=== PATIENT | female | born 1970 | race Caucasian/White ===

== ENCOUNTER 2017-02-28 14:22 | Inpatient (IN) | payer BC, OTHER ==
[2017-02-28] MEDS ORDERED: HEPARIN SODIUM,PORCINE 5,000 UNIT/ML 1 ML VIAL IV PRN (22:05)
[2017-02-28] MEDS ORDERED: HEPARIN SODIUM,PORCINE/D5W PMX 25,000 UNIT in DEXTROSE/WATER 1 500ML.BAG IV SCH (22:15)
[2017-02-28 22:26] VITALS: BMI 43.8
[2017-02-28 23:12] LABS: Basophils % (A) 1 %; CH 34.7; CHCM 33.5; Eosinophils # (A) 0.2 k/uL (0-0.7); Eosinophils % (A) 3 %; HCT 38.4 % (34.0-46.0); HDW 2.21; HGB 12.5 gm/dL (11.4-16.0); Luc # (Auto) 0.08; Luc % (Auto) 2; Lymphocytes % (A) 18 %; MCH 33.9 pg (25.0-35.0); MCHC 32.5 g/dL (31.0-37.0); MCV 104.3 fL (80.0-100.0); Macrocytosis Slight; Mean Platelet Volume 7.3; Monocytes # (A) 0.3 k/uL (0-1.0); Monocytes % (A) 6 %; Neutrophils # (A) 4.1 k/uL (1.3-7.7); Neutrophils % (A) 71 %; RBC 3.68 m/uL (3.80-5.40); RDW 14.3 % (11.5-15.5); WBC 5.8 k/uL (3.8-10.6); WBC (Perox) 6.03
[2017-02-28 23:25] LABS: Partial Thromboplastin Time 23.8 sec (22.0-30.0); Prothrombin Time 10.6 sec (9.0-12.0)
[2017-03-01] MEDS: SODIUM CHLORIDE 0.9% 1,000 ML IV SCH (05:45)
[2017-03-01] MEDS: ATORVASTATIN 40 MG TAB PO SCH (06:38)
[2017-03-01] MEDS: METOPROLOL TARTRATE 25 MG TAB PO SCH ×2 (06:38→20:21)
[2017-03-01] MEDS ORDERED: ASPIRIN 81 MG PO SCH (09:00)
[2017-03-01] MEDS ORDERED: NITROGLYCERIN SL TABS 0.4 MG TAB SUBLINGUAL PRN (10:18)
[2017-03-01] MEDS ORDERED: ALPRAZolam 0.25 MG TAB PO PRN (10:18)
[2017-03-01] MEDS ORDERED: SODIUM CHLORIDE 0.9% 1,000 ML in EMPTY BAG 1 BAG IV ONE (10:18)
[2017-03-01] MEDS ORDERED: ALPRAZolam 0.5 MG TAB PO PRN (10:18)
[2017-03-01] MEDS ORDERED: ASPIRIN 325 MG TAB PO STA (10:23)
[2017-03-01] MEDS ORDERED: ATORVASTATIN 40 MG TAB PO STA (10:23)
--- NOTE | 2017-03-01 10:53 | P.PN ---
Progress Note - Text Please refer to history and physical that was dictated by Dr. Ayala at [facility] (Scanned into [employer]). Patient seen and examined this morning on rounds with Dr. Ayala. Cardiology is consulted. Patient states she is not having chest pain at this time. Denies difficulty breathing. She remains NPO for cardiac catherization. She remains on a heparin drip. IV fluids are infusing at 50cc/hr. Her blood pressure this morning was 103/64. She was hypotensive at 0400 with a BP of 82/58. She is on room air with oxygen saturations of 100%. She is SB to SR on study specialist. Further recommendations to follow.
[2017-03-01] MEDS ORDERED: MIDAZOLAM 2 MG/2 ML VIAL ONE (11:25)
[2017-03-01] MEDS ORDERED: fentaNYL (PF) 50 MCG/ML 2 ML AMP ONE (11:26)
[2017-03-01] MEDS ORDERED: LIDOCAINE 2% INJ 20 MG/ML (20 ML MDV) ONE (11:26)
[2017-03-01] MEDS ORDERED: MIDAZOLAM 2 MG/2 ML VIAL IV ONE (11:37)
[2017-03-01] MEDS ORDERED: fentaNYL (PF) 50 MCG/ML 2 ML AMP IV ONE (11:37)
[2017-03-01] MEDS ORDERED: LIDOCAINE 2% INJ 20 MG/ML SQ ONE (11:40)
[2017-03-01] MEDS ORDERED: SODIUM CHLORIDE 0.9% 1,000 ML IV ONE (11:43)
[2017-03-01] MEDS ORDERED: IODIXANOL 320 MG/ML 100 ML INTRAARTER ONE (12:01)
[2017-03-01] MEDS ORDERED: RX INFO: IV CONTRAST WAS GIVEN 1 EACH MISC MISCELLANE PRN (12:12)
[2017-03-01] MEDS: ASPIRIN 81 MG PO SCH (12:49)
[2017-03-01] MEDS: CLOPIDOGREL 75 MG TAB PO SCH (12:49)
--- NOTE | 2017-03-01 13:14 | CC ---
CARDIAC CATHETERIZATION REPORT Ms. Shultz is a 46-year-old female, who initially presented to [facility] with symptoms of chest pain and nausea and diaphoresis. Patient's initial troponin was normal. Subsequent troponin went up to 4.79 and the third troponin was 4.0. Patient did not have any more chest pain. The CT scan of the chest done at [facility] did not show any evidence of pulmonary embolism. The patient was transferred here for cardiac catheterization. The patient's echocardiogram was normal and EKG did not show any edema changes. The second EKG showed mild T-wave inversions in the inferior leads. PROCEDURE: The right groin was prepped and draped in the usual manner and the skin was infiltrated with 2% Xylocaine. The right femoral artery was entered using Seldinger technique. A #6-Taiwanese sheath was placed in. Selective coronary angiography was then performed in multiple projections and the left ventriculography was performed in 30 degree OSHEA projection. Patient tolerated the procedure well. HEMODYNAMICS: Left ventricular end-diastolic pressure is 12 to 16 mmHg prior to angiography. No gradient is noted across the aortic valve. SELECTIVE CORONARY ANGIOGRAPHY: Left main coronary artery is normally and patent. LAD is a good caliber blood vessel and uses a good size diagonal branch. LAD and its branches are normal. Left circumflex coronary artery is normal. Right coronary artery small nondominant. Left ventriculography reveals normal left ventricular systolic function. FINAL IMPRESSION: 1. This study reveals normal coronary arteries. 2. Left ventriculography reveals normal left ventricular systolic function. Exact etiology of this patient's elevated troponin is unclear. There is no evidence of any pulmonary embolism. It is impossible whether patient had any coronary vasospasm or plaque rupture. We will treat the patient with aspirin, Plavix, Lipitor and Cardizem. If possible we will try to get an MRI as an outpatient. MMODL / IJN: [id number] /
[2017-03-02] MEDS: SODIUM CHLORIDE 0.9% 1,000 ML IV SCH (00:53)
[2017-03-02 06:13] LABS: Basophils % (A) 0 %; CH 33.5; CHCM 31.9; Eosinophils # (A) 0.2 k/uL (0-0.7); Eosinophils % (A) 4 %; HDW 2.22; HGB 12.2 gm/dL (11.4-16.0); Luc # (Auto) 0.05; Luc % (Auto) 1; Lymphocytes # (A) 0.9 k/uL (1.0-4.8); Lymphocytes % (A) 19 %; MCHC 31.3 g/dL (31.0-37.0); MCV 105.5 fL (80.0-100.0); Macrocytosis Moderate; Mean Platelet Volume 6.8; Monocytes # (A) 0.3 k/uL (0-1.0); Monocytes % (A) 6 %; Neutrophils # (A) 3.2 k/uL (1.3-7.7); Neutrophils % (A) 69 %; RDW 13.4 % (11.5-15.5); WBC 4.6 k/uL (3.8-10.6); WBC (Perox) 4.59
[2017-03-02] MEDS: ATORVASTATIN 40 MG TAB PO SCH (09:16)
[2017-03-02] MEDS: CLOPIDOGREL 75 MG TAB PO SCH (09:16)
[2017-03-02] MEDS: ASPIRIN 81 MG PO SCH (09:17)
[2017-03-02] MEDS: METOPROLOL TARTRATE 25 MG TAB PO SCH (09:17)
[2017-03-02 12:33] VITALS: RESP 18
[2017-03-02] MEDS ORDERED: DILTIAZEM CD 180 MG CAP.ER.24H PO STA (12:34)
[2017-03-02 12:38] VITALS: BP 97/71; PULSE 50; TEMP 96.7
--- NOTE | 2017-03-02 13:21 | PN ---
PROGRESS NOTE This patient was admitted with a history suggestive of non-Q-wave myocardial infarction with a maximum troponin of 4.75 was noted. The patient is feeling well. Denies any chest pain. Patient's cardiac catheterization revealed normal coronary arteries. Exact etiology of the patient's elevated troponin, unclear, that could be either secondary to his vasospasm versus plaque rupture. We will continue to treat the patient with aspirin and Plavix, Lipitor and Cardizem. Patient will be followed up with Dr. Luna as an outpatient. A cardiac MRI may be considered as an outpatient. MMODL / IJN: [id number] /
--- NOTE | 2017-03-02 13:37 | P.DS ---
Providers Date of admission: 02/28/17 20:20 Expected date of discharge: 03/02/17 Attending physician: Kg Ayala Consults: 02/28/17 22:01 Consult Physician Routine Consulting Provider: Den Luna Consult Reason/Comments: NSTEMI Do you want consulting provider notified?: Already Contacted Primary care physician: Stated None Hospital Course: 46 year old patient who originally presented to [facility] on with a chief complaint of chest pain. She was transferred to [facility] on 03/01/2017 for further evaluation. Her only history is cervical cancer which she states she was treated with chemo and radiation. No surgical intervention was necessary. The patient does admit to smoking 7-10 cigarettes a day. Patient also smokes marijuana per documented history and physical. Her first troponin was negative, second was 4.79, and third was 4.0. Her echo was normal. Initial EKG did not show any evidence of ischemia. Repeat EKG did show mild t wave inversion in the inferior leads. She underwent a cardiac catherization by Dr. Wyman yesterday, which did not reveal any blockages in her coronary arteries. Per cardiology reports, patient may have had a vasospasm or plaque rupture. Cardiology also recommends possible MRI outpatient. She is stable for discharge home today per Dr. Ayala. Patient is to be discharged home on aspirin, plavix, lipitor, and cardizem. Patient is to follow up with Dr. Ayala and Dr. Wyman. DISCHARGE DIAGNOSIS: -Chest pain, present on admission, resolved -s/p cardiac catherization, showing normal coronary arteries, possible vasospasm or ruptured plaque -Nicotine dependence, patient smokes 7-10 cigarettes daily -History of cervical cancer s/p chemo and radiation -Morbid obesity: BMI 43.6 The above impression and plan of care have been discussed and directed by signing physician. Deedee Huerta, nurse practitioner, acting as scribe for signing physician. Patient Condition at Discharge: Stable Plan - Discharge Summary New Discharge Prescriptions: New Aspirin 81 mg PO DAILY #30 chew Atorvastatin [Lipitor] 40 mg PO DAILY #30 tab Clopidogrel [Plavix] 75 mg PO DAILY #30 tab Nitroglycerin Sl Tabs [Nitrostat] 0.4 mg SUBLINGUAL Q5M PRN #30 tab PRN Reason: Chest Pain Diltiazem Cd [Cardizem CD] 180 mg PO DAILY #90 cap.er.24h Discharge Medication List Aspirin 81 mg PO DAILY #30 chew 03/02/17 [Rx] Atorvastatin [Lipitor] 40 mg PO DAILY #30 tab 03/02/17 [Rx] Clopidogrel [Plavix] 75 mg PO DAILY #30 tab 03/02/17 [Rx] Diltiazem Cd [Cardizem CD] 180 mg PO DAILY #90 cap.er.24h 03/02/17 [Rx] Nitroglycerin Sl Tabs [Nitrostat] 0.4 mg SUBLINGUAL Q5M PRN #30 tab 03/02/17 [Rx ] Follow up Appointment(s)/Referral(s): Den Luna MD [STAFF PHYSICIAN] - 1 Week Kg Ayala DO [Doctor of Osteopathic Medicine] - 1 Week Activity/Diet/Wound Care/Special Instructions: Heart healthy diet Smoking cessation Discharge Disposition: HOME SELF-CARE
[2017-03-03] MEDS ORDERED: DILTIAZEM CD 180 MG CAP.ER.24H PO SCH (09:00)
== END 2017-03-02 14:43 | disposition home or self-care (01) | DRG 287 ==
LOC: 6SEL 20:20
PROVIDERS: ADMIT Family Medicine; ATTEND Family Medicine
PROC: B2111ZZ Fluoroscopy of Multiple Coronary Arteries using Low Osmolar Contrast (ICD-10-PCS; 2017-03-01)
PROC: B2151ZZ Fluoroscopy of Left Heart using Low Osmolar Contrast (ICD-10-PCS; 2017-03-01)
PROC: 4A023N7 Measurement of Cardiac Sampling and Pressure, Left Heart, Percutaneous Approach (ICD-10-PCS; principal; 2017-03-01 11:10)
DX: R07.89 Other chest pain (principal); I95.9 Hypotension, unspecified; Z68.41 Body mass index [BMI] 40.0-44.9, adult; F12.90 Cannabis use, unspecified, uncomplicated; E66.01 Morbid (severe) obesity due to excess calories; F17.210 Nicotine dependence, cigarettes, uncomplicated; Z85.41 Personal history of malignant neoplasm of cervix uteri; Z92.3 Personal history of irradiation; Z92.21 Personal history of antineoplastic chemotherapy; Z71.6 Tobacco abuse counseling
CPT/HCPCS: 84484; 85025; 85610; 85652; 85730; 86140; 93458

== ENCOUNTER 2020-04-12 21:28 | Observation (INO) | payer BC, OTHER ==
[2020-04-12 21:36] LABS: Glucose,Whole Blood 114 mg/dL (75-99)
[2020-04-12] MEDS ORDERED: SODIUM CHLORIDE 0.9% 1,000 ML IV STA (22:35)
--- NOTE | 2020-04-12 22:36 | ED ---
General Adult HPI - General Chief complaint: Weakness Stated complaint: Weakness Time Seen by Provider: 04/12/20 21:30 Source: patient Mode of arrival: ambulatory Limitations: no limitations - History of Present Illness Initial comments: Patient is a 49-year-old female with past medical history of cervical cancer in remission who presents emergency department reporting that she feels weak and "not right. Patient states that she's felt shaky and weak in all 4 extremities all day long. Denies any lateralizing symptoms. No headaches or visual change s. No fevers or chills. Admits chest pain. No shortness of breath. No nausea or vomiting. She has had a poor appetite with poor oral intake and is concerned for dehydration. Patient denies history of diabetes, she denies strokes or cardiac disease. Denies any abdominal pain. No changes in her bowel or bladder habits. No concern for as she is homosexual. No other alleviating, precipitating or modifying factors - Related Data Previous Rx's Medication Instructions Recorded Levothyroxine Sodium [Synthroid] 100 mcg PO DAILY@0630 #30 tab 04/14/20 LORazepam [Ativan] 0.5 mg PO BID 3 Days #6 tab 04/16/20 Allergies Allergy/AdvReac Type Severity Reaction Status Date / Time No Known Allergies Allergy Verified 04/16/20 19:25 Review of Systems ROS Statement: Those systems with pertinent positive or pertinent negative responses have been documented in the HPI. ROS Other: All systems not noted in ROS Statement are negative. Past Medical History Additional Past Medical History / Comment(s): cervical cancer 1.5 years ago with chemo and radiation History of Any Multi-Drug Resistant Organisms: None Reported Past Surgical History: No Surgical Hx Reported Past Anesthesia/Blood Transfusion Reactions: No Reported Reaction Past Psychological History: Anxiety Smoking Status: Current some day smoker Past Alcohol Use History: None Reported Past Drug Use History: Marijuana - Past Family History Mother Family Medical History: Unable to Obtain Father Family Medical History: Unable to Obtain General Exam Limitations: no limitations General appearance: alert, in no apparent distress, anxious Head exam: Present: atraumatic, normocephalic, normal inspection Eye exam: Present: normal appearance, PERRL, EOMI. Absent: scleral icterus, conjunctival injection, periorbital swelling ENT exam: Present: normal exam, mucous membranes moist Neck exam: Present: normal inspection. Absent: tenderness, meningismus, lymphadenopathy Respiratory exam: Present: normal lung sounds bilaterally. Absent: respiratory distress, wheezes, rales, rhonchi, stridor Cardiovascular Exam: Present: regular rate, normal rhythm, normal heart sounds. Absent: systolic murmur, diastolic murmur, rubs, gallop, clicks GI/Abdominal exam: Present: soft, normal bowel sounds. Absent: distended, tenderness, guarding, rebound, rigid Extremities exam: Present: normal inspection, full ROM, normal capillary refill. Absent: tenderness, pedal edema, joint swelling, calf tenderness Back exam: Present: normal inspection Neurological exam: Present: alert, oriented X3, CN II-XII intact Psychiatric exam: Present: normal affect, normal mood Skin exam: Present: warm, dry, intact, normal color. Absent: rash Course Vital Signs 04/12/20 04/12/20 04/12/20 21:31 22:33 22:36 Temperature 97.7 F 98.4 F Pulse Rate 94 84 Pulse Rate [ 84 Sitting] Pulse Rate [ 84 Standing] Pulse Rate [ 79 Supine] Respiratory 18 16 Rate Blood Pressure 141/83 129/86 Blood Pressure 130/94 [Sitting] Blood Pressure 133/93 [Standing] Blood Pressure 115/89 [Supine] O2 Sat by Pulse 99 98 Oximetry 04/12/20 04/13/20 04/13/20 23:00 00:40 04:30 Temperature 97.9 F 98.6 F 98.0 F Pulse Rate 80 88 82 Pulse Rate [ Sitting] Pulse Rate [ Standing] Pulse Rate [ Supine] Respiratory 16 16 16 Rate Blood Pressure 130/78 133/86 105/62 Blood Pressure [Sitting] Blood Pressure [Standing] Blood Pressure [Supine] O2 Sat by Pulse 96 97 96 Oximetry 04/13/20 04/13/20 06:30 09:00 Temperature 97.9 F 96.3 F L Pulse Rate 84 Pulse Rate [ 60 Sitting] Pulse Rate [ Standing] Pulse Rate [ Supine] Respiratory 16 16 Rate Blood Pressure 102/61 Blood Pressure 117/71 [Sitting] Blood Pressure [Standing] Blood Pressure [Supine] O2 Sat by Pulse 95 98 Oximetry EKG Findings - EKG Comments: EKG Findings:: EKG demonstrates normal sinus rhythm with a ventricular rate of 82. VT interval 178. QRS 88. QTC of 429. No acute ST segment elevations or depressions concerning for ischemic changes. There is low voltage. Medical Decision Making - Medical Decision Making Upon arrival patient was placed into room 21. A thorough history and physical exam was performed. Laboratory studies were conducted. Patient went for chest x-ray. Laboratory studies are reviewed and demonstrate an elevated creatinine of 1.2. TSH is greater than 100. Free T4 0.09. These results are discussed the patient. She does disclose to me that she is supposed been thyroid medication however has not taken it in 10 years. She does not remember her previous dose. Chest x-ray demonstrates nodular densities left lower lobe. 12- lead EKG was performed which demonstrates low voltage. Patient was given IV replacement and Synthroid and started on oral Synthroid. I recommended hospital admission in order to trend her troponins and obtain an echo to rule out effusion. Patient agreed to this. She remained in stable condition awaiting a bed - Lab Data Result diagrams: 04/14/20 08:54 04/14/20 08:54 Lab Results 04/12/20 04/12/20 04/12/20 Range/Units 21:35 22:47 22:47 WBC 6.2 (3.8-10.6) k/uL RBC 3.63 L (3.80-5.40) m/uL Hgb 12.5 (11.4-16.0) gm/dL Hct 37.6 (34.0-46.0) % MCV 103.5 H (80.0-100.0) fL MCH 34.4 (25.0-35.0) pg MCHC 33.2 (31.0-37.0) g/dL RDW 12.9 (11.5-15.5) % Plt Count 170 (150-450) k/uL MPV 7.5 Neutrophils % 62 % Lymphocytes % 28 % Monocytes % 4 % Eosinophils % 3 % Basophils % 2 % Neutrophils # 3.8 (1.3-7.7) k/uL Lymphocytes # 1.7 (1.0-4.8) k/uL Monocytes # 0.2 (0-1.0) k/uL Eosinophils # 0.2 (0-0.7) k/uL Basophils # 0.1 (0-0.2) k/uL Macrocytosis Slight PT (9.0-12.0) sec INR (<1.2) APTT (22.0-30.0) sec Sodium (137-145) mmol/L Potassium (3.5-5.1) mmol/L Chloride (98-107) mmol/L Carbon Dioxide (22-30) mmol/L Anion Gap mmol/L BUN (7-17) mg/dL Creatinine (0.52-1.04) mg/dL Est GFR (CKD-EPI)AfAm (>60 ml/min/1.73 sqM) Est GFR (CKD-EPI)NonAf (>60 ml/min/1.73 sqM) Glucose (74-99) mg/dL POC Glucose (mg/dL) 114 H (75-99) mg/dL POC Glu [employer] ID [address] Glu mg/dL Hemoglobin A1c (4.0-6.0) % Plasma Lactic Acid Sky (0.7-2.0) mmol/L Calcium (8.4-10.2) mg/dL Magnesium (1.6-2.3) mg/dL Total Bilirubin (0.2-1.3) mg/dL AST (14-36) U/L ALT (4-34) U/L Alkaline Phosphatase (38-126) U/L Creatine Kinase (30-135) U/L Troponin I (0.000-0.034) ng/mL Total Protein (6.3-8.2) g/dL Albumin (3.5-5.0) g/dL TSH (0.465-4.680) mIU/L Free T4 (0.78-2.19) ng/dL Urine Color Light Yellow Urine Appearance Clear (Clear) Urine pH 6.5 (5.0-8.0) Ur Specific [place] 1.009 (1.001-1.035) Urine Protein Negative (Negative) Urine Glucose (UA) Negative (Negative) Urine Ketones Negative (Negative) Urine Blood Trace H (Negative) Urine Nitrite Negative (Negative) Urine Bilirubin Negative (Negative) Urine Urobilinogen <2.0 (<2.0) mg/dL Ur Leukocyte Esterase Moderate H (Negative) Urine RBC 1 (0-5) /hpf Urine WBC 3 (0-5) /hpf Ur Squamous Epith Cells 1 (0-4) /hpf 04/12/20 04/12/20 04/12/20 Range/Units 22:47 22:47 22:47 WBC (3.8-10.6) k/uL RBC (3.80-5.40) m/uL Hgb (11.4-16.0) gm/dL Hct (34.0-46.0) % MCV (80.0-100.0) fL MCH (25.0-35.0) pg MCHC (31.0-37.0) g/dL RDW (11.5-15.5) % Plt Count (150-450) k/uL MPV Neutrophils % % Lymphocytes % % Monocytes % % Eosinophils % % Basophils % % Neutrophils # (1.3-7.7) k/uL Lymphocytes # (1.0-4.8) k/uL Monocytes # (0-1.0) k/uL Eosinophils # (0-0.7) k/uL Basophils # (0-0.2) k/uL Macrocytosis PT (9.0-12.0) sec INR (<1.2) APTT (22.0-30.0) sec Sodium 134 L (137-145) mmol/L Potassium 4.7 (3.5-5.1) mmol/L Chloride 100 (98-107) mmol/L Carbon Dioxide 27 (22-30) mmol/L Anion Gap 7 mmol/L BUN 17 (7-17) mg/dL Creatinine 1.22 H (0.52-1.04) mg/dL Est GFR (CKD-EPI)AfAm 61 (>60 ml/min/1.73 sqM) Est GFR (CKD-EPI)NonAf 53 (>60 ml/min/1.73 sqM) Glucose 131 H (74-99) mg/dL POC Glucose (mg/dL) (75-99) mg/dL POC Glu Evp Operations ID Estimated Ave Glu mg/dL Hemoglobin A1c (4.0-6.0) % Plasma Lactic Acid Sky 1.3 (0.7-2.0) mmol/L Calcium 9.5 (8.4-10.2) mg/dL Magnesium 2.0 (1.6-2.3) mg/dL Total Bilirubin 0.8 (0.2-1.3) mg/dL AST 36 (14-36) U/L ALT 20 (4-34) U/L Alkaline Phosphatase 71 (38-126) U/L Creatine Kinase 429 H (30-135) U/L Troponin I <0.012 (0.000-0.034) ng/mL Total Protein 8.2 (6.3-8.2) g/dL Albumin 4.7 (3.5-5.0) g/dL TSH >100.000 H (0.465-4.680) mIU/L Free T4 (0.78-2.19) ng/dL Urine Color Urine Appearance (Clear) Urine pH (5.0-8.0) Ur Specific [place] (1.001-1.035) Urine Protein (Negative) Urine Glucose (UA) (Negative) Urine Ketones (Negative) Urine Blood (Negative) Urine Nitrite (Negative) Urine Bilirubin (Negative) Urine Urobilinogen (<2.0) mg/dL Ur Leukocyte Esterase (Negative) Urine RBC (0-5) /hpf Urine WBC (0-5) /hpf Ur Squamous Epith Cells (0-4) /hpf 04/12/20 04/12/20 04/13/20 Range/Units 22:47 22:47 00:20 WBC (3.8-10.6) k/uL RBC (3.80-5.40) m/uL Hgb (11.4-16.0) gm/dL Hct (34.0-46.0) % MCV (80.0-100.0) fL MCH (25.0-35.0) pg MCHC (31.0-37.0) g/dL RDW (11.5-15.5) % Plt Count (150-450) k/uL MPV Neutrophils % % Lymphocytes % % Monocytes % % Eosinophils % % Basophils % % Neutrophils # (1.3-7.7) k/uL Lymphocytes # (1.0-4.8) k/uL Monocytes # (0-1.0) k/uL Eosinophils # (0-0.7) k/uL Basophils # (0-0.2) k/uL Macrocytosis PT 10.6 (9.0-12.0) sec INR 1.0 (<1.2) APTT 22.7 (22.0-30.0) sec Sodium (137-145) mmol/L Potassium (3.5-5.1) mmol/L Chloride (98-107) mmol/L Carbon Dioxide (22-30) mmol/L Anion Gap mmol/L BUN (7-17) mg/dL Creatinine (0.52-1.04) mg/dL Est GFR (CKD-EPI)AfAm (>60 ml/min/1.73 sqM) Est GFR (CKD-EPI)NonAf (>60 ml/min/1.73 sqM) Glucose (74-99) mg/dL POC Glucose (mg/dL) (75-99) mg/dL POC Glu Evp [employer] ID Estimated Ave Glu mg/dL 120 Hemoglobin A1c 5.8 (4.0-6.0) % Plasma Lactic Acid Sky (0.7-2.0) mmol/L Calcium (8.4-10.2) mg/dL Magnesium (1.6-2.3) mg/dL Total Bilirubin (0.2-1.3) mg/dL AST (14-36) U/L ALT (4-34) U/L Alkaline Phosphatase (38-126) U/L Creatine Kinase (30-135) U/L Troponin I (0.000-0.034) ng/mL Total Protein (6.3-8.2) g/dL Albumin (3.5-5.0) g/dL TSH (0.465-4.680) mIU/L Free T4 0.09 L (0.78-2.19) ng/dL Urine Color Urine Appearance (Clear) Urine pH (5.0-8.0) Ur Specific [place] (1.001-1.035) Urine Protein (Negative) Urine Glucose (UA) (Negative) Urine Ketones (Negative) Urine Blood (Negative) Urine Nitrite (Negative) Urine Bilirubin (Negative) Urine Urobilinogen (<2.0) mg/dL Ur Leukocyte Esterase (Negative) Urine RBC (0-5) /hpf Urine WBC (0-5) /hpf Ur Squamous Epith Cells (0-4) /hpf Disposition Clinical Impression: Chest pain, Hypothyroid Disposition: ADMITTED IP TO THIS HOSP Condition: Stable Is patient prescribed a controlled substance at d/c from ED?: No Decision to Admit Reason: Admit from EC Decision Date: 04/13/20 Decision Time: 00:51
[2020-04-12 23:00] LABS: Basophils # (A) 0.1 k/uL (0-0.2); Basophils % (A) 2 %; Eosinophils # (A) 0.2 k/uL (0-0.7); Eosinophils % (A) 3 %; HCT 37.6 % (34.0-46.0); HGB 12.5 gm/dL (11.4-16.0); Lymphocytes # (A) 1.7 k/uL (1.0-4.8); Lymphocytes % (A) 28 %; MCH 34.4 pg (25.0-35.0); MCHC 33.2 g/dL (31.0-37.0); MCV 103.5 fL (80.0-100.0); Macrocytosis Slight; Mean Platelet Volume 7.5; Monocytes # (A) 0.2 k/uL (0-1.0); Monocytes % (A) 4 %; Neutrophils # (A) 3.8 k/uL (1.3-7.7); Neutrophils % (A) 62 %; Platelet Count 170 k/uL (150-450); RBC 3.63 m/uL (3.80-5.40); RDW 12.9 % (11.5-15.5); WBC 6.2 k/uL (3.8-10.6)
--- NOTE | 2020-04-12 23:03 | XR ---
EXAMINATION TYPE: XR chest 2V DATE OF EXAM: 04/12/2020 COMPARISON: NONE HISTORY: Weakness TECHNIQUE: 2 views FINDINGS: Heart and mediastinum are normal. There are no hilar masses. There is no heart failure. The re is 1 cm nodular density and 13 mm nodule in the left lower lung field. There is no pleural effusio n. There is mild subsegmental atelectasis left lung base. IMPRESSION: Nodular densities left lower lobe. Mild subsegmental atelectasis left lung base. Normal h eart.
[2020-04-12 23:10] LABS: ALT 20 U/L (4-34); AST 36 U/L (14-36); African American GFR (CKD) 61 (>60 ml/min/1.73 sqM); Albumin 4.7 g/dL (3.5-5.0); Alkaline Phosphatase 71 U/L (38-126); Anion Gap 7 mmol/L; Blood Urea Nitrogen 17 mg/dL (7-17); Calcium 9.5 mg/dL (8.4-10.2); Carbon Dioxide 27 mmol/L (22-30); Chloride 100 mmol/L (98-107); Creatine Kinase 429 U/L (30-135); Glucose 131 mg/dL (74-99); Non-African American GFR(CKD) 53 (>60 ml/min/1.73 sqM); Potassium 4.7 mmol/L (3.5-5.1); Sodium 134 mmol/L (137-145); Total Bilirubin 0.8 mg/dL (0.2-1.3); Total Protein 8.2 g/dL (6.3-8.2)
[2020-04-12 23:23] LABS: Appearance,Urine Clear (Clear); Bilirubin,Urine Negative (Negative); Blood,Urine Trace (Negative); Color,Urine Light Yellow; Glucose,Urine (UA) Negative (Negative); Ketones,Urine Negative (Negative); Leukocyte Esterase,Urine Moderate (Negative); Nitrite,Urine Negative (Negative); PH, Urine 6.5 (5.0-8.0); Protein,Urine Negative (Negative); RBC,Urine 1 /hpf (0-5); Specific Gravity,Urine 1.009 (1.001-1.035); Squamous Epithelial Cell,Urine 1 /hpf (0-4); Urobilinogen,Urine <2.0 mg/dL (<2.0); WBC,Urine 3 /hpf (0-5)
[2020-04-13] MEDS ORDERED: NALOXONE 0.4 MG/ML 1 ML VIAL IV PRN (00:51)
[2020-04-13 00:59] LABS: Partial Thromboplastin Time 22.7 sec (22.0-30.0); Prothrombin Time 10.6 sec (9.0-12.0)
[2020-04-13] MEDS ORDERED: LEVOTHYROXINE IVP 100 MCG/5 ML VIAL IV STA (01:29)
[2020-04-13] MEDS ORDERED: HYDROcodone/APAP 5-325MG 1 EACH TAB PO STA (02:00)
[2020-04-13] MEDS: SODIUM CHLORIDE 0.9% 1,000 ML IV SCH ×2 (06:18→14:50)
[2020-04-13] MEDS ORDERED: PANTOPRAZOLE 40 MG/10 ML VIAL IVP SCH (09:30)
--- NOTE | 2020-04-13 10:16 | CONS ---
CONSULTATION Mrs. Wilson is a 49-year-old female who presented to the emergency room with symptoms of progressive weakness, lack of energy, going on for a few days. She has been feeling at times some peripheral edema. She has not been eating well. No dyspnea. She has sharp chest discomfort, very localized on and off, but not activity related. She had no palpitation. Some dizziness. No syncope. No PND. No orthopnea. She is reasonably active physically and denies any associated symptoms with her activity. In 2017, she was admitted with elevated troponin. Subsequently underwent cardiac catheterization that showed no evidence of obstructive disease and her left ventricular systolic function was normal. Her coronary risk factors are positive for smoking. No documented hypertension, diabetes. Her lipid profile is not available. She has a history of hypothyroidism, but has not been treated. She was not taking medication at home. REVIEW OF SYSTEMS: RESPIRATORY SYSTEM: No documented history of asthma, emphysema or bronchitis. GI SYSTEM: She has a prior history of bleeding but not recently. No recent nausea, vomiting. SYSTEM: No dysuria or hematuria. NERVOUS SYSTEM: No stroke or seizure. PHYSICAL EXAMINATION: A 49-year-old female, alert, oriented, in no apparent distress. Blood pressure 102/60 with a heart rate in the 80s. HEAD: Normocephalic. EYES: Sclerae nonicteric. NECK: Good upstroke, no bruit, no jugular venous distention. LUNGS: Clear to auscultation. HEART: Regular rate and rhythm, S1, S2. No S3. No S4. No murmur or rub. ABDOMEN: Soft, nontender, positive bowel sounds, no organomegaly. EXTREMITIES: No edema. LAB DATA: Revealed TSH over 100. Troponin less than 0.012. CK of 429, free T4 of 0.09. BUN and creatinine 17 and 1.22. Hemoglobin of 12.5. EKG revealed a sinus mechanism, rate of [address]-segment changes, chest x-ray showed nodular density in the left lower lobe. IMPRESSION: 1. Chest discomfort, atypical for ischemic heart disease. 2. Severe hypothyroidism. 3. Prior history of troponin elevation with normal coronary angiography, normal LV gram. 4. History of smoking. RECOMMENDATION: From the cardiac standpoint, the chest discomfort does not appear to be cardiac in etiology. Patient has been treated for her severe hypothyroidism. An echocardiogram with Doppler will be obtained. At this time, I see no evidence of acute coronary artery syndrome and no indication for further cardiac workup. Thank you for this consult. Will follow with you. MATL / IJN: [id number] /
--- NOTE | 2020-04-13 10:38 | ECHOF ---
Referral Reason:cp, low voltage, acute hypothyroid, r/o effusion MEASUREMENTS -------- HEIGHT: 147.3 cm WEIGHT: 90.7 kg BP: 105/62 RVIDd: 3.0 cm (< 3.3) IVSd: 1.2 cm (0.6 - 1.1) LVIDd: 4.2 cm (3.9 - 5.3) LVPWd: 1.0 cm (0.6 - 1.1) IVSs: 1.6 cm LVIDs: 3.2 cm LVPWs: 1.4 cm LA Diam: 3.6 cm (2.7 - 3.8) LAESV Index (A-L): 24.08 ml/m Ao Diam: 3.0 cm (2.0 - 3.7) AV Cusp: 2.0 cm (1.5 - 2.6) MV EXCURSION: 15.293 mm (> 18.000) MV EF SLOPE: 87 mm/s (70 - 150) EPSS: 0.4 cm RAP: 5.00 mmHg RVSP: 18.74 mmHg FINDINGS -------- Sinus rhythm. This was a technically adequate study. The left ventricular size is normal. There is borderline concentric left ventricular hypertrophy. Overall left ventricular systolic function is low-normal with, an EF between 50 - 55 %. The right ventricle is normal in size. Normal LA size by volume 22+/-6 ml/m2. The right atrial size is normal. Interatrial and interventricular septum intact. The aortic valve is trileaflet, and appears structurally normal. No aortic stenosis or regurgitation. The mitral valve is normal. Mild mitral regurgitation is present. The tricuspid valve appears structurally normal. Mild tricuspid regurgitation present. Right vent ricular systolic pressure is normal at < 35 mmHg. Trace/mild (physiologic) pulmonic regurgitation. The aortic root size is normal. Normal inferior vena cava with normal inspiratory collapse consistent with estimated right atrial pre ssure of 5 mmHg. There is no pericardial effusion. CONCLUSIONS -------- 1. There is borderline concentric left ventricular hypertrophy. 2. Overall left ventricular systolic function is low-normal with, an EF between 50 - 55 %. 3. Normal LA size by volume 22+/-6 ml/m2. 4. The aortic valve is trileaflet, and appears structurally normal. No aortic stenosis or regurgitati on. 5. Mild mitral regurgitation is present. 6. Mild tricuspid regurgitation present. 7. Trace/mild (physiologic) pulmonic regurgitation. 8. There is no pericardial effusion. [employer] REPAIRER: Sofia Hurd RDCS
--- NOTE | 2020-04-13 11:56 | P.HPIM ---
History of Present Illness H&P Date: 04/13/20 Chief Complaint: Chest pain This is a 49-year-old female with past medical history of cervical cancer status post chemo and radiation-patient reports it's in remission, anxiety, ongoing nicotine dependence, marijuana use, prior elevated troponins with cardiac catheterization in 2017 reporting normal/patent coronary arteries with normal LV function and other medical issues presented to the ER with complaints of increasing weakness, shakiness of all 4 extremities accompanied by sharp midsternal, nonradiating, fluctuating chest pain lasting for only a few minutes at a time X few days. Denies shortness of breath. Denies lightheadedness, dizziness or focal deficits. Denies syncope. Patient reports years ago she was diagnosed with hypothyroidism, but has not been taking her levothyroxine for many years. Reports she has been taking Pedialyte, forgets to eat, denies na usea or vomiting, diarrhea, constipation and feels as if she is dehydrated. Denies abdominal pain. Vague historian. EKG reported normal sinus rhythm, troponins negative 3. Echo pending. Afebrile, normal WBC. Hematology unremarkable with the exception of RBCs of 3.63, MCV 103.5, sodium 134, potassium 4.7 BUN 17, creatinine 1.22( baseline 0.87), glucose 131, elevated creatinine kinase of 429, TSH significantly elevated, greater than 100, free T4 0.09. UA reporting moderate leukocytes and WBCs 3, nitrates negative, trace blood. Chest x-ray reported nodular left lower lobe density, with mild subsegmental atelectasis. He receives IV fluid hydration, IV Synthroid with oral Synthroid initiated. Review of Systems ROS Statement: Those systems with pertinent positive or pertinent negative responses have been documented in the HPI. ROS Other: All systems not noted in ROS Statement are negative. Past Medical History Additional Past Medical History / Comment(s): cervical cancer 1.5 years ago with chemo and radiation History of Any Multi-Drug Resistant Organisms: None Reported Past Surgical History: No Surgical Hx Reported Past Anesthesia/Blood Transfusion Reactions: No Reported Reaction Past Psychological History: Anxiety Smoking Status: Current some day smoker Past Alcohol Use History: None Reported Past Drug Use History: Marijuana - Past Family History Mother Family Medical History: Unable to Obtain Father Family Medical History: Unable to Obtain Medications and Allergies Home Medications Medication Instructions Recorded Confirmed Type No Known Home Medications 04/12/20 04/12/20 History Allergies Allergy/AdvReac Type Severity Reaction Status Date / Time No Known Allergies Allergy Verified 04/12/20 23:28 Physical Exam Vitals: Vital Signs Temp Pulse Pulse Pulse Pulse Resp BP 04/13/20 06:30 97.9 F 84 16 102/61 04/13/20 04:30 98.0 F 82 16 105/62 04/13/20 00:40 98.6 F 88 16 133/86 04/12/20 23:00 97.9 F 80 16 130/78 04/12/20 22:36 98.4 F 84 16 129/86 04/12/20 22:33 84 84 79 04/12/20 21:31 97.7 F 94 18 141/83 BP BP BP Pulse Ox 04/13/20 06:30 95 04/13/20 04:30 96 04/13/20 00:40 97 04/12/20 23:00 96 04/12/20 22:36 98 04/12/20 22:33 130/94 133/93 115/89 04/12/20 21:31 99 Intake and Output 04/12/20 04/13/20 04/13/20 22:59 06:59 14:59 Other: Weight 90.718 kg PHYSICAL EXAM: VITAL SIGNS: As above GENERAL: Sitting up on stretcher, no acute distress HEENT: Conjunctivae normal. eyes normal. NECK: No JVD. No thyroid enlargement. No LNs CARDIOVASCULAR: S1, S2 regular.. No murmur RESPIRATION: Breath sounds diminished in the bases. No rhonchi or crackles. No bronchial breathing. ABDOMEN: Soft, nondistended, nontender . No guarding. no masses palpable. No ascites, No hepatosplenomegaly.Bowel sounds heard. LEGS: No edema. no swelling PSYCHIATRY: Alert and oriented X3, mood and affect normal. NERVOUS SYSTEM: Cranial N 2-12 grossly normal. Moves all 4 limbs. No focal deficits. Strength and sensation grossly intact. Skin: Warm and dry, no rash Lymphatic system. No LN neck axilla. Results CBC & Chem 7: 04/12/20 22:47 04/12/20 22:47 Labs: Abnormal Lab Results - Last 24 Hours (Table) 04/12/20 04/12/20 04/12/20 Range/Units 21:35 22:47 22:47 RBC 3.63 L (3.80-5.40) m/uL MCV 103.5 H (80.0-100.0) fL Sodium (137-145) mmol/L Creatinine (0.52-1.04) mg/dL Glucose (74-99) mg/dL POC Glucose (mg/dL) 114 H (75-99) mg/dL Creatine Kinase (30-135) U/L TSH (0.465-4.680) mIU/L Free T4 (0.78-2.19) ng/dL Urine Blood Trace H (Negative) Ur Leukocyte Esterase Moderate H (Negative) 04/12/20 04/12/20 Range/Units 22:47 22:47 RBC (3.80-5.40) m/uL MCV (80.0-100.0) fL Sodium 134 L (137-145) mmol/L Creatinine 1.22 H (0.52-1.04) mg/dL Glucose 131 H (74-99) mg/dL POC Glucose (mg/dL) (75-99) mg/dL Creatine Kinase 429 H (30-135) U/L TSH >100.000 H (0.465-4.680) mIU/L Free T4 0.09 L (0.78-2.19) ng/dL Urine Blood (Negative) Ur Leukocyte Esterase (Negative) Assessment and Plan Assessment: Severe Hypothyroidism, previously diagnosed, noncompliant with medical regimen Acute Chest pain in a patient with prior elevated troponins in 2017 with cardiac cath reporting normal coronary arteries, normal LV function. Acute renal failure Elevated CK Left lower lobe nodular density, further follow-up outpatient. History of cervical cancer status post chemo and radiation Ongoing nicotine dependence Marijuana use Anxiety Plan: Continue on current medication regime ,monitoring and symptomatic treatment. Maintain IV fluid hydration, oral levothyroxine. Cardiology consult in place, recommendations pending. Close monitoring of renal function with repeat labs ordered for a.m. Discharge planning in progress for tomorrow. The impression and plan of care has been dictated as directed. : I performed a history and examination of this patient, discussed the same with the dictator. I agree with the dictator's note ,documented as a scribe. Any additional findings or plans will be noted.
[2020-04-13 20:11] VITALS: RESP 18
[2020-04-13 20:43] LABS: Hemoglobin A1C 5.8 % (4.0-6.0)
[2020-04-14] MEDS: SODIUM CHLORIDE 0.9% 1,000 ML IV SCH (05:52)
[2020-04-14] MEDS ORDERED: LEVOTHYROXINE 100 MCG TAB PO SCH (06:30)
[2020-04-14] MEDS ORDERED: PANTOPRAZOLE 40 MG TABLET PO SCH (07:30)
[2020-04-14 08:08] VITALS: BP 105/68; PULSE 77; TEMP 98.1
[2020-04-14 09:23] LABS: Basophils % (A) 2 %; Eosinophils % (A) 3 %; HCT 36.3 % (34.0-46.0); HGB 11.8 gm/dL (11.4-16.0); Lymphocytes % (A) 12 %; MCH 34.3 pg (25.0-35.0); MCHC 32.6 g/dL (31.0-37.0); MCV 105.1 fL (80.0-100.0); Macrocytosis Slight; Mean Platelet Volume 6.6; Monocytes % (A) 6 %; Neutrophils % (A) 77 %; Platelet Count 230 k/uL (150-450); RBC 3.45 m/uL (3.80-5.40); RDW 12.9 % (11.5-15.5); WBC 4.8 k/uL (3.8-10.6)
[2020-04-14 09:24] LABS: Basophils # (A) 0.1 k/uL (0-0.2); Eosinophils # (A) 0.2 k/uL (0-0.7); Lymphocytes # (A) 0.6 k/uL (1.0-4.8); Monocytes # (A) 0.3 k/uL (0-1.0); Neutrophils # (A) 3.7 k/uL (1.3-7.7)
[2020-04-14 09:33] LABS: Calcium 8.9 mg/dL (8.4-10.2); Potassium 4.2 mmol/L (3.5-5.1)
--- NOTE | 2020-04-14 09:42 | P.PN ---
Subjective Progress Note Date: 04/14/20 HISTORY OF PRESENT ILLNESS: Patient examined this morning at the bedside. She denies chest pain or pressure. She denies shortness of breath. Vital signs are stable. Echocardiogram revealed EF 50-55%, mild mitral regurgitation and mild tricuspid regurgitation. PHYSICAL EXAM: VITAL SIGNS: Reviewed. GENERAL: Well-developed in no acute distress. NECK: Supple. No JVD or thyromegaly LUNGS: Respirations even and unlabored. Lungs essentially clear to auscultation bilaterally. HEART: Regular rate and rhythm. S1 and S2 heard. EXTREMITIES: Normal range of motion. No clubbing or cyanosis. Peripheral pulses intact. No lower extremity edema ASSESSMENT: Atypical chest pain Severe hypothyroidism Prior history of troponin elevation with normal coronary angiography Nicotine dependence PLAN: Patient is stable for discharge from a cardiac perspective. She is to follow up outpatient with Dr. Terrell in 2 weeks. Nurse practitioner note has been reviewed by physician. Signing provider agrees with the documented findings, assessment, and plan of care. Objective - Vital Signs Vital signs: Vital Signs Temp 98.1 F 04/14/20 08:05 Pulse 77 04/14/20 08:05 Resp 18 04/14/20 08:05 BP 105/68 04/14/20 08:05 Pulse Ox 98 04/14/20 08:05 Intake & Output 04/13/20 04/14/20 04/14/20 18:59 06:59 18:59 Intake Total 100 Balance 100 Weight 90.718 kg Intake: Oral 100 Other: Voiding Method Toilet # Voids 2 # Bowel Movements 0 - Labs CBC & Chem 7: 04/14/20 08:54 04/14/20 08:54 Labs: Abnormal Lab Results - Last 24 Hours (Table) 04/14/20 04/14/20 Range/Units 08:54 08:54 RBC 3.45 L (3.80-5.40) m/uL MCV 105.1 H (80.0-100.0) fL Lymphocytes # 0.6 L (1.0-4.8) k/uL Creatinine 1.22 H (0.52-1.04) mg/dL
--- NOTE | 2020-04-14 11:02 | P.DS ---
Providers Date of admission: 04/13/20 00:51 Expected date of discharge: 04/14/20 Attending physician: Kg Ayala Consults: 04/13/20 00:52 Consult Physician Urgent Consulting Provider: [facility] Consult Reason/Comments: acute chest pain Do you want consulting provider notified?: Yes Primary care physician: Kg Ayala [place] Hospital Course: Final diagnoses Severe Hypothyroidism, previously diagnosed, noncompliant with medical regimen Acute Chest pain in a patient with prior elevated troponins in 2017 with cardiac cath reporting normal coronary arteries, normal LV function. Atypical ,No acute coronary syndrome as per cardiology. Acute renal failure, further follow-up outpatient Elevated CK Left lower lobe nodular density, further follow-up outpatient. History of cervical cancer status post chemo and radiation Ongoing nicotine dependence Marijuana use Anxiety Hospital course:This is a 49-year-old female with past medical history of cervical cancer status post chemo and radiation-patient reports it's in remission, anxiety, ongoing nicotine dependence, marijuana use, prior elevated troponins with cardiac catheterization in 2017 reporting normal/patent coronary arteries with normal LV function and other medical issues presented to the ER with complaints of increasing weakness, shakiness of all 4 extremities accompanied by sharp midsternal, nonradiating, fluctuating chest pain lasting for only a few minutes at a time X few days. Denies shortness of breath. Denies lightheadedness, dizziness or focal deficits. Denies syncope. Patient reports years ago she was diagnosed with hypothyroidism, but has not been taking her levothyroxine for many years. Reports she has been taking Pedialyte, forgets to eat, denies nausea or vomiting, diarrhea, constipation and feels as if she is dehydrated. Denies abdominal pain. Vague historian. EKG reported normal sinus rhythm, troponins negative 3. Echo pending. Afebrile, normal WBC. Hematology unremarkable with the exception of RBCs of 3.63, MCV 103.5, sodium 134, potassium 4.7 BUN 17, creatinine 1.22( baseline 0.87), glucose 131, elevated creatinine kinase of 429, TSH significantly elevated, greater than 100, free T4 0.09. UA reporting moderate leukocytes and WBCs 3, nitrates negative, trace blood. Chest x-ray reported nodular left lower lobe density, with mild subsegmental atelectasis. He rece deborah IV fluid hydration, IV Synthroid with oral Synthroid initiated. Received IV fluid hydration with significant clinical improvement. Creatinine remains at 1.22. Patient will be discharged home in a stable condition with guarded prognosis. Patient has been advised that she will need further follow- up outpatient regarding elevated creatinine, lung nodule. Smoking cessation reinforced. A1c 5.8. The impression and plan of care has been dictated as directed. : I performed a history and examination of this patient, discussed the same with the dictator. I agree with the dictator's note ,documented as a scribe. Any additional findings or plans will be noted. Patient Condition at Discharge: Stable Plan - Discharge Summary Discharge Rx Participant: Yes New Discharge Prescriptions: New Levothyroxine Sodium [Synthroid] 100 mcg PO DAILY@0630 #30 tab Discharge Medication List Levothyroxine Sodium [Synthroid] 100 mcg PO DAILY@0630 #30 tab 04/14/20 [Rx] Follow up Appointment(s)/Referral(s): Shelly Terrell MD [STAFF PHYSICIAN] - 04/23/20 9:45 am Kg Ayala DO [Primary Care Provider] - 04/21/20 10:50 am Dany Lim MD [STAFF PHYSICIAN] - 2 Weeks (re lung nodule, pt to call and schedule office didnt answer ) Ambulatory/Diagnostic Orders: Basic Metabolic Panel [LAB.AMB] Time Frame: 3 Days, Location: None Selected Patient Instructions/Handouts: Chest Pain (DC), Hypothyroidism (DC) Activity/Diet/Wound Care/Special Instructions: No NSAIDs Outpatient follow-up regarding lung nodule Repeat thyroid panel in 6 weeks
== END 2020-04-14 10:57 ==
LOC: EC 21:28 → 1SOBS 04-13 00:51
PROVIDERS: ADMIT Family Medicine; ATTEND Family Medicine
DX: R07.89 Other chest pain (principal); E03.9 Hypothyroidism, unspecified; R63.0 Anorexia; F41.9 Anxiety disorder, unspecified; R79.89 Other specified abnormal findings of blood chemistry; T38.1X6A Underdosing of thyroid hormones and substitutes, initial encounter; Z91.128 Patient's intentional underdosing of medication regimen for other reason; R60.0 Localized edema; N17.9 Acute kidney failure, unspecified; R74.8 Abnormal levels of other serum enzymes; F12.90 Cannabis use, unspecified, uncomplicated; R91.1 Solitary pulmonary nodule; J98.11 Atelectasis; F17.200 Nicotine dependence, unspecified, uncomplicated; Z85.41 Personal history of malignant neoplasm of cervix uteri; Z79.890 Hormone replacement therapy; Z79.899 Other long term (current) drug therapy; Z92.3 Personal history of irradiation; Z92.21 Personal history of antineoplastic chemotherapy
CPT/HCPCS: 96361 ×3; 96374; 96375; 99285; 36415 ×2; 93005; 93306; 84439; 80053; 80048; 82550; 83605; 83735; 84443; 84484 ×2; 85025 ×2; 85610; 85730; 81001; 83036; 71046; G0378 ×2; C9113

== ENCOUNTER 2020-04-16 18:43 | Emergency (ER) | payer BC ==
[2020-04-16 18:57] VITALS: RESP 18
[2020-04-16] MEDS ORDERED: ASPIRIN 81 MG PO STA (19:16)
[2020-04-16] MEDS ORDERED: SODIUM CHLORIDE 0.9% 1,000 ML IV STA ×2 (19:16)
[2020-04-16] MEDS ORDERED: LORazepam 2 MG/ML INJ IV STA (19:17)
--- NOTE | 2020-04-16 19:21 | ED ---
Chest Pain HPI - General Source: patient, RN notes reviewed, old records reviewed Mode of arrival: wheelchair Limitations: no limitations <Darlene Carbajal - Last Filed: 04/17/20 03:06> <Korin Morales - Last Filed: 04/17/20 22:16> - General Chief Complaint: Chest Pain Stated Complaint: Revist chest pain Time Seen by Provider: 04/16/20 19:02 - History of Present Illness Initial Comments: 72 is a 49-year-old female presents emergency room today with complaints of thirst heart racing chest discomfort today. She was recently admitted for episodes of chest discomfort was found to have significant hypothyroidism. She was recently started on Synthroid on patient's discharge. Patient states she took the medication today and yesterday. She reports that she wonders if some component of her symptoms are related to anxiety. Patient reports that she had a cardiac evaluation while she was noted to the hospital and had an echocardiogram but does not know the results. (Darlene Carbajal) - Related Data Previous Rx's Medication Instructions Recorded Levothyroxine Sodium [Synthroid] 100 mcg PO DAILY@0630 #30 tab 04/14/20 LORazepam [Ativan] 0.5 mg PO BID 3 Days #6 tab 04/16/20 Allergies Allergy/AdvReac Type Severity Reaction Status Date / Time No Known Allergies Allergy Verified 04/16/20 19:25 Review of Systems ROS Other: All systems not noted in ROS Statement are negative. <Darlene Carbajal - Last Filed: 04/17/20 03:06> ROS Other: All systems not noted in ROS Statement are negative. <Korin Morales - Last Filed: 04/17/20 22:16> ROS Statement: Those systems with pertinent positive or pertinent negative responses have been documented in the HPI. EKG Findings - EKG Comments: EKG Findings:: EKG shows normal sinus rhythm with sinus arrhythmia. Low-voltage QRS. T wave abnormality. Abnormal EKG. Ventricular rate of 71 bpm. Verbal 174 ms. QRS duration is 94 ms. QT QTc is 46/441 ms. <Darlene Carbajal - Last Filed: 04/17/20 03:06> Past Medical History Past Medical History: No Reported History Additional Past Medical History / Comment(s): cervical cancer 1.5 years ago with chemo and radiation History of Any Multi-Drug Resistant Organisms: None Reported Past Surgical History: No Surgical Hx Reported Past Anesthesia/Blood Transfusion Reactions: No Reported Reaction Past Psychological History: Anxiety Smoking Status: Current some day smoker Past Alcohol Use History: None Reported Past Drug Use History: Marijuana - Past Family History Mother Family Medical History: Unable to Obtain Father Family Medical History: Unable to Obtain <Darlene Carbajal - Last Filed: 04/17/20 03:06> General Exam Limitations: no limitations General appearance: alert, in no apparent distress Head exam: Present: atraumatic, normocephalic, normal inspection Eye exam: Present: normal appearance, PERRL, EOMI. Absent: scleral icterus, conjunctival injection, periorbital swelling ENT exam: Present: normal exam Neck exam: Present: normal inspection. Absent: tenderness, meningismus, lymphadenopathy Respiratory exam: Present: normal lung sounds bilaterally. Absent: respiratory distress, wheezes, rales, rhonchi, stridor Cardiovascular Exam: Present: regular rate, normal rhythm, normal heart sounds. Absent: systolic murmur, diastolic murmur, rubs, gallop, clicks GI/Abdominal exam: Present: soft, normal bowel sounds. Absent: distended, tenderness, guarding, rebound, rigid Extremities exam: Present: normal inspection, full ROM, normal capillary refill. Absent: tenderness, pedal edema, joint swelling, calf tenderness Back exam: Present: normal inspection Neurological exam: Present: alert, oriented X3, CN II-XII intact Psychiatric exam: Present: normal affect, normal mood Skin exam: Present: warm, dry, intact, normal color. Absent: rash <Darlene Carbajal - Last Filed: 04/17/20 03:06> - General Exam Comments Initial Comments: 49-year-old female. Anxious. (Darlene Carbajal) Course Vital Signs 04/16/20 04/16/20 04/16/20 18:54 20:25 20:44 Temperature 98.5 F Pulse Rate 75 78 Pulse Rate [ 78 Eligibility And Occupancy Interviewer ] Respiratory 18 18 Rate Blood Pressure 126/82 106/54 O2 Sat by Pulse 100 98 Oximetry 04/16/20 22:04 Temperature 98.0 F Pulse Rate 67 Pulse Rate [ Eligibility And Occupancy Interviewer ] Respiratory 18 Rate Blood Pressure 100/70 O2 Sat by Pulse 99 Oximetry Chest Pain MDM <Darlene Carbajal - Last Filed: 04/17/20 03:06> <Korin Morales - Last Filed: 04/17/20 22:16> - [facility] 49-year-old female presents with complaints of anxiety and chest discomfort. Complains of fatigue and thirst. She was recently seen in the hospital admitted for hypothyroidism. She started on Synthroid. She presents of her symptoms are related to starting a new Synthroid medication. While Patient was spinning hospital she did have cardiac evaluation has a clinic appointment in 2 weeks. The same EKG was reviewed and normal. Patient's chest x-ray was reviewed. Multiple bilateral pulmonary nodules are unchanged. Normal heart. Troponin labs are otherwise unremarkable. Patient was reevaluated after seeming Ativan and improved with her symptoms of anxiety. I did discuss that Patient can be discharged home with follow-up with her PCP she didn't have cardiac evaluation this week. (Darlene Carbajal) I was available for consultation in the emergency department. The history and physical exam were done by the midlevel provider. I was consulted for this patients care. I reviewed the case with the midlevel provider and based on their presentation of the patient, I agree with the assessment, medical decision making and plan of care as documented. Chart was dictated using [employer] dictation software. Attempts were made to correct any dictation errors however some typographical errors may persist. Patient seen during the Covid-19 pandemic. (Korin Morales) Disposition Is patient prescribed a controlled substance at d/c from ED?: No Time of Disposition: 21:56 <Darlene Carbajal - Last Filed: 04/17/20 03:06> <Korin Morales - Last Filed: 04/17/20 22:16> Clinical Impression: Atypical chest pain, Anxiety Disposition: HOME SELF-CARE Condition: Good Instructions (If sedation given, give patient instructions): Chest Pain (ED) Additional Instructions: Pt advised to to follow-up with Dr. Ayala out patiently this week and follow-up with cardiology as scheduled. Continue to take the thyroid medicine as prescribed. Please follow up with family doctor if symptoms have not improved over the next two days. Please return to the emergency room if your symptoms increase or worsen or for any other concerns. Prescriptions: LORazepam [Ativan] 0.5 mg PO BID 3 Days #6 tab Referrals: Kg Ayala DO [Primary Care Provider] - 1-2 days
[2020-04-16 20:09] LABS: Basophils % (A) 1 %; Eosinophils # (A) 0.1 k/uL (0-0.7); Eosinophils % (A) 3 %; HCT 36.8 % (34.0-46.0); HGB 12.1 gm/dL (11.4-16.0); Lymphocytes # (A) 0.7 k/uL (1.0-4.8); Lymphocytes % (A) 15 %; MCH 34.1 pg (25.0-35.0); MCV 103.5 fL (80.0-100.0); Macrocytosis Slight; Mean Platelet Volume 6.8; Monocytes # (A) 0.3 k/uL (0-1.0); Monocytes % (A) 5 %; Neutrophils # (A) 3.5 k/uL (1.3-7.7); Neutrophils % (A) 75 %; Platelet Count 227 k/uL (150-450); RBC 3.56 m/uL (3.80-5.40); RDW 13.6 % (11.5-15.5); WBC 4.6 k/uL (3.8-10.6)
[2020-04-16 20:11] LABS: ALT 16 U/L (4-34); AST 34 U/L (14-36); African American GFR (CKD) 70 (>60 ml/min/1.73 sqM); Albumin 4.1 g/dL (3.5-5.0); Alkaline Phosphatase 75 U/L (38-126); Anion Gap 7 mmol/L; Blood Urea Nitrogen 15 mg/dL (7-17); Calcium 9.2 mg/dL (8.4-10.2); Carbon Dioxide 23 mmol/L (22-30); Chloride 106 mmol/L (98-107); Glucose 101 mg/dL (74-99); Lipase 197 U/L (23-300); Magnesium 1.9 mg/dL (1.6-2.3); Non-African American GFR(CKD) 61 (>60 ml/min/1.73 sqM); Potassium 3.8 mmol/L (3.5-5.1); Sodium 136 mmol/L (137-145); Total Bilirubin 0.6 mg/dL (0.2-1.3)
[2020-04-16 20:25] LABS: Partial Thromboplastin Time 25.1 sec (22.0-30.0); Prothrombin Time 10.3 sec (9.0-12.0)
--- NOTE | 2020-04-16 20:44 | XR ---
EXAMINATION TYPE: XR chest 2V DATE OF EXAM: 04/16/2020 COMPARISON: 04/12/2020 HISTORY: Chest pain TECHNIQUE: FINDINGS: Heart and mediastinum are normal. There are small nodular densities in both lungs. These me asure up to 1 cm. There are no hilar masses. There are chest leads. Bony thorax is intact. IMPRESSION: Multiple bilateral pulmonary nodules unchanged. Normal heart.
[2020-04-16 21:14] LABS: T4, Free (Free Thyroxine) 0.57 ng/dL (0.78-2.19)
[2020-04-16 22:13] VITALS: BP 100/70; PULSE 67; TEMP 98
== END 2020-04-16 22:04 | disposition home or self-care (01) ==
LOC: EC 18:43
DX: F41.9 Anxiety disorder, unspecified (principal); R07.89 Other chest pain; E03.9 Hypothyroidism, unspecified; R91.8 Other nonspecific abnormal finding of lung field; F17.200 Nicotine dependence, unspecified, uncomplicated; Z85.41 Personal history of malignant neoplasm of cervix uteri; Z92.21 Personal history of antineoplastic chemotherapy; Z92.3 Personal history of irradiation
CPT/HCPCS: 36415; 93005; 84439; 83880; 80053; 84443; 83690; 83735; 84484; 85025; 85610; 85730; 71046; 99285; 96374; 96361; J2060

== ENCOUNTER 2020-04-25 19:22 | Emergency (ER) | payer BC ==
[2020-04-25 19:39] VITALS: RESP 16
[2020-04-25] MEDS ORDERED: LORazepam 2 MG/ML INJ IV STA (19:44)
--- NOTE | 2020-04-25 19:57 | ED ---
General Adult HPI - General Chief complaint: Chest Pain Stated complaint: +COVID,weakness Time Seen by Provider: 04/25/20 19:32 Source: patient, EMS Mode of arrival: EMS Limitations: no limitations - History of Present Illness Initial comments: 49 yo female presenting for racing heart, chest discomfort since 2PM after coffee, recently diagnosed with covid 19. Patient states that since diagnosis of covid and thyroid disease she has had some intermittent chest pressure/palpitations and at time dyspnea. Patient states at times his pressure feels like she can't expand her lungs. Today patient has had increasing pressure after drinking an 8oz cup of caffinated coffee around 2 PM. Denies changes in pain wtih ambulation. Denies dyspnea. she states she became anxious, heart racing and was clenching her jaw. She also states she has felt more anxious with the levothyroxine dose she is on and was states she is supposed to take PRN for this side effect. Patient states she is scared to start the Ativan because she does not want become addicted. Patient denies any dyspnea, fevers. Denies arm pain, nausea, confusion. Denies diarrhea, rashes, leg swelling or hemoptysis. patient denies additional complaints appears nontoxic on arrival. Patient states she feels silly for being here because the more she thinks about it she has not drank coffee is months and this was the first time and believes it is a reaction. - Related Data Previous Rx's Medication Instructions Recorded Levothyroxine Sodium [Synthroid] 100 mcg PO DAILY@0630 #30 tab 04/14/20 LORazepam [Ativan] 0.5 mg PO BID 3 Days #6 tab 04/16/20 Azithromycin [Zithromax Z-pack (6 0 mg PO DIRECTED 5 Days #6 tab 04/25/20 tabs)] Allergies Allergy/AdvReac Type Severity Reaction Status Date / Time No Known Allergies Allergy Verified 04/25/20 20:19 Review of Systems ROS Statement: Those systems with pertinent positive or pertinent negative responses have been documented in the HPI. ROS Other: All systems not noted in ROS Statement are negative. Past Medical History Past Medical History: No Reported History Additional Past Medical History / Comment(s): cervical cancer 1.5 years ago with chemo and radiation History of Any Multi-Drug Resistant Organisms: None Reported Past Surgical History: No Surgical Hx Reported Past Anesthesia/Blood Transfusion Reactions: No Reported Reaction Past Psychological History: Anxiety Smoking Status: Current some day smoker Past Alcohol Use History: None Reported Past Drug Use History: Marijuana - Past Family History Mother Family Medical History: Unable to Obtain Father Family Medical History: Unable to Obtain General Exam - General Exam Comments Initial Comments: General: The patient is awake and alert, in no distress Eye: Pupils are equal, round and reactive to light, extra-ocular movements are intact. No nystagmus. There is normal conjunctiva bilaterally. No signs of icterus. Ears, nose, mouth and throat: There are moist mucous membranes and no oral lesions. Neck: The neck is supple, there is no tenderness or JVD. Cardiovascular: There is a regular rate and rhythm. No murmur, rub or gallop is appreciated. Respiratory: Lungs are clear to auscultation, respirations are non-labored, breath sounds are equal. No wheezes, stridor, rales, or rhonchi. Gastrointestinal: Soft, non-distended, non-tender abdomen without masses or organomegaly noted. There is no rebound or guarding present. - Musculoskeletal: Normal ROM, no tenderness. Strength 5/5. Sensation intact. Radial pulses equal bilaterally 2+. Neurological: A&O x 3. CN II-XII intact grossly, There are no obvious motor or sensory deficits. Coordination appears grossly intact. Speech is normal. Skin: Skin is warm and dry and no rashes or lesions are noted. No LE edema. Psychiatric: Cooperative, appropriate mood & affect, normal judgment. Limitations: no limitations Course Vital Signs 04/25/20 04/25/20 04/25/20 19:35 20:00 21:00 Temperature 98.7 F Pulse Rate 72 62 58 L Respiratory 16 16 16 Rate Blood Pressure 119/84 102/77 96/67 O2 Sat by Pulse 99 96 96 Oximetry 04/25/20 04/25/20 22:00 23:30 Temperature 98.0 F Pulse Rate 57 L 67 Respiratory 16 16 Rate Blood Pressure 102/75 107/79 O2 Sat by Pulse 98 97 Oximetry Medical Decision Making - Medical Decision Making Labs stable. TSH elevated however T4 within acceptable limits. pt states she believes she has anxiety and thinks its was worsened from the coffee. patient CXR some developing infiltrates. patient other villegas is not hypoxic nor tachycardic. pt 2 troponins (-). No concerning EKG changes. discussed case with Dr. Costello in detail who is agreeable to discharge at this time with PCP f/u and return for worsening symptoms. pt agreeable to this care plan. pt is to f/u with cardiology as scheduled. - Lab Data Result diagrams: 04/25/20 20:00 04/25/20 20:00 Lab Results 04/25/20 04/25/20 04/25/20 Range/Units 20:00 20:00 20:00 WBC 5.1 (3.8-10.6) k/uL RBC 3.53 L (3.80-5.40) m/uL Hgb 11.7 (11.4-16.0) gm/dL Hct 36.3 (34.0-46.0) % MCV 102.7 H (80.0-100.0) fL MCH 33.2 (25.0-35.0) pg MCHC 32.3 (31.0-37.0) g/dL RDW 13.8 (11.5-15.5) % Plt Count 243 (150-450) k/uL MPV 6.9 Neutrophils % 74 % Lymphocytes % 18 % Monocytes % 5 % Eosinophils % 2 % Basophils % 1 % Neutrophils # 3.7 (1.3-7.7) k/uL Lymphocytes # 0.9 L (1.0-4.8) k/uL Monocytes # 0.3 (0-1.0) k/uL Eosinophils # 0.1 (0-0.7) k/uL Basophils # 0.0 (0-0.2) k/uL Macrocytosis Slight PT 10.5 (9.0-12.0) sec INR 1.0 (<1.2) APTT 23.3 (22.0-30.0) sec Sodium 140 (137-145) mmol/L Potassium 3.7 (3.5-5.1) mmol/L Chloride 108 H (98-107) mmol/L Carbon Dioxide 26 (22-30) mmol/L Anion Gap 6 mmol/L BUN 15 (7-17) mg/dL Creatinine 0.84 (0.52-1.04) mg/dL Est GFR (CKD-EPI)AfAm >90 (>60 ml/min/1.73 sqM) Est GFR (CKD-EPI)NonAf 83 (>60 ml/min/1.73 sqM) Glucose 97 (74-99) mg/dL Calcium 9.2 (8.4-10.2) mg/dL Magnesium 1.8 (1.6-2.3) mg/dL Total Bilirubin 0.5 (0.2-1.3) mg/dL AST 24 (14-36) U/L ALT 11 (4-34) U/L Alkaline Phosphatase 70 (38-126) U/L Troponin I (0.000-0.034) ng/mL Total Protein 6.6 (6.3-8.2) g/dL Albumin 3.9 (3.5-5.0) g/dL TSH 67.200 H (0.465-4.680) mIU/L Free T4 1.29 (0.78-2.19) ng/dL 04/25/20 04/25/20 Range/Units 20:00 22:20 WBC (3.8-10.6) k/uL RBC (3.80-5.40) m/uL Hgb (11.4-16.0) gm/dL Hct (34.0-46.0) % MCV (80.0-100.0) fL MCH (25.0-35.0) pg MCHC (31.0-37.0) g/dL RDW (11.5-15.5) % Plt Count (150-450) k/uL MPV Neutrophils % % Lymphocytes % % Monocytes % % Eosinophils % % Basophils % % Neutrophils # (1.3-7.7) k/uL Lymphocytes # (1.0-4.8) k/uL Monocytes # (0-1.0) k/uL Eosinophils # (0-0.7) k/uL Basophils # (0-0.2) k/uL Macrocytosis PT (9.0-12.0) sec INR (<1.2) APTT (22.0-30.0) sec Sodium (137-145) mmol/L Potassium (3.5-5.1) mmol/L Chloride (98-107) mmol/L Carbon Dioxide (22-30) mmol/L Anion Gap mmol/L BUN (7-17) mg/dL Creatinine (0.52-1.04) mg/dL Est GFR (CKD-EPI)AfAm (>60 ml/min/1.73 sqM) Est GFR (CKD-EPI)NonAf (>60 ml/min/1.73 sqM) Glucose (74-99) mg/dL Calcium (8.4-10.2) mg/dL Magnesium (1.6-2.3) mg/dL Total Bilirubin (0.2-1.3) mg/dL AST (14-36) U/L ALT (4-34) U/L Alkaline Phosphatase (38-126) U/L Troponin I <0.012 <0.012 (0.000-0.034) ng/mL Total Protein (6.3-8.2) g/dL Albumin (3.5-5.0) g/dL TSH (0.465-4.680) mIU/L Free T4 (0.78-2.19) ng/dL Disposition Clinical Impression: Anxiety, Palpitations, Chest discomfort Disposition: HOME SELF-CARE Condition: Good Instructions (If sedation given, give patient instructions): Chest Pain (ED) Additional Instructions: Please use medication as discussed. Please follow-up with family doctor in the next 2 days. Please return to emergency room if the symptoms increase or worsen or for any other concerns. Prescriptions: Azithromycin [Zithromax Z-pack (6 tabs)] 0 mg PO DIRECTED 5 Days #6 tab Is patient prescribed a controlled substance at d/c from ED?: No Referrals: Kg Ayala DO [Primary Care Provider] - 1-2 days Time of Disposition: 23:06
[2020-04-25 20:14] LABS: Basophils % (A) 1 %; Eosinophils # (A) 0.1 k/uL (0-0.7); Eosinophils % (A) 2 %; HCT 36.3 % (34.0-46.0); HGB 11.7 gm/dL (11.4-16.0); Lymphocytes # (A) 0.9 k/uL (1.0-4.8); Lymphocytes % (A) 18 %; MCH 33.2 pg (25.0-35.0); MCHC 32.3 g/dL (31.0-37.0); MCV 102.7 fL (80.0-100.0); Macrocytosis Slight; Mean Platelet Volume 6.9; Monocytes # (A) 0.3 k/uL (0-1.0); Monocytes % (A) 5 %; Neutrophils # (A) 3.7 k/uL (1.3-7.7); Neutrophils % (A) 74 %; Platelet Count 243 k/uL (150-450); RBC 3.53 m/uL (3.80-5.40); RDW 13.8 % (11.5-15.5); WBC 5.1 k/uL (3.8-10.6)
[2020-04-25 20:19] LABS: Partial Thromboplastin Time 23.3 sec (22.0-30.0); Prothrombin Time 10.5 sec (9.0-12.0)
[2020-04-25 20:33] LABS: ALT 11 U/L (4-34); AST 24 U/L (14-36); African American GFR (CKD) >90 (>60 ml/min/1.73 sqM); Albumin 3.9 g/dL (3.5-5.0); Alkaline Phosphatase 70 U/L (38-126); Anion Gap 6 mmol/L; Blood Urea Nitrogen 15 mg/dL (7-17); Calcium 9.2 mg/dL (8.4-10.2); Carbon Dioxide 26 mmol/L (22-30); Chloride 108 mmol/L (98-107); Glucose 97 mg/dL (74-99); Magnesium 1.8 mg/dL (1.6-2.3); Non-African American GFR(CKD) 83 (>60 ml/min/1.73 sqM); Potassium 3.7 mmol/L (3.5-5.1); Sodium 140 mmol/L (137-145); Total Bilirubin 0.5 mg/dL (0.2-1.3); Total Protein 6.6 g/dL (6.3-8.2)
--- NOTE | 2020-04-25 20:48 | XR ---
EXAMINATION TYPE: XR chest 2V DATE OF EXAM: 04/25/2020 COMPARISON: 04/16/2020. HISTORY: Chest pain. TECHNIQUE: Frontal and lateral views of the chest are obtained. FINDINGS: There is subtle bilateral mild nodular opacity. No pleural effusion, or pneumothorax seen. The cardiac silhouette size is within normal limits. The osseous structures are intact. IMPRESSION: Subtle mild opacity, concerning for infiltrates.
[2020-04-25 21:31] LABS: T4, Free (Free Thyroxine) 1.29 ng/dL (0.78-2.19)
[2020-04-26 00:04] VITALS: BP 107/79; PULSE 67; TEMP 98
== END 2020-04-26 00:03 | disposition home or self-care (01) ==
LOC: EC 19:22
DX: R00.2 Palpitations (principal); R07.89 Other chest pain; F41.9 Anxiety disorder, unspecified; F17.200 Nicotine dependence, unspecified, uncomplicated; Z85.41 Personal history of malignant neoplasm of cervix uteri; Z92.21 Personal history of antineoplastic chemotherapy; Z92.3 Personal history of irradiation
CPT/HCPCS: 36415; 93005; 84439; 80053; 84443; 83735; 84484; 85025; 85610; 85730; 71046; 99285; 96374; J2060

== ENCOUNTER 2020-06-20 14:32 | Inpatient (IN) | payer BC ==
[2020-06-20] MEDS ORDERED: SODIUM CHLORIDE 0.9% 1,000 ML IV STA (15:02)
--- NOTE | 2020-06-20 15:07 | ED ---
Abdominal Pain HPI - General Chief Complaint: Abdominal Pain Stated Complaint: Chest/Abd Pain Time Seen by Provider: 06/20/20 14:43 Source: patient Mode of arrival: ambulatory Limitations: no limitations - History of Present Illness Initial Comments: 49-year-old female with history of cervical cancer presenting to the emergency department with multiple chief complaints. Patient states she had developed some abdominal discomfort about 2 weeks ago and was diagnosed with a urinary tract infection by the primary care physician and started on Bactrim. Patient reports she finished a course of Bactrim and her symptoms disappeared, however now they have returned. She does report increased urgency but denies any dysuria or increased frequency. Patient reports diffuse abdominal discomfort that starts near the pelvic region and goes to the upper epigastric region. Patient reports upper epigastric pressure but denies any associated shortness of breath. States he has felt constipated and having very small bowel movements over the last 2-3 weeks. She reports taking Colace with no significant improvement in symptoms. Reports 2 days ago she has noticed some bright red blood when wiping which she believes it might be vaginal bleeding. Patient states she is not sexually active and has a lot of vaginal scarring secondary to chemo and radiation for cervical cancer. She states that she needs to be "knocked out" to have the pelvic exam. Last menstrual period 4 years ago after she underwent chemo and radiation.she denies any diaphoretic episodes, lightheadedness, dizziness.she denies nausea vomiting diarrhea - Related Data Home Medications Medication Instructions Recorded Confirmed Levothyroxine Sodium [Synthroid] 75 mcg PO DAILY 06/20/20 06/20/20 Allergies Allergy/AdvReac Type Severity Reaction Status Date / Time No Known Allergies Allergy Verified 06/20/20 17:11 Review of Systems ROS Statement: Those systems with pertinent positive or pertinent negative responses have been documented in the HPI. ROS Other: All systems not noted in ROS Statement are negative. Past Medical History Past Medical History: No Reported History Additional Past Medical History / Comment(s): cervical cancer 1.5 years ago with chemo and radiation History of Any Multi-Drug Resistant Organisms: None Reported Past Surgical History: No Surgical Hx Reported Past Anesthesia/Blood Transfusion Reactions: No Reported Reaction Past Psychological History: Anxiety Smoking Status: Current some day smoker Past Alcohol Use History: None Reported Past Drug Use History: Marijuana - Past Family History Mother Family Medical History: Unable to Obtain Father Family Medical History: Unable to Obtain General Exam Limitations: no limitations General appearance: alert, in no apparent distress, obese Head exam: Present: atraumatic, normocephalic, normal inspection Eye exam: Present: normal appearance, PERRL, EOMI Pupils: Present: normal accommodation ENT exam: Present: normal exam, normal oropharynx, mucous membranes moist Neck exam: Present: normal inspection, full ROM. Absent: tenderness Respiratory exam: Present: normal lung sounds bilaterally. Absent: respiratory distress Cardiovascular Exam: Present: regular rate, normal rhythm, normal heart sounds GI/Abdominal exam: Present: soft, tenderness (mild, diffuse abdominal tenderness), normal bowel sounds. Absent: distended, guarding, rebound, rigid Extremities exam: Present: normal inspection, full ROM, normal capillary refill, other (palpable DP and PT bilaterally.). Absent: tenderness, pedal edema, joint swelling, calf tenderness Back exam: Present: normal inspection, full ROM. Absent: tenderness, CVA tenderness (R), CVA tenderness (L) Neurological exam: Present: alert, oriented X3, normal gait Psychiatric exam: Present: normal affect, normal mood Skin exam: Present: warm, dry, intact, normal color Course Vital Signs 06/20/20 06/20/20 06/20/20 14:34 15:44 16:41 Temperature 98 F Pulse Rate 72 74 88 Respiratory 18 18 16 Rate Blood Pressure 125/85 119/87 117/85 O2 Sat by Pulse 98 100 96 Oximetry Medical Decision Making - Medical Decision Making 49-year-old female with history of cervical cancer presents to the emergency department with multiple chief complaints. On physical examination, she has dif fuse, mild abdominal tenderness. CT of the pelvis revealsand irregular mass in the lower pole of the left kidney suspicious for tumor. There are additional hypodense foci in bilateral kidneys. There is a large right adrenal mass consistent with a tumor. Multiple hypodense foci in the liver consistent with metastatic disease. There are multiple nodules in the lung bases which are suggestive of metastatic disease. There is also small subcutaneous nodule seen the lumbar spine and anterior right abdomen of uncertain significance. Patient was given Tylenol for symptomatically relief per her request. CBC CMP was unremarkable.patient will be admitted for further medical management. Case d iscussed with Dr. Walker Admitting physician is Dr. Cueva Oncology consulted Urology consulted - Lab Data Result diagrams: 06/20/20 15:54 06/20/20 15:54 Lab Results 06/20/20 06/20/20 06/20/20 Range/Units 15:54 15:54 15:54 WBC 5.7 (3.8-10.6) k/uL RBC 3.56 L (3.80-5.40) m/uL Hgb 11.7 (11.4-16.0) gm/dL Hct 35.2 (34.0-46.0) % MCV 98.8 (80.0-100.0) fL MCH 32.7 (25.0-35.0) pg MCHC 33.1 (31.0-37.0) g/dL RDW 13.2 (11.5-15.5) % Plt Count 237 (150-450) k/uL MPV 7.0 Neutrophils % 76 % Lymphocytes % 14 % Monocytes % 6 % Eosinophils % 3 % Basophils % 1 % Neutrophils # 4.3 (1.3-7.7) k/uL Lymphocytes # 0.8 L (1.0-4.8) k/uL Monocytes # 0.3 (0-1.0) k/uL Eosinophils # 0.2 (0-0.7) k/uL Basophils # 0.0 (0-0.2) k/uL Sodium 137 (137-145) mmol/L Potassium 3.8 (3.5-5.1) mmol/L Chloride 106 (98-107) mmol/L Carbon Dioxide 24 (22-30) mmol/L Anion Gap 7 mmol/L BUN 12 (7-17) mg/dL Creatinine 0.75 (0.52-1.04) mg/dL Est GFR (CKD-EPI)AfAm >90 (>60 ml/min/1.73 sqM) Est GFR (CKD-EPI)NonAf >90 (>60 ml/min/1.73 sqM) Glucose 105 H (74-99) mg/dL Calcium 9.2 (8.4-10.2) mg/dL Total Bilirubin 0.3 (0.2-1.3) mg/dL AST 35 (14-36) U/L ALT 14 (4-34) U/L Alkaline Phosphatase 87 (38-126) U/L Troponin I (0.000-0.034) ng/mL Total Protein 6.4 (6.3-8.2) g/dL Albumin 3.8 (3.5-5.0) g/dL Lipase 136 (23-300) U/L Urine Color Yellow Urine Appearance Clear (Clear) Urine pH 6.0 (5.0-8.0) Ur Specific [place] 1.016 (1.001-1.035) Urine Protein Negative (Negative) Urine Glucose (UA) Negative (Negative) Urine Ketones Negative (Negative) Urine Blood Negative (Negative) Urine Nitrite Negative (Negative) Urine Bilirubin Negative (Negative) Urine Urobilinogen <2.0 (<2.0) mg/dL Ur Leukocyte Esterase Trace H (Negative) Urine RBC 2 (0-5) /hpf Urine WBC 4 (0-5) /hpf Urine Mucus Rare H (None) /hpf 06/20/20 Range/Units 15:54 WBC (3.8-10.6) k/uL RBC (3.80-5.40) m/uL Hgb (11.4-16.0) gm/dL Hct (34.0-46.0) % MCV (80.0-100.0) fL MCH (25.0-35.0) pg MCHC (31.0-37.0) g/dL RDW (11.5-15.5) % Plt Count (150-450) k/uL MPV Neutrophils % % Lymphocytes % % Monocytes % % Eosinophils % % Basophils % % Neutrophils # (1.3-7.7) k/uL Lymphocytes # (1.0-4.8) k/uL Monocytes # (0-1.0) k/uL Eosinophils # (0-0.7) k/uL Basophils # (0-0.2) k/uL Sodium (137-145) mmol/L Potassium (3.5-5.1) mmol/L Chloride (98-107) mmol/L Carbon Dioxide (22-30) mmol/L Anion Gap mmol/L BUN (7-17) mg/dL Creatinine (0.52-1.04) mg/dL Est GFR (CKD-EPI)AfAm (>60 ml/min/1.73 sqM) Est GFR (CKD-EPI)NonAf (>60 ml/min/1.73 sqM) Glucose (74-99) mg/dL Calcium (8.4-10.2) mg/dL Total Bilirubin (0.2-1.3) mg/dL AST (14-36) U/L ALT (4-34) U/L Alkaline Phosphatase (38-126) U/L Troponin I <0.012 (0.000-0.034) ng/mL Total Protein (6.3-8.2) g/dL Albumin (3.5-5.0) g/dL Lipase (23-300) U/L Urine Color Urine Appearance (Clear) Urine pH (5.0-8.0) Ur Specific [place] (1.001-1.035) Urine Protein (Negative) Urine Glucose (UA) (Negative) Urine Ketones (Negative) Urine Blood (Negative) Urine Nitrite (Negative) Urine Bilirubin (Negative) Urine Urobilinogen (<2.0) mg/dL Ur Leukocyte Esterase (Negative) Urine RBC (0-5) /hpf Urine WBC (0-5) /hpf Urine Mucus (None) /hpf - EKG Data EKG Comments: sinus rhythm with sinus arrhythmia Ventricular rate 69, MI 172, QRS 80, QTC 417 Disposition Clinical Impression: Abdominal pain, Lesion of liver, Kidney lesion, Lesion of adrenal gland, Lung nodules Disposition: ADMITTED IP TO THIS [facility] Condition: Stable Instructions (If sedation given, give patient instructions): Abdominal Pain (ED) Is patient prescribed a controlled substance at d/c from ED?: No Referrals: Kg Ayala DO [Primary Care Provider] - 1-2 days Time of Disposition: 17:17
[2020-06-20 15:59] LABS: Basophils % (A) 1 %; Eosinophils # (A) 0.2 k/uL (0-0.7); Eosinophils % (A) 3 %; HCT 35.2 % (34.0-46.0); HGB 11.7 gm/dL (11.4-16.0); Lymphocytes # (A) 0.8 k/uL (1.0-4.8); Lymphocytes % (A) 14 %; MCH 32.7 pg (25.0-35.0); MCHC 33.1 g/dL (31.0-37.0); MCV 98.8 fL (80.0-100.0); Monocytes # (A) 0.3 k/uL (0-1.0); Monocytes % (A) 6 %; Neutrophils # (A) 4.3 k/uL (1.3-7.7); Neutrophils % (A) 76 %; Platelet Count 237 k/uL (150-450); RBC 3.56 m/uL (3.80-5.40); RDW 13.2 % (11.5-15.5); WBC 5.7 k/uL (3.8-10.6)
[2020-06-20 16:00] LABS: Appearance,Urine Clear (Clear); Bilirubin,Urine Negative (Negative); Blood,Urine Negative (Negative); Color,Urine Yellow; Glucose,Urine (UA) Negative (Negative); Ketones,Urine Negative (Negative); Leukocyte Esterase,Urine Trace (Negative); Mucus,Urine Rare /hpf; Nitrite,Urine Negative (Negative); Protein,Urine Negative (Negative); RBC,Urine 2 /hpf (0-5); Specific Gravity,Urine 1.016 (1.001-1.035); Urobilinogen,Urine <2.0 mg/dL (<2.0); WBC,Urine 4 /hpf (0-5)
[2020-06-20 16:08] LABS: ALT 14 U/L (4-34); AST 35 U/L (14-36); African American GFR (CKD) >90 (>60 ml/min/1.73 sqM); Albumin 3.8 g/dL (3.5-5.0); Alkaline Phosphatase 87 U/L (38-126); Anion Gap 7 mmol/L; Blood Urea Nitrogen 12 mg/dL (7-17); Calcium 9.2 mg/dL (8.4-10.2); Carbon Dioxide 24 mmol/L (22-30); Chloride 106 mmol/L (98-107); Glucose 105 mg/dL (74-99); Lipase 136 U/L (23-300); Non-African American GFR(CKD) >90 (>60 ml/min/1.73 sqM); Sodium 137 mmol/L (137-145); Total Bilirubin 0.3 mg/dL (0.2-1.3); Total Protein 6.4 g/dL (6.3-8.2)
[2020-06-20 16:16] LABS: Potassium 3.8 mmol/L (3.5-5.1)
--- NOTE | 2020-06-20 16:22 | CT ---
EXAMINATION TYPE: CT abdomen pelvis w con DATE OF EXAM: 06/20/2020 COMPARISON: None HISTORY: Epigastric pain and back pain. CT DLP: 1569.4 mGycm Automated exposure control for dose reduction was used. CONTRAST: Performed with IV Contrast, patient injected with 100 mL of Isovue 300. The lung bases show multiple noncalcified nodules. There is no pleural effusion. Largest nodule measu res 1.7 cm. There is mild subsegmental atelectasis at the lung bases. There are multiple hypodense foci in the liver. These are variable size and measure up to 3 cm. There is no adrenal mass. Spleen is intact. There is no pancreatic mass. There is a large mass involving the right adrenal gland with mixed density. Mass measures maximum 7.3 cm in diameter. There is some nodular densities involving left adrenal gland. These measure up to 1 cm.. There is 3.3 cm mass involving anterior lower pole left kidney. This has mixed density. There ar e smaller hypodense nonenhancing areas in the left kidney that measure up to 1.5 cm. There are small multiple hypodensities in the lower pole of the right kidney that measure up to 1 cm. There is no hydronephrosis. Ureters are not dilated. Delayed images show normal renal excretion. Ther e is no retroperitoneal adenopathy. There are a few sigmoid diverticula. There is no evidence of dive rticulitis. There is no free fluid in the pelvis. Uterus is anteverted. Lumbar vertebra have normal alignment. Posterior elements are intact. Bony pelvis is intact. The hip joints appear normal. There is no lumbar compression fracture. There is no mesenteric edema. There is no ascites or free air. There is no bowel obstruction. There a re multiple rounded densities in the subcutaneous fat around the abdomen that measure up to 1 cm. IMPRESSION: There is a irregular mass lower pole left kidney suspicious for tumor. Multiple hypodense foci are sm aller in both kidneys and are nonspecific and could be additional sites of tumor. Large right adrenal mass consistent with tumor. Nodularity in the left adrenal gland also could relat e to tumor. Multiple hypodense foci in the liver consistent with metastatic disease. Numerous nodules visualized at the lung bases are noncalcified and suggestive of metastatic disease. Small subcutaneous nodules seen over the lumbar spine and right anterior abdomen of uncertain signifi cance.
[2020-06-20] MEDS ORDERED: LORazepam 2 MG/ML INJ IV PRN (17:08)
[2020-06-20] MEDS ORDERED: NALOXONE 0.4 MG/ML 1 ML VIAL IV PRN (17:08)
[2020-06-20] MEDS ORDERED: MORPHINE SULFATE 4 MG/ML SYRINGE IV PRN (17:08)
[2020-06-20] MEDS ORDERED: ACETAMINOPHEN TAB 325 MG TAB PO STA (17:18)
[2020-06-20] MEDS: HYDROcodone/APAP 5-325MG 1 EACH TAB PO PRN (18:25)
[2020-06-20] MEDS: SODIUM CHLORIDE 0.9% 1,000 ML IV SCH (18:42)
[2020-06-20] MEDS ORDERED: TEMAZEPAM 15 MG CAP PO PRN (19:22)
[2020-06-20] MEDS: HYDROmorphone 0.5 MG/0.5 ML SYRINGE IVP PRN (21:19)
--- NOTE | 2020-06-20 22:05 | HP ---
HISTORY AND PHYSICAL I am covering for Dr. Ayala. DATE OF SERVICE: 06/20/2020. CHIEF COMPLAINTS: Abdominal pain and back pain. HISTORY OF PRESENT ILLNESS: 49-year-old woman with past medical history of cervical cancer 1-1/2 years of chemoradiation, anxiety being followed by Dr. Ayala in the outpatient setting is complaining of diffuse abdominal pain. The patient initially had episodes of UTI and was on antibiotic, but subsequently abdominal pain from below the breast and both sides of the abdomen now radiating to the back and also the renal angle. Because of increasing difficulty, the patient came to [facility] and admitted to the hospital for further evaluation and treatment. Patient also had some constipation, some bleeding per vagina also noted. In the ER, Covid 19 was negative. Otherwise, patient had extensive evaluation including abdominal and pelvis CAT scan which showed extensive findings including irregular mass in the lower pole of the left kidney suspicious for tumor and multiple hypodense process small in both kidneys and nonspecific. The large right adrenal mass was also noted and there were multiple hypodense foci in the liver also noted. Numerous nodules of the lungs also small subcutaneous nodes noted in the lumbar spine and right anterior abdominal wall of uncertain significance are noted. There is no history of fever, rigors. No history of headache, loss of consciousness, seizures. PAST MEDICAL HISTORY: History of cervical cancer, history of anxiety, history of nicotine dependence, history of THC. MEDICATIONS: Home medications are: Synthroid 75 mcg p.o. daily. ALLERGIES: None. FAMILY HISTORY: Unable to obtain. SOCIAL HISTORY: History of smoking. History of THC. One third per day. REVIEW OF SYSTEMS: ENT: No diminished vision. No diminished hearing. CARDIOVASCULAR: No angina. RESPIRATION: No cough. No hemoptysis. GI: As mentioned earlier. : As mentioned earlier. NERVOUS SYSTEM: No numbness, weakness. ALLERGY/IMMUNOLOGY: No asthma or hayfever. MUSCULOSKELETAL as mentioned earlier. HEMATOLOGY/ONCOLOGY: As mentioned earlier. ENDOCRINE: No history of diabetes. Hypothyroidism present. CONSTITUTIONAL: As mentioned earlier. DERMATOLOGY: Negative. RHEUMATOLOGY negative. PSYCHIATRY as mentioned earlier. PHYSICAL EXAMINATION: Alert and oriented x3. Pulse 88. Blood pressure 115/70, respiration 20, temperature 98 degrees, pulse ox 99% on room air. HEENT is conjunctivae normal. Oral mucosa moist. NECK is no jugular venous distention. No carotid bruit. No lymph node enlargement. CARDIOVASCULAR system: S1, S2. No S3, no S4. RESPIRATION: Breath sounds diminished in the bases. No rhonchi. No crackles. ABDOMEN: Soft, obese. Mild diffuse discomfort present otherwise. No guarding, no rigidity. No mass palpable. No ascites. Bowel sounds present. LEGS: No edema. No swelling. NERVOUS SYSTEM: Higher functions as mentioned earlier. Moves all 4 limbs. No focal motor or sensory deficits. LYMPHATICS: No lymph nodes palpable in the neck, axillae or groin. SKIN: No ulcer, no rash. JOINTS: No active deforming arthropathy. LABS: WBC 5.7, hemoglobin 11.7. Other labs are noted. CT scan reviewed personally. ASSESSMENT: 1. Abdominal pain with abnormal CT scan with multiple findings including irregular mass in the lower pole of the left kidney and a large right adrenal mass and multiple hypodense lesions in the liver and lung nodules and possible subcutaneous nodules. Rule out malignancy. 2. History of cervical cancer. 3. Severe pain. 4. Mild lymphopenia. 5. History of anxiety. 6. History of nicotine dependence. 7. History of THC. 8. Obesity with body mass of 39.7. RECOMMENDATIONS AND DISCUSSION: This 49-year-old woman who presented with multiple complex medical issues, I would recommend continue the current medications, management and symptomatic treatment. We will get evaluation with Hematology/Oncology and Urology for further evaluation and possible biopsies. Otherwise, I would also recommend a CT scan of the chest also in the morning and continue to monitor. Overall prognosis guarded because of multiple complex medical issues. Discussed with the patient who understands and agrees. A copy of dictation being forwarded to Dr. Ayala who is the primary physician. Dr. Ayala will follow tomorrow morning. MMODL / IJN: [id number] / MTDD
[2020-06-21] MEDS: HYDROmorphone 0.5 MG/0.5 ML SYRINGE IVP PRN ×5 (00:25→19:22)
[2020-06-21] MEDS: HYDROcodone/APAP 5-325MG 1 EACH TAB PO PRN (01:53)
[2020-06-21] MEDS: LEVOTHYROXINE 75 MCG TAB PO SCH (05:33)
[2020-06-21] MEDS: SODIUM CHLORIDE 0.9% 1,000 ML IV SCH ×2 (06:15→19:22)
[2020-06-21] MEDS: PANTOPRAZOLE 40 MG TABLET PO SCH (08:02)
[2020-06-21 09:02] LABS: Basophils # (A) 0.02 X 10*3/uL (0.00-0.10); Basophils % (A) 0.4 %; Eosinophils # (A) 0.14 X 10*3/uL (0.04-0.35); Eosinophils % (A) 2.7 %; HCT 32.2 % (37.2-46.3); HGB 10.1 g/dL (12.0-15.0); Lymphocytes # (A) 0.84 X 10*3/uL (0.90-5.00); MCH 32.1 pg (27.0-32.0); MCHC 31.4 g/dL (32.0-37.0); MCV 102.2 fL (80.0-97.0); Monocytes # (A) 0.51 X 10*3/uL (0.20-1.00); Monocytes % (A) 9.7 %; Neutrophils # (A) 3.74 X 10*3/uL (1.80-7.70); Platelet Count 241 X 10*3/uL (140-440); RBC 3.15 X 10*6/uL (4.10-5.20); WBC 5.26 X 10*3/uL (4.50-10.00)
[2020-06-21 09:14] LABS: African American GFR (CKD) 101.8 (60.0-200.0); Calcium 8.2 mg/dL (8.7-10.3); Non-African American GFR(CKD) 87.8 (60.0-200.0); Potassium 3.9 mmol/L (3.5-5.5)
[2020-06-21] MEDS: ONDANSETRON 4 MG/2 ML VIAL IVP PRN ×3 (10:05→21:19)
[2020-06-21 12:44] LABS: Prothrombin Time 10.5 sec (9.0-12.0)
--- NOTE | 2020-06-21 15:09 | US ---
EXAMINATION TYPE: US biopsy soft tissue/muscle DATE OF EXAM: 06/21/2020 HISTORY: Cervical cancer, left inguinal adenopathy FINDINGS: Maximal barrier technique was utilized. Hand hygiene achieved with soap and water and alco hol-based hand rub. The skin overlying a suitable path to the patient's left groin adenopathy was loc alized with ultrasound and the overlying skin prepped and draped. Ultrasound was utilized with steri le technique. Lidocaine was used for local anesthesia. A skin nisha was made with a scalpel. An 18- gauge needle was advanced under direct ultrasound guidance and core specimen obtained of the mass. 2 passes were made. Specimen submitted in formalin to Pathology. Following the procedure, hemostasis achieved and the patient is discharged in stable condition without complication. IMPRESSION:STATUS POST ULTRASOUND GUIDED CORE BIOPSY OF left groin adenopathy, PATHOLOGY IS PENDING. THIS PROCEDURE IS PERFORMED BY THE UNDERSIGNED.
--- NOTE | 2020-06-21 15:59 | P.CONS ---
History of Present Illness - Reason for Consult Consult date: 06/21/20 Hx urerine cancer, mult lesions on imaging Requesting physician: Maximiliano Fisher - Chief Complaint back pain - History of Present Illness Ms. Wilson is a very pleasant female we have been asked to see because of Hx of cervical cancer and now lesions noted in lung, liver, pelvis, LN and SQ tissue. Pt stated she was diagnosed about 4 years ago, had chemo and radiation, no surgery, no other f/u, including scans. She had trouble thinking of her Doctor's names. She is positive for wt. loss, small amt of blood vaginally, no sweats, SOB, cough, palpitations, abd pain or bloating, dysuria, changes in bowel habits, swelling in legs, rashes, the pain she has is in the low back and bilateral inguinal area, persistent over the last few week, nothing helping, no numbness or tingling in the legs, weakness pain in extremities. Review of Systems 14 point ROS is negative except as stated in HPI Past Medical History Past Medical History: No Reported History, Cancer, Thyroid Disorder Additional Past Medical History / Comment(s): cervical cancer 1.5 years ago with chemo and radiation History of Any Multi-Drug Resistant Organisms: None Reported Past Surgical History: No Surgical Hx Reported Past Anesthesia/Blood Transfusion Reactions: No Reported Reaction Past Psychological History: Anxiety Smoking Status: Current some day smoker Past Alcohol Use History: None Reported Past Drug Use History: Marijuana - Past Family History Mother Family Medical History: Unable to Obtain Father History Unknown: Yes Family Medical History: Unable to Obtain (adopted) Medications and Allergies Home Medications Medication Instructions Recorded Confirmed Type Levothyroxine Sodium [Synthroid] 75 mcg PO DAILY 06/20/20 06/20/20 History Allergies Allergy/AdvReac Type Severity Reaction Status Date / Time No Known Allergies Allergy Verified 06/20/20 17:11 Physical Exam Vitals: Vital Signs Temp Pulse Pulse Resp BP BP Pulse Ox 06/21/20 08:02 59 L 16 117/76 96 06/21/20 02:00 98.0 F 69 16 114/74 96 06/20/20 19:20 98.2 F 67 16 125/84 97 06/20/20 18:59 98 F 88 20 115/76 99 06/20/20 18:00 88 20 115/76 99 06/20/20 16:41 88 16 117/85 96 06/20/20 15:44 74 18 119/87 100 06/20/20 14:34 98 F 72 18 125/85 98 Intake and Output 06/20/20 06/21/20 06/21/20 22:59 06:59 14:59 Other: # Voids 2 # Bowel Movements 0 Weight 86.183 kg - Constitutional General appearance: cooperative, no acute distress, obese - EENT Eyes: anicteric sclerae, EOMI ENT: hearing grossly normal, normal oropharynx - Neck Neck: no lymphadenopathy - Respiratory Respiratory: right: CTA - Cardiovascular Rhythm: regular Heart sounds: normal: S1, S2 Abnormal Heart Sounds: no systolic murmur, no diastolic murmur, no rub, no S3 Gallop, no S4 Gallop, no click, no other leg Peripheral Edema: bilateral: Trace - Gastrointestinal General gastrointestinal: no absent bowel sounds, no decreased bowel sounds, no distended, no hepatomegaly, no hyperactive bowel sounds, normal bowel sounds, no organomegaly, no rigid, no scaphoid, soft, no splenomegaly, no tenderness, no umbilical hernia, no ventral hernia - Genitourinary Inguinal adenopathy/swelling in the left thigh - Integumentary SQ nodules - Neurologic Neurologic: CNII-XII intact - Musculoskeletal Musculoskeletal: strength equal bilaterally - Psychiatric Psychiatric: A&O x's 3, appropriate affect, intact judgment & insight Results CBC & Chem 7: 06/21/20 03:34 06/21/20 03:34 Labs: Abnormal Lab Results - Last 24 Hours (Table) 06/20/20 06/20/20 06/20/20 Range/Units 15:54 15:54 15:54 RBC 3.56 L (3.80-5.40) m/uL Hgb (12.0-15.0) g/dL Hct (37.2-46.3) % MCV (80.0-97.0) fL MCH (27.0-32.0) pg MCHC (32.0-37.0) g/dL Lymphocytes # 0.8 L (1.0-4.8) k/uL Glucose 105 H (74-99) mg/dL Calcium (8.7-10.3) mg/dL TSH (0.350-5.500) uIU/mL Ur Leukocyte Esterase Trace H (Negative) Urine Mucus Rare H (None) /hpf 06/21/20 06/21/20 Range/Units 03:34 03:34 RBC 3.15 L (3.80-5.40) m/uL Hgb 10.1 L (12.0-15.0) g/dL Hct 32.2 L (37.2-46.3) % MCV 102.2 H (80.0-97.0) fL MCH 32.1 H (27.0-32.0) pg MCHC 31.4 L (32.0-37.0) g/dL Lymphocytes # 0.84 L (1.0-4.8) k/uL Glucose (74-99) mg/dL Calcium 8.2 L (8.7-10.3) mg/dL TSH 105.590 H (0.350-5.500) uIU/mL Ur Leukocyte Esterase (Negative) Urine Mucus (None) /hpf CT scan - abdomen: report reviewed CT scan - pelvis: report reviewed Assessment and Plan (1) Abdominal pain Narrative/Plan: Likely r/t masses on imaging in the pelvis. Will make adjustments to pt pain mgmt regimen based on her dose after 24 hours Stool softeners daily, laxatives PRN for prevention/treatment of narcotic induced constipation Current Visit: Yes Status: Acute Priority: High Code(s): R10.9 - UNSPECIFIED ABDOMINAL PAIN SNOMED Code(s): 06342048 (2) Lesion of adrenal gland Current Visit: Yes Status: Acute Priority: High Code(s): E27.9 - DISORDER OF ADRENAL GLAND, UNSPECIFIED SNOMED Code(s): 17657618 (3) Lesion of liver Current Visit: Yes Status: Acute Priority: High Code(s): K76.9 - LIVER DISEASE, UNSPECIFIED SNOMED Code(s): 286595340 (4) Lung nodules Current Visit: Yes Status: Acute Priority: High Code(s): R91.8 - OTHER NONSPECIFIC ABNORMAL FINDING OF LUNG FIELD SNOMED Code(s): 688280750 Plan: Order placed for biopsy with IR. Case discussed briefly with IR RN. After review of images inguinal LN felt to be best target for core biopsies. Requesting core so enough specimen for molecular testing. Have request out to get pt Oncology records. Dr. Laboy did discuss concerning findings on the scans with pt. With her history of cervical cancer and no f/u it i very concerning that what is seen is metastatic disease, stage IV which would be cancer that is treatable but not curable. Pt was certainly distressed by this news. She wanted to know how long she had to live. It was explained that it is best to have the discussion about prognosis once there is pathology. Also, we would like to have family either present or on the phone for that conversation. Pt verbalized understanding. We will follow up. Attests: I have seen pt, performed H&P, developed impression and plan of care. Discussed with dictator. Agree with dicatation, documented as a scribe
--- NOTE | 2020-06-21 16:23 | P.PN ---
Objective - Vital Signs Vital signs: Vital Signs Temp 98.0 F 06/21/20 02:00 Pulse 59 L 06/21/20 08:02 Resp 16 06/21/20 08:02 BP 117/76 06/21/20 08:02 Pulse Ox 96 06/21/20 08:02 Intake & Output 06/20/20 06/21/20 06/21/20 18:59 06:59 18:59 Weight 86.183 kg 86.183 kg Other: # Voids 2 # Bowel Movements 0 - Exam PHYSICAL EXAM: VITAL SIGNS: As above GENERAL: Sitting up on bed, no acute distress HEENT: Conjunctivae normal. eyes normal. NECK: No JVD. No thyroid enlargement. CARDIOVASCULAR: S1, S2 regular.. No murmur RESPIRATION: Breath sounds diminished in the bases. No rhonchi or crackles. No bronchial breathing. ABDOMEN: Soft, nondistended, nontender . No guarding. no masses palpable. No ascites, No hepatosplenomegaly.Bowel sounds heard. LEGS: Left thigh swelling, PSYCHIATRY: Alert and oriented X3, mood and affect normal. NERVOUS SYSTEM: Cranial N 2-12 grossly normal. Moves all 4 limbs. No focal deficits. Strength and sensation grossly intact. Skin: Warm and dry, no rash, - Labs CBC & Chem 7: 06/21/20 03:34 06/21/20 03:34 Labs: Abnormal Lab Results - Last 24 Hours (Table) 06/20/20 06/20/20 06/20/20 Range/Units 15:54 15:54 15:54 RBC 3.56 L (3.80-5.40) m/uL Hgb (12.0-15.0) g/dL Hct (37.2-46.3) % MCV (80.0-97.0) fL MCH (27.0-32.0) pg MCHC (32.0-37.0) g/dL Lymphocytes # 0.8 L (1.0-4.8) k/uL Glucose 105 H (74-99) mg/dL Calcium (8.7-10.3) mg/dL Ur Leukocyte Esterase Trace H (Negative) Urine Mucus Rare H (None) /hpf 06/21/20 06/21/20 Range/Units 03:34 03:34 RBC 3.15 L (3.80-5.40) m/uL Hgb 10.1 L (12.0-15.0) g/dL Hct 32.2 L (37.2-46.3) % MCV 102.2 H (80.0-97.0) fL MCH 32.1 H (27.0-32.0) pg MCHC 31.4 L (32.0-37.0) g/dL Lymphocytes # 0.84 L (1.0-4.8) k/uL Glucose (74-99) mg/dL Calcium 8.2 L (8.7-10.3) mg/dL Ur Leukocyte Esterase (Negative) Urine Mucus (None) /hpf Assessment and Plan Assessment: -Abdominal pain with abnormal CT reporting irregular mass in the lower pole of the left kidney, multiple hypodense foci bilateral kidneys, large right adrenal mass,multiple hypodense lesions in the liver, lung nodules, possible subc utaneous nodules over the lumbar spine and right anterior abdomen, rule out malignancy -History of recent Chest pain in a patient with prior elevated troponins in 2017 with cardiac cath reporting normal coronary arteries, normal LV function. -History of cervical cancer, status post chemo and radiation, with no further follow-up. -History of Left lower lobe nodular density, with outpatient follow-up recommended -Lymphopenia -History of recent Severe Hypothyroidism, previously diagnosed, noncompliant with medical regimen -Anxiety -Nicotine dependence -THC use -obesity, BMI 39.7 Plan: Continue on current medication regime ,monitoring and symptomatic treatment. Urology evaluation in progress regarding atypical left kidney mass, potential needle biopsy pending oncology workup. Inguinal LN biopsies with IR ordered as per Oncology. Prognosis guarded given multiple complex medical issues. The impression and plan of care has been dictated as directed. : I performed a history and examination of this patient, discussed the same with the dictator. I agree with the dictator's note ,documented as a scribe. Any additional findings or plans will be noted.
--- NOTE | 2020-06-21 18:48 | P.GSCN ---
History of Present Illness Consult date: 06/21/20 Reason for Consult: Left renal mass Requesting physician: Kg Ayala History of present illness: Ms. Wilson is a 49-year-old female with a history of cervical cancer, treated several years ago with chemotherapy and radiation therapy. She presented to the emergency room with bilateral abdominal and lower back pain and was subsequently admitted. Imaging studies have shown multiple pulmonary lesions, a large right adrenal mass, and a large mass within the left medial thigh. The computed tomography scan also shows a 3 cm left renal hilar mass. The patient denies gross hematuria, but has noted blood when she wipes on several occasions. Review of Systems - Constitutional Reports weight loss - Respiratory Denies dyspnea - Gastrointestinal Reports abdominal pain Past Medical History Past Medical History: No Reported History, Cancer, Thyroid Disorder Additional Past Medical History / Comment(s): cervical cancer 1.5 years ago with chemo and radiation History of Any Multi-Drug Resistant Organisms: None Reported Past Surgical History: No Surgical Hx Reported Past Anesthesia/Blood Transfusion Reactions: No Reported Reaction Past Psychological History: Anxiety Smoking Status: Current some day smoker Past Alcohol Use History: None Reported Past Drug Use History: Marijuana - Past Family History Mother Family Medical History: Unable to Obtain Father History Unknown: Yes Family Medical History: Unable to Obtain (adopted) Medications and Allergies Home Medications Medication Instructions Recorded Confirmed Type Levothyroxine Sodium [Synthroid] 75 mcg PO DAILY 06/20/20 06/20/20 History Allergies Allergy/AdvReac Type Severity Reaction Status Date / Time No Known Allergies Allergy Verified 06/20/20 17:11 Surgical - Exam Vital Signs Temp Pulse Resp BP Pulse Ox 98 F 72 18 125/85 98 06/20/20 14:34 06/20/20 14:34 06/20/20 14:34 06/20/20 14:34 06/20/20 14:34 - General well developed, well nourished, no distress - Respiratory normal respiratory effort - Abdomen Abdomen: soft, non tender, no guarding, no rigid, no rebound - Psychiatric oriented to time, oriented to person, oriented to place, speech is normal, memory intact Results - Labs 06/21/20 03:34 06/21/20 03:34 Abnormal Lab Results - Last 24 Hours (Table) 06/20/20 06/21/20 06/21/20 Range/Units 15:54 03:34 03:34 RBC 3.15 L (4.10-5.20) X 10*6/uL Hgb 10.1 L (12.0-15.0) g/dL Hct 32.2 L (37.2-46.3) % MCV 102.2 H (80.0-97.0) fL MCH 32.1 H (27.0-32.0) pg MCHC 31.4 L (32.0-37.0) g/dL Lymphocytes # 0.84 L (0.90-5.00) X 10*3/uL Calcium 8.2 L (8.7-10.3) mg/dL TSH 105.590 H (0.350-5.500) uIU/mL Free T3 pg/mL 2.0 L (2.8-5.3) pg/ml Diabetes panel 06/21/20 Range/Units 03:34 Sodium 141 (135-145) mmol/L Potassium 3.9 (3.5-5.5) mmol/L Chloride 109 (96-109) mmol/L Carbon Dioxide 23.0 (21.6-31.8) mmol/L BUN 12.0 (9.0-27.0) mg/dL Creatinine 0.8 (0.6-1.5) mg/dL Glucose 88 (70-110) mg/dL Calcium 8.2 L (8.7-10.3) mg/dL Thyroid panel 06/21/20 Range/Units 03:34 TSH 105.590 H (0.350-5.500) uIU/mL Calcium panel 06/21/20 Range/Units 03:34 Calcium 8.2 L (8.7-10.3) mg/dL Pituitary panel 06/21/20 Range/Units 03:34 Sodium 141 (135-145) mmol/L Potassium 3.9 (3.5-5.5) mmol/L Chloride 109 (96-109) mmol/L Carbon Dioxide 23.0 (21.6-31.8) mmol/L BUN 12.0 (9.0-27.0) mg/dL Creatinine 0.8 (0.6-1.5) mg/dL Glucose 88 (70-110) mg/dL Calcium 8.2 L (8.7-10.3) mg/dL TSH 105.590 H (0.350-5.500) uIU/mL Adrenal panel 06/21/20 Range/Units 03:34 Sodium 141 (135-145) mmol/L Potassium 3.9 (3.5-5.5) mmol/L Chloride 109 (96-109) mmol/L Carbon Dioxide 23.0 (21.6-31.8) mmol/L BUN 12.0 (9.0-27.0) mg/dL Creatinine 0.8 (0.6-1.5) mg/dL Glucose 88 (70-110) mg/dL Calcium 8.2 L (8.7-10.3) mg/dL - Imaging CT scan - abdomen: report reviewed, image reviewed Assessment and Plan (1) Neoplasm of unspecified behavior of left kidney Current Visit: Yes Status: Acute Code(s): D49.512 - NEOPLASM OF UNSPECIFIED BEHAVIOR OF LEFT KIDNEY SNOMED Code(s): 00821075483654272 Plan: The presence of multiple lesions is unfortunately consistent with metastatic disease. The patient's left hilar renal mass does not have the typical appearance of renal cell carcinoma and could very well be a metastatic site. It is not in an ideal location for needle biopsy, so it makes sense to proceed with an inguinal node biopsy as planned. I will continue to follow with you.
[2020-06-21] MEDS: ACETAMINOPHEN TAB 325 MG TAB PO PRN (19:22)
--- NOTE | 2020-06-21 20:05 | PN ---
PROGRESS NOTE DATE OF SERVICE: 06/21/2020 This 49-year-old woman who was admitted with abdominal pain and a mass in the kidney, is being evaluated for malignancy. Interventional Radiology is following the patient closely. No chest pain. No palpitations. No fever. Past medical history reviewed. REVIEW OF SYSTEMS: CARDIOVASCULAR SYSTEM: No angina, palpitations. RESPIRATORY SYSTEM: As mentioned earlier. GI: As mentioned earlier. : No dysuria or retention. NERVOUS SYSTEM: No numbness, weakness. MEDICATIONS: Reviewed. They include Tylenol, [place], Synthroid, Ativan, morphine, Narcan. Doses are reviewed. PHYSICAL EXAMINATION: Patient is alert and oriented x3. Pulse is 66, blood pressure 134/83, respiration 16, temperature 97.2, pulse ox 94% on room air. HEENT: Conjunctivae normal. NECK: No jugular venous distention. CARDIOVASCULAR SYSTEM: S1, S2 muffled. RESPIRATORY SYSTEM: Breath sounds diminished at the bases. A few scattered rhonchi and crackles. ABDOMEN: Soft, non-tender. LEGS: No edema. No swelling. NERVOUS SYSTEM: No focal deficit. LABS: Hemoglobin 10.1. Other labs are noted. ASSESSMENT: 1. Abdominal pain and a possible mass in the left kidney with a right adrenal mass as well as hepatic. 2. History of cervical cancer. 3. Severe pain. 4. Mild lymphopenia. 5. Anxiety. 6. History of nicotine dependence. 7. History of tetrahydrocannabinol. 8. Obesity with body mass index of 39.7. RECOMMENDATIONS AND DISCUSSION: I recommend to continue current medications, continue with the monitoring, symptomatic treatment. Interventional Radiology and possible biopsies. Repeat labs. Symptomatic treatment. Closely follow with Hematology/Oncology. Guarded prognosis because of multiple complex medical issues. Further recommendations to follow. MMODL / IJN: [id number] / MTDD
[2020-06-21] MEDS: traMADol 50 MG TAB PO PRN (21:20)
[2020-06-22] MEDS: ONDANSETRON 4 MG/2 ML VIAL IVP PRN (03:31)
[2020-06-22] MEDS: HYDROmorphone 0.5 MG/0.5 ML SYRINGE IVP PRN ×2 (03:31→08:28)
[2020-06-22] MEDS: traMADol 50 MG TAB PO PRN ×3 (05:30→19:16)
[2020-06-22] MEDS: LEVOTHYROXINE 75 MCG TAB PO SCH (05:30)
[2020-06-22] MEDS: PANTOPRAZOLE 40 MG TABLET PO SCH (08:28)
[2020-06-22 09:44] LABS: African American GFR (CKD) 88.2 (60.0-200.0); BUN/Creat Ratio 8.89 Ratio (12.00-20.00); Calcium 8.6 mg/dL (8.7-10.3); Non-African American GFR(CKD) 76.1 (60.0-200.0); Potassium 3.9 mmol/L (3.5-5.5)
[2020-06-22 09:49] LABS: Basophils # (A) 0.03 X 10*3/uL (0.00-0.10); Basophils % (A) 0.6 %; Eosinophils # (A) 0.12 X 10*3/uL (0.04-0.35); Eosinophils % (A) 2.3 %; HCT 32.6 % (37.2-46.3); HGB 10.3 g/dL (12.0-15.0); MCH 32.1 pg (27.0-32.0); MCHC 31.6 g/dL (32.0-37.0); MCV 101.6 fL (80.0-97.0); Mean Platelet Volume 10.3 fL (9.5-12.2); Monocytes % (A) 9.4 %; Neutrophils # (A) 3.86 X 10*3/uL (1.80-7.70); Neutrophils % (A) 72.5 %; Platelet Count 251 X 10*3/uL (140-440); RBC 3.21 X 10*6/uL (4.10-5.20); RDW 12.9 % (11.5-14.5); WBC 5.32 X 10*3/uL (4.50-10.00)
--- NOTE | 2020-06-22 10:27 | P.PN ---
Subjective Progress Note Date: 06/22/20 This is a 49-year-old female admitted with abdominal pain accompanied with weight loss, bilateral inguinal pain radiating to lower back. Denies incontinence of urine or bowel . Ambulating, up to the shower, denies weakness or numbness in the legs .Abnormal CT reporting multiple masses involving lower pole left kidney, bilateral kidneys, right and left adrenals, lung bases, lumbar spine, right anterior abdomen, left medial thigh. Complains of abdominal pain accompanied with nausea and vomiting. Denies chest pain, palpitations or shortness of breath. Urology, oncology consult in place, recommendations pending. 06/21/2020 completed inguinal biopsy with IR, tolerated procedure well. Pathology pending. Patient appears to be doing better this morning, less tearful, reporting her mom is coming for a visit this afternoon. Afebrile, maintaining O2 sats in the high 90s on room air, VSS. TSH 105.590, free T4 1 0.1, free T3 2. In April 2020, patient presented with TSH greater than 100, noncompliant with medication regimen. Denies cough, congestion or shortness of breath. Reports diffuse abdominal pain. Objective - Vital Signs Vital signs: Vital Signs Temp 98.8 F 06/22/20 05:00 Pulse 70 06/22/20 05:00 Resp 16 06/22/20 05:00 BP 117/79 06/22/20 05:00 Pulse Ox 94 L 06/22/20 05:00 Intake & Output 06/21/20 06/22/20 06/22/20 18:59 06:59 18:59 Intake Total 900 1220 Output Total 200 Balance 900 1020 Intake: Intake, IV Titration 900 900 Amount Sodium Chloride 0.9% 1, 900 900 000 ml @ 75 mls/hr IV . [id number] LEON Rx#:[id number] Oral 320 Output: Emesis 200 Other: # Voids 2 - Exam PHYSICAL EXAM: VITAL SIGNS: As above GENERAL: Sitting up on bed, no acute distress HEENT: Conjunctivae normal. eyes normal. NECK: No JVD. No thyroid enlargement. CARDIOVASCULAR: S1, S2 regular.No murmur RESPIRATION: Breath sounds diminished in the bases. No rhonchi or crackles. ABDOMEN: Soft, nondistended, nontender . No guarding. no masses palpable. No ascites, No hepatosplenomegaly.Bowel sounds heard. LEGS: Left thigh swelling, no calf tenderness, positive DP pulses PSYCHIATRY: Alert and oriented X3, mood and affect normal. NERVOUS SYSTEM: Cranial N 2-12 grossly normal. Moves all 4 limbs. No focal deficits. Strength and sensation grossly intact. Skin: Warm and dry, no rash, - Labs CBC & Chem 7: 06/22/20 04:51 06/22/20 04:51 Labs: Abnormal Lab Results - Last 24 Hours (Table) 06/20/20 06/22/20 06/22/20 Range/Units 15:54 04:51 04:51 RBC 3.21 L (4.10-5.20) X 10*6/uL Hgb 10.3 L (12.0-15.0) g/dL Hct 32.6 L (37.2-46.3) % MCV 101.6 H (80.0-97.0) fL MCH 32.1 H (27.0-32.0) pg MCHC 31.6 L (32.0-37.0) g/dL Lymphocytes # 0.80 L (0.90-5.00) X 10*3/uL BUN 8.0 L (9.0-27.0) mg/dL BUN/Creatinine Ratio 8.89 L (12.00-20.00) Ratio Calcium 8.6 L (8.7-10.3) mg/dL Free T3 pg/mL 2.0 L (2.8-5.3) pg/ml Assessment and Plan Assessment: -Abdominal pain with abnormal CT reporting irregular mass in the lower pole of the left kidney, multiple hypodense foci bilateral kidneys, large right adrenal mass,multiple hypodense lesions in the liver, lung nodules, possible subcutaneous nodules over the lumbar spine and right anterior abdomen, rule out malignancy. Status post biopsy left inguinal LN with IR, path pending. -Severe hypothyroidism in a patient with recent Severe Hypothyroidism April 2020, previously diagnosed, noncompliant with medical regimen -History of recent Chest pain in a patient with prior elevated troponins in 2017 with cardiac cath reporting normal coronary arteries, normal LV function. -History of cervical cancer, status post chemo and radiation, with no further follow-up. -History of Left lower lobe nodular density, with outpatient follow-up recommended -Lymphopenia -Anxiety -Nicotine dependence -THC use -obesity, BMI 39.7 Plan: Continue on current medication regime ,monitoring and symptomatic treatment. Inguinal LN biopsy with IR completed, pathology pending. Follow closely with oncology/urology. Prognosis guarded given multiple complex medical issues. The impression and plan of care has been dictated as directed. : I performed a history and examination of this patient, discussed the same with the dictator. I agree with the dictator's note ,documented as a scribe. Any additional findings or plans will be noted.
[2020-06-22] MEDS ORDERED: LEVOTHYROXINE 75 MCG TAB PO ONE (11:00)
[2020-06-22] MEDS: SENNOSIDES-DOCUSATE SODIUM 1 EACH TAB PO SCH ×2 (12:41→20:02)
--- NOTE | 2020-06-22 13:01 | US ---
EXAMINATION TYPE: US thyroid st tissue head/neck DATE OF EXAM: 06/22/2020 COMPARISON: NONE CLINICAL HISTORY: SeverHypothyroidism, history of cancer/ metastases. GLAND SIZE: Right Lobe: 3.1 x 1.2 x 1.3 cm Overall Parenchyma: grossly heterogeneous Left Lobe: 3.3 x 1.0 x 1.2 cm Overall Parenchyma: grossly heterogeneous Isthmus Thickness: 0.2 cm NODULES RIGHT: # of nodules measured on right: 0 LEFT: # of nodules measured on left: 0 ISTHMUS: # of nodules measured in the isthmus: 0 Bilateral neck scanned, no evidence of lymphadenopathy. Small size heterogeneous thyroid without discrete nodule. IMPRESSION: As above. Findings consistent with reported hypothyroidism.
[2020-06-22] MEDS ORDERED: MAGNESIUM HYDROXIDE 2,400 MG/10 ML CUP PO PRN (13:33)
[2020-06-22] MEDS: ACETAMINOPHEN TAB 325 MG TAB PO PRN (13:55)
--- NOTE | 2020-06-22 14:02 | P.PN ---
Subjective Progress Note Date: 06/22/20 Principal diagnosis: Intractable pain. Mult lesions suspicious for recurrent cancer In follow-up today patient states fairly decent pain control tramadol, she is needing something occasionally in between doses, she finds that the morphine and the [place] upset her stomach, the Dilaudid works really well but only very short term. She is still tolerating oral intake, she has no new symptoms to report. She tolerated biopsy yesterday pretty well. Objective - Vital Signs Vital signs: Vital Signs Temp 98 F 06/22/20 13:00 Pulse 66 06/22/20 13:00 Resp 16 06/22/20 13:00 BP 128/87 06/22/20 13:00 Pulse Ox 98 06/22/20 13:00 Intake & Output 06/21/20 06/22/20 06/22/20 18:59 06:59 18:59 Intake Total 900 1220 Output Total 200 Balance 900 1020 Intake: Intake, IV Titration 900 900 Amount Sodium Chloride 0.9% 1, 900 900 000 ml @ 75 mls/hr IV . [id number] LEON Rx#:[id number] Oral 320 Output: Emesis 200 Other: # Voids 2 - Constitutional General appearance: Present: average body habitus, cooperative, no acute distress - EENT Eyes: Present: anicteric sclerae, EOMI ENT: Present: hearing grossly normal - Respiratory Details: respirations even and unlabored - Cardiovascular Details: radial pulse regular, 2+, skin warm and dry, mild extremity swelling - Neurologic Neurologic: Present: CNII-XII intact - Musculoskeletal Musculoskeletal: Present: strength equal bilaterally - Psychiatric Psychiatric: Present: A&O x's 3, appropriate affect, intact judgment & insight - Labs CBC & Chem 7: 06/22/20 04:51 06/22/20 04:51 Labs: Abnormal Lab Results - Last 24 Hours (Table) 06/22/20 06/22/20 Range/Units 04:51 04:51 RBC 3.21 L (4.10-5.20) X 10*6/uL Hgb 10.3 L (12.0-15.0) g/dL Hct 32.6 L (37.2-46.3) % MCV 101.6 H (80.0-97.0) fL MCH 32.1 H (27.0-32.0) pg MCHC 31.6 L (32.0-37.0) g/dL Lymphocytes # 0.80 L (0.90-5.00) X 10*3/uL BUN 8.0 L (9.0-27.0) mg/dL BUN/Creatinine Ratio 8.89 L (12.00-20.00) Ratio Calcium 8.6 L (8.7-10.3) mg/dL - Imaging and Cardiology ultrasound of the thyroid report reviewed Assessment and Plan (1) Abdominal pain Narrative/Plan: Likely r/t masses on imaging in the pelvis. Discontinued all medications except for the tramadol which patient is getting mostly adequate relief. Encouraged Tylenol in between when necessary. Reviewed with Nursing. Discussed with patient. Patient is agreeable with this plan for now. Stool softeners daily, laxatives PRN for prevention/treatment of narcotic induced constipation Current Visit: Yes Status: Acute Priority: High Code(s): R10.9 - UNSPECIFIED ABDOMINAL PAIN SNOMED Code(s): 98381168 (2) Lesion of adrenal gland Current Visit: Yes Status: Acute Priority: High Code(s): E27.9 - DISORDER OF ADRENAL GLAND, UNSPECIFIED SNOMED Code(s): 35617920 (3) Lesion of liver Current Visit: Yes Status: Acute Priority: High Code(s): K76.9 - LIVER DISEASE, UNSPECIFIED SNOMED Code(s): 711003476 (4) Lung nodules Current Visit: Yes Status: Acute Priority: High Code(s): R91.8 - OTHER NONSPECIFIC ABNORMAL FINDING OF LUNG FIELD SNOMED Code(s): 853366269 Plan: Biopsy of inguinal lymph node completed yesterday by IR. Patient tolerated procedure well. No complaints of the biopsy site today. Pending pathology results. Summary of patient history. Summary of the records received from [facility]. Initially seen in May 2015 when she presented with pain, persistent for about 6 weeks duration, suprapubic, pelvic area and the buttocks, qualitatively described as pressure and achy, better when laying on her back, worse with passing urine and sitting. She was treated for UTI without any relief. Urology ordered CT AP for the abd pain on 06/07/15 which showed a 3.5 x 5.1 cm cervical mass noted, associated parapelvic lymphadenopathy nodes measuring up to 1.1 cm, couple of small lesions noted in the liver felt more likely to be cystic, MRI 06/09/15 confirmed no hepatic metastases. 06/08/15 cervical biopsy revealed severe squamous dysplasia/carcinoma in situ with an area suspicious for invasive squam ous cell. She was started on radiation therapy mid Jun 2015 with weekly chemo. Admitted to [place] [facility] 06/30/15 through 07/03/15 with c/o worsening back pain. She was seen by Urology that day and was found to have stone obstructing lt distal ureter and directed to hospital for stent placement, lt stent placed 07/01/15. There is a CT chest done on 07/30/15 as a F/U study for "mets", there was a paraspinal LN seen, bx attempted but, procedure aborted as too small and location was risky. There is a op report 08/13/15, pt had Aris sleeve placement with Dr. Miguel Bowling. Pending notes from Control Room Operator Onc Dr. Hendrix. Dr. Meza is Rad Onc, Dr. Atkinson is Urologist Reviewed with patient that she was admitted for intractable pain. Once we get her pain controlled she can be discharged and we can follow-up in the outpatient setting for pathology results and plan of care. Pt verbalized understanding and is in agreement. Pain med adjusted. Time with Patient: Greater than 30
[2020-06-22] MEDS: SODIUM CHLORIDE 0.9% 1,000 ML IV SCH ×2 (15:40→20:10)
[2020-06-22] MEDS: MORPHINE SULFATE 4 MG/ML SYRINGE IVP PRN ×2 (16:28→22:15)
[2020-06-23] MEDS: traMADol 50 MG TAB PO PRN ×3 (01:09→19:12)
[2020-06-23] MEDS: MORPHINE SULFATE 4 MG/ML SYRINGE IVP PRN ×3 (02:25→12:17)
[2020-06-23] MEDS: ONDANSETRON 4 MG/2 ML VIAL IVP PRN (05:28)
[2020-06-23] MEDS ORDERED: LEVOTHYROXINE 100 MCG TAB PO SCH (06:30)
[2020-06-23] MEDS: PANTOPRAZOLE 40 MG TABLET PO SCH (08:08)
[2020-06-23] MEDS: SENNOSIDES-DOCUSATE SODIUM 1 EACH TAB PO SCH ×2 (08:08→20:59)
[2020-06-23] MEDS: LEVOTHYROXINE 75 MCG TAB PO SCH (08:31)
[2020-06-23] MEDS ORDERED: RX INFO: IV CONTRAST WAS GIVEN 1 EACH MISC MISCELLANE PRN (10:19)
--- NOTE | 2020-06-23 12:00 | CT ---
EXAMINATION TYPE: CT chest w con DATE OF EXAM: 06/23/2020 COMPARISON: CT abdomen pelvis 06/20/2020 HISTORY: Cervical CA, new lesions, staging CT DLP: 442.1 mGycm Automated exposure control for dose reduction was used. TECHNIQUE: CT scan of the chest is performed with IV Contrast, patient injected with 100 mL of Isovue 300. MIP Images are created on CT scanner and reviewed. 3D reconstructed images are created on an independent workstation and reviewed. FINDINGS: LUNGS: There are numerous bilateral pulmonary nodules and masses with at least 30 lesions identified the largest seen in the right upper lobe measuring 2.9 cm in greatest axis. Findings are compatible w ith metastases. No pneumothorax or pleural effusion. No focal pneumonia. There is a small right pleur al effusion. MEDIASTINUM: There are no greater than 1 cm hilar or mediastinal lymph nodes. No pericardial effusi on is seen. OTHER: There is a large right adrenal mass measuring 6.6 cm. Suspected mass along the anterior media l margin of the left kidney measuring 2.7 cm. Multiple hypodensities as previously reported within th e liver also compatible with widespread metastases. Hypertrophic and degenerative changes of the spin e. IMPRESSION: 1. There are numerous bilateral pulmonary nodules compatible with widespread metastases the largest m easuring 2.9 cm in the right upper lobe. 2. Large right adrenal mass compatible with metastases. 3. There is a suspicious appearing left renal mass may represent a primary renal cell carcinoma. 4. Intrahepatic metastases similar to the recent exam.
[2020-06-23] MEDS: SODIUM CHLORIDE 0.9% 1,000 ML IV SCH (12:24)
[2020-06-23] MEDS ORDERED: Potassium Replacement Protocol 1 EACH MISC MISCELLANE PRN (15:08)
--- NOTE | 2020-06-23 15:20 | P.PN ---
Subjective Progress Note Date: 06/23/20 This is a 49-year-old female admitted with abdominal pain accompanied with weight loss, bilateral inguinal pain radiating to lower back. Denies incontinence of urine or bowel . Ambulating, up to the shower, denies weakness or numbness in the legs .Abnormal CT reporting multiple masses involving lower pole left kidney, bilateral kidneys, right and left adrenals, lung bases, lumbar spine, right anterior abdomen, left medial thigh. Complains of abdominal pain accompanied with nausea and vomiting. Denies chest pain, palpitations or shortness of breath. Urology, oncology consult in place, recommendations pending. 06/22/2020 completed inguinal biopsy with IR, tolerated procedure well. Pathology pending. Patient appears to be doing better this morning, less tearful, reporting her mom is coming for a visit this afternoon. Afebrile, maintaining O2 sats in the high 90s on room air, VSS. TSH 105.590, free T4 1 0.1, free T3 2. In April 2020, patient presented with TSH greater than 100, noncompliant with medication regimen. Denies cough, congestion or shortness of breath. Reports diffuse abdominal pain. 06/23/2019 pathology pending .requiring pain medication routinely for some diffuse abdominal pain, more lower back pain. Head/neck ultrasound reported no evidence of lymphadenopathy, no nodules on the right, left or the isthmus ; consistent with reported hypothyroidism .Chest CT reporting numerous bilateral pulmonary nodules compatible with widespread metastasis is the largest measuring 2.9 cm in the right upper lobe, large right adrenal mass compatible with metastasis, suspicious appearing left renal mass possible primary renal cell carcinoma, intrahepatic metastasis similar to recent exam. Scheduled for whole body bone scan tomorrow for staging. Denies chest pain, palpitations or shortness of breath. Objective - Vital Signs Vital signs: Vital Signs Temp 97.8 F 06/23/20 13:00 Pulse 75 06/23/20 13:00 Resp 17 06/23/20 13:00 BP 122/79 06/23/20 13:00 Pulse Ox 97 06/23/20 13:00 Intake & Output 06/22/20 06/23/20 06/23/20 18:59 06:59 18:59 Intake Total 900 1400 Balance 900 1400 Intake: Intake, IV Titration 900 900 Amount Sodium Chloride 0.9% 1, 900 900 000 ml @ 75 mls/hr IV . [id number] LEON Rx#:[id number] Oral 500 Other: Voiding Method Toilet Toilet # Voids 3 - Exam PHYSICAL EXAM: VITAL SIGNS: As above GENERAL: Sitting up on bed, no acute distress HEENT: Conjunctivae normal. eyes normal. Oral mucosa moist. NECK: Supple, No JVD. CARDIOVASCULAR: S1, S2 regular.No murmur RESPIRATION: Breath sounds diminished in the bases. No rhonchi, crackles, no wheezing. ABDOMEN: Soft, nondistended, nontender . No guarding. no masses palpable. Positive bowel sounds. LEGS: Left thigh swelling, no calf tenderness, positive DP pulses PSYCHIATRY: Alert and oriented X3, mood and affect normal. NERVOUS SYSTEM: Cranial N 2-12 grossly normal. Moves all 4 limbs. No focal deficits. Strength and sensation grossly intact. Skin: Warm and dry, no rash, - Labs CBC & Chem 7: 06/22/20 04:51 06/22/20 04:51 Assessment and Plan Assessment: -Abdominal pain with abnormal CT reporting irregular mass in the lower pole of the left kidney, multiple hypodense foci bilateral kidneys, large right adrenal mass,multiple hypodense lesions in the liver, lung nodules, possible subcutaneous nodules over the lumbar spine and right anterior abdomen, rule out malignancy. Status post biopsy left inguinal LN with IR, path pending. -Severe hypothyroidism in a patient with recent Severe Hypothyroidism April 2020, previously diagnosed, noncompliant with medical regimen -History of recent Chest pain in a patient with prior elevated troponins in 2017 with cardiac cath reporting normal coronary arteries, normal LV function. -History of cervical cancer, status post chemo and radiation, with no further follow-up. -History of Left lower lobe nodular density, with outpatient follow-up recommended -Lymphopenia -Anxiety -Nicotine dependence -THC use -obesity, BMI 39.7 Plan: Continue on current medication regime ,monitoring and symptomatic treatment. Inguinal LN pathology pending. Persistent intractable pain, body scan scheduled for tomorrow. Prognosis guarded given multiple complex medical i ssues. The impression and plan of care has been dictated as directed. : I performed a history and examination of this patient, discussed the same with the dictator. I agree with the dictator's note ,documented as a scribe. Any additional findings or plans will be noted.
[2020-06-23] MEDS: NAPROXEN 250 MG TAB PO SCH ×2 (15:24→20:59)
[2020-06-23 15:25] LABS: Basophils # (A) 0.02 X 10*3/uL (0.00-0.10); Basophils % (A) 0.3 %; Eosinophils # (A) 0.08 X 10*3/uL (0.04-0.35); Eosinophils % (A) 1.3 %; HCT 32.6 % (37.2-46.3); Lymphocytes # (A) 0.67 X 10*3/uL (0.90-5.00); Lymphocytes % (A) 10.8 %; MCH 31.3 pg (27.0-32.0); MCHC 30.7 g/dL (32.0-37.0); MCV 101.9 fL (80.0-97.0); Mean Platelet Volume 10.4 fL (9.5-12.2); Monocytes # (A) 0.61 X 10*3/uL (0.20-1.00); Monocytes % (A) 9.8 %; Neutrophils % (A) 77.5 %; Platelet Count 225 X 10*3/uL (140-440); RDW 12.8 % (11.5-14.5)
[2020-06-23 15:33] LABS: African American GFR (CKD) 101.8 (60.0-200.0); BUN/Creat Ratio 8.75 Ratio (12.00-20.00); Calcium 8.1 mg/dL (8.7-10.3); Non-African American GFR(CKD) 87.8 (60.0-200.0); Potassium 3.7 mmol/L (3.5-5.5)
--- NOTE | 2020-06-23 16:22 | P.PN ---
Subjective Progress Note Date: 06/23/20 Principal diagnosis: Intractable pain. Mult lesions suspicious for recurrent cancer In follow-up today patient is c/o pain in the back. She is using oral tramadol and morphine IV. She does state relief when takeing either med but it is of short duration. She is c/o increased pain post CT scan. No new c/o Objective - Vital Signs Vital signs: Vital Signs Temp 97.8 F 06/23/20 13:00 Pulse 75 06/23/20 13:00 Resp 17 06/23/20 13:00 BP 122/79 06/23/20 13:00 Pulse Ox 97 06/23/20 13:00 Intake & Output 06/22/20 06/23/20 06/23/20 18:59 06:59 18:59 Intake Total 900 1400 Balance 900 1400 Intake: Intake, IV Titration 900 900 Amount Sodium Chloride 0.9% 1, 900 900 000 ml @ 75 mls/hr IV . [id number] LEON Rx#:[id number] Oral 500 Other: Voiding Method Toilet Toilet # Voids 3 - Constitutional General appearance: Present: cooperative, no acute distress, obese - EENT Eyes: Present: anicteric sclerae, EOMI ENT: Present: hearing grossly normal - Respiratory Respiratory: bilateral: CTA, diminished - Cardiovascular Rhythm: regular Heart sounds: normal: S1, S2 Abnormal Heart Sounds: Absent: systolic murmur, diastolic murmur, rub, S3 Gallop, S4 Gallop, click, other - Gastrointestinal General gastrointestinal: Present: decreased bowel sounds, soft - Integumentary Integumentary: Present: normal turgor, pale - Neurologic Neurologic: Present: CNII-XII intact - Musculoskeletal Musculoskeletal: Present: strength equal bilaterally - Psychiatric Psychiatric: Present: A&O x's 3, appropriate affect, intact judgment & insight - Labs CBC & Chem 7: 06/23/20 08:01 06/23/20 08:01 Labs: Abnormal Lab Results - Last 24 Hours (Table) 06/23/20 06/23/20 Range/Units 08:01 08:01 RBC 3.20 L (4.10-5.20) X 10*6/uL Hgb 10.0 L (12.0-15.0) g/dL Hct 32.6 L (37.2-46.3) % MCV 101.9 H (80.0-97.0) fL MCHC 30.7 L (32.0-37.0) g/dL Lymphocytes # 0.67 L (0.90-5.00) X 10*3/uL BUN 7.0 L (9.0-27.0) mg/dL BUN/Creatinine Ratio 8.75 L (12.00-20.00) Ratio Calcium 8.1 L (8.7-10.3) mg/dL Assessment and Plan (1) Abdominal pain Current Visit: Yes Status: Acute Priority: High Code(s): R10.9 - UNSPECIFIED ABDOMINAL PAIN SNOMED Code(s): 32858441 (2) Lesion of adrenal gland Current Visit: Yes Status: Acute Priority: High Code(s): E27.9 - DISORDER OF ADRENAL GLAND, UNSPECIFIED SNOMED Code(s): 57091698 (3) Lesion of liver Current Visit: Yes Status: Acute Priority: High Code(s): K76.9 - LIVER DISEASE, UNSPECIFIED SNOMED Code(s): 847565134 (4) Lung nodules Current Visit: Yes Status: Acute Priority: High Code(s): R91.8 - OTHER NONSPECIFIC ABNORMAL FINDING OF LUNG FIELD SNOMED Code(s): 973153428 Plan: Biopsy of inguinal lymph node completed Tue by IR, resulted later in day after pt seen. Unfortunately positive for metastatic cervical p16 positive disease. Will speak with pt and mother tomorrow. CT chest and NM bone scan to complete staging ordered Working on pain mgmt. Adding MS contin BID tonight. Will keep IV morphine for breakthrough pain for now, want to try and use tramadol though. Internal Medicine added naproxen too. Outside PMH summarized, nothing new since 08/20/20 Summary of the records received from [facility]. Initially seen in May 2015 when she presented with pain, persistent for about 6 weeks duration, suprapubic, pelvic area and the buttocks, qualitatively described as pressure and achy, better when laying on her back, worse with passing urine and sitting. She was treated for UTI without any relief. Urology ordered CT AP for the abd pain on 06/07/15 which showed a 3.5 x 5.1 cm cervical mass noted, associated parapelvic lymphadenopathy nodes measuring up to 1.1 cm, couple of small lesions noted in the liver felt more likely to be cystic, MRI 06/09/15 confirmed no hepatic metastases. 06/08/15 cervical biopsy revealed severe squamous dysplasia/carcinoma in situ with an area suspicious for invasive squamous cell. She was started on radiation therapy mid Jun 2015 with weekly chemo. Admitted to [place] 06/30/15 through 07/03/15 with c/o worsening back pain. She was seen by Urology that day and was found to have stone obstructing lt distal ureter and directed to hospital for stent placement, lt stent placed 07/01/15. There is a CT chest done on 07/30/15 as a F/U study for "mets", there was a paraspinal LN seen, bx attempted but, procedure aborted as too small and location was risky. There is a op report 08/13/15, pt had Aris sleeve placement with Dr. Miguel Bowling. Still ending notes from Services Delivery Driver Onc Dr. Hendrix. Dr. Meza is Rad Onc, Dr. Atkinson is Urologist
[2020-06-23] MEDS: MORPHINE SULFATE ER 15 MG TABLET PO SCH (21:08)
[2020-06-24] MEDS: SODIUM CHLORIDE 0.9% 1,000 ML IV SCH ×2 (01:08→14:10)
[2020-06-24 02:02] LABS: Ferritin 101.5 ng/mL (10.0-291.0)
[2020-06-24 02:46] LABS: % Iron Saturation 5.86 (12.00-45.00)
[2020-06-24] MEDS: traMADol 50 MG TAB PO PRN ×2 (03:15→12:53)
[2020-06-24] MEDS: LEVOTHYROXINE 75 MCG TAB PO SCH (05:38)
[2020-06-24] MEDS: PANTOPRAZOLE 40 MG TABLET PO SCH (07:31)
[2020-06-24] MEDS: SENNOSIDES-DOCUSATE SODIUM 1 EACH TAB PO SCH ×2 (07:31→20:57)
[2020-06-24] MEDS: MORPHINE SULFATE ER 15 MG TABLET PO SCH ×2 (07:31→20:59)
[2020-06-24] MEDS: NAPROXEN 250 MG TAB PO SCH ×2 (07:32→20:57)
--- NOTE | 2020-06-24 09:46 | P.DS ---
Providers Date of admission: 06/22/20 08:45 Expected date of discharge: 06/24/20 Attending physician: Kg Ayala Consults: 06/20/20 17:08 Consult Physician Stat Consulting Provider: Rian Laboy Consult Reason/Comments: metastatic lesions of the kidney, adrenal gland, liver Do you want consulting provider notified?: Yes Consult Physician Stat Consulting Provider: Omero Medina Consult Reason/Comments: metastatic lesions of the kidney, adrenal gland Do you want consulting provider notified?: Yes Primary care physician: Kg Ayala [facility] Course: Final Diagnoses: -Abdominal pain with abnormal CT reporting irregular mass in the lower pole of the left kidney, multiple hypodense foci bilateral kidneys, large right adrenal mass,multiple hypodense lesions in the liver, lung nodules, possible subcutaneous nodules over the lumbar spine and right anterior abdomen, suspect malignancy. Status post biopsy left inguinal LN with IR, path reporting metastatic poorly differentiated squamous cell CA consistent with cervical primary.CT chest completed,reporting numerous bilateral pulmonary nodules compatible with widespread metastasis is the largest measuring 2.9 cm in the rig ht upper lobe, large right adrenal mass compatible with metastasis, suspicious appearing left renal mass possible primary renal cell carcinoma, intrahepatic metastasis similar to recent exam. NM bone scan pending. -Severe hypothyroidism in a patient with recent Severe Hypothyroidism April 2020, previously diagnosed, noncompliant with medical regimen -History of recent Chest pain in a patient with prior elevated troponins in 2017 with cardiac cath reporting normal coronary arteries, normal LV function. -History of cervical cancer, status post chemo and radiation, with no further follow-up. -History of Left lower lobe nodular density, with outpatient follow-up recommended -Lymphopenia -Anxiety -Nicotine dependence -THC use -obesity, BMI 39.7 Hospital course:This is a 49-year-old female admitted with abdominal pain accompanied with weight loss, bilateral inguinal pain radiating to lower back. Denies incontinence of urine or bowel . Ambulating, up to the shower, denies weakness or numbness in the legs .Abnormal CT reporting multiple masses involving lower pole left kidney, bilateral kidneys, right and left adrenals, lung bases, lumbar spine, right anterior abdomen, left medial thigh. Complains of abdominal pain accompanied with nausea and vomiting. Denies chest pain, palpitations or shortness of breath. Urology, oncology consult in place, recommendations pending. 06/22/2020 completed inguinal biopsy with IR, tolerated procedure well. Pathology pending. Patient appears to be doing better this morning, less tearful, reporting her mom is coming for a visit this afternoon. Afebrile, maintaining O2 sats in the high 90s on room air, VSS. TSH 105.590, free T4 1 0.1, free T3 2. In April 2020, patient presented with TSH greater than 100, noncompliant with medication regimen. Denies cough, congestion or shortness of breath. Reports diffuse abdominal pain. 06/23/2019 pathology pending .requiring pain medication routinely for some diffuse abdominal pain, more lower back pain. Head/neck ultrasound reported no evidence of lymphadenopathy, no nodules on the right, left or the isthmus ; consistent with reported hypothyroidism .Chest CT reporting numerous bilateral pulmonary nodules compatible with widespread metastasis is the largest measuring 2.9 cm in the right upper lobe, large right adrenal mass compatible with metastasis, suspicious appearing left renal mass possible primary renal cell carcinoma, intrahepatic metastasis similar to recent exam. Scheduled for whole body bone scan tomorrow for staging. Denies chest pain, palpitations or sh ortness of breath. Pain controlled this morning, patient asking to go home after scan .Patient will be discharged home today in a stable condition with guarded prognosis, after NM bone scan completed, pending final DC recommendations including further pain management, and clearance from oncology. PHYSICAL EXAM: VITAL SIGNS: Reviewed. GENERAL: Alert and oriented 3, Sitting up on bed, no acute distress HEENT: Conjunctivae normal. eyes normal. Oral mucosa moist. NECK: Supple, No JVD. CARDIOVASCULAR: S1, S2 regular.No murmur RESPIRATION: Breath sounds CTA, diminished in the bases. ABDOMEN: Soft, nondistended, nontender. No guarding. no masses palpable. Positive bowel sounds. NERVOUS SYSTEM: Cranial N 2-12 grossly normal. Moves all 4 limbs. No focal deficits. Strength and sensation grossly intact. Skin: Warm and dry, no rash. The impression and plan of care has been dictated as directed. : I performed a history and examination of this patient, discussed the same with the dictator. I agree with the dictator's note ,documented as a scribe. Any additional findings or plans will be noted. Patient Condition at Discharge: Stable Plan - Discharge Summary Discharge Rx Participant: No New Discharge Prescriptions: New Sennosides-Docusate Sodium [Senokot-S] 2 each PO BID tab Levothyroxine Sodium [Synthroid] 150 mcg PO DAILY@0630 #60 tab Naproxen [Naprosyn] 500 mg PO BID #20 tab Pantoprazole [Protonix] 40 mg PO AC-BRKFST #30 tablet. traMADol HCl [Ultram] 50 mg PO Q6H PRN #12 tab PRN Reason: Moderate Pain Discontinued Levothyroxine Sodium [Synthroid] 75 mcg PO DAILY Discharge Medication List Levothyroxine Sodium [Synthroid] 150 mcg PO DAILY@0630 #60 tab 06/22/20 [Rx] Sennosides-Docusate Sodium [Senokot-S] 2 each PO BID tab 06/22/20 [Rx] Naproxen [Naprosyn] 500 mg PO BID #20 tab 06/24/20 [Rx] Pantoprazole [Protonix] 40 mg PO AC-BRKFST #30 tablet. 06/24/20 [Rx] traMADol HCl [Ultram] 50 mg PO Q6H PRN #12 tab 06/24/20 [Rx] Follow up Appointment(s)/Referral(s): Rian Laboy MD [STAFF PHYSICIAN] - 1 Week Kg Ayala DO [Primary Care Provider] - 2 Weeks Patient Instructions/Handouts: Abdominal Pain (ED) Activity/Diet/Wound Care/Special Instructions: Confirm urology follow-up appointment prior to discharge.
[2020-06-24] MEDS ORDERED: ALPRAZolam 0.5 MG TAB PO STA (11:58)
--- NOTE | 2020-06-24 13:56 | NM ---
EXAMINATION TYPE: NM bone scan whole body DATE OF EXAM: 06/24/2020 COMPARISON: NONE HISTORY: History of cervical cancer, new lesions Delayed whole-body scanning was performed following the injection of 25.4 mCi Tc 99m MDP. Images acq uired 5 hours post injection. FINDINGS: There is mild degenerative uptake about the shoulders, sternoclavicular joints and ankles. There is n o intense uptake to suggest metastatic disease at this time or fracture. IMPRESSION: Mild degenerative uptake noted.
--- NOTE | 2020-06-24 15:22 | P.PN ---
Subjective Progress Note Date: 06/24/20 Principal diagnosis: Intractable pain. Mult lesions suspicious for recurrent cancer In follow-up today patient states good control of pain. She is tolerating some oral intake today. No new physical c/o Objective - Vital Signs Vital signs: Vital Signs Temp 98.3 F 06/24/20 05:40 Pulse 64 06/24/20 05:40 Resp 16 06/24/20 05:40 BP 112/71 06/24/20 05:40 Pulse Ox 96 06/24/20 05:40 Intake & Output 06/23/20 06/24/20 06/24/20 18:59 06:59 18:59 Intake Total 1500 240 Balance 1500 240 Intake: Intake, IV Titration 900 Amount Sodium Chloride 0.9% 1, 900 000 ml @ 75 mls/hr IV . [id number] [facility] Rx#:[id number] Oral 600 240 Other: Voiding Method Toilet Toilet # Voids 9 3 - Constitutional General appearance: Present: cooperative, no acute distress, obese - EENT Eyes: Present: anicteric sclerae, EOMI ENT: Present: hearing grossly normal - Respiratory Respiratory: bilateral: CTA - Cardiovascular Rhythm: regular Heart sounds: normal: S1, S2 Abnormal Heart Sounds: Absent: systolic murmur, diastolic murmur, rub, S3 Gallop, S4 Gallop, click, other - Peripheral edema leg Peripheral Edema: bilateral: None - Gastrointestinal General gastrointestinal: Present: normal bowel sounds, soft - Integumentary Integumentary: Present: normal - Neurologic Neurologic: Present: CNII-XII intact - Musculoskeletal Musculoskeletal: Present: strength equal bilaterally - Psychiatric Psychiatric: Present: A&O x's 3, appropriate affect, intact judgment & insight - Labs CBC & Chem 7: 06/23/20 08:01 06/23/20 08:01 Labs: Abnormal Lab Results - Last 24 Hours (Table) 06/23/20 06/23/20 06/23/20 Range/Units 08:01 08:01 15:34 RBC 3.20 L (4.10-5.20) X 10*6/uL Hgb 10.0 L (12.0-15.0) g/dL Hct 32.6 L (37.2-46.3) % MCV 101.9 H (80.0-97.0) fL MCHC 30.7 L (32.0-37.0) g/dL Lymphocytes # 0.67 L (0.90-5.00) X 10*3/uL BUN 7.0 L (9.0-27.0) mg/dL BUN/Creatinine Ratio 8.75 L (12.00-20.00) Ratio Calcium 8.1 L (8.7-10.3) mg/dL Iron 15 L (50-170) ug/dL % Saturation 5.86 L (12.00-45.00) - Imaging and Cardiology CT scan - chest: report reviewed Assessment and Plan (1) Abdominal pain Narrative/Plan: Likely r/t masses on imaging in the pelvis. Mult combinations tried, best pain control MS contin, breakthrough tramadol Q 6 hours PRN and naproxen BID. Stool softeners daily, laxatives PRN for prevention/treatment of narcotic induced constipation Current Visit: Yes Status: Acute Priority: High Code(s): R10.9 - UNSPECIFIED ABDOMINAL PAIN SNOMED Code(s): 87474403 (2) Lesion of adrenal gland Current Visit: Yes Status: Acute Priority: High Code(s): E27.9 - DISORDER OF ADRENAL GLAND, UNSPECIFIED SNOMED Code(s): 36625585 (3) Lesion of liver Current Visit: Yes Status: Acute Priority: High Code(s): K76.9 - LIVER DISEASE, UNSPECIFIED SNOMED Code(s): 647271874 (4) Lung nodules Current Visit: Yes Status: Acute Priority: High Code(s): R91.8 - OTHER NONSPECIFIC ABNORMAL FINDING OF LUNG FIELD SNOMED Code(s): 358659751 Plan: Reviewed with pt biopsy positive for metastatic cervical carcinoma p16 positive disease. CT chest confirmed mets present (seen on CT AP). NM bone scan to be complete staging planned for today. Diagnosis of stage IV disease, unable to cure but, can treat. Prognosis is 10- 14 months with successful response and tolerance to available treatments. Biopsy specimen has been requested to be sent for NGS and PD-L1 testing. If there is a mutation treatments will be adjusted as appropriate. All pt questions answered to her satisfaction. She is requesting a meeting with her mother to discuss diagnosis. This is planned for tomorrow AM. Pt ok from Hem/Onc to be discharged after AM meeting Pain meds and Rx sent to [facility] per pt request Attests: I have performed H&P and developed impression and plan of care of patient, discussed with dictator. I agree with dictated note, documented as a scribe. Time with Patient: Greater than 30
[2020-06-24] MEDS: ALPRAZolam 0.5 MG TAB PO SCH ×2 (18:21→21:00)
[2020-06-24 20:15] VITALS: RESP 18
[2020-06-25] MEDS: traMADol 50 MG TAB PO PRN ×2 (00:49→06:41)
[2020-06-25] MEDS: SODIUM CHLORIDE 0.9% 1,000 ML IV SCH (00:58)
[2020-06-25 05:12] VITALS: BP 99/67; PULSE 63; TEMP 97.6
[2020-06-25] MEDS: LEVOTHYROXINE 75 MCG TAB PO SCH (05:43)
[2020-06-25] MEDS: ALPRAZolam 0.5 MG TAB PO SCH (07:46)
[2020-06-25] MEDS: SENNOSIDES-DOCUSATE SODIUM 1 EACH TAB PO SCH (07:46)
[2020-06-25] MEDS: NAPROXEN 250 MG TAB PO SCH (07:46)
[2020-06-25] MEDS: PANTOPRAZOLE 40 MG TABLET PO SCH (07:47)
[2020-06-25] MEDS: MORPHINE SULFATE ER 15 MG TABLET PO SCH (07:47)
[2020-06-25 07:56] LABS: Methylmalonic Acid 0.64 umol/L (<0.40)
--- NOTE | 2020-06-25 10:58 | P.PN ---
Subjective Progress Note Date: 06/25/20 Principal diagnosis: Intractable pain. Mult lesions suspicious for recurrent cancer In follow-up today patient cont to have good pain control, no new c/o. Mother is at bedside for meeting. Objective - Vital Signs Vital signs: Vital Signs Temp 97.6 F 06/25/20 05:00 Pulse 63 06/25/20 05:00 Resp 18 06/25/20 05:00 BP 99/67 06/25/20 05:00 Pulse Ox 96 06/25/20 05:00 Intake & Output 06/24/20 06/25/20 06/25/20 18:59 06:59 18:59 Intake Total 240 1200 240 Balance 240 1200 240 Intake: Intake, IV Titration 600 Amount Sodium Chloride 0.9% 1, 600 000 ml @ 75 mls/hr IV . [id number] [facility] Rx#:[id number] Oral 240 600 240 Other: Voiding Method Toilet # Voids 1 3 - Exam WDWN, NAD, A&Ox4, resp even unlabored, no swelling - Labs CBC & Chem 7: 06/23/20 08:01 06/23/20 08:01 Labs: Abnormal Lab Results - Last 24 Hours (Table) 06/23/20 Range/Units 15:50 Methylmalonic Acid 0.64 H (<0.40) umol/L RBC Folate 827 H (280 - 791) ng/mL Assessment and Plan (1) Abdominal pain Narrative/Plan: Likely r/t masses on imaging in the pelvis. Pain control currently with MS contin, breakthrough tramadol Q 6 hours PRN and naproxen BID. Stool softeners daily, laxatives PRN for prevention/treatment of narcotic induced constipation Current Visit: Yes Status: Acute Priority: High Code(s): R10.9 - UNSPECIFIED ABDOMINAL PAIN SNOMED Code(s): 37460985 (2) Lesion of adrenal gland Current Visit: Yes Status: Acute Priority: High Code(s): E27.9 - DISORDER OF ADRENAL GLAND, UNSPECIFIED SNOMED Code(s): 53660928 (3) Lesion of liver Current Visit: Yes Status: Acute Priority: High Code(s): K76.9 - LIVER DISEASE, UNSPECIFIED SNOMED Code(s): 212898865 (4) Lung nodules Current Visit: Yes Status: Acute Priority: High Code(s): R91.8 - OTHER NONSPECIFIC ABNORMAL FINDING OF LUNG FIELD SNOMED Code(s): 414953730 Plan: Reviewed with pt and mother hospital course, biopsy positive for metastatic cervical carcinoma p16 positive disease. CT chest confirmed mets present (seen on CT AP). NM bone scan no evidence of mets. Pt has stage IV disease, unable to cure but, can treat. Prognosis is 10-14 months with successful response and tolerance to available treatments. Biopsy specimen being sent for NGS and PD-L1 testing. If there is a mutation treatments will be adjusted as appropriate. Recommendation is to begin chemo. All pt and her mothers questions answered to their satisfaction. Pt ok from Hem/Onc to be discharged Pain meds and Rx sent to [facility] per pt request Time with Patient: Greater than 30 (counseling and coordinating care)
== END 2020-06-25 11:25 | disposition home or self-care (01) | DRG 629 ==
LOC: EC 14:32 → 5NMEDONC 17:26 → OBSVTOIN 06-22 08:45 → 5NMEDONC 06-23 04:45
PROVIDERS: ADMIT Family Medicine; ATTEND Family Medicine
PROC: 07BJ3ZX Excision of Left Inguinal Lymphatic, Percutaneous Approach, Diagnostic (ICD-10-PCS; principal; 2020-06-21)
DX: C79.71 Secondary malignant neoplasm of right adrenal gland (principal); C79.02 Secondary malignant neoplasm of left kidney and renal pelvis; C78.02 Secondary malignant neoplasm of left lung; C78.01 Secondary malignant neoplasm of right lung; C78.7 Secondary malignant neoplasm of liver and intrahepatic bile duct; Z20.822 Contact with and (suspected) exposure to COVID-19; E03.9 Hypothyroidism, unspecified; F41.9 Anxiety disorder, unspecified; E66.9 Obesity, unspecified; F17.200 Nicotine dependence, unspecified, uncomplicated; D72.810 Lymphocytopenia; G89.3 Neoplasm related pain (acute) (chronic); Z68.39 Body mass index [BMI] 39.0-39.9, adult; Z79.890 Hormone replacement therapy; Z92.3 Personal history of irradiation; Z85.41 Personal history of malignant neoplasm of cervix uteri; Z91.14 Patient's other noncompliance with medication regimen; Z87.440 Personal history of urinary (tract) infections; Z92.21 Personal history of antineoplastic chemotherapy
CPT/HCPCS: 20206; 36415; 71260; 74177; 76536; 76942; 78306; 80048; 80053; 81001; 82607; 82728; 82747; 83540; 83550; 83690; 83921; 84439; 84443; 84481; 84484; 85025; 85610; 87635; 88305; 88341; 88342; 93005; 96360; 99285

== ENCOUNTER → 2020-06-28 | Outpatient (CLI) | payer BC ==
--- NOTE | 2020-06-28 17:49 | US ---
EXAMINATION TYPE: US venous doppler duplex LE RT DATE OF EXAM: 06/28/2020 5:18 PM COMPARISON: NONE CLINICAL HISTORY: R22.41 SWELLING RT LOWER LEG. Swelling right leg x 1 day. No hx of DVT. Patient stanley s not take blood thinners. Patient has cervical cancer and will be starting chemo soon. SIDE PERFORMED: Right TECHNIQUE: The lower extremity deep venous system is examined utilizing real time linear array sonog magdalena with graded compression, doppler sonography and color-flow sonography. VESSELS IMAGED: Common Femoral Vein Deep Femoral Vein Greater Saphenous Vein * Femoral Vein Popliteal Vein Small Saphenous Vein * Proximal Calf Veins (* superficial vessels) . Right Leg: No evidence of DVT in veins imaged at this time from prox calf veins to CFV/GSV. Incident al finding: Hypoechoic/complex, heterogeneous area with vascularity seen within the left groin measur ing 2.1 x 2.1 x 1.7 cm. IMPRESSION: No evidence of deep vein thrombosis. There is rounded mass in the left groin. This could be an enlarged lymph node. Pseudoaneurysm not excluded.
== END | disposition home or self-care (01) ==
LOC: RADUSWWP 16:53
PROVIDERS: ATTEND Internal Medicine Hematology & Oncology
DX: R22.41 Localized swelling, mass and lump, right lower limb (principal)

== ENCOUNTER 2020-07-09 17:26 | Inpatient (IN) | payer BC, OTHER ==
[2020-07-09] MEDS ORDERED: HYDROmorphone 1 MG/ML 1 ML SYRINGE IVP STA (18:17)
[2020-07-09] MEDS ORDERED: SODIUM CHLORIDE 0.9% 1,000 ML IV STA (18:17)
[2020-07-09] MEDS ORDERED: ONDANSETRON 4 MG/2 ML VIAL IVP STA ×2 (18:17→20:34)
--- NOTE | 2020-07-09 18:21 | ED ---
General Adult HPI - General Chief complaint: Weakness Stated complaint: Weakness, nausea Time Seen by Provider: 07/09/20 18:08 Source: patient, RN notes reviewed Mode of arrival: ambulatory Limitations: no limitations - History of Present Illness Initial comments: Patient is a 49-year-old female presents to emergency department with nausea vomiting abdominal pain constipation and just generally not feeling well. She noted that she does do chemo for cervical cancer. Her last chemo was last week. She stated that she has been taking all her medications but was feeling worse than usual so decided come and evaluated. She noted that her pain was about a 7-8 out of 10 this been unrelieved with her at home pain medication. She also states that she had not taken her nausea medication this morning. She appeared to be in mild distress and discomfort while laying in bed. She denied any chest pain shortness of breath headache. Chills lightheadedness dizziness. - Related Data Home Medications Medication Instructions Recorded Confirmed Levothyroxine Sodium [Synthroid] 150 mcg PO DAILY 07/09/20 07/09/20 Naproxen [Naprosyn] 250 - 500 mg PO BID PRN 07/09/20 07/09/20 Prochlorperazine [Compazine] 10 mg PO Q6H PRN 07/09/20 07/09/20 Previous Rx's Medication Instructions Recorded ALPRAZolam [Xanax] 0.5 mg PO TID #9 tablet 06/24/20 Morphine Sulfate ER [Ms Contin] 15 mg PO Q12HR 3 Days #6 tab 06/24/20 traMADol HCl [Ultram] 50 mg PO Q6H PRN #12 tab 06/24/20 Allergies Allergy/AdvReac Type Severity Reaction Status Date / Time No Known Allergies Allergy Verified 07/09/20 21:11 Review of Systems ROS Statement: Those systems with pertinent positive or pertinent negative responses have been documented in the HPI. ROS Other: All systems not noted in ROS Statement are negative. Past Medical History Past Medical History: No Reported History, Cancer, Thyroid Disorder Additional Past Medical History / Comment(s): cervical cancer 5 YEARS ago with chemo and radiation. MALIGNANT CERVICAL CANCER. History of Any Multi-Drug Resistant Organisms: None Reported Past Surgical History: No Surgical Hx Reported Additional Past Surgical History / Comment(s): RADIATION TO UTERUS. Past Anesthesia/Blood Transfusion Reactions: No Reported Reaction Past Psychological History: Anxiety Smoking Status: Former smoker Past Alcohol Use History: None Reported Past Drug Use History: None Reported - Past Family History Mother Family Medical History: Unable to Obtain Father History Unknown: Yes Family Medical History: Unable to Obtain General Exam Limitations: no limitations General appearance: alert, in no apparent distress Head exam: Present: atraumatic, normocephalic, normal inspection Eye exam: Present: normal appearance, PERRL, EOMI. Absent: scleral icterus, conjunctival injection, periorbital swelling ENT exam: Present: normal exam, mucous membranes moist Neck exam: Present: normal inspection. Absent: tenderness, meningismus, lymphadenopathy Respiratory exam: Present: normal lung sounds bilaterally. Absent: respiratory distress, wheezes, rales, rhonchi, stridor Cardiovascular Exam: Present: regular rate, normal rhythm, normal heart sounds. Absent: systolic murmur, diastolic murmur, rubs, gallop, clicks GI/Abdominal exam: Present: soft, normal bowel sounds. Absent: distended, tenderness, guarding, rebound, rigid Extremities exam: Present: normal inspection, full ROM, normal capillary refill. Absent: tenderness, pedal edema, joint swelling, calf tenderness Neurological exam: Present: alert, oriented X3, CN II-XII intact Psychiatric exam: Present: normal affect, normal mood Skin exam: Present: warm, dry, intact, normal color. Absent: rash Course Vital Signs 07/09/20 07/09/20 17:36 20:42 Temperature 98.6 F Pulse Rate 81 82 Respiratory 22 18 Rate Blood Pressure 156/112 141/93 O2 Sat by Pulse 98 98 Oximetry EKG Findings - EKG Comments: EKG Findings:: Ventricular rate 1 bpm, DC interval 150 60 seconds, QRS duration 82 ms, QT/QTc 400/434 ms, PareT axes 49/13/32. Normal sinus rhythm, normal E CG. Medical Decision Making - Medical Decision Making 49-year-old female complaining of nausea, abdominal pain, constipation, not feeling well overall. Labs, EKG, 1 L normal saline, 4 mg Zofran, 1 mg of Dilaudid ordered. CT of abdomen and pelvis ordered. 4 mg Zofran given, Case discussed with Dr. Ferro, was decided the patient could be admitted inpatient. - Lab Data Result diagrams: 07/09/20 18:24 07/09/20 18:24 Lab Results 07/09/20 07/09/20 07/09/20 Range/Units 18:24 18:24 18:24 WBC 4.9 (3.8-10.6) k/uL RBC 3.44 L (3.80-5.40) m/uL Hgb 10.5 L (11.4-16.0) gm/dL Hct 32.7 L (34.0-46.0) % MCV 95.1 (80.0-100.0) fL MCH 30.4 (25.0-35.0) pg MCHC 32.0 (31.0-37.0) g/dL RDW 13.9 (11.5-15.5) % Plt Count 259 (150-450) k/uL MPV 7.5 Neutrophils % 83 % Lymphocytes % 10 % Monocytes % 2 % Eosinophils % 4 % Basophils % 0 % Neutrophils # 4.1 (1.3-7.7) k/uL Lymphocytes # 0.5 L (1.0-4.8) k/uL Monocytes # 0.1 (0-1.0) k/uL Eosinophils # 0.2 (0-0.7) k/uL Basophils # 0.0 (0-0.2) k/uL Sodium 138 (137-145) mmol/L Potassium 4.6 (3.5-5.1) mmol/L Chloride 102 (98-107) mmol/L Carbon Dioxide 31 H (22-30) mmol/L Anion Gap 5 mmol/L BUN 19 H (7-17) mg/dL Creatinine 0.97 (0.52-1.04) mg/dL Est GFR (CKD-EPI)AfAm 81 (>60 ml/min/1.73 sqM) Est GFR (CKD-EPI)NonAf 70 (>60 ml/min/1.73 sqM) Glucose 88 (74-99) mg/dL Plasma Lactic Acid Sky 1.1 (0.7-2.0) mmol/L Calcium 9.2 (8.4-10.2) mg/dL Total Bilirubin 0.6 (0.2-1.3) mg/dL AST 67 H (14-36) U/L ALT 25 (4-34) U/L Alkaline Phosphatase 224 H (38-126) U/L Troponin I (0.000-0.034) ng/mL Total Protein 6.2 L (6.3-8.2) g/dL Albumin 3.6 (3.5-5.0) g/dL Amylase 43 (30-110) U/L Lipase 109 (23-300) U/L Urine Color Urine Appearance (Clear) Urine pH (5.0-8.0) Ur Specific [place] (1.001-1.035) Urine Protein (Negative) Urine Glucose (UA) (Negative) Urine Ketones (Negative) Urine Blood (Negative) Urine Nitrite (Negative) Urine Bilirubin (Negative) Urine Urobilinogen (<2.0) mg/dL Ur Leukocyte Esterase (Negative) Urine RBC (0-5) /hpf Urine WBC (0-5) /hpf Urine Mucus (None) /hpf 07/09/20 07/09/20 Range/Units 18:24 18:44 WBC (3.8-10.6) k/uL RBC (3.80-5.40) m/uL Hgb (11.4-16.0) gm/dL Hct (34.0-46.0) % MCV (80.0-100.0) fL MCH (25.0-35.0) pg MCHC (31.0-37.0) g/dL RDW (11.5-15.5) % Plt Count (150-450) k/uL MPV Neutrophils % % Lymphocytes % % Monocytes % % Eosinophils % % Basophils % % Neutrophils # (1.3-7.7) k/uL Lymphocytes # (1.0-4.8) k/uL Monocytes # (0-1.0) k/uL Eosinophils # (0-0.7) k/uL Basophils # (0-0.2) k/uL Sodium (137-145) mmol/L Potassium (3.5-5.1) mmol/L Chloride (98-107) mmol/L Carbon Dioxide (22-30) mmol/L Anion Gap mmol/L BUN (7-17) mg/dL Creatinine (0.52-1.04) mg/dL Est GFR (CKD-EPI)AfAm (>60 ml/min/1.73 sqM) Est GFR (CKD-EPI)NonAf (>60 ml/min/1.73 sqM) Glucose (74-99) mg/dL Plasma Lactic Acid Sky (0.7-2.0) mmol/L Calcium (8.4-10.2) mg/dL Total Bilirubin (0.2-1.3) mg/dL AST (14-36) U/L ALT (4-34) U/L Alkaline Phosphatase (38-126) U/L Troponin I <0.012 (0.000-0.034) ng/mL Total Protein (6.3-8.2) g/dL Albumin (3.5-5.0) g/dL Amylase (30-110) U/L Lipase (23-300) U/L Urine Color Light Yellow Urine Appearance Clear (Clear) Urine pH 7.0 (5.0-8.0) Ur Specific [place] 1.009 (1.001-1.035) Urine Protein Negative (Negative) Urine Glucose (UA) Negative (Negative) Urine Ketones Negative (Negative) Urine Blood Trace H (Negative) Urine Nitrite Negative (Negative) Urine Bilirubin Negative (Negative) Urine Urobilinogen <2.0 (<2.0) mg/dL Ur Leukocyte Esterase Small H (Negative) Urine RBC 4 (0-5) /hpf Urine WBC 6 H (0-5) /hpf Urine Mucus Rare H (None) /hpf - EKG Data EKG shows normal: sinus rhythm Rate: normal EKG Comments: Ventricular rate 1 bpm, DC interval 150 60 seconds, QRS duration 82 ms, QT/QTc 400/434 ms, PareT axes 49/13/32. Normal sinus rhythm, normal ECG. - Radiology Data Radiology results: report reviewed, image reviewed Overall progression of metastatic uterine cancer, increased size of multiple hepatic, right lower quadrant peritoneal and subcutaneous lumbar paraspinal soft tissue lesions. Left thigh, bilateral adrenal left kidney inguinal lymph nodes and pulmonary disease appears similar new mild left hydronephrosis Disposition Clinical Impression: Uterine cancer, Nausea & vomiting Disposition: ADMITTED IP TO THIS HOSP Condition: Stable Additional Instructions: Please return to the Emergency Department if symptoms worsen or any other concerns. Follow-up with oncologist, chemotherapy, primary care as soon as possible. Continue to take nausea medication at home. Is patient prescribed a controlled substance at d/c from ED?: No Referrals: Kg Ayala DO [Primary Care Provider] - 1-2 days Time of Disposition: 21:14
[2020-07-09 18:37] LABS: Basophils % (A) 0 %; Eosinophils # (A) 0.2 k/uL (0-0.7); Eosinophils % (A) 4 %; HCT 32.7 % (34.0-46.0); HGB 10.5 gm/dL (11.4-16.0); Lymphocytes # (A) 0.5 k/uL (1.0-4.8); Lymphocytes % (A) 10 %; MCH 30.4 pg (25.0-35.0); MCV 95.1 fL (80.0-100.0); Mean Platelet Volume 7.5; Monocytes # (A) 0.1 k/uL (0-1.0); Monocytes % (A) 2 %; Neutrophils # (A) 4.1 k/uL (1.3-7.7); Neutrophils % (A) 83 %; Platelet Count 259 k/uL (150-450); RBC 3.44 m/uL (3.80-5.40); RDW 13.9 % (11.5-15.5); WBC 4.9 k/uL (3.8-10.6)
[2020-07-09 18:48] LABS: Albumin 3.6 g/dL (3.5-5.0); Calcium 9.2 mg/dL (8.4-10.2); Potassium 4.6 mmol/L (3.5-5.1); Total Bilirubin 0.6 mg/dL (0.2-1.3); Total Protein 6.2 g/dL (6.3-8.2)
[2020-07-09 18:59] LABS: Appearance,Urine Clear (Clear); Bilirubin,Urine Negative (Negative); Blood,Urine Trace (Negative); Color,Urine Light Yellow; Glucose,Urine (UA) Negative (Negative); Ketones,Urine Negative (Negative); Leukocyte Esterase,Urine Small (Negative); Mucus,Urine Rare /hpf; Nitrite,Urine Negative (Negative); Protein,Urine Negative (Negative); RBC,Urine 4 /hpf (0-5); Specific Gravity,Urine 1.009 (1.001-1.035); Urobilinogen,Urine <2.0 mg/dL (<2.0); WBC,Urine 6 /hpf (0-5)
--- NOTE | 2020-07-09 19:51 | CT ---
EXAMINATION TYPE: CT abdomen pelvis wo con DATE OF EXAM: 07/09/2020 COMPARISON: 06/20/2020. HISTORY: Weakness and vomiting post chemotherapy. Hx uterine cancer. CT DLP: 915.6 mGycm Automated exposure control for dose reduction was used. TECHNIQUE: Helical acquisition of images was performed from the lung bases through the pelvis. FINDINGS: LUNG BASES: Partially imaged bilateral innumerable, variable sized pulmonary nodules. LIVER/GB: Redemonstrated scattered several low attenuating hepatic lesions. Overall findings appear i ncreased in size, for example left hepatic index lesion now measuring 2.4 cm (previously measured at 1 cm). PANCREAS: No significant abnormality is seen. SPLEEN: No significant abnormality is seen. ADRENALS: Redemonstrated large 7.5 x 6.4 cm right adrenal mass and nodular thickening of the left adr enal gland. KIDNEYS: Redemonstrated 3.6 x 3.3 cm left renal mass. There is new mild left hydronephrosis without o bstructing calculus. No significant right hydronephrosis or nephrolithiasis. FREE AIR: No free air is visualized RETROPERITONEAL ADENOPATHY: None visualized REPRODUCTIVE ORGANS: Suboptimal evaluation of the uterus. URINARY BLADDER: No significant abnormality is seen. PELVIC ADENOPATHY: Redemonstrated bilateral enlarged inguinal lymph nodes with index lesion seen on the left and measuring 1.9 cm short axis. OSSEOUS STRUCTURES: No significant abnormality is seen. BOWEL: No bowel obstruction, free air or fluid. OTHER: Slight increase in size of 3.6 x 3.4 cm anterior right lower quadrant peritoneal mass (previou sly measured approximately 2.2 x 2.3 cm) with overlying 1.8 x 1.4 similar subcutaneous nodule. Redemo nstrated 7.1 x 6.4 cm left intramuscular mass within the adductor musculature. Also increase in size of approximately 2 posterior lumbar paraspinal subcutaneous soft tissue nodules, measuring up to 1.4 cm (previously measured up to 0.8 cm). IMPRESSION: OVERALL PROGRESSION OF METASTATIC UTERINE CANCER. INCREASED SIZE OF MULTIPLE HEPATIC, RIGHT LOWER QUADRANT PERITONEAL AND SUBCUTANEOUS AND LUMBAR SULLY KITTY SOFT TISSUES LESIONS. LEFT THIGH, BILATERAL ADRENAL, LEFT KIDNEY, INGUINAL LYMPH NODES AND PULMONARY DISEASE APPEARS SIMILA R. NEW MILD LEFT HYDRONEPHROSIS.
[2020-07-09] MEDS ORDERED: ONDANSETRON 4 MG/2 ML VIAL IVP PRN (21:12)
[2020-07-09] MEDS ORDERED: NALOXONE 0.4 MG/ML 1 ML VIAL IV PRN (21:12)
[2020-07-09] MEDS ORDERED: SODIUM CHLORIDE 0.9% 1,000 ML IV SCH (21:15)
[2020-07-09] MEDS ORDERED: traMADol 50 MG TAB PO PRN (23:30)
[2020-07-10] MEDS: MORPHINE SULFATE ER 15 MG TABLET PO SCH ×2 (00:09→08:14)
[2020-07-10] MEDS: HEPARIN SODIUM,PORCINE 5,000 UNIT/ML 1 ML VIAL SQ SCH ×4 (00:09→21:49)
[2020-07-10] MEDS: LEVOTHYROXINE 75 MCG TAB PO SCH (05:43)
[2020-07-10] MEDS: PANTOPRAZOLE 40 MG/10 ML VIAL IV SCH (08:14)
[2020-07-10 08:52] LABS: HCT 29.3 % (37.2-46.3); HGB 8.9 g/dL (12.0-15.0); MCH 30.4 pg (27.0-32.0); MCHC 30.4 g/dL (32.0-37.0); Mean Platelet Volume 10.9 fL (9.5-12.2); Platelet Count 240 X 10*3/uL (140-440); RBC 2.93 X 10*6/uL (4.10-5.20); RDW 13.6 % (11.5-14.5); WBC 4.56 X 10*3/uL (4.50-10.00)
[2020-07-10] MEDS ORDERED: PROCHLORPERAZINE 10 MG TAB PO PRN (09:08)
[2020-07-10] MEDS ORDERED: ALPRAZolam 0.5 MG TAB PO PRN (09:08)
[2020-07-10] MEDS ORDERED: polyethylene glycoL 3350 17 GM POWD.PACK PO PRN (09:10)
[2020-07-10 09:36] LABS: African American GFR (CKD) 77.7 (60.0-200.0); Anion Gap 12.4 mmol/L (4.00-12.00); Calcium 9.1 mg/dL (8.7-10.3); Carbon Dioxide 23.6 mmol/L (21.6-31.8); Potassium 4.5 mmol/L (3.5-5.5)
[2020-07-10] MEDS: HYDROcodone/APAP 7.5-325MG 1 EACH TAB PO PRN ×2 (09:41→21:55)
[2020-07-10 09:42] LABS: Basophils # (A) 0.01 X 10*3/uL (0.00-0.10); Basophils % (A) 0.2 %; Eosinophils # (A) 0.11 X 10*3/uL (0.04-0.35); Eosinophils % (A) 2.4 %; Lymphocytes # (A) 0.39 X 10*3/uL (0.90-5.00); Lymphocytes % (A) 8.6 %; Monocytes # (A) 0.09 X 10*3/uL (0.20-1.00); Neutrophils # (A) 3.95 X 10*3/uL (1.80-7.70); Neutrophils % (A) 86.6 %
--- NOTE | 2020-07-10 13:28 | P.HPIM ---
History of Present Illness Patient is a 49-year-old female presents to emergency department with nausea vomiting abdominal pain constipation and just generally not feeling well. She noted that she does do chemo for cervical cancer. Her last chemo was last week. She stated that she has been taking all her medications but was feeling worse than usual so decided come and evaluated. She noted that her pain was about a 7-8 out of 10 this been unrelieved with her at home pain medication. She also states that she had not taken her nausea medication this morning. She appeared to be in mild distress and discomfort while laying in bed. She denied any chest pain shortness of breath headache. Chills lightheadedness dizziness. It was noted from the nursing staff that patient was quite anxious received Xanax. Patient is still complaining of abdominal pain all the abdomen rest of. Patient is on MS Contin for pain as an outpatient which is being continued. Patient was started on fentanyl patch for pain and will also add Lissie as needed for breakthrough pain. He shouldn't did have issues with constipation larder lactulose for constipation as needed along with MiraLAX for constipation. Review of Systems REVIEW OF SYSTEMS: CONSTITUTIONAL: No fever, no malaise, no fatigue. HEENT: No recent visual problems or hearing problems. Denied any sore throat. CARDIOVASCULAR: No chest pain, orthopnea, PND, no palpitations, no syncope. PULMONARY: No shortness of breath, no cough, no hemoptysis. GASTROINTESTINAL: As mentioned in HPI NEUROLOGICAL: No headaches, no weakness, no numbness. HEMATOLOGICAL: Denies any bleeding or petechiae. GENITOURINARY: Denies any burning micturition, frequency, or urgency. MUSCULOSKELETAL/RHEUMATOLOGICAL: Denies any joint pain, swelling, or any muscle pain. ENDOCRINE: Denies any polyuria or polydipsia. The rest of the 14-point review of systems is negative. Past Medical History Past Medical History: Cancer, Thyroid Disorder Additional Past Medical History / Comment(s): cervical cancer 5 YEARS ago with chemo and radiation. MALIGNANT CERVICAL CANCER. History of Any Multi-Drug Resistant Organisms: None Reported Past Surgical History: No Surgical Hx Reported Additional Past Surgical History / Comment(s): RADIATION TO UTERUS. Past Anesthesia/Blood Transfusion Reactions: No Reported Reaction Past Psychological History: Anxiety Smoking Status: Former smoker Past Alcohol Use History: None Reported Additional Past Alcohol Use History / Comment(s): QUIT 2 WEEKS AGO. Past Drug Use History: None Reported - Past Family History Mother Family Medical History: Unable to Obtain Father History Unknown: Yes Family Medical History: Unable to Obtain Medications and Allergies Home Medications Medication Instructions Recorded Confirmed Type Morphine Sulfate ER [Ms Contin] 15 mg PO Q12HR 3 Days #6 tab 06/24/20 07/09/20 Rx traMADol HCl [Ultram] 50 mg PO Q6H PRN #12 tab 06/24/20 07/09/20 Rx ALPRAZolam [Xanax] 0.5 mg PO TID PRN 07/09/20 07/09/20 History Levothyroxine Sodium [Synthroid] 150 mcg PO DAILY 07/09/20 07/09/20 History Naproxen [Naprosyn] 250 - 500 mg PO BID PRN 07/09/20 07/09/20 History Prochlorperazine [Compazine] 10 mg PO Q6H PRN 07/09/20 07/09/20 History Allergies Allergy/AdvReac Type Severity Reaction Status Date / Time No Known Allergies Allergy Verified 07/09/20 21:11 Physical Exam Vitals: Vital Signs Temp Pulse Pulse Resp BP BP Pulse Ox 07/10/20 11:57 98.5 F 86 14 125/79 93 L 07/10/20 08:00 77 16 07/10/20 05:00 98.3 F 77 16 146/92 97 07/09/20 22:29 77 16 139/85 95 07/09/20 20:42 82 18 141/93 98 07/09/20 17:36 98.6 F 81 22 156/112 98 Intake and Output 07/09/20 07/10/20 07/10/20 22:59 06:59 14:59 Intake Total 1190 Balance 1190 Intake: Intake, IV Titration 600 Amount Sodium Chloride 0.9% 1, 600 000 ml @ 75 mls/hr IV . [id number] [facility] Rx#:[id number] Oral 590 Other: Voiding Method Toilet Toilet # Voids 3 3 Weight 90.718 kg 82 kg PHYSICAL EXAMINATION: GENERAL: The patient is alert and oriented x3, not in any acute distress. Well developed, well nourished. HEENT: Pupils are round and equally reacting to light. EOMI. No scleral icterus. No conjunctival pallor. Normocephalic, atraumatic. No pharyngeal erythema. No thyromegaly. CARDIOVASCULAR: S1 and S2 present. No murmurs, rubs, or gallops. PULMONARY: Chest is clear to auscultation, no wheezing or crackles. ABDOMEN: Soft, nontender, nondistended, normoactive bowel sounds. No palpable organomegaly. MUSCULOSKELETAL: No joint swelling or deformity. EXTREMITIES: No cyanosis, clubbing, or pedal edema. NEUROLOGICAL: Gross neurological examination did not reveal any focal deficits. SKIN: No rashes. Results CBC & Chem 7: 07/10/20 04:25 07/10/20 04:25 Labs: Abnormal Lab Results - Last 24 Hours (Table) 07/09/20 07/09/20 07/09/20 Range/Units 18:24 18:24 18:44 RBC 3.44 L (3.80-5.40) m/uL Hgb 10.5 L (11.4-16.0) gm/dL Hct 32.7 L (34.0-46.0) % MCV (80.0-97.0) fL MCHC (32.0-37.0) g/dL Lymphocytes # 0.5 L (1.0-4.8) k/uL Monocytes # (0.20-1.00) X 10*3/uL Carbon Dioxide 31 H (22-30) mmol/L Anion Gap (4.00-12.00) mmol/L BUN 19 H (7-17) mg/dL AST 67 H (14-36) U/L Alkaline Phosphatase 224 H (38-126) U/L Total Protein 6.2 L (6.3-8.2) g/dL Urine Blood Trace H (Negative) Ur Leukocyte Esterase Small H (Negative) Urine WBC 6 H (0-5) /hpf Urine Mucus Rare H (None) /hpf 07/10/20 07/10/20 Range/Units 04:25 04:25 RBC 2.93 L (3.80-5.40) m/uL Hgb 8.9 L (11.4-16.0) gm/dL Hct 29.3 L (34.0-46.0) % MCV 100.0 H (80.0-97.0) fL MCHC 30.4 L (32.0-37.0) g/dL Lymphocytes # 0.39 L (1.0-4.8) k/uL Monocytes # 0.09 L (0.20-1.00) X 10*3/uL Carbon Dioxide (22-30) mmol/L Anion Gap 12.40 H (4.00-12.00) mmol/L BUN (7-17) mg/dL AST (14-36) U/L Alkaline Phosphatase (38-126) U/L Total Protein (6.3-8.2) g/dL Urine Blood (Negative) Ur Leukocyte Esterase (Negative) Urine WBC (0-5) /hpf Urine Mucus (None) /hpf Thrombosis Risk Factor Assmnt - Choose All That Apply Any of the Below Risk Factors Present?: Yes Each Factor Represents 1 point: Age 41-60 years, Obesity (BMI >25), Oral cont raceptives or hormone replacement therapy, Swollen legs (current) Other Risk Factors: Yes Each Risk Factor Represents 2 Points: Malignancy Other congenital or acquired thrombophilia - If yes, enter type in comment: No Thrombosis Risk Factor Assessment Total Risk Factor Score: 6 Thrombosis Risk Factor Assessment Level: High Risk Assessment and Plan Plan: - nausea vomiting: Secondary to chemotherapy and there is a possibility of gas tritis 2 patient was started on Protonix and he with IV fluids antinausea medications. -Abdominal and chest pain: Secondary to metastatic cervical cancer did patient was started on low-dose of fentanyl patch. Patient will be started started on bowel regimen for constipation and also Lissie for breakthrough pain. -Anxiety disorder -DVT prophylaxis with Lovenox
--- NOTE | 2020-07-10 14:09 | P.CONS ---
History of Present Illness - Reason for Consult Consult date: 07/10/20 Cervical cancer - Metastatic Liver and Lung on Chemotherapy Requesting physician: Peyton Snell - Chief Complaint Nausea, Vomiting, Headache and COnstipation - History of Present Illness Ms. Wilson is a very pleasant 49-year-old female patient who has recently became a patient at our practice, under primary oncologist Dr. Charles. We initially were asked to see at [facility] 06/21/20 when she presented with complaints of intractable back and groin pain. She had a history of stage IIB cervical cancer, treated by Dr. Hendrix and Dr. Nice out of [facility], in 2016. 06/09/15 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 She had had a Pap smear in the prior year that was normal. CT AP 06/07/14 showed a heterogenous soft tissue mass in the region of the cervix, 3.5 x 5.1 cm. There was associated bilateral pelvic adenopathy, nodes up to 1.1 cm. Cervix bx 06/08/15 severe squamous dysplasia/carcinoma in situ with a foci suspicious for invasive squamous cell. She was seen by Urology Dr. Atkinson 07/01/15 and had cystoscopy with left ureteroscopy and lt ureteral dilation and stent placement for hydronephrosis. Started Tx with cisplatin with concurrent radiation (Dr. Hand), 6 cycles chemo, completing around 08/12/15, whole pelvis radiation, with a parametrium boost, balbir 06/28/15, completed 09/15/15. 07/30/[address] biopsy-aborted due to small size and location. 08/13/15 she had Aris sleeve placement with Dr. Hendrix. She was seen in f/u 09/30/15, for follow-up post cervical stent removal, and pelvic brachytherapy. Documented good effect from the pelvic radiation with a normal-appearing cervix on examination. PET scan 10/19/15 had an impression of marked improvement with a new small hypermetabolic right submandibular node, persistent hypermetabolic right paraspinal node at the carinal level unchanged, marked improvement in findings in the pelvis with only a small residual area of mildly increased activity in the cervix. There are [address] Hand, last one dated 10/26/16, pt needed to continue to be followed by Dr. Hendrix-which she did not from the documents available. Pt states she didn't think she had to follow up after treatment. June 21, 2020 presenting to Emergency with Intractable back pain CT AP revealing concerning findings of LAD, liver lesion, adrenal mass, bilateral lung nodules. CT chest confirmed bilateral lung nodules, NM bone scan did not show mets. Biopsy of left inguinal mass revealed poorly diff squamous cell c/w cervical primary. Pain controlled. Here today to establish and review plan of care. Her back and groin pain is fairly well managed on current regimen. She states she sat on her left leg last night and now it is all swollen. Patient's diagnosis was previously discussed/reviewed with her and her mother in the hospital. Patient understands that she has stage IV cervical cancer, treatable but not curable. She understands that at this time life expectancy with treatment and good response to treatment would be somewhere between 10 months and a year and a half. Patient complaints of left leg swelling after sitting on her leg most of the evening. She was sent for Doppler-no DVT She started palliative systemic treatment Carbo and Taxol on 07/06/20 no neulasta Review of Systems All systems: negative Constitutional: Reports as per HPI Past Medical History Past Medical History: Cancer, Thyroid Disorder Additional Past Medical History / Comment(s): cervical cancer 5 YEARS ago with chemo and radiation. MALIGNANT CERVICAL CANCER. History of Any Multi-Drug Resistant Organisms: None Reported Past Surgical History: No Surgical Hx Reported Additional Past Surgical History / Comment(s): RADIATION TO UTERUS. Past Anesthesia/Blood Transfusion Reactions: No Reported Reaction Past Psychological History: Anxiety Smoking Status: Former smoker Past Alcohol Use History: None Reported Additional Past Alcohol Use History / Comment(s): QUIT 2 WEEKS AGO. Past Drug Use History: None Reported - Past Family History Mother Family Medical History: Unable to Obtain Father History Unknown: Yes Family Medical History: Unable to Obtain Medications and Allergies Home Medications Medication Instructions Recorded Confirmed Type Morphine Sulfate ER [Ms Contin] 15 mg PO Q12HR 3 Days #6 tab 06/24/20 07/09/20 Rx traMADol HCl [Ultram] 50 mg PO Q6H PRN #12 tab 06/24/20 07/09/20 Rx ALPRAZolam [Xanax] 0.5 mg PO TID PRN 07/09/20 07/09/20 History Levothyroxine Sodium [Synthroid] 150 mcg PO DAILY 07/09/20 07/09/20 History Prochlorperazine [Compazine] 10 mg PO Q6H PRN 07/09/20 07/09/20 History HYDROcodone/APAP 7.5-325MG [[place] 1 each PO Q6H PRN #12 tab 07/11/20 Rx 7.5-325] Sennosides-Docusate Sodium 2 each PO BID #20 tab 07/11/20 Rx [Senokot-S] fentaNYL 25MCG/HR PATCH [Duragesic 1 patch TRANSDERM Q72H #3 patch 07/11/20 Rx 25MCG/HR] Allergies Allergy/AdvReac Type Severity Reaction Status Date / Time No Known Allergies Allergy Verified 07/09/20 21:11 Physical Exam Vitals: Vital Signs Temp Pulse Pulse Resp BP BP Pulse Ox 07/10/20 11:57 98.5 F 86 14 125/79 93 L 07/10/20 08:00 77 16 07/10/20 05:00 98.3 F 77 16 146/92 97 07/09/20 22:29 77 16 139/85 95 07/09/20 20:42 82 18 141/93 98 07/09/20 17:36 98.6 F 81 22 156/112 98 Intake and Output 07/09/20 07/10/20 07/10/20 22:59 06:59 14:59 Intake Total 1190 Balance 1190 Intake: Intake, IV Titration 600 Amount Sodium Chloride 0.9% 1, 600 000 ml @ 75 mls/hr IV . [id number] [facility] Rx#:[id number] Oral 590 Other: Voiding Method Toilet Toilet # Voids 3 3 Weight 90.718 kg 82 kg - Constitutional General appearance: Present: cooperative, no acute distress - EENT Eyes: Present: EOMI ENT: Present: NA/AT, normal oropharynx - Neck Neck: Present: normal ROM - Respiratory Respiratory: bilateral: CTA - Gastrointestinal General gastrointestinal: Present: soft - Integumentary Integumentary: Present: pale - Neurologic Neurologic: Present: CNII-XII intact - Musculoskeletal Musculoskeletal: Present: generalized weakness, strength equal bilaterally - Psychiatric Psychiatric: Present: A&O x's 3, appropriate affect - Labs Results CBC & Chem 7: 07/10/20 04:25 07/10/20 04:25 Labs: Abnormal Lab Results - Last 24 Hours (Table) 07/09/20 07/09/20 07/09/20 Range/Units 18:24 18:24 18:44 RBC 3.44 L (3.80-5.40) m/uL Hgb 10.5 L (11.4-16.0) gm/dL Hct 32.7 L (34.0-46.0) % MCV (80.0-97.0) fL MCHC (32.0-37.0) g/dL Lymphocytes # 0.5 L (1.0-4.8) k/uL Monocytes # (0.20-1.00) X 10*3/uL Carbon Dioxide 31 H (22-30) mmol/L Anion Gap (4.00-12.00) mmol/L BUN 19 H (7-17) mg/dL AST 67 H (14-36) U/L Alkaline Phosphatase 224 H (38-126) U/L Total Protein 6.2 L (6.3-8.2) g/dL Urine Blood Trace H (Negative) Ur Leukocyte Esterase Small H (Negative) Urine WBC 6 H (0-5) /hpf Urine Mucus Rare H (None) /hpf 07/10/20 07/10/20 Range/Units 04:25 04:25 RBC 2.93 L (3.80-5.40) m/uL Hgb 8.9 L (11.4-16.0) gm/dL Hct 29.3 L (34.0-46.0) % MCV 100.0 H (80.0-97.0) fL MCHC 30.4 L (32.0-37.0) g/dL Lymphocytes # 0.39 L (1.0-4.8) k/uL Monocytes # 0.09 L (0.20-1.00) X 10*3/uL Carbon Dioxide (22-30) mmol/L Anion Gap 12.40 H (4.00-12.00) mmol/L BUN (7-17) mg/dL AST (14-36) U/L Alkaline Phosphatase (38-126) U/L Total Protein (6.3-8.2) g/dL Urine Blood (Negative) Ur Leukocyte Esterase (Negative) Urine WBC (0-5) /hpf Urine Mucus (None) /hpf CT scan - abdomen: report reviewed CT scan - pelvis: report reviewed Assessment and Plan (1) Primary cervical cancer with metastasis to other site Current Visit: Yes Status: Acute Code(s): C53.9 - MALIGNANT NEOPLASM OF CERVIX UTERI, UNSPECIFIED SNOMED Code(s): 073206309 (2) Macrocytic anemia Current Visit: Yes Status: Acute Code(s): D53.9 - NUTRITIONAL ANEMIA, UNSPECIFIED SNOMED Code(s): 29699874 Plan: Assessment and Recommendations: Recurrent and Metastatic Cervical Cancer: - Status Post Cycle one of Carboplatin and Taxol on 07/06/20 - No growth Factor Nausea and Vomiting: - Multifactorial Anxiety, anticipatory Constipation Chemotherapy Constipation: - Increase Bowel regimen and prophylaxic bowel regimen with ongoing pain management - Supp or Fleet ok x1, then Senna-S 2 tabs BID and Miralax or Lactulose BID pRN Nausea: - Use Ativan and Zofran PRN - Olanzaprine added at bed Mucocitis: - Cools and monitor for sores Hx: HSV1 Macrocytic Anemia: - Anemia work-up for possible nutritional supplement opportunities Bilateral Lower extremity Swelling, Pain, Weakness and paresthesias: - WOrsening since last seen in office and last doppler - Likely secondary to abdominal and peritoneal disease burden - Repeat Doppler Headaches and Paresthesias: - MRI brain (Not done as initial or baseline during staging)
[2020-07-10] MEDS ORDERED: bisacodyL 10 MG SUPP RECTAL STA (14:36)
[2020-07-10] MEDS ORDERED: ONDANSETRON 4 MG/2 ML VIAL IVP PRN (14:38)
[2020-07-10 16:52] LABS: % Iron Saturation 32.89 (12.00-45.00)
[2020-07-10] MEDS: OLANZapine 5 MG TAB PO SCH (17:26)
[2020-07-10] MEDS: LACTULOSE 20 GM/30 ML CUP PO PRN (17:27)
[2020-07-10 17:42] LABS: Ferritin 443.5 ng/mL (10.0-291.0); Folate, Serum 10.1 ng/mL
--- NOTE | 2020-07-10 18:46 | US ---
EXAMINATION TYPE: US venous doppler duplex LE DATE OF EXAM: 07/10/2020 6:08 PM COMPARISON: NONE CLINICAL HISTORY: lower extremities. edema bilateral lower legs SIDE PERFORMED: bilateral TECHNIQUE: The lower extremity deep venous system is examined utilizing real time linear array sonog magdalena with graded compression, doppler sonography and color-flow sonography. VESSELS IMAGED: Common Femoral Vein Deep Femoral Vein Greater Saphenous Vein * Femoral Vein Popliteal Vein Small Saphenous Vein * Proximal Calf Veins (* superficial vessels) Right Leg: no evidence of DVT Left Leg: no evidence of DVT. complex mass left groin = 2.3 x 2.1 x 2.3cm ?lymph node IMPRESSION: No sign of deep vein thrombosis in both legs. There is complex mass in the left groin with posterior enhancement. This could be complex fluid colle ction.
[2020-07-10] MEDS: SENNOSIDES-DOCUSATE SODIUM 1 EACH TAB PO SCH (21:49)
[2020-07-11] MEDS: LEVOTHYROXINE 75 MCG TAB PO SCH (06:16)
[2020-07-11] MEDS: SENNOSIDES-DOCUSATE SODIUM 1 EACH TAB PO SCH ×2 (08:32→21:47)
[2020-07-11] MEDS: ENOXAPARIN 40 MG/0.4 ML SYRINGE SQ SCH (08:32)
[2020-07-11] MEDS: PANTOPRAZOLE 40 MG/10 ML VIAL IV SCH (08:32)
[2020-07-11] MEDS: polyethylene glycoL 3350 17 GM POWD.PACK PO SCH ×2 (08:32→08:41)
[2020-07-11] MEDS: OLANZapine 5 MG TAB PO SCH ×2 (08:32→10:24)
[2020-07-11] MEDS: HYDROcodone/APAP 7.5-325MG 1 EACH TAB PO PRN ×3 (08:35→21:52)
[2020-07-11] MEDS: LACTULOSE 20 GM/30 ML CUP PO PRN (08:55)
--- NOTE | 2020-07-11 12:56 | P.DS ---
Providers Date of admission: 07/09/20 20:56 Expected date of discharge: 07/11/20 Attending physician: Sukhwinder Crawford MD Consults: 07/10/20 11:48 Consult Physician Routine Consulting Provider: Rian Laboy Consult Reason/Comments: hx cervical ca Do you want consulting provider notified?: Already Contacted Primary care physician: Kg Ayala Hospital Course: Final diagnosis -nausea/ vomiting: Secondary to chemotherapy and there is a possibility of gastritis -Abdominal and chest pain: Secondary to metastatic cervical cancer -Anxiety disorder -DVT prophylaxis Discharge disposition Patient is being discharged in a stable condition with guarded prognosis to home. Patient will follow-up with Dr. Ayala in the outpatient setting upon discharge. Patient is to follow-up with oncology as scheduled. Patient will follow-up outpatient with an MRI. Total time taken is greater than 35 minutes. Hospital course Patient is a 49-year-old female presents to emergency department with nausea vomiting abdominal pain constipation and just generally not feeling well. She noted that she does do chemo for cervical cancer. Her last chemo was last week. She stated that she has been taking all her medications but was feeling worse than usual so decided come and evaluated. She noted that her pain was about a 7-8 out of 10 this been unrelieved with her at home pain medication. She also states that she had not taken her nausea medication this morning. She appeared to be in mild distress and discomfort while laying in bed. She denied any chest pain shortness of breath headache. Chills lightheadedness dizziness. It was noted from the nursing staff that patient was quite anxious received Xanax. Patient is still complaining of abdominal pain all the abdomen rest of. Patient is on MS Contin for pain as an outpatient which is being continued. Patient was started on fentanyl patch for pain and will also add [place] as needed for breakthrough pain. Patient did have issues with constipation larder lactulose for constipation as needed along with MiraLAX for constipation. 07/11/2020 Patient was seen and evaluated in follow-up and had a bowel movement although continues to feel slightly constipated. Patient denies any worsening nausea or vomiting and is having some generalized pain. Oncology following and will continue to do so in the outpatient setting. Pain medications have been adjusted and prescriptions provided. An MRI was ordered by oncology and patient will follow-up outpatient for this MRI. Currently no reports of chest pain, shortness of breath, or palpitations. Patient is afebrile. No reports of nausea or vomiting and patient is tolerating diet. Patient will be discharged home today. On exam vital signs are stable. Temp is 98.1F, pulse is 87, respirations are 16, blood pressure is 131/87, oxygen saturation is 96% on room air. Cardio S1, S2 are muffled. Respiratory system shows diminished breath sounds at the bases with no wheezing or rhonchi noted. Abdomen is soft and obese, and nontender. Nervous system shows no focal deficits. Please refer to medication reconciliation sheet for a list of medications. Patient Condition at Discharge: Stable Plan - Discharge Summary Discharge Rx Participant: No New Discharge Prescriptions: New fentaNYL 25MCG/HR PATCH [Duragesic 25MCG/HR] 1 patch TRANSDERM Q72H #3 patch HYDROcodone/APAP 7.5-325MG [[place] 7.5-325] 1 each PO Q6H PRN #12 tab PRN Reason: Pain Sennosides-Docusate Sodium [Senokot-S] 2 each PO BID #20 tab Continue traMADol HCl [Ultram] 50 mg PO Q6H PRN #12 tab PRN Reason: Moderate Pain Morphine Sulfate ER [Ms Contin] 15 mg PO Q12HR 3 Days #6 tab Prochlorperazine [Compazine] 10 mg PO Q6H PRN PRN Reason: Nausea And Vomiting Levothyroxine Sodium [Synthroid] 150 mcg PO DAILY ALPRAZolam [Xanax] 0.5 mg PO TID PRN PRN Reason: Anxiety Discontinued Naproxen [Naprosyn] 250 - 500 mg PO BID PRN PRN Reason: Pain Discharge Medication List Morphine Sulfate ER [Ms Contin] 15 mg PO Q12HR 3 Days #6 tab 06/24/20 [Rx] traMADol HCl [Ultram] 50 mg PO Q6H PRN #12 tab 06/24/20 [Rx] ALPRAZolam [Xanax] 0.5 mg PO TID PRN 07/09/20 [History] Levothyroxine Sodium [Synthroid] 150 mcg PO DAILY 07/09/20 [History] Prochlorperazine [Compazine] 10 mg PO Q6H PRN 07/09/20 [History] HYDROcodone/APAP 7.5-325MG [[place] 7.5-325] 1 each PO Q6H PRN #12 tab 07/11/20 [Rx] Sennosides-Docusate Sodium [Senokot-S] 2 each PO BID #20 tab 07/11/20 [Rx] fentaNYL 25MCG/HR PATCH [Duragesic 25MCG/HR] 1 patch TRANSDERM Q72H #3 patch 07/11/20 [Rx] Follow up Appointment(s)/Referral(s): Kg Ayala DO [Primary Care Provider] - 1-2 days Rogelio Charles MD [STAFF PHYSICIAN] - 1 Week Activity/Diet/Wound Care/Special Instructions: Karlee from oncology to see prior to discharge Please return to the Emergency Department if symptoms worsen or any other concerns. Follow-up with oncologist, chemotherapy, primary care as soon as possible. Continue to take nausea medication at home. Discharge Disposition: HOME SELF-CARE
[2020-07-11] MEDS ORDERED: DICYCLOMINE 10 MG CAP PO PRN (14:53)
--- NOTE | 2020-07-11 14:58 | P.PN ---
Subjective Progress Note Date: 07/11/20 Principal diagnosis: Metastatic Cervical Cancer She is still in discomfort and tearful today. lower pelvis, back and mid- epigastric Objective - Vital Signs Vital signs: Vital Signs Temp 98.3 F 07/11/20 04:27 Pulse 80 07/11/20 04:27 Resp 16 07/11/20 04:27 BP 133/87 07/11/20 04:27 Pulse Ox 97 07/11/20 04:27 Intake & Output 07/10/20 07/11/20 07/11/20 18:59 06:59 18:59 Intake Total 600 590 Balance 600 590 Intake: Intake, IV Titration 600 Amount Sodium Chloride 0.9% 1, 600 000 ml @ 75 mls/hr IV . [id number] LEON Rx#:[id number] Oral 590 Other: Voiding Method Toilet Toilet # Voids 3 3 # Bowel Movements 1 - Constitutional General appearance: Present: cooperative, no acute distress - EENT Eyes: Present: EOMI ENT: Present: NA/AT, normal oropharynx - Neck Neck: Present: normal ROM - Respiratory Respiratory: bilateral: CTA - Gastrointestinal General gastrointestinal: Present: soft - Integumentary Integumentary: Present: pale - Neurologic Neurologic: Present: CNII-XII intact - Musculoskeletal Musculoskeletal: Present: generalized weakness, strength equal bilaterally - Psychiatric Psychiatric: Present: A&O x's 3, appropriate affect - Labs CBC & Chem 7: 07/10/20 04:25 07/10/20 04:25 Labs: Abnormal Lab Results - Last 24 Hours (Table) 07/10/20 Range/Units 04:25 Ferritin 443.5 H (10.0-291.0) ng/mL Assessment and Plan (1) Primary cervical cancer with metastasis to other site Current Visit: Yes Status: Acute Code(s): C53.9 - MALIGNANT NEOPLASM OF CERVIX UTERI, UNSPECIFIED SNOMED Code(s): 589531023 (2) Macrocytic anemia Current Visit: Yes Status: Acute Code(s): D53.9 - NUTRITIONAL ANEMIA, UNSPECIFIED SNOMED Code(s): 20590618 Plan: Assessment and Recommendations: Recurrent and Metastatic Cervical Cancer: - Status Post Cycle one of Carboplatin and Taxol on 07/06/20 - No growth Factor Nausea and Vomiting: - Multifactorial Anxiety, anticipatory Constipation Chemotherapy Constipation: - Increase Bowel regimen and prophylaxic bowel regimen with ongoing pain management - Supp or Fleet ok x1, then Senna-S 2 tabs BID and Miralax or Lactulose BID pRN Nausea: - Use Ativan and Zofran PRN - Olanzaprine added at bed Mucocitis: - Cools and monitor for sores Hx: HSV1 Macrocytic Anemia: - Anemia work-up for possible nutritional supplement opportunities Bilateral Lower extremity Swelling, Pain, Weakness and paresthesias: - WOrsening since last seen in office and last doppler - Likely secondary to abdominal and peritoneal disease burden - Repeat Doppler Headaches and Paresthesias: - MRI brain (Not done as initial or baseline during staging) Discussed with primary team, will rec holding discharge tonight to better adjust her pain/nausea/anxiety. Will ask surgery to place MP
--- NOTE | 2020-07-11 15:36 | P.GSCN ---
History of Present Illness Consult date: 07/11/20 History of present illness: Mediport placement requested for chemo therapy. Will schedule for tomorrow per patient and service request Past Medical History Past Medical History: Cancer, Thyroid Disorder Additional Past Medical History / Comment(s): cervical cancer 5 YEARS ago with chemo and radiation. MALIGNANT CERVICAL CANCER. History of Any Multi-Drug Resistant Organisms: None Reported Past Surgical History: No Surgical Hx Reported Additional Past Surgical History / Comment(s): RADIATION TO UTERUS. Past Anesthesia/Blood Transfusion Reactions: No Reported Reaction Past Psychological History: Anxiety Smoking Status: Former smoker Past Alcohol Use History: None Reported Additional Past Alcohol Use History / Comment(s): QUIT 2 WEEKS AGO. Past Drug Use History: None Reported - Past Family History Mother Family Medical History: Unable to Obtain Father History Unknown: Yes Family Medical History: Unable to Obtain Medications and Allergies Home Medications Medication Instructions Recorded Confirmed Type Morphine Sulfate ER [Ms Contin] 15 mg PO Q12HR 3 Days #6 tab 06/24/20 07/09/20 Rx traMADol HCl [Ultram] 50 mg PO Q6H PRN #12 tab 06/24/20 07/09/20 Rx ALPRAZolam [Xanax] 0.5 mg PO TID PRN 07/09/20 07/09/20 History Levothyroxine Sodium [Synthroid] 150 mcg PO DAILY 07/09/20 07/09/20 History Prochlorperazine [Compazine] 10 mg PO Q6H PRN 07/09/20 07/09/20 History HYDROcodone/APAP 7.5-325MG [[place] 1 each PO Q6H PRN #12 tab 07/11/20 Rx 7.5-325] Sennosides-Docusate Sodium 2 each PO BID #20 tab 07/11/20 Rx [Senokot-S] fentaNYL 25MCG/HR PATCH [Duragesic 1 patch TRANSDERM Q72H #3 patch 07/11/20 Rx 25MCG/HR] Allergies Allergy/AdvReac Type Severity Reaction Status Date / Time No Known Allergies Allergy Verified 07/09/20 21:11 Surgical - Exam Vital Signs Temp Pulse Resp BP Pulse Ox 98.6 F 81 22 156/112 98 07/09/20 17:36 07/09/20 17:36 07/09/20 17:36 07/09/20 17:36 07/09/20 17:36 Results - Labs 07/10/20 04:25 07/10/20 04:25 Abnormal Lab Results - Last 24 Hours (Table) 07/10/20 Range/Units 04:25 Ferritin 443.5 H (10.0-291.0) ng/mL
[2020-07-11] MEDS: SALT AND SODA MOUTHWASH 1,000 ML PO SCH (21:44)
[2020-07-11] MEDS: MAG HYDROX/AL HYDROX/SIMETH 30 ML, LIDOCAINE VISCOUS 30 ML, diphenhydrAMINE ELIXIR 75 M... PO SCH ×4 (21:46)
[2020-07-11] MEDS: LORazepam 2 MG/ML INJ IV PRN (22:45)
[2020-07-12] MEDS: SALT AND SODA MOUTHWASH 1,000 ML PO SCH ×5 (00:14→19:57)
[2020-07-12] MEDS: LEVOTHYROXINE 75 MCG TAB PO SCH (05:45)
[2020-07-12 06:20] LABS: Amorphous Sediment,Urine Rare /hpf; Appearance,Urine Clear (Clear); Bilirubin,Urine Negative (Negative); Blood,Urine Trace (Negative); Color,Urine Light Yellow; Glucose,Urine (UA) Negative (Negative); Ketones,Urine Negative (Negative); Leukocyte Esterase,Urine Trace (Negative); Mucus,Urine Rare /hpf; Nitrite,Urine Negative (Negative); PH, Urine 7.5 (5.0-8.0); Protein,Urine Negative (Negative); RBC,Urine 3 /hpf (0-5); Specific Gravity,Urine 1.008 (1.001-1.035); Squamous Epithelial Cell,Urine <1 /hpf (0-4); Urobilinogen,Urine <2.0 mg/dL (<2.0); WBC,Urine 10 /hpf (0-5)
[2020-07-12] MEDS: LORazepam 2 MG/ML INJ IV PRN (06:59)
--- NOTE | 2020-07-12 08:08 | MR ---
EXAMINATION TYPE: MR brain wo/w con DATE OF EXAM: 07/12/2020 COMPARISON: NONE HISTORY: Metastatic Cervical Cancer assess for metastatic disease TECHNIQUE: Multiplanar, multisequence images of the brain and brainstem is performed without and with IV contras t, utilizing 7.5 mL intravenous Gadavist . FINDINGS: Diffusion weighted images demonstrate no evidence of a recent infarct or other diffusion ab normality. There is no extra-axial fluid collection or significant white matter signal abnormality. The ventricular system and cisternal spaces are normal in size and appearance. The brain volume is age appropriate. Midline structures demonstrate normal morphology. The craniocervical junction appears within normal limits. Post contrast images demonstrate single 4 mm area of rim-type enhancement in the midline of the interhemispheric fissure axial image 59 corresponding to sagittal image 72 and coronal image 50. Subtle adjacent edema of the sulcus anterior to this on FLAIR axial image 24 noted. There is suggesti on this may reflect a vascular etiology or tortuous vessel with small caliber superior vessels extend ing near this level on sagittal images and possible medial vessel continuation on coronal and axial i mages. No additional areas of suspicious enhancement. The dural venous sinuses appear patent. The vis ualized sinuses are clear and the globes are intact. IMPRESSION: Single area of concern, 4 mm extra-axial area of enhancement could reflect tortuous vesse l or single metastatic focus. I suspect the former but some adjacent edema is concerning and makes la tter not excluded. Short-term follow-up MRI in 2-3 months time is advised to reassess.
[2020-07-12] MEDS: polyethylene glycoL 3350 17 GM POWD.PACK PO SCH (08:11)
[2020-07-12] MEDS: HYDROcodone/APAP 7.5-325MG 1 EACH TAB PO PRN ×2 (08:16→19:04)
[2020-07-12] MEDS: MAG HYDROX/AL HYDROX/SIMETH 30 ML, LIDOCAINE VISCOUS 30 ML, diphenhydrAMINE ELIXIR 75 M... PO SCH ×12 (08:16→21:07)
[2020-07-12] MEDS: ENOXAPARIN 40 MG/0.4 ML SYRINGE SQ SCH ×2 (08:16→08:28)
[2020-07-12] MEDS: SENNOSIDES-DOCUSATE SODIUM 1 EACH TAB PO SCH ×2 (08:16→21:07)
[2020-07-12] MEDS: OLANZapine 5 MG TAB PO SCH (08:17)
[2020-07-12] MEDS: PANTOPRAZOLE 40 MG/10 ML VIAL IV SCH (08:17)
--- NOTE | 2020-07-12 14:18 | P.HPADDEND ---
H&P Addendum H&P Addendum Date: 07/12/20 Patient presents with need for acute chemotherapy. Mediport access including benefits and risks were described.
--- NOTE | 2020-07-12 14:22 | P.DS ---
Providers Date of admission: 07/12/20 09:29 Expected date of discharge: 07/12/20 Attending physician: Sukhwinder Crawford MD Consults: 07/10/20 11:48 Consult Physician Routine Consulting Provider: Rian Laboy Consult Reason/Comments: hx cervical ca Do you want consulting provider notified?: Already Contacted 07/11/20 15:38 Consult Physician Routine Consulting Provider: María Elena Tristan Consult Reason/Comments: Mediport insertion Do you want consulting provider notified?: Already Contacted Primary care physician: Kg Ayala Hospital Course: Final diagnosis -nausea/ vomiting: Secondary to chemotherapy and there is a possibility of gastritis -Status post Mediport placement for continued cancer treatment -Abdominal and chest pain: Secondary to metastatic cervical cancer -Anxiety disorder -DVT prophylaxis Discharge disposition Patient is being discharged in a stable condition with guarded prognosis to home. Patient will follow-up with Dr. Ayala in the outpatient setting upon discharge. Patient is to follow-up with oncology as scheduled. Patient will follow-up outpatient with an MRI. Total time taken is greater than 35 minutes. Hospital course Patient is a 49-year-old female presents to emergency department with nausea vomiting abdominal pain constipation and just generally not feeling well. She noted that she does do chemo for cervical cancer. Her last chemo was last week. She stated that she has been taking all her medications but was feeling worse than usual so decided come and evaluated. She noted that her pain was about a 7-8 out of 10 this been unrelieved with her at home pain medication. She also states that she had not taken her nausea medication this morning. She appeared to be in mild distress and discomfort while laying in bed. She denied any chest pain shortness of breath headache. Chills lightheadedness dizziness. It was noted from the nursing staff that patient was quite anxious received Xanax. Patient is still complaining of abdominal pain all the abdomen rest of. Patient is on MS Contin for pain as an outpatient which is being continued. Patient was started on fentanyl patch for pain and will also add [place] as needed for breakthrough pain. Patient did have issues with constipation larder lactulose for constipation as needed along with MiraLAX for constipation. 07/11/2020 Patient was seen and evaluated in follow-up and had a bowel movement although continues to feel slightly constipated. Patient denies any worsening nausea or vomiting and is having some generalized pain. Oncology following and will continue to do so in the outpatient setting. Pain medications have been adjusted and prescriptions provided. An MRI was ordered by oncology and patient will follow-up outpatient for this MRI. Currently no reports of chest pain, shortness of breath, or palpitations. Patient is afebrile. No reports of nausea or vomiting and patient is tolerating diet. Patient will be discharged home today. 07/12/2020 Patient's discharge was held yesterday as patient continued to have some abdominal discomfort and stating pain is not well-controlled. Patient also scheduled per oncology to have Mediport placed today and MRI for evaluation of outpatient treatment. Patient is scheduled with Dr. Dobbins for Mediport placement and will be discharged. Patient does have an appointment in 2 days with oncology. Patient states she is actively having bowel movements and states lactulose helped and requesting a prescription for discharge, patient tolerating diet, and denies any episodes of nausea or vomiting. On exam vital signs are stable. Cardio S1, S2 are muffled. Respiratory system shows diminished breath sounds at the bases with no wheezing or rhonchi noted. Abdomen is soft and obese, and nontender. Nervous system shows no focal deficits. Please refer to medication reconciliation sheet for a list of medications. Patient Condition at Discharge: Stable Plan - Discharge Summary Discharge Rx Participant: No New Discharge Prescriptions: New fentaNYL 25MCG/HR PATCH [Duragesic 25MCG/HR] 1 patch TRANSDERM Q72H #3 patch HYDROcodone/APAP 7.5-325MG [[place] 7.5-325] 1 each PO Q6H PRN #12 tab PRN Reason: Pain Sennosides-Docusate Sodium [Senokot-S] 2 each PO BID #20 tab Lactulose [Cephulac] 20 gm PO BID PRN #240 ml PRN Reason: Constipation Nystatin 100,000 Unit/ml Susp [Mycostatin Oral Susp] 3,000,000 unit PO TID #120 ml OLANZapine [ZyPREXA] 5 mg PO DAILY 30 Days #30 tab Continue traMADol HCl [Ultram] 50 mg PO Q6H PRN #12 tab PRN Reason: Moderate Pain Morphine Sulfate ER [Ms Contin] 15 mg PO Q12HR 3 Days #6 tab Prochlorperazine [Compazine] 10 mg PO Q6H PRN PRN Reason: Nausea And Vomiting Levothyroxine Sodium [Synthroid] 150 mcg PO DAILY ALPRAZolam [Xanax] 0.5 mg PO TID PRN PRN Reason: Anxiety Discontinued Naproxen [Naprosyn] 250 - 500 mg PO BID PRN PRN Reason: Pain Discharge Medication List Morphine Sulfate ER [Ms Contin] 15 mg PO Q12HR 3 Days #6 tab 06/24/20 [Rx] traMADol HCl [Ultram] 50 mg PO Q6H PRN #12 tab 06/24/20 [Rx] ALPRAZolam [Xanax] 0.5 mg PO TID PRN 07/09/20 [History] Levothyroxine Sodium [Synthroid] 150 mcg PO DAILY 07/09/20 [History] Prochlorperazine [Compazine] 10 mg PO Q6H PRN 07/09/20 [History] HYDROcodone/APAP 7.5-325MG [[place] 7.5-325] 1 each PO Q6H PRN #12 tab 07/11/20 [Rx] Sennosides-Docusate Sodium [Senokot-S] 2 each PO BID #20 tab 07/11/20 [Rx] fentaNYL 25MCG/HR PATCH [Durages[place] 25MCG/HR] 1 patch TRANSDERM Q72H #3 patch 07/11/20 [Rx] Lactulose [Cephulac] 20 gm PO BID PRN #240 ml 07/12/20 [Rx] Nystatin 100,000 Unit/ml Susp [Mycostatin Oral Susp] 3,000,000 unit PO TID #120 ml 07/12/20 [Rx] OLANZapine [ZyPREXA] 5 mg PO DAILY 30 Days #30 tab 07/12/20 [Rx] Follow up Appointment(s)/Referral(s): Kg Ayala DO [Primary Care Provider] - 1-2 days Rogelio Charles MD [STAFF PHYSICIAN] - 1 Week Activity/Diet/Wound Care/Special Instructions: Please return to the Emergency Department if symptoms worsen or any other concerns. Follow-up with oncologist, chemotherapy, primary care as soon as possible. Continue to take nausea medication at home. Discharge Disposition: HOME SELF-CARE
--- NOTE | 2020-07-12 14:54 | P.PN ---
Subjective Progress Note Date: 07/12/20 Principal diagnosis: Metastatic Cervical Cancer Objective - Vital Signs Vital signs: Vital Signs Temp 97.4 F L 07/12/20 12:04 Pulse 88 07/12/20 12:04 Resp 18 07/12/20 12:04 BP 140/92 07/12/20 12:04 Pulse Ox 97 07/12/20 12:04 Intake & Output 07/11/20 07/12/20 07/12/20 18:59 06:59 18:59 Intake Total 1460 830 Balance 1460 830 Intake: Oral 1460 830 Other: Voiding Method Toilet Toilet # Voids 3 2 - Exam - Constitutional General appearance: Present: cooperative, no acute distress - EENT Eyes: Present: EOMI ENT: Present: NA/AT, normal oropharynx - Neck Neck: Present: normal ROM - Respiratory Respiratory: bilateral: CTA - Gastrointestinal General gastrointestinal: Present: soft - Integumentary Integumentary: Present: pale - Neurologic Neurologic: Present: CNII-XII intact - Musculoskeletal Musculoskeletal: Present: generalized weakness, strength equal bilaterally - Psychiatric Psychiatric: Present: A&O x's 3, appropriate affect - Labs CBC & Chem 7: 07/10/20 04:25 07/10/20 04:25 Labs: Abnormal Lab Results - Last 24 Hours (Table) 07/12/20 Range/Units 05:58 Urine Blood Trace H (Negative) Ur Leukocyte Esterase Trace H (Negative) Urine WBC 10 H (0-5) /hpf Amorphous Sediment Rare H (None) /hpf Urine Mucus Rare H (None) /hpf Assessment and Plan (1) Primary cervical cancer with metastasis to other site Status: Acute Code(s): C53.9 - MALIGNANT NEOPLASM OF CERVIX UTERI, UNSPECIFIED SNOMED Code(s): 187561220 (2) Macrocytic anemia Status: Acute Code(s): D53.9 - NUTRITIONAL ANEMIA, UNSPECIFIED SNOMED Code(s): 44132801 Plan: Assessment and Recommendations: Recurrent and Metastatic Cervical Cancer: - Status Post Cycle one of Carboplatin and Taxol on 07/06/20 - No growth Factor Nausea and Vomiting: - Multifactorial Anxiety, anticipatory Constipation Chemotherapy Constipation: - Increase Bowel regimen and prophylaxic bowel regimen with ongoing pain management - Supp or Fleet ok x1, then Senna-S 2 tabs BID and Miralax or Lactulose BID pRN Nausea: - Use Ativan and Zofran PRN - Olanzaprine added at bed Mucocitis: - Cools and monitor for sores Hx: HSV1 Macrocytic Anemia: - Anemia work-up for possible nutritional supplement opportunities Bilateral Lower extremity Swelling, Pain, Weakness and paresthesias: - WOrsening since last seen in office and last doppler - Likely secondary to abdominal and peritoneal disease burden - Repeat Doppler Headaches and Paresthesias: - MRI brain (Not done as initial or baseline during staging) Rec the addition of cymbalta for pain and depression coverage as she does not tolerate opioids well
[2020-07-12] MEDS ORDERED: LACTATED RINGERS 1,000 ML IV ONE (15:01)
[2020-07-12] MEDS ORDERED: fentaNYL (PF) 50 MCG/ML 2 ML AMP ONE (16:19)
[2020-07-12] MEDS ORDERED: KETAMINE 10 MG/ML 20 ML VIAL ONE (16:19)
[2020-07-12] MEDS ORDERED: MIDAZOLAM 2 MG/2 ML VIAL ONE (16:19)
[2020-07-12] MEDS ORDERED: PROPOFOL 10 MG/ML 20 ML VIAL IV ONE (16:19)
[2020-07-12] MEDS ORDERED: HEPARIN SODIUM,PORCINE 100 UNIT/ML 5 ML VIAL IV ONE (16:47)
[2020-07-12] MEDS ORDERED: BUPIVACAIN-EPI 0.5%-1:200,000 30 ML VIAL SQ ONE (16:48)
[2020-07-12] MEDS ORDERED: SODIUM CHLORIDE 0.9% 500 ML 500 ML with HEPARIN SODIUM,PORCINE 5,000 UNIT IV ONE ×2 (16:57)
--- NOTE | 2020-07-12 17:43 | P.OP ---
Date of Procedure: 07/12/20 Description of Procedure: SURGEON: ANALI CHU MD ARBORER: None. PREOPERATIVE DIAGNOSES: 1. Metastatic cervical cancer 2. Need for chemotherapeutic access. 3. Morbid obesity due to excess calories, BMI 37.8 4. Hypothyroidism 5. Generalized anxiety disorder POSTOPERATIVE DIAGNOSES: 1. Metastatic cervical cancer 2. Need for chemotherapeutic access. 3. Morbid obesity due to excess calories, BMI 37.8 4. Hypothyroidism 5. Generalized anxiety disorder PROCEDURES PERFORMED: 1. Ultrasound guided central venous access of the right internal jugular venous vein. 2. Fluoroscopic guidance for central venous access right internal jugular vein 3 seconds. 3. Placement of right internal jugular power port 6 [place] by [employer], [employer] Plus Port ANESTHESIA: IV sedation with local. ESTIMATED BLOOD LOSS: 5 mL. SPECIMENS REMOVED: None. COMPLICATIONS: None. INDICATIONS: The patient is a 49-year-old female diagnosed with metastatic cervical cancer. She presents for chemotherapeutic access. Benefits and risks of surgical intervention were described including bleeding, infection, mechanical problems with the port. Informed consent was obtained. DESCRIPTION OR PROCEDURE: Patient was brought into the operating room, laid in supine position. After adequate IV sedation, the chest and right neck were prepped and draped in a standard sterile fashion including the shoulder with ChloraPrep. Timeout protocol was confirmed with the surgical team regarding the patient's name, procedure to be performed including preoperative medications for which she received IV antibiotics. Bilateral SCDs were placed. Her neck was short and thick adding complexity to the case. An ultrasound was used to capture views of the right internal jugular vein including right carotid artery, which was patent and without thrombus along its course. The right IJ was then localized using anesthetic for the skin. A 16 [place] needle was used to access the IJ. A guidewire was advanced into the IJ with dark nonpulsatile venous blood. Two fingerbreadths distal to the clavicle, on the lateral third, a transverse 1.5 to 2 cm incision was deepened into the skin after localizing the skin. A pocket was created for the port. The port on the back table was flushed with heparinized saline and then attached to the catheter tubing. An adapter was fastened to the actual port site over the tubing. The port easily had fit snug into the pocket. A subcutaneous tunneler was placed along the open end of the tubing and brought out through the separate stab incision. Fluoroscopic guidance confirmed no kinking along the tubing and the port site. Next, the J-wire was exchanged for a catheter sheath for which the tubing was cut to 25 cm and then advanced through the catheter sheath. The Peel-away sheath was then removed and the tubing was secured at the junction of the superior vena cava as well as the right atrium. The tubing was found to be crossed however functional. This was all done under fluoroscopic guidance 3 seconds. Easy pullback as well as return and aspiration was obtained of the port site. The skin incision was closed using layers using 3-0 Vicryl for the subcu followed by 4-0 Monocryl in a running subcuticular fashion. At the stick site this was also reapproximated using 4-0 Monocryl. The incisions were covered with Optifoam, The skin was cleansed and Exofin liquid glue was applied. Optifoam dressing was placed over the port site. A total of 20 mL of local anesthetic was placed. At the end of the procedure, needle, sponge, and instrument count was verified correct by surgical instrument mechanic. Heparin lock of 5 mL was placed. The patient was awoken and pain free and taken to the second stage postanesthesia care unit. The patient tolerated the procedure well. FINDINGS: 1. No thrombus encountered along the right carotid artery or internal jugular vein. 2. Access of the right internal jugular vein under ultrasound guidance. 3. Fluoroscopy of 3 seconds. 4. Short thick neck and complexity to the case.
--- NOTE | 2020-07-12 18:32 | XR ---
EXAMINATION TYPE: XR chest 1V DATE OF EXAM: 07/12/2020 COMPARISON: 04/25/2020 HISTORY: MediPort TECHNIQUE: Dana view FINDINGS: There is right-sided central venous catheter with tip in the superior vena cava. There are numerous bilateral pulmonary nodules which appear noncalcified and measure up to 1.7 cm. Heart size i s normal. Mediastinum is normal. There is no pleural effusion. IMPRESSION: Numerous pulmonary nodules increased in size compared to last exam and suggestive of prog ression of metastatic disease. Normal heart.
[2020-07-12 20:40] VITALS: RESP 16
[2020-07-13] MEDS: SALT AND SODA MOUTHWASH 1,000 ML PO SCH ×2 (01:07→05:23)
[2020-07-13] MEDS: HYDROcodone/APAP 7.5-325MG 1 EACH TAB PO PRN ×2 (01:34→07:36)
[2020-07-13 04:31] VITALS: BP 123/77; PULSE 93; TEMP 98.1
[2020-07-13] MEDS: LEVOTHYROXINE 75 MCG TAB PO SCH (05:22)
--- NOTE | 2020-07-13 05:29 | FL ---
EXAMINATION TYPE: FL guided central line placement DATE OF EXAM: 07/12/2020 FLUOROSCOPY Fluoroscopy time of 3 seconds was used during Port-A-Cath insertion. 1 image/s document/s the proced ure.
[2020-07-13] MEDS: ENOXAPARIN 40 MG/0.4 ML SYRINGE SQ SCH (07:35)
[2020-07-13] MEDS: polyethylene glycoL 3350 17 GM POWD.PACK PO SCH (07:35)
[2020-07-13] MEDS: SENNOSIDES-DOCUSATE SODIUM 1 EACH TAB PO SCH (07:36)
[2020-07-13] MEDS: OLANZapine 5 MG TAB PO SCH (07:36)
[2020-07-13] MEDS: PANTOPRAZOLE 40 MG/10 ML VIAL IV SCH (07:37)
[2020-07-13] MEDS: MAG HYDROX/AL HYDROX/SIMETH 30 ML, LIDOCAINE VISCOUS 30 ML, diphenhydrAMINE ELIXIR 75 M... PO SCH ×4 (07:37)
--- NOTE | 2020-07-13 14:19 | P.PN ---
<Jessi Pineda - Last Filed: 07/13/20 14:16> Subjective Progress Note Date: 07/13/20 CHIEF COMPLAINT: Metastatic cervical cancer HISTORY OF PRESENT ILLNESS: Patient is status post Placement of right internal jugular power port 6 [place] by [employer], [employer]. She reports no pain. She does report some limited mobility with her neck. She denies any nausea vomiting. She is afebrile. She is being discharged today. PHYSICAL EXAM: VITAL SIGNS: Reviewed GENERAL: Well-developed in no acute distress. HEENT: No sclera icterus. Extraocular movements grossly intact. Moist buccal mucosa. Head is atraumatic, normocephalic. Hears conversational speech. No nasal drainage. NECK: Supple without lymphadenopathy. Incision site at neck clean dry and intact there is some minimal swelling and bruising noted. CHEST: Non-labored respirations and equal bilateral excursions. CARDIOVASCULAR: Palpable 2+ radial pulses. ABDOMEN: Soft. Nondistended. Nontender. MUSCULOSKELETAL: No clubbing or cyanosis. NEUROLOGIC: No focal or lateralizing signs. Cranial nerves II through XII grossly intact. PSYCH: Appropriate affect. Alert and oriented to person, place and time. SKIN: Well perfused. Good skin turgor. ASSESSMENT: 1. Metastatic cervical cancer status post Placement of right internal jugular p ower port 6 [place] by [employer], [employer]. 2. Need for chemotherapeutic access. 3. Morbid obesity due to excess calories, BMI 37.8 4. Hypothyroidism 5. Generalized anxiety disorder PLAN: -Continue supportive care -Patient can apply warm compresses to neck incision site -Patient is stable from surgical standpoint for discharge Physician Robotics Mechanic note has been reviewed by physician. Signing provider agrees with the documented findings, assessment, and plan of care. Objective - Vital Signs Vital signs: Vital Signs Temp 98.1 F 07/13/20 04:29 Pulse 93 07/13/20 04:29 Resp 16 07/13/20 04:29 BP 123/77 07/13/20 04:29 Pulse Ox 96 07/13/20 04:29 Intake & Output 07/12/20 07/13/20 07/13/20 18:59 06:59 18:59 Intake Total 252 1190 Output Total 5 Balance 247 1190 Intake: IV 252 Oral 1190 Output: Estimated Blood Loss 5 Other: Voiding Method Toilet Toilet # Voids 2 2 # Bowel Movements 1 - Labs CBC & Chem 7: 07/10/20 04:25 07/10/20 04:25 <AzaleaMaría Elena N - Last Filed: 08/09/20 05:51> Subjective CHIEF COMPLAINT: Metastatic cervical cancer HISTORY OF PRESENT ILLNESS: The patient is a 49-year old female with metastatic cervical cancer status post placement of Mediport. REVIEW OF ORGAN SYSTEMS: No fevers or chills. No shortness of breath. PHYSICAL EXAM: VITALS: Reviewed CONSTITUTIONAL: Well developed and in no acute distress. EYES: Conjuctivae without sclera icterus. Extraocular movements grossly intact. HEAD, EARS, NOSE, THROAT: Moist buccal mucosa. Head is atraumatic, normocephalic. Hears conversational speech. No nasal drainage. NECK: No hematoma or signs of bleeding. RESPIRATORY: Non-labored respirations and equal bilateral excursions. No gross wheezes. CARDIOVASCULAR: Regular rate and rhythm. Palpable 2+ radial pulses. ABDOMEN: Soft. Non-tender. Nondistended. MUSCULOSKELETAL: Nail and fingers with good capillary refill. 2+ pitting edema bilateral. SKIN: Warm and well perfused with good skin turgor. NEUROLOGIC: Cranial nerves II through XII grossly intact. Sensation upper and extremities intact. No focal or lateralizing signs. PSYCH: Appropriate affect. Alert and oriented to person, place and time. Displays appropriate insight. CLINCAL LABS: No new labs IMAGING: Chest x-ray independently reviewed demonstrating no pneumothorax. Placement of tip of catheter at superior vena cava. This is my independent interpretation. ASSESSMENT: 1. Metastatic cervical cancer 2. Need for chemotherapeutic access 3. Intractable nausea and vomiting 4. Chemo-induced anemia 5. Chronic pain syndrome 6. Morbid obesity due to excess calories, BMI 37.8 PLAN: 1. Patient may start using her Mediport for chemotherapeutic access immediately. 2. Overall follow-up as needed. Objective - Vital Signs Vital signs: Vital Signs Temp 98.1 F 07/13/20 04:29 Pulse 93 07/13/20 04:29 Resp 16 07/13/20 04:29 BP 123/77 07/13/20 04:29 Pulse Ox 96 07/13/20 04:29 - Labs CBC & Chem 7: 07/10/20 04:25 07/10/20 04:25 Assessment and Plan (1) Chronic pain due to malignant neoplastic disease Status: Acute Code(s): G89.3 - NEOPLASM RELATED PAIN (ACUTE) (CHRONIC) S NOMED Code(s): 345042378 (2) Hypothyroid Status: Acute Code(s): E03.9 - HYPOTHYROIDISM, UNSPECIFIED SNOMED Code(s): 31918014 (3) Lesion of adrenal gland Status: Acute Priority: High Code(s): E27.9 - DISORDER OF ADRENAL GLAND, UNSPECIFIED SNOMED Code(s): 06673489 (4) Lesion of liver Status: Acute Priority: High Code(s): K76.9 - LIVER DISEASE, UNSPECIFIED SNOMED Code(s): 643688464 (5) Nausea & vomiting Status: Acute Code(s): R11.2 - NAUSEA WITH VOMITING, UNSPECIFIED SNOMED Code(s): 27531246 (6) Primary cervical cancer with metastasis to other site Status: Acute Code(s): C53.9 - MALIGNANT NEOPLASM OF CERVIX UTERI, UNSPECIFIED SNOMED Code(s): 993804573
--- NOTE | 2020-07-13 15:12 | P.DS ---
Providers Date of admission: 07/12/20 09:29 Expected date of discharge: 07/13/20 Attending physician: Sukhwinder Crawford MD Consults: 07/10/20 11:48 Consult Physician Routine Consulting Provider: Rian Laboy Consult Reason/Comments: hx cervical ca Do you want consulting provider notified?: Already Contacted 07/11/20 15:38 Consult Physician Routine Consulting Provider: María Elena Tristan Consult Reason/Comments: Mediport insertion Do you want consulting provider notified?: Already Contacted Primary care physician: Kg Ayala Hospital Course: Final diagnosis -nausea/ vomiting: Secondary to chemotherapy and there is a possibility of gastritis -Status post Mediport placement for continued cancer treatment -Abdominal and chest pain: Secondary to metastatic cervical cancer -Anxiety disorder -DVT prophylaxis Discharge disposition Patient is being discharged in a stable condition with guarded prognosis to home. Patient will follow-up with Dr. Ayala in the outpatient setting upon discharge. Patient is to follow-up with oncology as scheduled. Patient will follow-up outpatient with an MRI. Total time taken is greater than 35 minutes. Hospital course Patient is a 49-year-old female presents to emergency department with nausea vomiting abdominal pain constipation and just generally not feeling well. She noted that she does do chemo for cervical cancer. Her last chemo was last week. She stated that she has been taking all her medications but was feeling worse than usual so decided come and evaluated. She noted that her pain was about a 7-8 out of 10 this been unrelieved with her at home pain medication. She also states that she had not taken her nausea medication this morning. She appeared to be in mild distress and discomfort while laying in bed. She denied any chest pain shortness of breath headache. Chills lightheadedness dizziness. It was noted from the nursing staff that patient was quite anxious received Xanax. Patient is still complaining of abdominal pain all the abdomen rest of. Patient is on MS Contin for pain as an outpatient which is being continued. Patient was started on fentanyl patch for pain and will also add Howe as needed for breakthrough pain. Patient did have issues with constipation larder lactulose for constipation as needed along with MiraLAX for constipation. 07/11/2020 Patient was seen and evaluated in follow-up and had a bowel movement although continues to feel slightly constipated. Patient denies any worsening nausea or vomiting and is having some generalized pain. Oncology following and will continue to do so in the outpatient setting. Pain medications have been adjusted and prescriptions provided. An MRI was ordered by oncology and patient will follow-up outpatient for this MRI. Currently no reports of chest pain, shortness of breath, or palpitations. Patient is afebrile. No reports of nausea or vomiting and patient is tolerating diet. Patient will be discharged home today. 07/12/2020 Patient's discharge was held yesterday as patient continued to have some abdominal discomfort and stating pain is not well-controlled. Patient also scheduled per oncology to have Mediport placed today and MRI for evaluation of outpatient treatment. Patient is scheduled with Dr. Dobbins for Mediport placement and will be discharged. Patient does have an appointment in 2 days with oncology. Patient states she is actively having bowel movements and states lactulose helped and requesting a prescription for discharge, patient tolerating diet, and denies any episodes of nausea or vomiting. 07/13/2020 Patient is seen in follow-up this morning as discharge was held due to patient receiving Mediport later in the evening and had no available ride or services to accommodate getting home. Patient was seen and evaluated by oncology Dr. Laboy this morning and patient does have scheduled follow-up appointments in the outpatient setting. Follow-up appointment is scheduled for 07/14/2020 and patient states she does have a ride available for this. Medications sent to the pharmacy and patient will be discharged today. On exam vital signs are stable. Cardio S1, S2 are muffled. Respiratory system shows diminished breath sounds at the bases with no wheezing or rhonchi noted. Abdomen is soft and obese, and nontender. Nervous system shows no focal deficits. Please refer to medication reconciliation sheet for a list of medications. Patient Condition at Discharge: Stable Plan - Discharge Summary Discharge Rx Participant: No New Discharge Prescriptions: New fentaNYL 25MCG/HR PATCH [Duragesic 25MCG/HR] 1 patch TRANSDERM Q72H #3 patch HYDROcodone/APAP 7.5-325MG [Howe 7.5-325] 1 each PO Q6H PRN #12 tab PRN Reason: Pain Sennosides-Docusate Sodium [Senokot-S] 2 each PO BID #20 tab Lactulose [Cephulac] 20 gm PO BID PRN #240 ml PRN Reason: Constipation Nystatin 100,000 Unit/ml Susp [Mycostatin Oral Susp] 3,000,000 unit PO TID #120 ml OLANZapine [ZyPREXA] 5 mg PO DAILY 30 Days #30 tab DULoxetine HCL [Cymbalta] 20 mg PO DAILY 30 Days #30 capsule.[address] Johnathon traMADol HCl [Ultram] 50 mg PO Q6H PRN #12 tab PRN Reason: Moderate Pain Morphine Sulfate ER [Ms Contin] 15 mg PO Q12HR 3 Days #6 tab Prochlorperazine [Compazine] 10 mg PO Q6H PRN PRN Reason: Nausea And Vomiting Levothyroxine Sodium [Synthroid] 150 mcg PO DAILY ALPRAZolam [Xanax] 0.5 mg PO TID PRN PRN Reason: Anxiety Discontinued Naproxen [Naprosyn] 250 - 500 mg PO BID PRN PRN Reason: Pain Discharge Medication List Morphine Sulfate ER [Ms Contin] 15 mg PO Q12HR 3 Days #6 tab 06/24/20 [Rx] traMADol HCl [Ultram] 50 mg PO Q6H PRN #12 tab 06/24/20 [Rx] ALPRAZolam [Xanax] 0.5 mg PO TID PRN 07/09/20 [History] Levothyroxine Sodium [Synthroid] 150 mcg PO DAILY 07/09/20 [History] Prochlorperazine [Compazine] 10 mg PO Q6H PRN 07/09/20 [History] HYDROcodone/APAP 7.5-325MG [Howe 7.5-325] 1 each PO Q6H PRN #12 tab 07/11/20 [Rx] Sennosides-Docusate Sodium [Senokot-S] 2 each PO BID #20 tab 07/11/20 [Rx] fentaNYL 25MCG/HR PATCH [Duragesic 25MCG/HR] 1 patch TRANSDERM Q72H #3 patch 07/11/20 [Rx] Lactulose [Cephulac] 20 gm PO BID PRN #240 ml 07/12/20 [Rx] Nystatin 100,000 Unit/ml Susp [Mycostatin Oral Susp] 3,000,000 unit PO TID #120 ml 07/12/20 [Rx] OLANZapine [ZyPREXA] 5 mg PO DAILY 30 Days #30 tab 07/12/20 [Rx] DULoxetine HCL [Cymbalta] 20 mg PO DAILY 30 Days #30 capsule. 07/13/20 [Rx] Follow up Appointment(s)/Referral(s): Kg Ayala DO [Primary Care Provider] - 07/16/20 3:00 pm Rogelio Charles MD [STAFF PHYSICIAN] - 07/23/20 3:15 pm Patient Instructions/Handouts: Hydrocodone/Acetaminophen (By mouth), Nystatin (By mouth), Lactulose (By mouth), Fentanyl (Absorbed through the skin), Olanzapine (By mouth), Laxative, Stimulant Combination (By mouth), Duloxetine (By mouth), Acute Nausea and Vomiting (DC), How to Care for Your Implanted Venous Access Port (DC) Activity/Diet/Wound Care/Special Instructions: Please return to the Emergency Department if symptoms worsen or any other concerns. Follow-up with oncologist, chemotherapy, primary care as soon as possible. Continue to take nausea medication at home. Discharge Disposition: HOME SELF-CARE
--- NOTE | 2020-07-13 22:37 | P.PN ---
Subjective Progress Note Date: 07/13/20 Principal diagnosis: Metastatic Cervical Cancer Status POst Port and feeling better today. Discussed cymbalta and patient agreeable. Discussed with primary team Objective - Vital Signs Vital signs: Vital Signs Temp 98.1 F 07/13/20 04:29 Pulse 93 07/13/20 04:29 Resp 16 07/13/20 04:29 BP 123/77 07/13/20 04:29 Pulse Ox 96 07/13/20 04:29 Intake & Output 07/13/20 07/13/20 07/14/20 06:59 18:59 06:59 Intake Total 1190 Balance 1190 Intake: Oral 1190 Other: Voiding Method Toilet # Voids 2 # Bowel Movements 1 - Exam - Constitutional General appearance: Present: cooperative, no acute distress - EENT Eyes: Present: EOMI ENT: Present: NA/AT, normal oropharynx - Neck Neck: Present: normal ROM - Respiratory Respiratory: bilateral: CTA - Gastrointestinal General gastrointestinal: Present: soft - Integumentary Integumentary: Present: pale - Neurologic Neurologic: Present: CNII-XII intact - Musculoskeletal Musculoskeletal: Present: generalized weakness, strength equal bilaterally - Psychiatric Psychiatric: Present: A&O x's 3, appropriate affect - Labs CBC & Chem 7: 07/10/20 04:25 07/10/20 04:25 Assessment and Plan (1) Primary cervical cancer with metastasis to other site Status: Acute Code(s): C53.9 - MALIGNANT NEOPLASM OF CERVIX UTERI, UNSPECIFIED SNOMED Code(s): 776832422 (2) Macrocytic anemia Status: Acute Code(s): D53.9 - NUTRITIONAL ANEMIA, UNSPECIFIED SNOMED Code(s): 25161528 Plan: Assessment and Recommendations: Recurrent and Metastatic Cervical Cancer: - Status Post Cycle one of Carboplatin and Taxol on 07/06/20 - No growth Factor Nausea and Vomiting: - Multifactorial Anxiety, anticipatory Constipation Chemotherapy Constipation: - Increase Bowel regimen and prophylaxic bowel regimen with ongoing pain management - Supp or Fleet ok x1, then Senna-S 2 tabs BID and Miralax or Lactulose BID pRN Nausea: - Use Ativan and Zofran PRN - Olanzaprine added at bed Mucocitis: - Cools and monitor for sores Hx: HSV1 Macrocytic Anemia: - Anemia work-up for possible nutritional supplement opportunities Bilateral Lower extremity Swelling, Pain, Weakness and paresthesias: - WOrsening since last seen in office and last doppler - Likely secondary to abdominal and peritoneal disease burden - Repeat Doppler Headaches and Paresthesias: - MRI brain (Not done as initial or baseline during staging) Rec the addition of cymbalta for pain and depression coverage as she does not tolerate opioids well Will send script for Kools solution She will follow-up in office in one week to reassess
--- NOTE | 2020-08-09 05:47 | P.GSCN ---
History of Present Illness Consult date: 07/11/20 History of present illness: CHIEF COMPLAINT: Metastatic cervical cancer HISTORY OF PRESENT ILLNESS: The patient is a 49-year old female with metastatic cervical cancer presented with generalized malaise including nausea vomiting diarrhea 2 days ago. She is currently undergoing chemotherapy. She has been unable to take her medications by mouth including her chemo regimen. Additionally, she was recently diagnosed with metastatic cancer to her lungs, liver, adrenal glands less than 1 month ago. Per request of the oncology team, palliative chemotherapy and requested the placement of Mediport placement. PAST MEDICAL HISTORY: See list and reviewed PAST SURGICAL HISTORY: See list and reviewed MEDICATIONS: See list and reviewed ALLERGIES: See list and reviewed SOCIAL HISTORY: See list and reviewed FAMILY HISTORY: See list and reviewed REVIEW OF ORGAN SYSTEMS: CONSTITUTIONAL: No current fevers or chills. Morbid obesity with BMI 37.8 EYES: Denies any trouble with vision. No glasses. HEENT: No difficulties with hearing. No nosebleeds. No difficulty swallowing. RESPIRATORY: Denies pneumonia. Denies current troubles with breathing or dyspnea on exertion. CARDIOVASCULAR: Denies current chest pain, palpitations, or recent heart attacks. GASTROINTESTINAL: Denies fatty food intolerance. Has change in bowel habits and gas bloat. Has nausea and vomiting. Has gastroesophageal reflux disease. History of constipation. GENITOURINARY: Has metastatic cervical cancer. NEUROLOGICAL: Denies any numbness or tingling along the distal extremities. No seizure disorders or headaches. Has chronic pain. MUSCULOSKELETAL: Has back pain, stiffness or joint arthritis. SKIN: No current skin cancer. No rash. PSYCHIATRIC: Has depressive disorder. No suicidal thoughts. Has anxiety. Has bipolar disorder ENDOCRINE: Has hypothyroidism. Denies any blood sugar glucose intolerance. HEME/LYMPHATIC: Denies any lumps and bumps around the neck. No recent deep venous thrombosis. ALLERGY/IMMUNOLOGY: No immunoglobulin therapy. No immune deficiencies. BREAST: Denies current breast lumps, pain or nipple discharge. PHYSICAL EXAM: VITALS: Reviewed CONSTITUTIONAL: Well developed and in no acute distress. EYES: Conjuctivae without sclera icterus. Extraocular movements grossly intact. HEAD, EARS, NOSE, THROAT: Moist buccal mucosa. Head is atraumatic, normocephalic. Hears conversational speech. No nasal drainage. NECK: Supple. No JV distention. No thyroidomegaly. RESPIRATORY: Non-labored respirations and equal bilateral excursions. No gross wheezes. CARDIOVASCULAR: Regular rate and rhythm. Palpable 2+ radial pulses. ABDOMEN: Soft. Non-tender. Nondistended. MUSCULOSKELETAL: Nail and fingers with good capillary refill. 2+ pitting edema bilateral. SKIN: Warm and well perfused with good skin turgor. NEUROLOGIC: Cranial nerves II through XII grossly intact. Sensation upper and extremities intact. No focal or lateralizing signs. PSYCH: Appropriate affect. Alert and oriented to person, place and time. Displays appropriate insight. CLINCAL LABS: Reviewed. WBC 4.56 and normal. Anemia with hemoglobin 8.9. Ferritin elevated. Coronavirus negative. LFTs elevated. Creatinine normal 1.0. IMAGING: Independently reviewed CT of the abdomen and pelvis without contrast demonstrates multiple nodularities within the liver. Right adrenal gland enlarged. Features consistent with metastatic disease. This is my independent interpretation. RADIOLOGY: Report reviewed for duplex ultrasound bilateral lower extremities demonstrates no evidence of DVT. ASSESSMENT: 1. Metastatic cervical cancer 2. Need for chemotherapeutic access 3. Intractable nausea and vomiting 4. Chemo-induced anemia 5. Chronic pain syndrome 6. Morbid obesity due to excess calories, BMI 37.8 PLAN: 1. Patient presents with metastatic cervical cancer and need for chemotherapy and per request will proceed with Mediport placement. 2. Patient is elevated risk for complications due to thick neck and morbid obesity Thank you for this kind consultation. Past Medical History Past Medical History: Cancer, Thyroid Disorder Additional Past Medical History / Comment(s): cervical cancer 5 YEARS ago with chemo and radiation. MALIGNANT CERVICAL CANCER. History of Any Multi-Drug Resistant Organisms: None Reported Past Surgical History: No Surgical Hx Reported Additional Past Surgical History / Comment(s): RADIATION TO UTERUS. Past Anesthesia/Blood Transfusion Reactions: No Reported Reaction Past Psychological History: Anxiety Smoking Status: Former smoker Past Alcohol Use History: None Reported Additional Past Alcohol Use History / Comment(s): QUIT 2 WEEKS AGO. Past Drug Use History: None Reported - Past Family History Mother Family Medical History: Unable to Obtain Father History Unknown: Yes Family Medical History: Unable to Obtain Medications and Allergies Home Medications Medication Instructions Recorded Confirmed Type traMADol HCl [Ultram] 50 mg PO Q6H PRN #12 tab 06/24/20 08/05/20 Rx ALPRAZolam [Xanax] 0.5 mg PO TID PRN 07/09/20 08/05/20 History Levothyroxine Sodium [Synthroid] 150 mcg PO DAILY 07/09/20 08/05/20 History Prochlorperazine [Compazine] 10 mg PO Q6H PRN 07/09/20 08/05/20 History Lactulose [Cephulac] 20 gm PO BID PRN #240 ml 07/12/20 08/05/20 Rx OLANZapine [ZyPREXA] 5 mg PO DAILY 30 Days #30 tab 07/12/20 08/05/20 Rx DULoxetine HCL [Cymbalta] 20 mg PO DAILY 30 Days #30 07/13/20 08/05/20 Rx capsule. HYDROcodone/APAP 7.5-325MG [[place] 1 tab PO Q6H PRN 07/17/20 08/05/20 History 7.5-325] Nystatin 100,000 Unit/ml Susp 400,000 units PO TID PRN 07/17/20 08/05/20 History [Mycostatin Oral Susp] Sennosides-Docusate Sodium 2 tab PO BID 07/17/20 08/05/20 History [Senokot-S] Pantoprazole Sodium [Protonix] 40 mg PO DAILY #30 tablet. 07/19/20 08/05/20 Rx Lidocaine-Prilocaine Cream [[place] 1 applic TOPICAL DAILY PRN 07/26/20 08/05/20 History Cream 2.5%/2.5%] polyethylene glycoL 3350 [Miralax] 17 gm PO DAILY powd.pack 07/28/20 08/05/20 Rx Lidocaine/Benadryl/Maalox/Nystatin 5 ml PO QID 08/05/20 08/05/20 History Oral Solution 1:1 Morphine Sulfate [Ms Contin] 30 mg PO Q12H 08/05/20 08/05/20 History Allergies Allergy/AdvReac Type Severity Reaction Status Date / Time No Known Allergies Allergy Verified 08/05/20 12:48 Surgical - Exam Vital Signs Temp Pulse Resp BP Pulse Ox 98.6 F 81 22 156/112 98 07/09/20 17:36 07/09/20 17:36 07/09/20 17:36 07/09/20 17:36 07/09/20 17:36 Results - Labs 07/10/20 04:25 07/10/20 04:25 Abnormal Lab Results - Last 24 Hours (Table) 07/12/20 Range/Units 05:58 Urine Blood Trace H (Negative) Ur Leukocyte Esterase Trace H (Negative) Urine WBC 10 H (0-5) /hpf Amorphous Sediment Rare H (None) /hpf Urine Mucus Rare H (None) /hpf Assessment and Plan (1) Chronic pain due to malignant neoplastic disease Status: Acute Code(s): G89.3 - NEOPLASM RELATED PAIN (ACUTE) (CHRONIC) SNOMED Code(s): 172537777 (2) Hypothyroid Status: Acute Code(s): E03.9 - HYPOTHYROIDISM, UNSPECIFIED SNOMED Code(s): 48735192 (3) Lesion of adrenal gland Status: Acute Priority: High Code(s): E27.9 - DISORDER OF ADRENAL GLAND, UNSPECIFIED SNOMED Code(s): 71969854 (4) Lesion of liver Status: Acute Priority: High Code(s): K76.9 - LIVER DISEASE, UNSPECIFIED SNOMED Code(s): 773224684 (5) Nausea & vomiting Status: Acute Code(s): R11.2 - NAUSEA WITH VOMITING, UNSPECIFIED SNOMED Code(s): 56127440 (6) Primary cervical cancer with metastasis to other site Status: Acute Code(s): C53.9 - MALIGNANT NEOPLASM OF CERVIX UTERI, UNSPECIFIED SNOMED Code(s): 639781902
== END 2020-07-13 11:44 | disposition home or self-care (01) | DRG 948 ==
LOC: EC 17:26 → 5NMEDONC 20:56 → OBSVTOIN 07-12 09:29
PROVIDERS: ADMIT Internal Medicine; ATTEND Internal Medicine
PROC: 0JH60XZ Insertion of Tunneled Vascular Access Device into Chest Subcutaneous Tissue and Fascia, Open Approach (ICD-10-PCS; principal; 2020-07-12 12:20)
PROC: 02HV33Z Insertion of Infusion Device into Superior Vena Cava, Percutaneous Approach (ICD-10-PCS; principal; 2020-07-12 12:20)
DX: G89.3 Neoplasm related pain (acute) (chronic) (principal); C78.7 Secondary malignant neoplasm of liver and intrahepatic bile duct; C78.02 Secondary malignant neoplasm of left lung; C78.01 Secondary malignant neoplasm of right lung; N13.30 Unspecified hydronephrosis; C53.9 Malignant neoplasm of cervix uteri, unspecified; D53.9 Nutritional anemia, unspecified; E66.01 Morbid (severe) obesity due to excess calories; E27.9 Disorder of adrenal gland, unspecified; Z20.822 Contact with and (suspected) exposure to COVID-19; T45.1X5A Adverse effect of antineoplastic and immunosuppressive drugs, initial encounter; R11.2 Nausea with vomiting, unspecified; K29.70 Gastritis, unspecified, without bleeding; K59.00 Constipation, unspecified; E03.9 Hypothyroidism, unspecified; R51.9 Headache, unspecified; R59.0 Localized enlarged lymph nodes; M54.9 Dorsalgia, unspecified; Z68.37 Body mass index [BMI] 37.0-37.9, adult; F41.1 Generalized anxiety disorder; Z79.890 Hormone replacement therapy; Z79.891 Long term (current) use of opiate analgesic; Z79.899 Other long term (current) drug therapy; Z87.891 Personal history of nicotine dependence; Z92.3 Personal history of irradiation
CPT/HCPCS: 36415; 70553; 71045; 74176; 77001; 80048; 80053; 81001; 81025; 82150; 82607; 82728; 82746; 83540; 83550; 83605; 83690; 83921; 84484; 85025; 87635; 93005; 93970; 96361; 96374; 96375; 96376; 99285; 99291

== ENCOUNTER 2020-07-17 07:46 | Inpatient (IN) | payer OTHER ==
[2020-07-17] MEDS ORDERED: SODIUM CHLORIDE 0.9% 500 ML 500 ML IV STA (08:01)
[2020-07-17] MEDS ORDERED: HYDROmorphone 0.5 MG/0.5 ML SYRINGE IVP STA ×2 (08:02→10:40)
[2020-07-17] MEDS ORDERED: ONDANSETRON 4 MG/2 ML VIAL IVP STA (08:02)
--- NOTE | 2020-07-17 08:09 | ED ---
Headache HPI - General Chief Complaint: Headache Stated Complaint: Vomiting & headache Time Seen by Provider: 07/17/20 08:01 Mode of arrival: ambulatory Limitations: no limitations - History of Present Illness Initial Comments: 49-year-old female presenting today for chief complaint of headache. Patient states that this morning she woke up with a headache. She states is one of the more severe headache she has had in her life. She denies sudden onset. Patient states she feels nauseated and is sensitive to light. Patient states she recent started new chemotherapy for her stage IV cervical cancer. Patient denies fever ,neck stiffness. Patient states she had a port placed in the right side of her neck 4 days ago, and states that this area is sore. She denies any vision loss diplopia she denies a weakness sensation deficits of the upper or lower extremity she denies facial asymmetry or speech changes. Patient denies any falls or trauma. Patient denies any known history of brain metastasis. Patient denies dizziness or feeling off balance. Patient states that the headache/nausea was so bad she called her mother to bring her to the ER. Patient took ultram and Compazine prior to arrival. Patient denies upper respiratory symptoms such as cough, congestion. Patient denies chest pain, dyspnea. - Related Data Home Medications Medication Instructions Recorded Confirmed ALPRAZolam [Xanax] 0.5 mg PO TID PRN 07/09/20 07/17/20 Levothyroxine Sodium [Synthroid] 150 mcg PO DAILY 07/09/20 07/17/20 Prochlorperazine [Compazine] 10 mg PO Q6H PRN 07/09/20 07/17/20 HYDROcodone/APAP 7.5-325MG [[place] 1 tab PO Q6H PRN 07/17/20 07/17/20 7.5-325] Nystatin 100,000 Unit/ml Susp 4 ml PO TID 07/17/20 07/17/20 [Mycostatin Oral Susp] Sennosides-Docusate Sodium 2 tab PO BID 07/17/20 07/17/20 [Senokot-S] Previous Rx's Medication Instructions Recorded Morphine Sulfate ER [Ms Contin] 15 mg PO Q12HR 3 Days #6 tab 06/24/20 traMADol HCl [Ultram] 50 mg PO Q6H PRN #12 tab 06/24/20 fentaNYL 25MCG/HR PATCH [Duragesic 1 patch TRANSDERM Q72H #3 patch 07/11/20 25MCG/HR] Lactulose [Cephulac] 20 gm PO BID PRN #240 ml 07/12/20 OLANZapine [ZyPREXA] 5 mg PO DAILY 30 Days #30 tab 07/12/20 DULoxetine HCL [Cymbalta] 20 mg PO DAILY 30 Days #30 07/13/20 capsule. Allergies Allergy/AdvReac Type Severity Reaction Status Date / Time No Known Allergies Allergy Verified 07/17/20 09:01 Review of Systems ROS Statement: Those systems with pertinent positive or pertinent negative responses have been documented in the HPI. ROS Other: All systems not noted in ROS Statement are negative. Past Medical History Past Medical History: Cancer, Thyroid Disorder Additional Past Medical History / Comment(s): cervical CA History of Any Multi-Drug Resistant Organisms: None Reported Past Surgical History: No Surgical Hx Reported Additional Past Surgical History / Comment(s): RADIATION TO UTERUS., port to R side Past Anesthesia/Blood Transfusion Reactions: No Reported Reaction Past Psychological History: Anxiety Smoking Status: Former smoker Past Alcohol Use History: None Reported Past Drug Use History: None Reported, Marijuana - Past Family History Mother Family Medical History: Unable to Obtain Father History Unknown: Yes Family Medical History: Unable to Obtain General Exam - General Exam Comments Initial Comments: General: The patient is awake and alert, in no distress Eye: +3 mm pupils are equal, round and reactive to light, extra-ocular movements are intact. No nystagmus. There is normal conjunctiva bilaterally. No signs of icterus. Ears, nose, mouth and throat: There are moist mucous membranes and no oral lesions. Neck: The neck is supple, there is no tenderness or JVD. Port right anterior neck, no redness. Cardiovascular: There is a regular rate and rhythm. No murmur, rub or gallop is appreciated. Respiratory: Lungs are clear to auscultation, respirations are non-labored, breath sounds are equal. No wheezes, stridor, rales, or rhonchi. Gastrointestinal: Soft, non-distended, non-tender abdomen without masses or organomegaly noted. There is no rebound or guarding present. Musculoskeletal: Normal ROM, no tenderness. Strength 5/5. Sensation intact. Pulses equal bilaterally 2+. Neurological: A&O x 3. CN II-XII intact, memory intact to immediately, intermediate and nursing home recall. Able to follow simple verbal. Able to name a common object High quality, labial (pa) and lingual (la) speech. Low quality posterior pharynx/larynx (ga) voice sounds. Able to express general knowledge (days in a week). No hemineglect or inattention noted. Finger agnosia (-) and spatially oriented (identified L index finger touched R shoulder with L index finger). Cht touch and temperature sensation present over the face, chest, abdomen, back, UE bilaterally, and LE bilaterally. Able to localize point during point localization b/l and extinction. No visible bulk atrophy, hypertrophy, fasciculations, or myoclonus of the UE or LE b/l. Full PROM in UE and LE b/l. Bilateral muscle strength 5/5 for the following muscles: deltoid, biceps, triceps, brachioradialis, wrist extensors/flexor, hip flexor, hip abductors/adductors, hamstrings, quadriceps, feet dorsiflexors/plantar flexors. Finger to nose, finger to the examiners finger, and heel to adler coordinated and accurate b/l. Coordinated and even demonstration of hand flip, finger to thumb, and toe tap b/l. Gait is coordinated and even in stride.. (-) pronator drift. No nuchal rigidity. (-) Brudzinskis and Kernig signs. Skin: Skin is warm and dry and no rashes or lesions are noted. Psychiatric: Cooperative, appropriate mood & affect, normal judgment. Limitations: no limitations Course Vital Signs 07/17/20 07:50 Temperature 98 F Pulse Rate 73 Respiratory 18 Rate Blood Pressure 153/100 O2 Sat by Pulse 96 Oximetry Medical Decision Making - Medical Decision Making 49-year-old female presenting today for chief complaint of headache. No nuchal rigidity negative Rosinski negative Kernig. CT/CTA no signs of intracranial hemorrhage or specific acute process. Possible metastasis which is consistent with recent MRI. Patient is no focal neurological deficits. She is afebrile. Patient has leukopenia and is currently on chemotherapy regimen. Given patient is still uncomfortable she will be admitted for pain control and possible further evaluation. Dr Mensah evaluated patient and is agreeable to care plan and admission. - Lab Data Result diagrams: 07/17/20 08:11 07/17/20 08:11 Lab Results 07/17/20 07/17/20 07/17/20 Range/Units 08:11 08:11 08:11 WBC 2.5 L (3.8-10.6) k/uL RBC 3.16 L (3.80-5.40) m/uL Hgb 9.5 L (11.4-16.0) gm/dL Hct 29.7 L (34.0-46.0) % MCV 93.8 (80.0-100.0) fL MCH 30.2 (25.0-35.0) pg MCHC 32.2 (31.0-37.0) g/dL RDW 14.8 (11.5-15.5) % Plt Count 312 (150-450) k/uL MPV 7.4 Neutrophils % 55 % Lymphocytes % 25 % Monocytes % 15 % Eosinophils % 2 % Basophils % 1 % Neutrophils # 1.4 (1.3-7.7) k/uL Lymphocytes # 0.6 L (1.0-4.8) k/uL Monocytes # 0.4 (0-1.0) k/uL Eosinophils # 0.1 (0-0.7) k/uL Basophils # 0.0 (0-0.2) k/uL Hypochromasia Slight Sodium 141 (137-145) mmol/L Potassium 4.0 (3.5-5.1) mmol/L Chloride 105 (98-107) mmol/L Carbon Dioxide 27 (22-30) mmol/L Anion Gap 9 mmol/L BUN 13 (7-17) mg/dL Creatinine 0.71 (0.52-1.04) mg/dL Est GFR (CKD-EPI)AfAm >90 (>60 ml/min/1.73 sqM) Est GFR (CKD-EPI)NonAf >90 (>60 ml/min/1.73 sqM) Glucose 109 H (74-99) mg/dL Calcium 9.2 (8.4-10.2) mg/dL Total Bilirubin 0.5 (0.2-1.3) mg/dL AST 58 H (14-36) U/L ALT 36 H (4-34) U/L Alkaline Phosphatase 328 H (38-126) U/L Total Protein 6.7 (6.3-8.2) g/dL Albumin 3.9 (3.5-5.0) g/dL Urine Color Urine Appearance (Clear) Urine pH (5.0-8.0) Ur Specific University (1.001-1.035) Urine Protein (Negative) Urine Glucose (UA) (Negative) Urine Ketones (Negative) Urine Blood (Negative) Urine Nitrite (Negative) Urine Bilirubin (Negative) Urine Urobilinogen (<2.0) mg/dL Ur Leukocyte Esterase (Negative) Urine RBC (0-5) /hpf Urine WBC (0-5) /hpf Urine Mucus (None) /hpf Coronavirus (PCR) Not Detected (Not Detectd) 07/17/20 Range/Units 09:08 WBC (3.8-10.6) k/uL RBC (3.80-5.40) m/uL Hgb (11.4-16.0) gm/dL Hct (34.0-46.0) % MCV (80.0-100.0) fL MCH (25.0-35.0) pg MCHC (31.0-37.0) g/dL RDW (11.5-15.5) % Plt Count (150-450) k/uL MPV Neutrophils % % Lymphocytes % % Monocytes % % Eosinophils % % Basophils % % Neutrophils # (1.3-7.7) k/uL Lymphocytes # (1.0-4.8) k/uL Monocytes # (0-1.0) k/uL Eosinophils # (0-0.7) k/uL Basophils # (0-0.2) k/uL Hypochromasia Sodium (137-145) mmol/L Potassium (3.5-5.1) mmol/L Chloride (98-107) mmol/L Carbon Dioxide (22-30) mmol/L Anion Gap mmol/L BUN (7-17) mg/dL Creatinine (0.52-1.04) mg/dL Est GFR (CKD-EPI)AfAm (>60 ml/min/1.73 sqM) Est GFR (CKD-EPI)NonAf (>60 ml/min/1.73 sqM) Glucose (74-99) mg/dL Calcium (8.4-10.2) mg/dL Total Bilirubin (0.2-1.3) mg/dL AST (14-36) U/L ALT (4-34) U/L Alkaline Phosphatase (38-126) U/L Total Protein (6.3-8.2) g/dL Albumin (3.5-5.0) g/dL Urine Color Light Yellow Urine Appearance Clear (Clear) Urine pH 7.0 (5.0-8.0) Ur Specific University 1.021 (1.001-1.035) Urine Protein Negative (Negative) Urine Glucose (UA) Negative (Negative) Urine Ketones Negative (Negative) Urine Blood Trace H (Negative) Urine Nitrite Negative (Negative) Urine Bilirubin Negative (Negative) Urine Urobilinogen <2.0 (<2.0) mg/dL Ur Leukocyte Esterase Negative (Negative) Urine RBC 4 (0-5) /hpf Urine WBC 4 (0-5) /hpf Urine Mucus Rare H (None) /hpf Coronavirus (PCR) (Not Detectd) Disposition Clinical Impression: Headache, Nausea and vomiting, Chronic back pain Disposition: ADMITTED IP TO THIS [facility] Condition: Stable Is patient prescribed a controlled substance at d/c from ED?: No Time of Disposition: 10:43 Decision to Admit Reason: Admit from EC Decision Date: 07/17/20 Decision Time: 10:43
[2020-07-17 08:33] LABS: ALT 36 U/L (4-34); AST 58 U/L (14-36); African American GFR (CKD) >90 (>60 ml/min/1.73 sqM); Albumin 3.9 g/dL (3.5-5.0); Alkaline Phosphatase 328 U/L (38-126); Anion Gap 9 mmol/L; Blood Urea Nitrogen 13 mg/dL (7-17); Calcium 9.2 mg/dL (8.4-10.2); Carbon Dioxide 27 mmol/L (22-30); Chloride 105 mmol/L (98-107); Glucose 109 mg/dL (74-99); Non-African American GFR(CKD) >90 (>60 ml/min/1.73 sqM); Sodium 141 mmol/L (137-145); Total Bilirubin 0.5 mg/dL (0.2-1.3); Total Protein 6.7 g/dL (6.3-8.2)
[2020-07-17 08:51] LABS: Basophils % (A) 1 %; Eosinophils # (A) 0.1 k/uL (0-0.7); Eosinophils % (A) 2 %; HCT 29.7 % (34.0-46.0); HGB 9.5 gm/dL (11.4-16.0); Hypochromasia Slight; Lymphocytes # (A) 0.6 k/uL (1.0-4.8); Lymphocytes % (A) 25 %; MCH 30.2 pg (25.0-35.0); MCHC 32.2 g/dL (31.0-37.0); MCV 93.8 fL (80.0-100.0); Mean Platelet Volume 7.4; Monocytes # (A) 0.4 k/uL (0-1.0); Monocytes % (A) 15 %; Neutrophils # (A) 1.4 k/uL (1.3-7.7); Neutrophils % (A) 55 %; Platelet Count 312 k/uL (150-450); RBC 3.16 m/uL (3.80-5.40); RDW 14.8 % (11.5-15.5); WBC 2.5 k/uL (3.8-10.6)
--- NOTE | 2020-07-17 09:10 | CT ---
EXAMINATION TYPE: CT brain wo con DATE OF EXAM: 07/17/2020 COMPARISON: MR brain 07/12/2020 HISTORY: headache CT DLP: 1025 mGycm. Automated Exposure Control for Dose Reduction was Utilized. TECHNIQUE: CT scan of the head is performed without contrast. FINDINGS: There is no acute intracranial hemorrhage, mass effect, or midline shift identified. The ventricles and sulci are within normal limits in size. The globes are intact and the visualized sin uses are clear. The area of questionable abnormal enhancement seen on prior MRI is not as well seen o n noncontrast head CT, axial image #42 may show corresponding density at this level. There is mild co rtical atrophy present. IMPRESSION: No acute intracranial hemorrhage, mass effect, or midline shift is seen. Limitations as described, question small focus of increased attenuation corresponding to the MRI abnormality.
[2020-07-17 09:59] LABS: Appearance,Urine Clear (Clear); Bilirubin,Urine Negative (Negative); Blood,Urine Trace (Negative); Color,Urine Light Yellow; Glucose,Urine (UA) Negative (Negative); Ketones,Urine Negative (Negative); Leukocyte Esterase,Urine Negative (Negative); Mucus,Urine Rare /hpf; Nitrite,Urine Negative (Negative); Protein,Urine Negative (Negative); RBC,Urine 4 /hpf (0-5); Specific Gravity,Urine 1.021 (1.001-1.035); Urobilinogen,Urine <2.0 mg/dL (<2.0); WBC,Urine 4 /hpf (0-5)
--- NOTE | 2020-07-17 10:14 | CT ---
EXAMINATION TYPE: CT angio head neck DATE OF EXAM: 07/17/2020 HISTORY: headache COMPARISON: CT brain same date, MRI brain 07/12/2020 CT DLP: 483.2 mGycm. Automated Exposure Control for Dose Reduction was Utilized. TECHNIQUE: CTA scan of the neck is performed with IV Contrast, patient injected with 65 mL of Isovue 370, axial images are obtained, coronal and sagittal reformatted images are reviewed. Three-D recons tructed images are created on an independent workstation and reviewed. FINDINGS: Carotid/Vascular Structures: Thoracic aorta is patent, there are 2 super aortic branch vessels, the i nnominate, left and right common carotid, left and right subclavian arteries are patent. Internal and extra carotid arteries are patent, bilateral vertebral arteries are patent and codominant. There is no evident dissection or stenosis by NASCET criteria. The brain shows no embolus or aneurysm, no diss ection. Other: Pulmonary nodules are present in the upper lobes. There is a port in the right pectoral region courses via right jugular approach IMPRESSION: Metastatic disease.
[2020-07-17] MEDS ORDERED: HYDROcodone/APAP 5-325MG 1 EACH TAB PO STA (10:27)
[2020-07-17] MEDS ORDERED: NALOXONE 0.4 MG/ML 1 ML VIAL IV PRN (10:41)
[2020-07-17] MEDS: SODIUM CHLORIDE 0.9% 1,000 ML IV SCH (10:59)
[2020-07-17] MEDS ORDERED: LACTULOSE 20 GM/30 ML CUP PO PRN (12:06)
[2020-07-17] MEDS ORDERED: traMADol 50 MG TAB PO PRN (12:06)
[2020-07-17] MEDS ORDERED: PROCHLORPERAZINE 10 MG TAB PO PRN (12:06)
[2020-07-17] MEDS ORDERED: ONDANSETRON 4 MG/2 ML VIAL IVP PRN (12:08)
[2020-07-17] MEDS: HYDROcodone/APAP 5-325MG 1 EACH TAB PO PRN ×2 (13:08→22:09)
[2020-07-17] MEDS: ALPRAZolam 0.5 MG TAB PO PRN (13:08)
[2020-07-17] MEDS: PANTOPRAZOLE 40 MG/10 ML VIAL IVP SCH ×2 (13:09→21:41)
--- NOTE | 2020-07-17 15:43 | XR ---
EXAMINATION TYPE: XR chest 1V portable DATE OF EXAM: 07/17/2020 COMPARISON: Prior chest x-ray 07/12/2020 HISTORY: Ovarian carcinoma TECHNIQUE: Single frontal view of the chest is obtained. FINDINGS: Multiple nodular densities are scattered within the lungs. There is a port in the right pe ctoral region, catheter courses via the jugular approach to the level of the distal tip at the superi or vena cava. No evident pneumothorax or pleural effusion. Cardiac mediastinal silhouette is within n ormal limits. IMPRESSION: Metastatic disease.
--- NOTE | 2020-07-17 15:45 | HP ---
HISTORY AND PHYSICAL DATE OF SERVICE: 07/17/2020 CHIEF COMPLAINT: Vomiting and headache. HISTORY OF PRESENT ILLNESS: This is a 49-year-old woman with a past medical history of multiple medical problems including cervical cancer, history of thyroid disorder, history of radiation of the uterus, history of anxiety, history of nicotine dependence, being followed by Dr. Charles and as well as Dr. Ayala in the outpatient setting. She was noted to have complaints of headache. The patient was noted to have a 4 mm mass with doubtful significance. She has been evaluated in the outpatient setting. The patient was nauseated, unable to keep anything down and the patient came to [facility] and was admitted for further evaluation and treatment. The patient had a recent Port-A- Cath infection in the right chest also. There is no history of fever, rigors, chills. No headache, loss of consciousness, seizures. PAST MEDICAL HISTORY: History of cervical cancer, hypothyroidism, history of radiation to the uterus and anxiety. MEDICATIONS: Home medications are Ultram, Duragesic patch, Senokot-S, Compazine, Zyprexa, nystatin, morphine, levothyroxine, lactulose, hydrocodone, Cymbalta, Xanax. ALLERGIES: None. FAMILY HISTORY: Unable to obtain. SOCIAL HISTORY: Light smoking. No history of alcohol intake. REVIEW OF SYSTEMS: ENT: As mentioned earlier. CARDIOVASCULAR: No angina or palpitations. RESPIRATORY: No cough. GI: As mentioned earlier. : As mentioned earlier. NERVOUS SYSTEM: No numbness or weakness. ALLERGY/IMMUNOLOGY: No asthma or hayfever. MUSCULOSKELETAL: As mentioned earlier. HEMATOLOGY/ONCOLOGY: As mentioned earlier. ENDOCRINE: No history of diabetes or hypothyroidism. CONSTITUTIONAL: As mentioned earlier. DERMATOLOGY: Negative. RHEUMATOLOGY: Negative. PSYCHIATRY: As mentioned earlier. PHYSICAL EXAMINATION: GENERAL: Patient is alert and oriented times three. VITAL SIGNS: Pulse 77, blood pressure 145/83, respiration 16, temperature 98.8, pulse ox 96% on room air. HEENT: Conjunctivae normal. Oral mucosa moist. NECK: No jugular venous distention. No carotid bruits. No lymph node enlargement. CARDIOVASCULAR SYSTEM: S1, S2 muffled. RESPIRATORY: Breath sounds diminished at the bases. No rhonchi. No crackles. ABDOMEN: Soft, mild diffuse discomfort on palpation. Otherwise, no guarding, rigidity, no mass palpable. No ascites. EXTREMITIES: Legs with no edema, no swelling. NERVOUS SYSTEM: Higher functions as mentioned earlier. Moves all 4 limbs. No focal motor or sensory deficits. LYMPHATICS: No lymph nodes palpable in the neck or axillae. SKIN: No ulcer, no rash. JOINTS: No active deforming arthropathy. LABS: At this time shows WBC 2.5, hemoglobin 9.5, AST and ALT noted. ASSESSMENT: 1. Nausea and vomiting for evaluation, possible acute gastritis. 2. Headache for evaluation. 3. Leukopenia. 4. Anemia, normocytic secondary to malignancy. 5. Elevated AST and ALT. 6. History of cervical cancer. 7. History of hypothyroidism. 8. History of radiation of the uterus. 9. Anxiety. 10.History nicotine dependence. 11.Obesity, body mass index of 40.9. 12.History of THC. 13.Hypertension. RECOMMENDATIONS AND DISCUSSION: In this 49-year-old woman who presented with multiple complex medical issues, we will monitor the patient closely. Continue the current management and symptomatic treatment. Otherwise IV fluids. Downgrade the diet to full liquids and advance as tolerated. Otherwise Dr. Laboy's input appreciated. Dr. Laboy might order an MRI. A CT angiography of the brain was also done which showed metastatic disease. CT brain was also personally reviewed by me. I would also recommend obtain blood cultures, even though there is no evidence of an overt infection currently. Further recommendations to follow. MMSAMUELL / AYM: [id number] /
[2020-07-17] MEDS: NYSTATIN 100,000 UNIT/ML SUSP 500,000 UNIT/5 ML CUP PO SCH ×2 (16:37→21:42)
[2020-07-17 16:47] LABS: INR 1.1 (<1.2); Prothrombin Time 11.6 sec (9.0-12.0)
[2020-07-17] MEDS: HYDROmorphone 0.5 MG/0.5 ML SYRINGE IVP PRN (17:57)
--- NOTE | 2020-07-17 21:00 | P.CONS ---
History of Present Illness - Reason for Consult Consult date: 07/17/20 intractable Headache, Met cervical cancer - History of Present Illness Ms. Wilson is a 49-year-old white female patient initially seen in consult at [facility] 06/21/20 when she presented with complaints of intractable back and groin pain. She had a history of stage IIB cervical cancer, treated by Dr. Hendrix and Dr. Nice, [facility], in 2016. 06/09/15 [facility] was seen in Emergency, sent from the [employer] [facility] office for suspected cervical cancer, associated intractable back pain, urinary urgency and frequency with abnormal vaginal bleeding 3 months. She had had a Pap smear in the prior year that was normal. CT AP 06/07/14 showed a heterogenous soft tissue mass in the region of the cervix, 3.5 x 5.1 cm. There was associated bilateral pelvic adenopathy, nodes up to 1.1 cm. Cervix bx 06/08/15 severe squamous dysplasia/carcinoma in situ with a foci suspicious for invasive squamous cell. She was seen by Urology Dr. Atkinson 07/01/15 and had cystoscopy with left ureteroscopy and lt ureteral dilation and stent placement for hydronephrosis. Started Tx with cisplatin with concurrent radiation (Dr. Hand), 6 cycles chemo, completing around 08/12/15, whole pelvis radiation, with a parametrium boost, started 06/28/15, completed 09/15/15. 07/30/[address] biopsy-aborted due to small size and location. 08/13/15 she had Aris sleeve placement with Dr. Hendrix. She was seen in f/u 09/30/15, for follow-up post cervical stent removal, and pelvic brachytherapy. Documented good effect from the pelvic radiation with a normal-appearing cervix on examination. PET scan 10/19/15 had an impression of marked improvement with a new small hypermetabolic right submandibular node, persistent hypermetabolic right paraspinal node at the carinal level unchanged, marked improvement in findings in the pelvis with only a small residual area of mildly increased activity in the cervix. There are [address] Hand, last one dated 10/26/16, pt needed to continue to be followed by Dr. Hendrix-which she did not from the documents available. Pt states she didn't think she had to follow up after treatment. June 21, 2020 presenting to Emergency with Intractable back pain CT AP revealing concerning findings of LAD, liver lesion, adrenal mass, bilateral lung nodules. CT chest confirmed bilateral lung nodules, NM bone scan did not show mets. Biopsy of left inguinal mass revealed poorly diff squamous cell c/w cervical primary. Patient complaints of left leg swelling after sitting on her leg most of the evening. She was sent for Doppler-no DVT She started palliative systemic treatment Carbo and Taxol on 07/06/20 no neulasta. She is status post 1 cycle. She was admitted on 07/10/20 with some nausea and vomiting, as well as dehydration. She had an MRI of the brain, which showed a 4 mm enhancing focus in the midline. A small metastatic focus, versus a small vascular malformation were both and differential. However this was too small to define further and therefore plan was to repeat imaging in about 2-3 months. Patient had no associated symptoms. The patient came into the emergency room, as she states that she woke up with a severe headache. This was global, and more prominent in the posterior occipital/upper neck area. Patient reported some nausea associated. There were no visual complaints, or significant neck stiffness. The patient had a noncontrast CT of the head, and CTA performed which were negative for any evidence of bleed, CVA, or new edema. As her symptoms persisted, she was admitted for further management, and consult placed. Review of Systems Constitutional: Reports chronic pain, Reports fatigue, Reports weakness Eyes: denies blurred vision, denies pain Ears: deny: decreased hearing, ear discharge, earache, tinnitus Ears, nose, mouth and throat: Reports headache, Denies sore throat Cardiovascular: Denies chest pain, Denies shortness of breath Respiratory: Denies cough Gastrointestinal: Reports constipation, Reports nausea Genitourinary: Reports as per HPI Musculoskeletal: Reports muscle weakness Integumentary: Denies pruritus, Denies rash Neurological: Reports headaches Psychiatric: Reports anxiety Endocrine: Reports fatigue Hematologic/Lymphatic: Reports as per HPI, Reports lymphedema Past Medical History Past Medical History: Cancer, Thyroid Disorder Additional Past Medical History / Comment(s): cervical CA History of Any Multi-Drug Resistant Organisms: None Reported Past Surgical History: No Surgical Hx Reported Additional Past Surgical History / Comment(s): RADIATION TO UTERUS., port to R side Past Anesthesia/Blood Transfusion Reactions: No Reported Reaction Past Psychological History: Anxiety Smoking Status: Former smoker Past Alcohol Use History: None Reported Past Drug Use History: None Reported, Marijuana - Past Family History Mother Family Medical History: Unable to Obtain Father History Unknown: Yes Family Medical History: Unable to Obtain Medications and Allergies Home Medications Medication Instructions Recorded Confirmed Type Morphine Sulfate ER [Ms Contin] 15 mg PO Q12HR 3 Days #6 tab 06/24/20 07/17/20 Rx traMADol HCl [Ultram] 50 mg PO Q6H PRN #12 tab 06/24/20 07/17/20 Rx ALPRAZolam [Xanax] 0.5 mg PO TID PRN 07/09/20 07/17/20 History Levothyroxine Sodium [Synthroid] 150 mcg PO DAILY 07/09/20 07/17/20 History Prochlorperazine [Compazine] 10 mg PO Q6H PRN 07/09/20 07/17/20 History fentaNYL 25MCG/HR PATCH [Durages[place] 1 patch TRANSDERM Q72H #3 patch 07/11/20 07/17/20 Rx 25MCG/HR] Lactulose [Cephulac] 20 gm PO BID PRN #240 ml 07/12/20 07/17/20 Rx OLANZapine [ZyPREXA] 5 mg PO DAILY 30 Days #30 tab 07/12/20 07/17/20 Rx DULoxetine HCL [Cymbalta] 20 mg PO DAILY 30 Days #30 07/13/20 07/17/20 Rx capsule. HYDROcodone/APAP 7.5-325MG [[place] 1 tab PO Q6H PRN 07/17/20 07/17/20 History 7.5-325] Nystatin 100,000 Unit/ml Susp 4 ml PO TID 07/17/20 07/17/20 History [Mycostatin Oral Susp] Sennosides-Docusate Sodium 2 tab PO BID 07/17/20 07/17/20 History [Senokot-S] Allergies Allergy/AdvReac Type Severity Reaction Status Date / Time No Known Allergies Allergy Verified 07/17/20 11:40 Physical Exam Vitals: Vital Signs Temp Pulse Pulse Resp BP BP Pulse Ox 07/17/20 14:00 98.0 F 73 20 122/79 95 07/17/20 12:00 98.8 F 77 16 144/83 96 07/17/20 07:50 98 F 73 18 153/100 96 Intake and Output 07/17/20 07/17/20 07/17/20 06:59 14:59 22:59 Other: # Voids 2 Weight 87.997 kg - Constitutional General appearance: no acute distress - EENT Eyes: EOMI, PERRLA ENT: hearing grossly normal, normal oropharynx - Neck Neck: no lymphadenopathy Thyroid: bilateral: normal size - Respiratory Respiratory: bilateral: CTA - Cardiovascular Rhythm: regular Heart sounds: normal: S1, S2 - Gastrointestinal General gastrointestinal: normal bowel sounds, soft - Integumentary Integumentary: normal - Neurologic Neurologic: CNII-XII intact - Musculoskeletal Musculoskeletal: strength equal bilaterally - Psychiatric Psychiatric: A&O x's 3, appropriate affect Results CBC & Chem 7: 07/17/20 08:11 07/17/20 08:11 Labs: Abnormal Lab Results - Last 24 Hours (Table) 07/17/20 07/17/20 07/17/20 Range/Units 08:11 08:11 09:08 WBC 2.5 L (3.8-10.6) k/uL RBC 3.16 L (3.80-5.40) m/uL Hgb 9.5 L (11.4-16.0) gm/dL Hct 29.7 L (34.0-46.0) % Lymphocytes # 0.6 L (1.0-4.8) k/uL Glucose 109 H (74-99) mg/dL AST 58 H (14-36) U/L ALT 36 H (4-34) U/L Alkaline Phosphatase 328 H (38-126) U/L Urine Blood Trace H (Negative) Urine Mucus Rare H (None) /hpf Comments: CT angio report reviewed Chest x-ray: report reviewed CT Scan - head: report reviewed Assessment and Plan (1) Headache Narrative/Plan: Larisa new symptom for this patient. She denies any prior history of migraines. She does have lesion noted on MRI, with a small metastatic focus not ruled out, but not definite either. The patient did not have any similar symptoms, when the MRI was performed last few days ago. CT scan as well as CTA show no changes. - Case was discussed with the admitting service, and also with the patient. As this possible lesion, was asymptomatic just a few days ago, with no major changes seen on CT scan/CT, it is highly unlikely that this is related to her current symptoms, at least at this time. Symptoms are more likely to be due to other benign causes of headaches which is new onset migraine or sinus headache for example - It was therefore decided that at this time there is no indication for repeat MRI. Continue symptomatic treatment for headache. If symptoms persist or progress despite current care, then repeat MRI will be considered. Current Visit: Yes Status: Acute Code(s): R51.9 - HEADACHE, UNSPECIFIED SNOMED Code(s): 40450192 (2) Primary cervical cancer with metastasis to other site Narrative/Plan: Diagnostic and therapeutic circumstances as described. Patient is due for her next cycle of chemotherapy next week. Current Visit: No Status: Acute Code(s): C53.9 - MALIGNANT NEOPLASM OF CERVIX UTERI, UNSPECIFIED SNOMED Code(s): 479568273 (3) Bicytopenia Narrative/Plan: Due to antineoplastic chemotherapy. Counts are in a safe range. Continue to monitor with labs ordered for tomorrow. [place] growth factor support if the ANC falls below 1000. Transfuse to keep hemoglobin greater than 7. Current Visit: Yes Status: Acute Code(s): D75.89 - OTHER SPECIFIED DISEASES OF BLOOD AND BLOOD-FORMING ORGANS SNOMED Code(s): 97198375
[2020-07-17] MEDS: HEPARIN SODIUM,PORCINE 5,000 UNIT/ML 1 ML VIAL SQ SCH (21:42)
[2020-07-17] MEDS: SENNOSIDES-DOCUSATE SODIUM 1 EACH TAB PO SCH (21:42)
[2020-07-18] MEDS: SODIUM CHLORIDE 0.9% 1,000 ML IV SCH ×3 (00:30→22:57)
[2020-07-18] MEDS: HYDROmorphone 0.5 MG/0.5 ML SYRINGE IVP PRN ×4 (00:41→22:56)
[2020-07-18] MEDS: LEVOTHYROXINE 75 MCG TAB PO SCH (05:38)
[2020-07-18] MEDS: OLANZapine 5 MG TAB PO SCH (08:14)
[2020-07-18] MEDS: DULoxetine HCL 20 MG CAPSULE.DR PO SCH (08:14)
[2020-07-18] MEDS: PANTOPRAZOLE 40 MG/10 ML VIAL IVP SCH ×2 (08:14→20:16)
[2020-07-18] MEDS: NYSTATIN 100,000 UNIT/ML SUSP 500,000 UNIT/5 ML CUP PO SCH ×3 (08:14→20:16)
[2020-07-18] MEDS: SENNOSIDES-DOCUSATE SODIUM 1 EACH TAB PO SCH ×2 (08:14→20:16)
[2020-07-18] MEDS: HEPARIN SODIUM,PORCINE 5,000 UNIT/ML 1 ML VIAL SQ SCH ×2 (08:15→20:16)
[2020-07-18 11:49] LABS: Basophils # (A) 0.03 X 10*3/uL (0.00-0.10); Basophils % (A) 1.2 %; Eosinophils # (A) 0.08 X 10*3/uL (0.04-0.35); Eosinophils % (A) 3.1 %; HCT 28.8 % (37.2-46.3); HGB 8.7 g/dL (12.0-15.0); Lymphocytes # (A) 0.68 X 10*3/uL (0.90-5.00); Lymphocytes % (A) 26.2 %; MCH 29.7 pg (27.0-32.0); MCHC 30.2 g/dL (32.0-37.0); MCV 98.3 fL (80.0-97.0); Monocytes # (A) 0.64 X 10*3/uL (0.20-1.00); Monocytes % (A) 24.6 %; Neutrophils % (A) 42.2 %; Platelet Count 323 X 10*3/uL (140-440); RBC 2.93 X 10*6/uL (4.10-5.20); RDW 14.1 % (11.5-14.5)
[2020-07-18] MEDS: ALPRAZolam 0.5 MG TAB PO PRN (12:13)
[2020-07-18] MEDS: HYDROcodone/APAP 5-325MG 1 EACH TAB PO PRN ×2 (12:14→19:20)
[2020-07-18 12:40] LABS: African American GFR (CKD) 88.2 (60.0-200.0); Anion Gap 9.4 mmol/L (4.00-12.00); BUN/Creat Ratio 15.56 Ratio (12.00-20.00); Calcium 8.8 mg/dL (8.7-10.3); Carbon Dioxide 29.6 mmol/L (21.6-31.8); Non-African American GFR(CKD) 76.1 (60.0-200.0); Total Bilirubin 0.2 mg/dL (0.2-1.2)
--- NOTE | 2020-07-18 12:42 | P.PN ---
Subjective Progress Note Date: 07/18/20 the patient states that he feels much better in terms of her headache. She denies any development of visual complaints, or significant neck stiffness. No difficulty swallowing. Nausea has also improved. Objective - Vital Signs Vital signs: Vital Signs Temp 97.9 F 07/18/20 08:26 Pulse 93 07/18/20 08:26 Resp 16 07/18/20 08:26 BP 154/86 07/18/20 08:26 Pulse Ox 100 07/18/20 08:26 Intake & Output 07/17/20 07/18/20 07/18/20 18:59 06:59 18:59 Intake Total 200 Balance 200 Weight 87.997 kg Intake: Oral 200 Other: Voiding Method Toilet # Voids 2 2 - Constitutional General appearance: Present: no acute distress - EENT Eyes: Present: EOMI ENT: Present: hearing grossly normal, normal oropharynx - Respiratory Respiratory: bilateral: CTA - Cardiovascular Rhythm: regular Heart sounds: normal: S1, S2 - Gastrointestinal General gastrointestinal: Present: normal bowel sounds, soft - Integumentary Integumentary: Present: normal - Neurologic Neurologic: Present: CNII-XII intact - Musculoskeletal Musculoskeletal: Present: generalized weakness - Psychiatric Psychiatric: Present: A&O x's 3, appropriate affect - Labs CBC & Chem 7: 07/18/20 06:58 07/17/20 08:11 Labs: Abnormal Lab Results - Last 24 Hours (Table) 07/18/20 Range/Units 06:58 WBC 2.60 L (4.50-10.00) X 10*3/uL RBC 2.93 L (4.10-5.20) X 10*6/uL Hgb 8.7 L (12.0-15.0) g/dL Hct 28.8 L (37.2-46.3) % MCV 98.3 H (80.0-97.0) fL MCHC 30.2 L (32.0-37.0) g/dL Absolute Nucleated RBC 0.05 H (0.00-0.00) X 10*3/uL Immature Gran # 0.07 H (0.00-0.04) X 10*3/uL Neutrophils # 1.10 L (1.80-7.70) X 10*3/uL Lymphocytes # 0.68 L (0.90-5.00) X 10*3/uL NRBC/100 WBC Diff 1.9 H (0.0-0.0) /100 WBCS Assessment and Plan (1) Headache Narrative/Plan: this is markedly improved. Therefore this is felt to be most likely an acute event unrelated to her underlying malignancy, probably new onset migraine. Continue current management. Okay to DC home whenever okay with the admitting service - as symptoms have improved with supportive treatment, there appears to be no indication to repeat MRI at this point, especially with CT scans and CTA was negative. Patient was advised that in the absence of any new symptoms, plan would be to repeat MRI to follow-up the indeterminate 4 mm lesion, in about 2-3 months Current Visit: Yes Status: Acute Code(s): R51.9 - HEADACHE, UNSPECIFIED SNOMED Code(s): 45803600 (2) Primary cervical cancer with metastasis to other site Narrative/Plan: patient will continue chemotherapy, with cycle #2 due this coming week Current Visit: No Status: Acute Code(s): C53.9 - MALIGNANT NEOPLASM OF CERVIX UTERI, UNSPECIFIED SNOMED Code(s): 534856166 (3) Bicytopenia Narrative/Plan: due to antineoplastic chemotherapy. Counts remain in a safe range. Continue to monitor Current Visit: Yes Status: Acute Code(s): D75.89 - OTHER SPECIFIED DISEASES OF BLOOD AND BLOOD-FORMING ORGANS SNOMED Code(s): 79006810
--- NOTE | 2020-07-18 19:38 | PN ---
PROGRESS NOTE DATE OF SERVICE: 07/18/2020 This 49-year-old woman was admitted with nausea, vomiting, possible gastric, is being closely monitored. The patient has leukopenia also. The WBC is 2.2, hemoglobin is 8.7. Dr. Laboy is following the patient closely. Dr. Ayala is following the patient closely. The cultures are negative so far. No chest pain. No fever either. PAST MEDICAL HISTORY: Reviewed. PHYSICAL EXAM: Patient is alert and oriented x3. Pulse 92, blood pressure 150/86, respirations 16, temperature 97.8, pulse 100% on room air. skin: HEENT: Conjunctivae normal. Oral mucosa moist. NECK: No jugular venous distention. No lymph node enlargement. CARDIOVASCULAR: S1, S2, muffled. No S3, no S4, RESPIRATORY: Diminished breath sounds at the bases. No rhonchi, no crackles. ABDOMEN: Soft, nontender. LEGS: No edema, no swelling. NERVOUS SYSTEM: No focal motor or sensory deficits. LABS: WBC 2.2, hemoglobin is 8.7. ASSESSMENT: 1. Nausea and vomiting with evaluation, possible acute gastritis. 2. Headache, for evaluation. 3. Leukopenia. 4. Anemia, normocytic secondary to malignancy. 5. Elevated AST ALT. 6. History of cervical cancer. 7. History of hypothyroidism. 8. History of radiation of the uterus. 9. Anxiety. 10.History of nicotine dependence. 11.Obesity with body mass index of 40.9. 12.History of THC. 13.Hypertension. RECOMMENDATIONS AND DISCUSSION: Recommend to continue current management, continue symptomatic treatment. Dr. Laboy is following the patient closely. The patient symptomatically is improving at this time. I would recommend repeat labs. WBC stable 2.2, hemoglobin is 8.7. The CT and brain angiography were also done. The chest x-ray which was done, reviewed personally by me, showed metastatic disease. We will continue to monitor. Dr. Ayala will follow in the morning. MMODL / IJN: [id number] /
[2020-07-19] MEDS: LEVOTHYROXINE 75 MCG TAB PO SCH (05:32)
[2020-07-19] MEDS: HYDROcodone/APAP 5-325MG 1 EACH TAB PO PRN (05:32)
[2020-07-19] MEDS: SENNOSIDES-DOCUSATE SODIUM 1 EACH TAB PO SCH (07:47)
[2020-07-19] MEDS: OLANZapine 5 MG TAB PO SCH (07:47)
[2020-07-19] MEDS: HEPARIN SODIUM,PORCINE 5,000 UNIT/ML 1 ML VIAL SQ SCH (07:47)
[2020-07-19] MEDS: PANTOPRAZOLE 40 MG/10 ML VIAL IVP SCH (07:47)
[2020-07-19] MEDS: DULoxetine HCL 20 MG CAPSULE.DR PO SCH (07:47)
[2020-07-19] MEDS: NYSTATIN 100,000 UNIT/ML SUSP 500,000 UNIT/5 ML CUP PO SCH (07:47)
[2020-07-19 08:57] LABS: Basophils # (A) 0.03 X 10*3/uL (0.00-0.10); Basophils % (A) 0.8 %; Eosinophils # (A) 0.08 X 10*3/uL (0.04-0.35); Eosinophils % (A) 2.2 %; HCT 27.6 % (37.2-46.3); HGB 8.3 g/dL (12.0-15.0); Lymphocytes # (A) 0.83 X 10*3/uL (0.90-5.00); Lymphocytes % (A) 22.7 %; MCH 29.5 pg (27.0-32.0); MCHC 30.1 g/dL (32.0-37.0); MCV 98.2 fL (80.0-97.0); Mean Platelet Volume 10.2 fL (9.5-12.2); Monocytes # (A) 0.66 X 10*3/uL (0.20-1.00); Monocytes % (A) 18.1 %; Neutrophils # (A) 1.92 X 10*3/uL (1.80-7.70); Neutrophils % (A) 52.6 %; Platelet Count 311 X 10*3/uL (140-440); RBC 2.81 X 10*6/uL (4.10-5.20); RDW 14.2 % (11.5-14.5); WBC 3.65 X 10*3/uL (4.50-10.00)
[2020-07-19] MEDS ORDERED: HYDROcodone/APAP 5-325MG 1 EACH TAB PO PRN (09:33)
[2020-07-19 09:38] VITALS: BP 144/92; PULSE 77; RESP 16; TEMP 98.6
[2020-07-19 09:50] LABS: African American GFR (CKD) 101.8 (60.0-200.0); Albumin 3.8 g/dL (3.80-4.90); Anion Gap 9.5 mmol/L (4.00-12.00); Calcium 9.1 mg/dL (8.7-10.3); Carbon Dioxide 26.5 mmol/L (21.6-31.8); Globulin 1.9 g/dL (1.6-3.3); Non-African American GFR(CKD) 87.8 (60.0-200.0); Potassium 3.9 mmol/L (3.5-5.5); Total Bilirubin 0.2 mg/dL (0.3-1.2); Total Protein 5.7 g/dL (6.2-8.2)
--- NOTE | 2020-07-20 17:02 | P.DS ---
Providers Date of admission: 07/17/20 10:42 Attending physician: Kg Ayala Consults: 07/17/20 12:09 Consult Physician Routine Consulting Provider: Rian Laboy Consult Reason/Comments: malignancy Do you want consulting provider notified?: Yes Primary care physician: Kg Ayala Hospital Course: Final Diagnoses: -Nausea, vomiting , possibly acute gastritis, subsided -Headache, possibly secondary to the above, subsided. 4 mm brain lesion indeterminate on prior outpatient MRI. Per oncology's comparison -review of MRI, CT, CTA, unrelated to underlying malignancy, with no repeat MRI recommended at this time. Repeat MRI in 2-3 months recommended per oncology. -Primary cervical cancer with metastasis -Chronic anemia, secondary to malignancy -Hypertension -Hyperlipidemia -History of recent Chest pain in a patient with prior elevated troponins in 2017 with cardiac cath reporting normal coronary arteries, normal LV function. -History of cervical cancer, stage II B, status post chemo and radiation, with no further follow-up. -Lymphopenia -Anxiety -Nicotine dependence -THC use -obesity, BMI 40.5 -Hypothyroidism Hospital course this a 49-year-old female admitted with nausea vomiting, headache with history of primary cervical cancer with metastasis, completed chemo on 223 and scheduled for second cycle of chemotherapy next week. Chest x- ray reporting metastatic disease. CTA reported metastatic disease.Maintained on IV fluid hydration with significant clinical improvement. Denies any lightheadedness dizziness or focal deficits. Denies headache. Nausea and vomiting have resolved. Denies chest pain, palpitations or shortness of breath. Cleared by oncology for discharge. Patient will be discharged home today in a stable condition with guarded prognosis. The impression and plan of care has been dictated as directed. : I performed a history and examination of this patient, discussed the same with the dictator. I agree with the dictator's note ,documented as a scribe. Any additional findings or plans will be noted. Patient Condition at Discharge: Stable Plan - Discharge Summary New Discharge Prescriptions: New Pantoprazole Sodium [Protonix] 40 mg PO DAILY #30 tablet. Continue traMADol HCl [Ultram] 50 mg PO Q6H PRN #12 tab PRN Reason: Moderate Pain Morphine Sulfate ER [Ms Contin] 15 mg PO Q12HR 3 Days #6 tab Prochlorperazine [Compazine] 10 mg PO Q6H PRN PRN Reason: Nausea And Vomiting Levothyroxine Sodium [Synthroid] 150 mcg PO DAILY ALPRAZolam [Xanax] 0.5 mg PO TID PRN PRN Reason: Anxiety fentaNYL 25MCG/HR PATCH [Duragesic 25MCG/HR] 1 patch TRANSDERM Q72H #3 patch Lactulose [Cephulac] 20 gm PO BID PRN #240 ml PRN Reason: Constipation OLANZapine [ZyPREXA] 5 mg PO DAILY 30 Days #30 tab DULoxetine HCL [Cymbalta] 20 mg PO DAILY 30 Days #30 capsule. HYDROcodone/APAP 7.5-325MG [[place] 7.5-325] 1 tab PO Q6H PRN PRN Reason: Pain Nystatin 100,000 Unit/ml Susp [Mycostatin Oral Susp] 4 ml PO TID Sennosides-Docusate Sodium [Senokot-S] 2 tab PO BID Discharge Medication List Morphine Sulfate ER [Ms Contin] 15 mg PO Q12HR 3 Days #6 tab 06/24/20 [Rx] traMADol HCl [Ultram] 50 mg PO Q6H PRN #12 tab 06/24/20 [Rx] ALPRAZolam [Xanax] 0.5 mg PO TID PRN 07/09/20 [History] Levothyroxine Sodium [Synthroid] 150 mcg PO DAILY 07/09/20 [History] Prochlorperazine [Compazine] 10 mg PO Q6H PRN 07/09/20 [History] fentaNYL 25MCG/HR PATCH [Durages[place] 25MCG/HR] 1 patch TRANSDERM Q72H #3 patch 07/11/20 [Rx] Lactulose [Cephulac] 20 gm PO BID PRN #240 ml 07/12/20 [Rx] OLANZapine [ZyPREXA] 5 mg PO DAILY 30 Days #30 tab 07/12/20 [Rx] DULoxetine HCL [Cymbalta] 20 mg PO DAILY 30 Days #30 capsule. 07/13/20 [Rx] HYDROcodone/APAP 7.5-325MG [[place] 7.5-325] 1 tab PO Q6H PRN 07/17/20 [History] Nystatin 100,000 Unit/ml Susp [Mycostatin Oral Susp] 4 ml PO TID 07/17/20 [History] Sennosides-Docusate Sodium [Senokot-S] 2 tab PO BID 07/17/20 [History] Pantoprazole Sodium [Protonix] 40 mg PO DAILY #30 tablet. 07/19/20 [Rx] Follow up Appointment(s)/Referral(s): Rian Laboy MD [STAFF PHYSICIAN] - 1 Week Kg Ayala DO [Primary Care Provider] - 3 Days Ambulatory/Diagnostic Orders: Complete Blood Count w/diff [LAB.AMB] Time Frame: 3 Days, Location: None Selected Activity/Diet/Wound Care/Special Instructions: Repeat MRI outpatient in 2-3 months as per oncology regarding indeterminate 4 mm lesion. Chemo appt as already scheduled.
== END 2020-07-19 10:31 | disposition home or self-care (01) | DRG 392 ==
LOC: EC 07:46 → 4SSUR 10:42 → 6PED 07-19 08:49
PROVIDERS: ADMIT Family Medicine; ATTEND Family Medicine
DX: K29.00 Acute gastritis without bleeding (principal); C78.02 Secondary malignant neoplasm of left lung; C78.01 Secondary malignant neoplasm of right lung; C79.31 Secondary malignant neoplasm of brain; Z68.41 Body mass index [BMI] 40.0-44.9, adult; E27.9 Disorder of adrenal gland, unspecified; C53.9 Malignant neoplasm of cervix uteri, unspecified; Z20.822 Contact with and (suspected) exposure to COVID-19; E03.9 Hypothyroidism, unspecified; F41.9 Anxiety disorder, unspecified; D63.0 Anemia in neoplastic disease; E66.9 Obesity, unspecified; I10 Essential (primary) hypertension; G89.3 Neoplasm related pain (acute) (chronic); D72.819 Decreased white blood cell count, unspecified; E78.5 Hyperlipidemia, unspecified; D72.810 Lymphocytopenia; G43.909 Migraine, unspecified, not intractable, without status migrainosus; G89.29 Other chronic pain; K76.9 Liver disease, unspecified; Z79.890 Hormone replacement therapy; Z79.899 Other long term (current) drug therapy; Z92.3 Personal history of irradiation; Z95.828 Presence of other vascular implants and grafts; Z87.891 Personal history of nicotine dependence
CPT/HCPCS: 36415; 70450; 70496; 70498; 71045; 80053; 81001; 85025; 85610; 87040; 87635; 93005; 96361; 96374; 96375; 96376; 99285

== ENCOUNTER 2020-07-26 14:44 | Inpatient (IN) | payer OTHER ==
[2020-07-26] MEDS ORDERED: MORPHINE SULFATE 4 MG/ML SYRINGE IV STA (15:10)
[2020-07-26] MEDS ORDERED: SODIUM CHLORIDE 0.9% 500 ML 500 ML IV STA (15:10)
--- NOTE | 2020-07-26 15:14 | ED ---
General Adult HPI - General Chief complaint: Abdominal Pain Stated complaint: Abdominal Pain Time Seen by Provider: 07/26/20 14:56 Source: patient Mode of arrival: ambulatory Limitations: no limitations - History of Present Illness Initial comments: Dictation was produced using [employer] dictation software. please excuse any grammatical, word or spelling errors. This patient was cared for during a federal and state declared state of emergency secondary to Covid 19 Chief Complaint: 49-year-old female past medical history of uterine cancer with reported metastatic disease presents to the emergency Department with 1-2 days of right upper quadrant abdominal pain History of Present Illness: Patient is a 49-year-old female over the last 24-48 hours she is developing worsening right upper quadrant abdominal pain. She complains of nausea. No vomiting. She states worse with ingestion of food. She denies any history of abdominal surgery. She called her oncologist office. She was redirected by the nurse practitioner come to the emergency department for evaluation. Patient does report some shortness of breath. Patient denies any constitutional symptoms. Denies any diarrhea. The ROS documented in this emergency department record has been reviewed and confirmed by me. Those systems with pertinent positive or negative responses have been documented in the HPI. All other systems are other negative and/or noncontributory. PHYSICAL EXAM: General Impression: Alert and oriented x3, acute distress secondary to pain HEENT: Normocephalic atraumatic, extra-ocular movements intact, pupils equal and reactive to light bilaterally, mucous membranes moist. Cardiovascular: Heart regular rate and rhythm Chest: Able to complete full sentences, no retractions, no tachypnea Abdomen: abdomen soft, diffuse abdominal tenderness, worse in the right upper quadrant, voluntary guarding non-distended, no organomegaly Musculoskeletal: Pulses present and equal in all extremities, no peripheral edema Motor: no focal deficits noted Neurological: CN II-XII grossly intact, no focal motor or sensory deficits noted Skin: Intact with no visualized rashes Psych: Normal affect and mood ED course: 49-year-old female past medical history of metastatic uterine cancer presents today with right upper quadrant abdominal pain. Vital signs upon arrival shows heart rate of 107. She is not hypoxic. She does not appear to be in any respiratory distress but she does report some mild dyspnea. Chart review was performed. She has a CT of the abdomen and pelvis performed from February 26 that shows overall progression of metastatic uterine cancer. She has increased size of multiple hepatic, right lower quadrant. Subcutaneous and lumbar paraspinal soft tissue lesions. Patient denies any new lower extremity symptoms. She states she does have some swelling but no calf tenderness, popliteal tenderness or medial thigh tenderness. EKG interpretation: Ventricular rate 90, normal sinus rhythm,. Interval 160, QRS 80, QTC 480. No WA prolongation, no QTC prolongation, no ST or T-wave changes noted. Overall, this EKG is unremarkable Laboratory evaluation obtained. CBC unremarkable. Coag panel is negative. D- dimer is elevated at 3.45. Metabolic panel acute processes. Troponin is negative. Right upper quadrant ultrasound shows no acute findings. Computed tomography scan of the abdomen and pelvis shows hepatic multiple masses consistent with metastatic disease not significantly different than old exam. There is a left renal mass is also metastatic. There is persistent left-sided hydronephrosis and hydroureter. CT angios the chest was obtained showing no evidence of pulmonary embolism again there is evidence of metastatic disease. There does appear to be some improvement with smaller nodules showing possible favorable treatment response. Patient reevaluated at bedside. Patient was given analgesics out of his stable medical condition. Disposition options were discussed. Patient doesn't have the best social situation. Given patient's significant history of severe metastatic disease and intractable pain lungs social situation and believe patient would benefit from observation admission for pain control. - Related Data Home Medications Medication Instructions Recorded Confirmed ALPRAZolam [Xanax] 0.5 mg PO TID PRN 07/09/20 07/26/20 Levothyroxine Sodium [Synthroid] 150 mcg PO DAILY 07/09/20 07/26/20 Prochlorperazine [Compazine] 10 mg PO Q6H PRN 07/09/20 07/26/20 HYDROcodone/APAP 7.5-325MG [[place] 1 tab PO Q6H PRN 07/17/20 07/26/20 7.5-325] Nystatin 100,000 Unit/ml Susp 4 ml PO TID PRN 07/17/20 07/26/20 [Mycostatin Oral Susp] Sennosides-Docusate Sodium 2 tab PO BID 07/17/20 07/26/20 [Senokot-S] Lidocaine-Prilocaine Cream [Emla 1 applic TOPICAL DAILY PRN 07/26/20 07/26/20 Cream 2.5%/2.5%] Previous Rx's Medication Instructions Recorded Morphine Sulfate ER [Ms Contin] 15 mg PO Q12HR 3 Days #6 tab 06/24/20 traMADol HCl [Ultram] 50 mg PO Q6H PRN #12 tab 06/24/20 fentaNYL 25MCG/HR PATCH [Duragesic 1 patch TRANSDERM Q72H #3 patch 07/11/20 25MCG/HR] Lactulose [Cephulac] 20 gm PO BID PRN #240 ml 07/12/20 OLANZapine [ZyPREXA] 5 mg PO DAILY 30 Days #30 tab 07/12/20 DULoxetine HCL [Cymbalta] 20 mg PO DAILY 30 Days #30 07/13/20 capsule. Pantoprazole Sodium [Protonix] 40 mg PO DAILY #30 tablet. 07/19/20 Allergies Allergy/AdvReac Type Severity Reaction Status Date / Time No Known Allergies Allergy Verified 07/26/20 16:04 Review of Systems ROS Statement: Those systems with pertinent positive or pertinent negative responses have been documented in the HPI. ROS Other: All systems not noted in ROS Statement are negative. Past Medical History Past Medical History: Cancer, Thyroid Disorder Additional Past Medical History / Comment(s): cervical CA History of Any Multi-Drug Resistant Organisms: None Reported Past Surgical History: No Surgical Hx Reported Additional Past Surgical History / Comment(s): RADIATION TO UTERUS., port to R side Past Anesthesia/Blood Transfusion Reactions: No Reported Reaction Past Psychological History: Anxiety Smoking Status: Former smoker Past Alcohol Use History: None Reported Past Drug Use History: None Reported, Marijuana - Past Family History Mother Family Medical History: Unable to Obtain Father History Unknown: Yes Family Medical History: Unable to Obtain General Exam Limitations: no limitations Course Vital Signs 07/26/20 07/26/20 14:46 17:14 Temperature 98.8 F Pulse Rate 107 H 99 Respiratory 18 20 Rate Blood Pressure 155/83 147/90 O2 Sat by Pulse 96 95 Oximetry Medical Decision Making - Lab Data Result diagrams: 07/26/20 15:23 07/26/20 15:23 Lab Results 07/26/20 07/26/20 07/26/20 Range/Units 15:23 15:23 15:23 WBC 9.1 (3.8-10.6) k/uL RBC 3.46 L (3.80-5.40) m/uL Hgb 10.7 L (11.4-16.0) gm/dL Hct 32.4 L (34.0-46.0) % MCV 93.7 (80.0-100.0) fL MCH 30.9 (25.0-35.0) pg MCHC 33.0 (31.0-37.0) g/dL RDW 15.6 H (11.5-15.5) % Plt Count 420 (150-450) k/uL MPV 6.8 Neutrophils % 80 % Lymphocytes % 10 % Monocytes % 6 % Eosinophils % 2 % Basophils % 1 % Neutrophils # 7.2 (1.3-7.7) k/uL Lymphocytes # 0.9 L (1.0-4.8) k/uL Monocytes # 0.5 (0-1.0) k/uL Eosinophils # 0.2 (0-0.7) k/uL Basophils # 0.1 (0-0.2) k/uL Hypochromasia Slight PT 10.7 (9.0-12.0) sec INR 1.0 (<1.2) APTT 23.7 (22.0-30.0) sec D-Dimer 3.45 H (<0.60) mg/L FEU Sodium 142 (137-145) mmol/L Potassium 4.2 (3.5-5.1) mmol/L Chloride 102 (98-107) mmol/L Carbon Dioxide 29 (22-30) mmol/L Anion Gap 11 mmol/L BUN 15 (7-17) mg/dL Creatinine 0.95 (0.52-1.04) mg/dL Est GFR (CKD-EPI)AfAm 83 (>60 ml/min/1.73 sqM) Est GFR (CKD-EPI)NonAf 72 (>60 ml/min/1.73 sqM) Glucose 104 H (74-99) mg/dL Calcium 10.2 (8.4-10.2) mg/dL Total Bilirubin 0.4 (0.2-1.3) mg/dL AST 45 H (14-36) U/L ALT 17 (4-34) U/L Alkaline Phosphatase 335 H (38-126) U/L Troponin I (0.000-0.034) ng/mL Total Protein 7.5 (6.3-8.2) g/dL Albumin 4.6 (3.5-5.0) g/dL Lipase 133 (23-300) U/L 07/26/20 Range/Units 15:23 WBC (3.8-10.6) k/uL RBC (3.80-5.40) m/uL Hgb (11.4-16.0) gm/dL Hct (34.0-46.0) % MCV (80.0-100.0) fL MCH (25.0-35.0) pg MCHC (31.0-37.0) g/dL RDW (11.5-15.5) % Plt Count (150-450) k/uL MPV Neutrophils % % Lymphocytes % % Monocytes % % Eosinophils % % Basophils % % Neutrophils # (1.3-7.7) k/uL Lymphocytes # (1.0-4.8) k/uL Monocytes # (0-1.0) k/uL Eosinophils # (0-0.7) k/uL Basophils # (0-0.2) k/uL Hypochromasia PT (9.0-12.0) sec INR (<1.2) APTT (22.0-30.0) sec D-Dimer (<0.60) mg/L FEU Sodium (137-145) mmol/L Potassium (3.5-5.1) mmol/L Chloride (98-107) mmol/L Carbon Dioxide (22-30) mmol/L Anion Gap mmol/L BUN (7-17) mg/dL Creatinine (0.52-1.04) mg/dL Est GFR (CKD-EPI)AfAm (>60 ml/min/1.73 sqM) Est GFR (CKD-EPI)NonAf (>60 ml/min/1.73 sqM) Glucose (74-99) mg/dL Calcium (8.4-10.2) mg/dL Total Bilirubin (0.2-1.3) mg/dL AST (14-36) U/L ALT (4-34) U/L Alkaline Phosphatase (38-126) U/L Troponin I <0.012 (0.000-0.034) ng/mL Total Protein (6.3-8.2) g/dL Albumin (3.5-5.0) g/dL Lipase (23-300) U/L Disposition Clinical Impression: Intractable pain Disposition: ADMITTED IP TO THIS [facility] Condition: Fair Referrals: Kg Ayala DO [Primary Care Provider] - 1-2 days Decision Time: 18:35
[2020-07-26 15:32] LABS: Basophils # (A) 0.1 k/uL (0-0.2); Basophils % (A) 1 %; Eosinophils # (A) 0.2 k/uL (0-0.7); Eosinophils % (A) 2 %; HCT 32.4 % (34.0-46.0); HGB 10.7 gm/dL (11.4-16.0); Hypochromasia Slight; Lymphocytes # (A) 0.9 k/uL (1.0-4.8); Lymphocytes % (A) 10 %; MCH 30.9 pg (25.0-35.0); MCV 93.7 fL (80.0-100.0); Mean Platelet Volume 6.8; Monocytes # (A) 0.5 k/uL (0-1.0); Monocytes % (A) 6 %; Neutrophils # (A) 7.2 k/uL (1.3-7.7); Neutrophils % (A) 80 %; Platelet Count 420 k/uL (150-450); RBC 3.46 m/uL (3.80-5.40); RDW 15.6 % (11.5-15.5); WBC 9.1 k/uL (3.8-10.6)
[2020-07-26 15:45] LABS: Albumin 4.6 g/dL (3.5-5.0); Calcium 10.2 mg/dL (8.4-10.2); Potassium 4.2 mmol/L (3.5-5.1); Total Bilirubin 0.4 mg/dL (0.2-1.3); Total Protein 7.5 g/dL (6.3-8.2)
[2020-07-26 15:46] LABS: Partial Thromboplastin Time 23.7 sec (22.0-30.0); Prothrombin Time 10.7 sec (9.0-12.0)
--- NOTE | 2020-07-26 16:14 | US ---
EXAMINATION TYPE: US abdomen limited DATE OF EXAM: 07/26/2020 COMPARISON: CT July 09, 2020 CLINICAL HISTORY: RUQ pain. extreme RUQ pain, known uterine CA EXAM MEASUREMENTS: Liver Length: 19.8 cm Gallbladder Wall: 0.2 cm CBD: 0.7 cm Right Kidney: 9.2 x 4.0 x 4.7 cm Pancreas: portion wnl Liver: enlarged and heterogeneous with mass like effect seen throughout liver, lesion anterior right lobe 2.3 x 2.7 x 1.9cm Gallbladder: wnl Evidence for sonographic Lazcano's sign: no CBD: wnl Right Kidney: wnl Visualized pancreas within normal limits. Visualized liver markedly heterogeneous limiting evaluation for focal masses. Stable minimal extra hepatic biliary dilatation without intrahepatic biliary dilat ation. Gallbladder is seen without shadowing mobile gallstones. Large right adrenal mass is less well seen on ultrasound images saved. No right-sided hydronephrosis noted. IMPRESSION: No acute findings are evident. Known hepatic metastatic and right adrenal presumed metast atic lesions on recent CT are less well seen on today's ultrasound.
[2020-07-26] MEDS ORDERED: HYDROmorphone 1 MG/ML 1 ML SYRINGE IVP STA (16:49)
--- NOTE | 2020-07-26 17:19 | CT ---
EXAMINATION TYPE: CT angio chest DATE OF EXAM: 07/26/2020 COMPARISON: 06/23/2020 HISTORY: Elevated d-dimer. History of cervical cancer with mets. CT DLP: 395.5 mGycm Automated exposure control for dose reduction was used. CONTRAST: Performed with IV Contrast, patient injected with 100 mL of Isovue 370. There are 3-D post processed images. There are numerous noncalcified nodular densities throughout both lungs. These measure up to almost 2 cm. There is some patchy atelectasis at the posterior lung bases. There is no pleural effusion. Ther e is no pericardial effusion. There are some mediastinal peritracheal lymph nodes measuring less than 1 cm. I see no evidence of filling defect in the pulmonary arteries. The thoracic aorta is intact. There is no aneurysm or dissection. There is minor spurring in the thor acic spine. Sternum is intact. The ribs appear intact. I see no focal bone destruction. IMPRESSION: No evidence of pulmonary embolism. Numerous pulmonary nodules consistent with metastatic disease whic h appears slightly smaller than previous exam and suggestive of favorable treatment response. For exa mple largest mass at the anterior right pulmonary hilum measures 1.9 cm and on previous exam measures 2.6 cm.
--- NOTE | 2020-07-26 17:49 | CT ---
EXAMINATION TYPE: CT abdomen pelvis w con DATE OF EXAM: 07/26/2020 COMPARISON: 07/09/2020 HISTORY: Right upper quadrant pain. History of cervical cancer with mets. CT DLP: 1525.4 mGycm Automated exposure control for dose reduction was used. CONTRAST: Performed with IV Contrast, patient injected with mL of Isovue 370. Images obtained from the diaphragm to the floor the pelvis with IV contrast. There are numerous variable-sized hypodense masses throughout the liver that measure up to 4 cm. Sple en is intact. Stomach is intact. There is no pancreatic mass. There is irregular low density 7 cm mas s involving the right adrenal gland. There is 2 cm left adrenal mass. There is 4 cm ring density mass involving the medial aspect of the left kidney. The delayed images show delayed left side pyelogram. There is left-sided hydronephrosis. There is mild dilated left ureter. There is 2.5 cm soft tissue r ounded mass in the subcutaneous fat over the right anterior mid abdomen. There is 4.5 Anurag rounded soft tissue mass that appears to be within the large bowel mesenteric fat adjacent to the splenic fle xure of the colon. Bladder distends smoothly. There is 2.2 cm rounded mass left inguinal region. There is some free flui d in the cul-de-sac. There is 1 cm rounded soft tissue density subcutaneous fat lateral right mid abd omen. There is 2 cm rounded soft tissue density over the posterior lower lumbar spine. The lumbar vertebra have normal alignment. There is right side L5 spondylolysis.. There is no abena ally fracture. The bony pelvis is intact. Hip joints are intact. IMPRESSION: Hepatic multiple masses consistent with metastatic disease not significantly different than old exam. Left renal mass consistent with metastatic disease. Large right adrenal mass and smaller left adrenal mass consistent with metastatic disease. Multiple subcutaneous masses consistent with metastatic dis ease. Right-sided omental mass consistent with metastatic disease. Multiple masses as above not signi ficantly different than old exam. Left-sided hydronephrosis and hydroureter consistent with distal ureteral obstruction that is not sig nificantly different than last exam.
[2020-07-26] MEDS ORDERED: NALOXONE 0.4 MG/ML 1 ML VIAL IV PRN (18:32)
[2020-07-26] MEDS: HYDROmorphone 1 MG/ML 1 ML SYRINGE IVP PRN ×2 (19:02→21:58)
[2020-07-26] MEDS: SODIUM CHLORIDE 0.9% 1,000 ML IV SCH (19:07)
[2020-07-26] MEDS ORDERED: ALPRAZolam 0.5 MG TAB PO PRN (23:12)
[2020-07-27] MEDS: HYDROcodone/APAP 7.5-325MG 1 EACH TAB PO PRN ×2 (00:01→10:05)
[2020-07-27] MEDS: HYDROmorphone 1 MG/ML 1 ML SYRINGE IVP PRN ×6 (00:53→22:49)
[2020-07-27] MEDS: ONDANSETRON 4 MG/2 ML VIAL IVP PRN (04:01)
[2020-07-27] MEDS: LEVOTHYROXINE 75 MCG TAB PO SCH (05:36)
[2020-07-27] MEDS: OLANZapine 5 MG TAB PO SCH (08:12)
[2020-07-27] MEDS: DULoxetine HCL 20 MG CAPSULE.DR PO SCH (08:12)
[2020-07-27] MEDS: SENNOSIDES-DOCUSATE SODIUM 1 EACH TAB PO SCH ×2 (08:12→21:27)
[2020-07-27] MEDS ORDERED: MORPHINE SULFATE ER 15 MG TABLET PO SCH (09:30)
--- NOTE | 2020-07-27 16:17 | P.HPIM ---
History of Present Illness H&P Date: 07/27/20 Chief Complaint: Intractable pain This a 49-year-old female admitted with intractable right upper quadrant abdominal pain in a patient with history of primary cervical cancer with metastasis. Patient reports abdominal pain worsening over the last 24-48 hours accompanied by nausea, no vomiting, no diarrhea ,worsened with eating. Reports accompanying mild shortness of breath. Reports she is due today for her chemotherapy. Hemoglobin 10.7, platelets 420, neutrophils 80, d-dimer elevated at 3.45 .Afebrile, normal WBC. Chemistry reporting normal electrolytes, BUN 15, creatinine 0.95, glucose 104, total bili 0.4, AST 45, ALT 17, alk phos 335. Coronavirus not detected. Vital signs stable, maintaining O2 sats in the 90s on room air. Denies chest pain, palpitations. Troponins negative 1. EKG reporting normal sinus rhythm.. Abdominal ultrasound reporting no acute findings evident, no hepatic metastatic and right adrenal presumed metastatic lesions on recent CT less well seen on current ultrasound. Chest CTA reported no evidence of pulmonary embolism, numerous pulmonary nodules consistent with metastatic disease which appears slightly smaller than previous exam and suggestive of favorable treatment response; largest mass at the anterior right pulmonary hilum measures 1.9 cm and on prior exam measured 2.6 cm. Abdominal/pelvis CT reported hepatic multiple masses consistent with metastatic disease not significantly different than prior exam. Left renal mass consistent with metastatic disease, large right adrenal mass and smaller left adrenal mass consistent with metastatic disease, multiple subcutaneous masses consistent with metastatic disease, right-sided omentum mass consistent with metastatic disease, multiple masses as above not significantly different from prior exam. Left-sided hydronephrosis and hydroureter consistent with distal ureteral obstruction, not significantly different than last exam. .Oncology consulted. Review of Systems ROS Statement: Those systems with pertinent positive or pertinent negative responses have been documented in the HPI. ROS Other: All systems not noted in ROS Statement are negative. Past Medical History Past Medical History: Cancer, Thyroid Disorder Additional Past Medical History / Comment(s): cervical CA History of Any Multi-Drug Resistant Organisms: None Reported Past Surgical History: No Surgical Hx Reported Additional Past Surgical History / Comment(s): RADIATION TO UTERUS., port to R side Past Anesthesia/Blood Transfusion Reactions: No Reported Reaction Past Psychological History: Anxiety Smoking Status: Former smoker Past Alcohol Use History: None Reported Additional Past Alcohol Use History / Comment(s): QUIT 2 WEEKS AGO. Past Drug Use History: None Reported, Marijuana - Past Family History Mother Family Medical History: Unable to Obtain Father History Unknown: Yes Family Medical History: Unable to Obtain Medications and Allergies Home Medications Medication Instructions Recorded Confirmed Type Morphine Sulfate ER [Ms Contin] 15 mg PO Q12HR 3 Days #6 tab 06/24/20 07/26/20 Rx traMADol HCl [Ultram] 50 mg PO Q6H PRN #12 tab 06/24/20 07/26/20 Rx ALPRAZolam [Xanax] 0.5 mg PO TID PRN 07/09/20 07/26/20 History Levothyroxine Sodium [Synthroid] 150 mcg PO DAILY 07/09/20 07/26/20 History Prochlorperazine [Compazine] 10 mg PO Q6H PRN 07/09/20 07/26/20 History fentaNYL 25MCG/HR PATCH [[place]ages[place] 1 patch TRANSDERM Q72H #3 patch 07/11/20 07/26/20 Rx 25MCG/HR] Lactulose [Cephulac] 20 gm PO BID PRN #240 ml 07/12/20 07/26/20 Rx OLANZapine [ZyPREXA] 5 mg PO DAILY 30 Days #30 tab 07/12/20 07/26/20 Rx DULoxetine HCL [Cymbalta] 20 mg PO DAILY 30 Days #30 07/13/20 07/26/20 Rx capsule. HYDROcodone/APAP 7.5-325MG [[place] 1 tab PO Q6H PRN 07/17/20 07/26/20 History 7.5-325] Nystatin 100,000 Unit/ml Susp 4 ml PO TID PRN 07/17/20 07/26/20 History [Mycostatin Oral Susp] Sennosides-Docusate Sodium 2 tab PO BID 07/17/20 07/26/20 History [Senokot-S] Pantoprazole Sodium [Protonix] 40 mg PO DAILY #30 tablet. 07/19/20 07/26/20 Rx Lidocaine-Prilocaine Cream [Emla 1 applic TOPICAL DAILY PRN 07/26/20 07/26/20 History Cream 2.5%/2.5%] Allergies Allergy/AdvReac Type Severity Reaction Status Date / Time No Known Allergies Allergy Verified 07/26/20 16:04 Physical Exam Vitals: Vital Signs Temp Pulse Pulse Resp BP BP Pulse Ox 07/27/20 07:00 98.3 F 87 18 155/98 95 07/27/20 01:16 98.3 F 70 16 114/76 97 07/26/20 21:24 98.6 F 98 18 147/91 97 07/26/20 20:36 98.1 F 94 18 146/79 96 07/26/20 19:08 96 18 147/87 98 07/26/20 17:14 99 20 147/90 95 07/26/20 14:46 98.8 F 107 H 18 155/83 96 Intake and Output 07/26/20 07/27/20 07/27/20 22:59 06:59 14:59 Intake Total 300 Balance 300 Intake: Oral 300 Other: Voiding Method Toilet # Voids 1 3 Weight 86.183 kg PHYSICAL EXAM: VITAL SIGNS: As above GENERAL: Sitting up at bedside, no acute distress HEENT: Conjunctivae normal. eyes normal. NECK: Supple, No JVD. CARDIOVASCULAR: S1, S2 regular.No murmur, no edema. RESPIRATION: Breath sounds diminished in the bases. No rhonchi, crackles, no wheezing. ABDOMEN: Soft, nondistended, diffuse tenderness with palpable mass in right lower quadrant and right lower back. No guarding. Positive bowel sounds. PSYCHIATRY: Alert and oriented X3, mood and affect normal. NERVOUS SYSTEM: Cranial N 2-12 grossly normal. Moves all 4 limbs. No focal deficits. Strength and sensation grossly intact. Skin: Warm and dry, no rash, Results CBC & Chem 7: 07/26/20 15:23 07/26/20 15:23 Labs: Abnormal Lab Results - Last 24 Hours (Table) 07/26/20 07/26/20 07/26/20 Range/Units 15:23 15:23 15:23 RBC 3.46 L (3.80-5.40) m/uL Hgb 10.7 L (11.4-16.0) gm/dL Hct 32.4 L (34.0-46.0) % RDW 15.6 H (11.5-15.5) % Lymphocytes # 0.9 L (1.0-4.8) k/uL D-Dimer 3.45 H (<0.60) mg/L FEU Glucose 104 H (74-99) mg/dL AST 45 H (14-36) U/L Alkaline Phosphatase 335 H (38-126) U/L Thrombosis Risk Factor Assmnt - Choose All That Apply Each Factor Represents 1 point: Age 41-60 years Thrombosis Risk Factor Assessment Total Risk Factor Score: 1 Thrombosis Risk Factor Assessment Level: Low Risk Assessment and Plan Assessment: -Primary cervical cancer with metastasis -Chronic anemia, secondary to malignancy -Hypertension -Hyperlipidemia -History of recent Chest pain in a patient with prior elevated troponins in 2017 with cardiac cath reporting normal coronary arteries, normal LV function. -History of cervical cancer, stage II B, status post chemo and radiation, with no further follow-up. -Lymphopenia -Anxiety -Nicotine dependence -THC use -obesity, BMI 40.5 -Hypothyroidism Plan: Continue on current medication regime ,monitoring and symptomatic treatment. Oncology consult in place with further recommendations pending. Pain management. Prognosis guarded given multiple complex medical issues. The impression and plan of care has been dictated as directed. : I performed a history and examination of this patient, discussed the same with the dictator. I agree with the dictator's note ,documented as a scribe. Any additional findings or plans will be noted.
[2020-07-27] MEDS ORDERED: PROCHLORPERAZINE 10 MG TAB PO PRN (16:19)
[2020-07-27] MEDS ORDERED: LIDOCAINE-PRILOCAINE 2.5-2.5% CREAM 5 GM TUBE TOPICAL PRN (16:19)
[2020-07-27] MEDS: PANTOPRAZOLE 40 MG/10 ML VIAL IVP SCH (17:24)
[2020-07-27] MEDS: LACTULOSE 20 GM/30 ML CUP PO PRN (17:26)
[2020-07-27] MEDS ORDERED: ACETAMINOPHEN TAB 325 MG TAB PO PRN (18:44)
--- NOTE | 2020-07-27 18:57 | P.CONS ---
History of Present Illness - Reason for Consult Consult date: 07/27/20 Metastatic cancer and pain Requesting physician: Jorgito España - Chief Complaint RUQ Pain - History of Present Illness Metastatic cervical cancer patient of Dr. Charles presenting with new RUQ pain. Imaging performed negative for acute findings. She is status post cycle one of palliative treatment. Review of Systems All systems: negative Constitutional: Reports as per HPI Past Medical History Past Medical History: Cancer, Thyroid Disorder Additional Past Medical History / Comment(s): cervical CA History of Any Multi-Drug Resistant Organisms: None Reported Past Surgical History: No Surgical Hx Reported Additional Past Surgical History / Comment(s): RADIATION TO UTERUS., port to R side Past Anesthesia/Blood Transfusion Reactions: No Reported Reaction Past Psychological History: Anxiety Smoking Status: Former smoker Past Alcohol Use History: None Reported Additional Past Alcohol Use History / Comment(s): QUIT 2 WEEKS AGO. Past Drug Use History: None Reported, Marijuana - Past Family History Mother Family Medical History: Unable to Obtain Father History Unknown: Yes Family Medical History: Unable to Obtain Medications and Allergies Home Medications Medication Instructions Recorded Confirmed Type traMADol HCl [Ultram] 50 mg PO Q6H PRN #12 tab 06/24/20 07/26/20 Rx ALPRAZolam [Xanax] 0.5 mg PO TID PRN 07/09/20 07/26/20 History Levothyroxine Sodium [Synthroid] 150 mcg PO DAILY 07/09/20 07/26/20 History Prochlorperazine [Compazine] 10 mg PO Q6H PRN 07/09/20 07/26/20 History Lactulose [Cephulac] 20 gm PO BID PRN #240 ml 07/12/20 07/26/20 Rx OLANZapine [ZyPREXA] 5 mg PO DAILY 30 Days #30 tab 07/12/20 07/26/20 Rx DULoxetine HCL [Cymbalta] 20 mg PO DAILY 30 Days #30 07/13/20 07/26/20 Rx capsule. HYDROcodone/APAP 7.5-325MG [[place] 1 tab PO Q6H PRN 07/17/20 07/26/20 History 7.5-325] Nystatin 100,000 Unit/ml Susp 4 ml PO TID PRN 07/17/20 07/26/20 History [Mycostatin Oral Susp] Sennosides-Docusate Sodium 2 tab PO BID 07/17/20 07/26/20 History [Senokot-S] Pantoprazole Sodium [Protonix] 40 mg PO DAILY #30 tablet.dr 07/19/20 07/26/20 Rx Lidocaine-Prilocaine Cream [Emla 1 applic TOPICAL DAILY PRN 07/26/20 07/26/20 History Cream 2.5%/2.5%] Morphine Sulfate ER [Ms Contin] 30 mg PO Q12HR #6 tablet 07/28/20 Rx polyethylene glycoL 3350 [Miralax] 17 gm PO DAILY powd.pack 07/28/20 Rx Allergies Allergy/AdvReac Type Severity Reaction Status Date / Time No Known Allergies Allergy Verified 07/26/20 16:04 Physical Exam Vitals: Vital Signs Temp Pulse Pulse Resp BP BP Pulse Ox 07/27/20 14:00 90 18 07/27/20 12:21 98.6 F 95 18 149/93 92 L 07/27/20 07:00 98.3 F 87 18 155/98 95 07/27/20 01:16 98.3 F 70 16 114/76 97 07/26/20 21:24 98.6 F 98 18 147/91 97 07/26/20 20:36 98.1 F 94 18 146/79 96 07/26/20 19:08 96 18 147/87 98 Intake and Output 07/27/20 07/27/20 07/27/20 06:59 14:59 22:59 Intake Total 1540 Balance 1540 Intake: Intake, IV Titration 160 Amount Sodium Chloride 0.9% 1, 160 000 ml @ 20 mls/hr IV . Q24H [facility] Rx#:[id number] Oral 1380 Other: Voiding Method Toilet # Voids 3 2 - Constitutional General appearance: Present: cooperative, no acute distress - EENT Eyes: Present: EOMI ENT: Present: NA/AT, normal oropharynx - Neck Neck: Present: normal ROM - Respiratory Respiratory: bilateral: CTA - Gastrointestinal General gastrointestinal: Present: soft - Integumentary Integumentary: Present: pale Palpable metastatic lesions under ribcage at site of pain - Neurologic Neurologic: Present: CNII-XII intact - Musculoskeletal Musculoskeletal: Present: generalized weakness, strength equal bilaterally - Psychiatric Psychiatric: Present: A&O x's 3, appropriate affect Results CBC & Chem 7: 07/28/20 05:46 07/28/20 05:46 CT scan - abdomen: report reviewed CT scan - chest: report reviewed CT scan - pelvis: report reviewed Assessment and Plan Plan: Assessment and Recommendations: [place]-plastic related pain: - She was wearing a fentanyl patch and on MS COntin. Re-educated on long acting and discontinued her fentanyl patch. Increased MS COntin 30 BID - [place] PRN - [place] and Miralax scheduled for narcotic induced constipation Metastatic Cervical Cancer: - She was due for cycle two of chemo today, will schedule as soon as possible at discharge (must be 24 hours after discharge) RUQ Abdominal Pain: - Appears related to metastatic disease - Review of CT scans no acute findings Discharge per primary team, follow-up for chemo after discharge Physician Attest: I have completed the ful history and physical and agree with above dictation, dictated as a ascribe.
[2020-07-27] MEDS: MORPHINE SULFATE ER 30 MG TABLET PO SCH (21:23)
[2020-07-27] MEDS: SODIUM CHLORIDE 0.9% 1,000 ML IV SCH (22:44)
[2020-07-28] MEDS: HYDROmorphone 1 MG/ML 1 ML SYRINGE IVP PRN (02:46)
[2020-07-28] MEDS: LEVOTHYROXINE 75 MCG TAB PO SCH (05:40)
[2020-07-28 06:14] LABS: Basophils # (A) 0.1 k/uL (0-0.2); Basophils % (A) 1 %; Eosinophils # (A) 0.2 k/uL (0-0.7); Eosinophils % (A) 2 %; HCT 28.5 % (34.0-46.0); Hypochromasia Moderate; Lymphocytes # (A) 0.8 k/uL (1.0-4.8); Lymphocytes % (A) 9 %; MCH 28.9 pg (25.0-35.0); MCV 93.4 fL (80.0-100.0); Mean Platelet Volume 6.8; Monocytes # (A) 0.7 k/uL (0-1.0); Monocytes % (A) 8 %; Neutrophils # (A) 6.9 k/uL (1.3-7.7); Neutrophils % (A) 80 %; Platelet Count 313 k/uL (150-450); RBC 3.05 m/uL (3.80-5.40); RDW 15.5 % (11.5-15.5); WBC 8.7 k/uL (3.8-10.6)
[2020-07-28 06:16] LABS: HGB 8.8 gm/dL (11.4-16.0)
[2020-07-28 06:30] LABS: African American GFR (CKD) >90 (>60 ml/min/1.73 sqM); Anion Gap 11 mmol/L; Blood Urea Nitrogen 10 mg/dL (7-17); Calcium 9.5 mg/dL (8.4-10.2); Carbon Dioxide 26 mmol/L (22-30); Chloride 102 mmol/L (98-107); Glucose 98 mg/dL (74-99); Non-African American GFR(CKD) 80 (>60 ml/min/1.73 sqM); Potassium 3.6 mmol/L (3.5-5.1); Sodium 139 mmol/L (137-145)
[2020-07-28] MEDS: MORPHINE SULFATE ER 30 MG TABLET PO SCH (08:16)
[2020-07-28] MEDS: ONDANSETRON 4 MG/2 ML VIAL IVP PRN (08:17)
[2020-07-28] MEDS: SENNOSIDES-DOCUSATE SODIUM 1 EACH TAB PO SCH (08:19)
[2020-07-28] MEDS: PANTOPRAZOLE 40 MG/10 ML VIAL IVP SCH (08:19)
[2020-07-28] MEDS: OLANZapine 5 MG TAB PO SCH (08:19)
[2020-07-28] MEDS: DULoxetine HCL 20 MG CAPSULE.DR PO SCH (08:19)
[2020-07-28] MEDS: LACTULOSE 20 GM/30 ML CUP PO PRN (08:28)
[2020-07-28] MEDS ORDERED: bisacodyL 10 MG SUPP RECTAL SCH (09:00)
[2020-07-28] MEDS ORDERED: polyethylene glycoL 3350 17 GM POWD.PACK PO SCH (09:00)
--- NOTE | 2020-07-28 09:47 | P.DS ---
Providers Date of admission: 07/27/20 08:12 Expected date of discharge: 07/28/20 Attending physician: Kg Ayala Consults: 07/26/20 18:33 Consult Physician Routine Consulting Provider: Rogelio Charles Consult Reason/Comments: metastatic uterine cancer Do you want consulting provider notified?: Yes Primary care physician: Kg Ayala [facility] Course: Final diagnoses -Intractable pain secondary to Primary cervical cancer with metastasis -Constipation, narcotic-induced -Chronic anemia, secondary to malignancy -Hypertension -Hyperlipidemia -History of recent Chest pain in a patient with prior elevated troponins in 2017 with cardiac cath reporting normal coronary arteries, normal LV function. -History of cervical cancer, stage II B, status post chemo and radiation, with no further follow-up. -Lymphopenia -Anxiety -Nicotine dependence -THC use -obesity, BMI 40.5 -Hypothyroidism Hospital course:This a 49-year-old female admitted with intractable right upper quadrant abdominal pain in a patient with history of primary cervical cancer with metastasis. Patient reports abdominal pain worsening over the last 24-48 hours accompanied by nausea, no vomiting, no diarrhea ,worsened with eating. Reports accompanying mild shortness of breath. Reports she is due today for her chemotherapy. Hemoglobin 10.7, platelets 420, neutrophils 80, d-dimer elevated at 3.45 .Afebrile, normal WBC. Chemistry reporting normal electrolytes, BUN 15, creatinine 0.95, glucose 104, total bili 0.4, AST 45, ALT 17, alk phos 335. Coronavirus not detected. Vital signs stable, maintaining O2 sats in the 90s on room air. Denies chest pain, palpitations. Troponins negative 1. EKG reporting normal sinus rhythm.. Abdominal ultrasound reporting no acute findings evident, no hepatic metastatic and right adrenal presumed metastatic lesions on recent CT less well seen on current ultrasound. Chest CTA reported no evidence of pulmonary embolism, numerous pulmonary nodules consistent with metastatic disease which appears slightly smaller than previous exam and suggestive of favorable treatment response; largest mass at the anterior right pulmonary hilum measures 1.9 cm and on prior exam measured 2.6 cm. Abdominal/pelvis CT reported hepatic multiple masses consistent with metastatic disease not significantly different than prior exam. Left renal mass consistent with metastatic disease, large right adrenal mass and smaller left adrenal mass consistent with metastatic disease, multiple subcutaneous masses consistent with metastatic disease, right-sided omentum mass consistent with metastatic disease, multiple masses as above not significantly different from prior exam. Left-sided hydronephrosis and hydroureter consistent with distal ureteral obstruction, not significantly different than last exam. .Oncology consulted. Evaluated by oncology-radiology films reviewed, recommendations noted and appreciated, including pain management adjustment. Patient did not receive cycle 2 of chemo yesterday and is scheduled to receive within 24 hours after discharge. Patient will be discharged home today pending bowel movement, controlled nausea, pain controlled and final DC recommendations and clearance from oncology. The impression and plan of care has been dictated as directed. : I performed a history and examination of this patient, discussed the same with the dictator. I agree with the dictator's note ,documented as a scribe. Any additional findings or plans will be noted. Patient Condition at Discharge: Stable Plan - Discharge Summary Discharge Rx Participant: Yes New Discharge Prescriptions: New polyethylene glycoL 3350 [Miralax] 17 gm PO DAILY powd.pack Morphine Sulfate ER [Ms Contin] 30 mg PO Q12HR #6 tablet Continue traMADol HCl [Ultram] 50 mg PO Q6H PRN #12 tab PRN Reason: Moderate Pain Prochlorperazine [Compazine] 10 mg PO Q6H PRN PRN Reason: Nausea And Vomiting Levothyroxine Sodium [Synthroid] 150 mcg PO DAILY ALPRAZolam [Xanax] 0.5 mg PO TID PRN PRN Reason: Anxiety Lactulose [Cephulac] 20 gm PO BID PRN #240 ml PRN Reason: Constipation OLANZapine [ZyPREXA] 5 mg PO DAILY 30 Days #30 tab DULoxetine HCL [Cymbalta] 20 mg PO DAILY 30 Days #30 capsule. HYDROcodone/APAP 7.5-325MG [[place] 7.5-325] 1 tab PO Q6H PRN PRN Reason: Pain Nystatin 100,000 Unit/ml Susp [Mycostatin Oral Susp] 4 ml PO TID PRN PRN Reason: THRUSH/YEAST INFECTIONS Sennosides-Docusate Sodium [Senokot-S] 2 tab PO BID Pantoprazole Sodium [Protonix] 40 mg PO DAILY #30 tablet. Lidocaine-Prilocaine Cream [Emla Cream 2.5%/2.5%] 1 applic TOPICAL DAILY PRN PRN Reason: 40MIN PRIOR TO PORT ACCESS Discontinued Morphine Sulfate ER [Ms Contin] 15 mg PO Q12HR 3 Days #6 tab fentaNYL 25MCG/HR PATCH [[place] 25MCG/HR] 1 patch TRANSDERM Q72H #3 patch Discharge Medication List traMADol HCl [Ultram] 50 mg PO Q6H PRN #12 tab 06/24/20 [Rx] ALPRAZolam [Xanax] 0.5 mg PO TID PRN 07/09/20 [History] Levothyroxine Sodium [Synthroid] 150 mcg PO DAILY 07/09/20 [History] Prochlorperazine [Compazine] 10 mg PO Q6H PRN 07/09/20 [History] Lactulose [Cephulac] 20 gm PO BID PRN #240 ml 07/12/20 [Rx] OLANZapine [ZyPREXA] 5 mg PO DAILY 30 Days #30 tab 07/12/20 [Rx] DULoxetine HCL [Cymbalta] 20 mg PO DAILY 30 Days #30 capsule. 07/13/20 [Rx] HYDROcodone/APAP 7.5-325MG [[place] 7.5-325] 1 tab PO Q6H PRN 07/17/20 [History] Nystatin 100,000 Unit/ml Susp [Mycostatin Oral Susp] 4 ml PO TID PRN 07/17/20 [History] Sennosides-Docusate Sodium [Senokot-S] 2 tab PO BID 07/17/20 [History] Pantoprazole Sodium [Protonix] 40 mg PO DAILY #30 tablet. 07/19/20 [Rx] Lidocaine-Prilocaine Cream [Emla Cream 2.5%/2.5%] 1 applic TOPICAL DAILY PRN 07/26/20 [History] Morphine Sulfate ER [Ms Contin] 30 mg PO Q12HR #6 tablet 07/28/20 [Rx] polyethylene glycoL 3350 [Miralax] 17 gm PO DAILY powd.pack 07/28/20 [Rx] Follow up Appointment(s)/Referral(s): Rian Laboy MD [STAFF PHYSICIAN] - 07/29/20 [facility], [NON-STAFF] - 1-2 Days Kg Ayala DO [Primary Care Provider] - 1 Week
[2020-07-28] MEDS: HYDROcodone/APAP 7.5-325MG 1 EACH TAB PO PRN (11:34)
[2020-07-28 11:43] VITALS: BP 134/88; PULSE 98; RESP 17; TEMP 98.1
[2020-07-28] MEDS ORDERED: NA PHOS,M-B/NA PHOS,DI-BA 133 ML ENEMA RECTAL ONE (15:23)
[2020-07-29] MEDS ORDERED: PANTOPRAZOLE 40 MG TABLET PO SCH (09:00)
== END 2020-07-28 18:27 | disposition home or self-care (01) | DRG 948 ==
LOC: EC 14:44 → 6NMEDSUR 18:51 → OBSVTOIN 07-27 08:12 → 5NMEDONC 07-27 12:31
PROVIDERS: ADMIT Family Medicine; ATTEND Family Medicine
DX: G89.3 Neoplasm related pain (acute) (chronic) (principal); C78.7 Secondary malignant neoplasm of liver and intrahepatic bile duct; C78.00 Secondary malignant neoplasm of unspecified lung; C78.6 Secondary malignant neoplasm of retroperitoneum and peritoneum; C79.72 Secondary malignant neoplasm of left adrenal gland; C79.71 Secondary malignant neoplasm of right adrenal gland; C79.02 Secondary malignant neoplasm of left kidney and renal pelvis; N13.30 Unspecified hydronephrosis; Z68.41 Body mass index [BMI] 40.0-44.9, adult; C53.9 Malignant neoplasm of cervix uteri, unspecified; N13.5 Crossing vessel and stricture of ureter without hydronephrosis; D63.0 Anemia in neoplastic disease; I10 Essential (primary) hypertension; E78.5 Hyperlipidemia, unspecified; D72.810 Lymphocytopenia; F41.9 Anxiety disorder, unspecified; F17.200 Nicotine dependence, unspecified, uncomplicated; F12.90 Cannabis use, unspecified, uncomplicated; E66.9 Obesity, unspecified; E03.9 Hypothyroidism, unspecified
CPT/HCPCS: 36415; 71275; 74177; 76705; 80048; 80053; 83690; 84439; 84443; 84484; 85025; 85379; 85610; 85730; 87635; 93005

== ENCOUNTER 2020-08-05 10:56 | Inpatient (IN) | payer OTHER ==
[2020-08-05] MEDS ORDERED: HYDROmorphone 1 MG/ML 1 ML SYRINGE IVP STA (11:22)
[2020-08-05] MEDS ORDERED: ONDANSETRON 4 MG/2 ML VIAL IVP STA (11:23)
--- NOTE | 2020-08-05 11:58 | ED ---
Abdominal Pain HPI - General Source: patient Mode of arrival: ambulatory Limitations: no limitations <Tran Moreira - Last Filed: 08/05/20 17:03> <Korin Morales - Last Filed: 08/09/20 15:38> - General Chief Complaint: Abdominal Pain Stated Complaint: Abd pain Time Seen by Provider: 08/05/20 11:03 - History of Present Illness Initial Comments: 49-year-old female presenting today for chief complaint of abdominal pain. Patient states she has diffuse abdominal pain and is currently being treated with chemotherapy for stage IV cervical cancer she states the cancer is "everywhere". Patient is tearful stating she is losing her hair. Patient states she was here not too long ago for same complaint. Patient denies vomiting diarrhea fevers chest pain shortness of breath or leg swelling. Denies dark or bloody stools. Patient denies localization of pain. Denies constipation. Upon arrival patient appears well nontoxic. (Tran Moreira) - Related Data Home Medications Medication Instructions Recorded Confirmed ALPRAZolam [Xanax] 0.5 mg PO TID PRN 07/09/20 08/05/20 Levothyroxine Sodium [Synthroid] 150 mcg PO DAILY 07/09/20 08/05/20 Prochlorperazine [Compazine] 10 mg PO Q6H PRN 07/09/20 08/05/20 Nystatin 100,000 Unit/ml Susp 400,000 units PO TID PRN 07/17/20 08/05/20 [Mycostatin Oral Susp] Lidocaine-Prilocaine Cream [Emla 1 applic TOPICAL DAILY PRN 07/26/20 08/05/20 Cream 2.5%/2.5%] Lidocaine/Benadryl/Maalox/Nystatin 5 ml PO QID 08/05/20 08/05/20 Oral Solution 1:1 Previous Rx's Medication Instructions Recorded traMADol HCl [Ultram] 50 mg PO Q6H PRN #12 tab 06/24/20 Lactulose [Cephulac] 20 gm PO BID PRN #240 ml 07/12/20 OLANZapine [ZyPREXA] 5 mg PO DAILY 30 Days #30 tab 07/12/20 DULoxetine HCL [Cymbalta] 20 mg PO DAILY 30 Days #30 03/02/21 capsule. Pantoprazole Sodium [Protonix] 40 mg PO DAILY #30 tablet. 07/19/20 polyethylene glycoL 3350 [Miralax] 17 gm PO DAILY powd.pack 07/28/20 ALPRAZolam [Xanax] 0.5 mg PO TID PRN #30 tab 08/09/20 Cefuroxime Axetil [Ceftin] 500 mg PO BID 1 Days #14 tab 08/09/20 Cyanocobalamin [Vitamin B-12] 1,000 mcg PO DAILY #30 tab 08/09/20 HYDROcodone/APAP 10-325MG [[place] 1 each PO Q6H PRN #30 tab 08/09/20 10-325] Lactulose [Cephulac] 30 gm PO BID PRN 14 Days ml 08/09/20 Lidocaine Viscous [Xylocaine 30 ml PO QID #300 ml 08/09/20 Viscous 2%] Morphine Sulfate ER [Ms Contin] 30 mg PO Q8HR #90 tablet 08/09/20 Nystatin 100,000 Unit/ml Susp 3,000,000 unit PO QID #300 ml 08/09/20 [Mycostatin Oral Susp] Sennosides-Docusate Sodium 2 tab PO BID #60 tab 08/09/20 [Senokot-S] Allergies Allergy/AdvReac Type Severity Reaction Status Date / Time No Known Allergies Allergy Verified 08/05/20 12:48 Review of Systems ROS Other: All systems not noted in ROS Statement are negative. <Tran Moreira - Last Filed: 08/05/20 17:03> ROS Other: All systems not noted in ROS Statement are negative. <Korin Morales - Last Filed: 08/09/20 15:38> ROS Statement: Those systems with pertinent positive or pertinent negative responses have been documented in the HPI. Past Medical History Past Medical History: Cancer, Thyroid Disorder Additional Past Medical History / Comment(s): cervical CA History of Any Multi-Drug Resistant Organisms: None Reported Past Surgical History: No Surgical Hx Reported Additional Past Surgical History / Comment(s): RADIATION TO UTERUS., port to R side Past Anesthesia/Blood Transfusion Reactions: No Reported Reaction Past Psychological History: Anxiety Smoking Status: Former smoker Past Alcohol Use History: None Reported Past Drug Use History: None Reported, Marijuana - Past Family History Mother Family Medical History: Unable to Obtain Father History Unknown: Yes Family Medical History: Unable to Obtain <Tran Moreira - Last Filed: 08/05/20 17:03> General Exam Limitations: no limitations <Tran Moreira - Last Filed: 08/05/20 17:03> - General Exam Comments Initial Comments: General: The patient is awake and alert, in no distress, and does not appear acutely ill. Eye: +3 mm pupils are equal, round and reactive to light, extra-ocular movements are intact. No nystagmus. There is normal conjunctiva bilaterally. No signs of icterus. Ears, nose, mouth and throat: There are moist mucous membranes and no oral lesions. Neck: The neck is supple, there is no tenderness or JVD. Cardiovascular: There is a regular rate and rhythm. No murmur, rub or gallop is appreciated. Respiratory: Lungs are clear to auscultation, respirations are non-labored, breath sounds are equal. No wheezes, stridor, rales, or rhonchi. Gastrointestinal: Soft, non-distended, diffusely tender abdomen without masses or organomegaly noted. There is no rebound or guarding present. No CVA tenderness. Bowel sounds are unremarkable Rectal: light brown stool, no blood or dark stool Musculoskeletal: Normal ROM, no tenderness. Strength 5/5. Sensation intact. Radial and DP pulses equal bilaterally 2+. Neurological: A&O x 3. CN II-XII intact grossly, There are no obvious motor or sensory deficits. Coordination appears grossly intact. Speech is normal. Skin: Skin is warm and dry and no rashes or lesions are noted. No LE edema. no calf pain or leg swelling. Psychiatric: Cooperative, appropriate mood & affect, normal judgment. (Tran Moreira) Course <Tran Moreira - Last Filed: 08/05/20 17:03> Vital Signs 08/05/20 08/05/20 08/05/20 10:57 14:43 17:44 Temperature 99 F 98.5 F Pulse Rate 111 H 120 H 119 H Pulse Rate [ Pulse Oximetery ] Respiratory 18 18 18 Rate Blood Pressure 101/66 88/56 100/60 Blood Pressure [Left Arm] O2 Sat by Pulse 100 93 L 96 Oximetry 08/05/20 08/06/20 08/06/20 21:46 06:29 07:39 Temperature 98.5 F Pulse Rate 113 H 120 H Pulse Rate [ 127 H Pulse Oximetery ] Respiratory 17 18 20 Rate Blood Pressure 102/70 103/71 Blood Pressure 122/71 [Left Arm] O2 Sat by Pulse 97 97 94 L Oximetry 08/06/20 08/06/20 08/06/20 08:46 11:59 14:54 Temperature 98.5 F Pulse Rate 115 H 120 H Pulse Rate [ Pulse Oximetery ] Respiratory 20 22 Rate Blood Pressure 108/65 113/74 Blood Pressure 97/63 [Left Arm] O2 Sat by Pulse 98 99 Oximetry 08/06/20 16:30 Temperature Pulse Rate 114 H Pulse Rate [ Pulse Oximetery ] Respiratory 18 Rate Blood Pressure 104/66 Blood Pressure [Left Arm] O2 Sat by Pulse 99 Oximetry - Reevaluation(s) Reevaluation #1: 08/05/20 14:48 discussed blood pressure with Dr. Morales, pt will be bolused and rechecked q15, (Tran Moreira) Medical Decision Making - Lab Data Result diagrams: 08/05/20 12:28 08/05/20 12:28 <Tran Moreira - Last Filed: 08/05/20 17:03> - Lab Data Result diagrams: 08/09/20 06:32 08/09/20 06:32 <Korin Morales - Last Filed: 08/09/20 15:38> - Medical Decision Making Leukocytosis, diffusely tender abdomen history of cancer CT no obvious acute process. Patient does have a possible area of pneumonia on chest x-ray. Urinalysis overall unremarkable. Patient has extremely dry lips decreased skin turgor concern for dehydration there is AKA on laboratory studies. Patient was taken to CT prior to studies (i did not enoch patient ready nor nurse as we were wiating for laboratory results). Pt hydrated after CT with contrast. Patient will be admitted on IV abx, pain medications and IV fluids and monitored on telemetry. Patient agreeable to admission. Dr Morales agreeable to care plan. BP improved with IV fluids. Ventricular rate 118 bpm, [place] interval 152 ms, QRS ratio 86 most seconds, QT/QTC 334/468 ms. This is sinus tachycardia with no ST elevation or depression appreciated (Tran Moreira) I was available for consultation in the emergency department. The history and physical exam were done by the midlevel provider. I was consulted for this patients care. I reviewed the case with the midlevel provider and based on their presentation of the patient, I agree with the assessment, medical decision making and plan of care as documented. Chart was dictated using [employer] dictation software. Attempts were made to correct any dictation errors however some typographical errors may persist. Patient was seen during a national state of emergency due to the Covid-19 pandemic. (Korin Morales) - Lab Data Lab Results 08/05/20 08/05/20 08/05/20 Range/Units 12:28 12:28 12:28 WBC 19.0 H (3.8-10.6) k/uL RBC 2.78 L (3.80-5.40) m/uL Hgb 7.9 L (11.4-16.0) gm/dL Hct 25.1 L (34.0-46.0) % MCV 90.3 (80.0-100.0) fL MCH 28.6 (25.0-35.0) pg MCHC 31.6 (31.0-37.0) g/dL RDW 16.0 H (11.5-15.5) % Plt Count 335 (150-450) k/uL MPV 7.7 Neutrophils % % Neutrophils % (Manual) 85 % Band Neuts % (Manual) 6 % Lymphocytes % % Lymphocytes % (Manual) 2 % Monocytes % % Monocytes % (Manual) 1 % Eosinophils % % Basophils % % Metamyelocytes % 5 % Myelocytes % 3 % Neutrophils # (1.3-7.7) k/uL Neutrophils # (Manual) 17.20 H (1.3-7.7) k/uL Lymphocytes # (1.0-4.8) k/uL Lymphocytes # (Manual) 0.38 L (1.0-4.8) k/uL Monocytes # (0-1.0) k/uL Monocytes # (Manual) 0.19 (0-1.0) k/uL Eosinophils # (0-0.7) k/uL Basophils # (0-0.2) k/uL Metamyelocytes # (Man) 0.95 H (0) k/uL Myelocytes # (Manual) 0.57 H (0) k/uL Nucleated RBCs 0 (0-0) /100 WBC Manual Slide Review Performed Hypochromasia Slight Poikilocytosis (manual Present Anisocytosis Slight Sodium 133 L (137-145) mmol/L Potassium 4.5 (3.5-5.1) mmol/L Chloride 100 (98-107) mmol/L Carbon Dioxide 21 L (22-30) mmol/L Anion Gap 12 mmol/L BUN 42 H (7-17) mg/dL Creatinine 1.93 H (0.52-1.04) mg/dL Est GFR (CKD-EPI)AfAm 35 (>60 ml/min/1.73 sqM) Est GFR (CKD-EPI)NonAf 30 (>60 ml/min/1.73 sqM) Glucose 88 (74-99) mg/dL Plasma Lactic Acid Sky (0.7-2.0) mmol/L Calcium 8.6 (8.4-10.2) mg/dL Magnesium 1.7 (1.6-2.3) mg/dL Total Bilirubin 0.5 (0.2-1.3) mg/dL AST 99 H (14-36) U/L ALT 18 (4-34) U/L Alkaline Phosphatase 571 H (38-126) U/L Total Protein 5.8 L (6.3-8.2) g/dL Albumin 3.2 L (3.5-5.0) g/dL Globulin g/dL Albumin/Globulin Ratio Urine Color Yellow Urine Appearance Cloudy H (Clear) Urine pH 5.5 (5.0-8.0) Ur Specific [place] 1.015 (1.001-1.035) Urine Protein 2+ H (Negative) Urine Glucose (UA) Negative (Negative) Urine Ketones Negative (Negative) Urine Blood Small H (Negative) Urine Nitrite Negative (Negative) Urine Bilirubin Negative (Negative) Urine Urobilinogen <2.0 (<2.0) mg/dL Ur Leukocyte Esterase Negative (Negative) Urine RBC 2 (0-5) /hpf Urine WBC 6 H (0-5) /hpf Ur Squamous Epith Cells 2 (0-4) /hpf Urine Mucus Rare H (None) /hpf Coronavirus (PCR) (Not Detectd) 08/05/20 08/05/20 08/06/20 Range/Units 15:06 Unknown 15:30 WBC 10.4 (3.8-10.6) k/uL RBC 2.49 L (3.80-5.40) m/uL Hgb 7.1 L (11.4-16.0) gm/dL Hct 22.4 L (34.0-46.0) % MCV 90.1 (80.0-100.0) fL MCH 28.4 (25.0-35.0) pg MCHC 31.5 (31.0-37.0) g/dL RDW 15.9 H (11.5-15.5) % Plt Count 278 (150-450) k/uL MPV 7.8 Neutrophils % 92 % Neutrophils % (Manual) % Band Neuts % (Manual) % Lymphocytes % 5 % Lymphocytes % (Manual) % Monocytes % 2 % Monocytes % (Manual) % Eosinophils % 1 % Basophils % 0 % Metamyelocytes % % Myelocytes % % Neutrophils # 9.6 H (1.3-7.7) k/uL Neutrophils # (Manual) (1.3-7.7) k/uL Lymphocytes # 0.5 L (1.0-4.8) k/uL Lymphocytes # (Manual) (1.0-4.8) k/uL Monocytes # 0.2 (0-1.0) k/uL Monocytes # (Manual) (0-1.0) k/uL Eosinophils # 0.1 (0-0.7) k/uL Basophils # 0.0 (0-0.2) k/uL Metamyelocytes # (Man) (0) k/uL Myelocytes # (Manual) (0) k/uL Nucleated RBCs (0-0) /100 WBC Manual Slide Review Hypochromasia Moderate Poikilocytosis (manual Anisocytosis Sodium (137-145) mmol/L Potassium (3.5-5.1) mmol/L Chloride (98-107) mmol/L Carbon Dioxide (22-30) mmol/L Anion Gap mmol/L BUN (7-17) mg/dL Creatinine (0.52-1.04) mg/dL Est GFR (CKD-EPI)AfAm (>60 ml/min/1.73 sqM) Est GFR (CKD-EPI)NonAf (>60 ml/min/1.73 sqM) Glucose (74-99) mg/dL Plasma Lactic Acid Sky 1.6 (0.7-2.0) mmol/L Calcium (8.4-10.2) mg/dL Magnesium (1.6-2.3) mg/dL Total Bilirubin (0.2-1.3) mg/dL AST (14-36) U/L ALT (4-34) U/L Alkaline Phosphatase (38-126) U/L Total Protein (6.3-8.2) g/dL Albumin (3.5-5.0) g/dL Globulin g/dL Albumin/Globulin Ratio Urine Color Urine Appearance (Clear) Urine pH (5.0-8.0) Ur Specific [place] (1.001-1.035) Urine Protein (Negative) Urine Glucose (UA) (Negative) Urine Ketones (Negative) Urine Blood (Negative) Urine Nitrite (Negative) Urine Bilirubin (Negative) Urine Urobilinogen (<2.0) mg/dL Ur Leukocyte Esterase (Negative) Urine RBC (0-5) /hpf Urine WBC (0-5) /hpf Ur Squamous Epith Cells (0-4) /hpf Urine Mucus (None) /hpf Coronavirus (PCR) Not Detected (Not Detectd) 08/06/20 08/07/20 08/07/20 Range/Units 15:30 07:07 07:07 WBC 6.5 (3.8-10.6) k/uL RBC 2.45 L (3.80-5.40) m/uL Hgb 7.1 L (11.4-16.0) gm/dL Hct 21.9 L (34.0-46.0) % MCV 89.3 (80.0-100.0) fL MCH 29.2 (25.0-35.0) pg MCHC 32.7 (31.0-37.0) g/dL RDW 15.9 H (11.5-15.5) % Plt Count 227 (150-450) k/uL MPV 7.8 Neutrophils % 92 % Neutrophils % (Manual) % Band Neuts % (Manual) % Lymphocytes % 5 % Lymphocytes % (Manual) % Monocytes % 2 % Monocytes % (Manual) % Eosinophils % 1 % Basophils % 0 % Metamyelocytes % % Myelocytes % % Neutrophils # 6.0 (1.3-7.7) k/uL Neutrophils # (Manual) (1.3-7.7) k/uL Lymphocytes # 0.3 L (1.0-4.8) k/uL Lymphocytes # (Manual) (1.0-4.8) k/uL Monocytes # 0.1 (0-1.0) k/uL Monocytes # (Manual) (0-1.0) k/uL Eosinophils # 0.1 (0-0.7) k/uL Basophils # 0.0 (0-0.2) k/uL Metamyelocytes # (Man) (0) k/uL Myelocytes # (Manual) (0) k/uL Nucleated RBCs (0-0) /100 WBC Manual Slide Review Hypochromasia Slight Poikilocytosis (manual Anisocytosis Sodium 134 L 134 L (137-145) mmol/L Potassium 4.4 4.0 (3.5-5.1) mmol/L Chloride 101 103 (98-107) mmol/L Carbon Dioxide 23 22 (22-30) mmol/L Anion Gap 10 9 mmol/L BUN 37 H 30 H (7-17) mg/dL Creatinine 1.29 H 1.19 H (0.52-1.04) mg/dL Est GFR (CKD-EPI)AfAm 57 63 (>60 ml/min/1.73 sqM) Est GFR (CKD-EPI)NonAf 50 54 (>60 ml/min/1.73 sqM) Glucose 92 99 (74-99) mg/dL Plasma Lactic Acid Sky (0.7-2.0) mmol/L Calcium 8.2 L 8.5 (8.4-10.2) mg/dL Magnesium 2.2 2.1 (1.6-2.3) mg/dL Total Bilirubin 0.6 0.7 (0.2-1.3) mg/dL AST 87 H 70 H (14-36) U/L ALT 15 14 (4-34) U/L Alkaline Phosphatase 490 H 569 H (38-126) U/L Total Protein 5.4 L 5.3 L (6.3-8.2) g/dL Albumin 2.8 L 2.8 L (3.5-5.0) g/dL Globulin 2.6 2.5 g/dL Albumin/Globulin Ratio 1.1 1.1 Urine Color Urine Appearance (Clear) Urine pH (5.0-8.0) Ur Specific [place] (1.001-1.035) Urine Protein (Negative) Urine Glucose (UA) (Negative) Urine Ketones (Negative) Urine Blood (Negative) Urine Nitrite (Negative) Urine Bilirubin (Negative) Urine Urobilinogen (<2.0) mg/dL Ur Leukocyte Esterase (Negative) Urine RBC (0-5) /hpf Urine WBC (0-5) /hpf Ur Squamous Epith Cells (0-4) /hpf Urine Mucus (None) /hpf Coronavirus (PCR) (Not Detectd) Disposition Is patient prescribed a controlled substance at d/c from ED?: No Time of Disposition: 14:47 Decision to Admit Reason: Admit from EC Decision Date: 08/05/20 Decision Time: 14:47 <Tran Moreira - Last Filed: 08/05/20 17:03> <Korin Morales - Last Filed: 08/09/20 15:38> Clinical Impression: Abdominal pain, Leukocytosis, JACI (acute kidney injury), Back pain Disposition: ADMITTED IP TO THIS HOSP Condition: Serious
[2020-08-05 13:18] LABS: Appearance,Urine Cloudy (Clear); Bilirubin,Urine Negative (Negative); Blood,Urine Small (Negative); Color,Urine Yellow; Glucose,Urine (UA) Negative (Negative); Ketones,Urine Negative (Negative); Leukocyte Esterase,Urine Negative (Negative); Mucus,Urine Rare /hpf; Nitrite,Urine Negative (Negative); PH, Urine 5.5 (5.0-8.0); Protein,Urine 2+ (Negative); RBC,Urine 2 /hpf (0-5); Specific Gravity,Urine 1.015 (1.001-1.035); Squamous Epithelial Cell,Urine 2 /hpf (0-4); Urobilinogen,Urine <2.0 mg/dL (<2.0); WBC,Urine 6 /hpf (0-5)
[2020-08-05 13:21] LABS: Albumin 3.2 g/dL (3.5-5.0); Calcium 8.6 mg/dL (8.4-10.2); Magnesium 1.7 mg/dL (1.6-2.3); Potassium 4.5 mmol/L (3.5-5.1); Total Bilirubin 0.5 mg/dL (0.2-1.3); Total Protein 5.8 g/dL (6.3-8.2)
[2020-08-05 13:23] LABS: Anisocytosis Slight; HCT 25.1 % (34.0-46.0); HGB 7.9 gm/dL (11.4-16.0); Hypochromasia Slight; MCH 28.6 pg (25.0-35.0); MCHC 31.6 g/dL (31.0-37.0); MCV 90.3 fL (80.0-100.0); Mean Platelet Volume 7.7; Platelet Count 335 k/uL (150-450); RBC 2.78 m/uL (3.80-5.40)
[2020-08-05] MEDS ORDERED: SODIUM CHLORIDE 0.9% 500 ML 500 ML IV ONE (13:26)
--- NOTE | 2020-08-05 13:39 | CT ---
EXAMINATION TYPE: CT abdomen pelvis w con DATE OF EXAM: 08/05/2020 HISTORY: Abdominal pain, uterine cancer CT DLP: 1396.8mGycm Automated Exposure Control for Dose Reduction was Utilized. CONTRAST: CT scan of the abdomen and pelvis is performed without oral but with IV Contrast, patient injected wi th 100 ml mL of Isovue 300. COMPARISON: CT abdomen and pelvis 10 days ago FINDINGS: LUNG BASES: Scattered bibasilar nodules consistent with known metastatic disease are redemonstrated. LIVER/GB: Multiple heterogeneous hypodense masses consistent with diffuse metastatic disease again se en. No significant interval change from 10 days ago. Persistent mild cardiomegaly. PANCREAS: No significant abnormality is seen. SPLEEN: No significant abnormality is seen. ADRENALS: Heterogeneous large right adrenal metastatic lesion measuring 8.7 x 6.0 cm axial image 27 r edemonstrated. Smaller left adrenal metastatic lesions are redemonstrated.. KIDNEYS: Persistent 3.9 cm metastatic lesion inferior medial aspect left kidney likely separate from left kidney. This is causing left-sided hydronephrosis and delayed excretion similar to prior. BOWEL: Suboptimal study, no suspicious dilatation. Left-sided sigmoid colonic deviation due to pelvic cystic lesion redemonstrated. UTERUS/ADNEXA: Abnormal anteverted uterus with central hypodense prominence redemonstrated. Stable miller spected 4.6 cm cystic lesion right pelvis axial image 75 posteriorly. LYMPH NODES: Persistent intraperitoneal lesions, for reference 5.0 cm anterior right mid abdominal le ally axial image 53 redemonstrated. OSSEOUS STRUCTURES: No significant abnormality is seen. OTHER: Persistent 2.8 cm right mid abdominal subcutaneous metastatic lesion axial image 49. Additiona l posterior 2.1 cm subcutaneous metastatic lesion axial image 58 stable. Right lateral groin metastat ic lesion axial image 93 noted. IMPRESSION: Redemonstration of known diffuse metastatic disease. No significant change from CT 10 day s earlier. No new acute findings are evident.
[2020-08-05 13:43] LABS: Band Neutrophils % 6 %; Lymphocytes # (M) 0.38 k/uL (1.0-4.8); Metamyelocytes # (M) 0.95 k/uL (0); Metamyelocytes % 5 %; Monocytes # (M) 0.19 k/uL (0-1.0); Myelocytes # (M) 0.57 k/uL (0); Myelocytes % 3 %; Neutrophils % (M) 85 %; Nucleated Red Blood Cells 0 /100 WBC (0-0); Total Cells Counted 200
[2020-08-05 13:44] LABS: Poikilocytosis (M) Present
[2020-08-05] MEDS: SODIUM CHLORIDE 0.9% 1,000 ML IV SCH (14:39)
[2020-08-05] MEDS ORDERED: SODIUM CHLORIDE 0.9% 1,000 ML IV ONE (14:45)
--- NOTE | 2020-08-05 14:48 | XR ---
EXAMINATION TYPE: XR chest 2V DATE OF EXAM: 08/05/2020 COMPARISON: 07/17/2020 INDICATION: White count elevated TECHNIQUE: Frontal and lateral views of the chest are obtained. FINDINGS: The heart size is normal. The pulmonary vasculature is normal. Streak opacity at the right base compatible some atelectasis. Nodular densities are at the left lung base measuring 1.5 and 1.1 cm in size. Additional smaller nodular densities are present bilaterally. A port is present on right with the tip in the superior vena cava region. IMPRESSION: 1. Streak opacity right base likely related atelectasis. Pneumonia could be considered. 2. Multiple nodular densities present bilaterally similar to prior exam.
[2020-08-05] MEDS: HYDROmorphone 0.5 MG/0.5 ML SYRINGE IVP PRN ×3 (14:56→21:28)
[2020-08-05] MEDS ORDERED: ACETAMINOPHEN TAB 325 MG TAB PO PRN (15:00)
[2020-08-05] MEDS ORDERED: NALOXONE 0.4 MG/ML 1 ML VIAL IV PRN (15:00)
[2020-08-06] MEDS: SODIUM CHLORIDE 0.9% 1,000 ML IV SCH ×3 (07:27→08:35)
[2020-08-06] MEDS: HYDROmorphone 0.5 MG/0.5 ML SYRINGE IVP PRN ×5 (08:35→21:17)
[2020-08-06] MEDS ORDERED: LIDOCAINE-PRILOCAINE 2.5-2.5% CREAM 5 GM TUBE TOPICAL PRN (09:23)
[2020-08-06] MEDS ORDERED: HYDROcodone/APAP 7.5-325MG 1 EACH TAB PO PRN (09:23)
[2020-08-06] MEDS ORDERED: LACTULOSE 20 GM/30 ML CUP PO PRN (09:23)
[2020-08-06] MEDS ORDERED: PROCHLORPERAZINE 10 MG TAB PO PRN (09:34)
[2020-08-06] MEDS ORDERED: MORPHINE SULFATE ER 30 MG TABLET PO SCH (09:45)
[2020-08-06] MEDS ORDERED: traMADol 50 MG TAB PO PRN (09:46)
[2020-08-06] MEDS: PANTOPRAZOLE 40 MG TABLET PO SCH (10:07)
[2020-08-06] MEDS: SENNOSIDES-DOCUSATE SODIUM 1 EACH TAB PO SCH ×2 (10:07→21:28)
[2020-08-06] MEDS: DULoxetine HCL 20 MG CAPSULE.DR PO SCH (10:09)
[2020-08-06] MEDS: LEVOTHYROXINE 75 MCG TAB PO SCH (12:01)
[2020-08-06] MEDS: ALPRAZolam 0.5 MG TAB PO PRN (12:01)
[2020-08-06] MEDS ORDERED: BENADRYL PO SCH (13:00)
[2020-08-06] MEDS ORDERED: NYSTATIN PO SCH (13:00)
[2020-08-06] MEDS ORDERED: LIDOCAINE PO SCH (13:00)
[2020-08-06] MEDS ORDERED: MAALOX PO SCH (13:00)
--- NOTE | 2020-08-06 13:59 | P.HPIM ---
History of Present Illness H&P Date: 08/06/20 Chief Complaint: n/v, worsening abdominal pain This a 49-year-old female admitted with intractable right upper quadrant abdominal pain in a patient with primary cervical cancer with metastasis currently being treated with chemotherapy. Patient reports abdominal pain radiating around to back, worsening over the last 24-48 hours accompanied by nausea, occasional emesis. Received chemotherapy on We, with worsening nausea,vomiting, abdominal pain. Denies constipation. Distraught over her hair falling out and unrelieved abdominal pain. Denies chest pain, palpitations or increased shortness of breath. Denies Fever, chills or congestion, denies cough. Afebrile, normal WBC, increased to 19. Hemoglobin 7.9 BUN 42, creatinine 1.93. T 99, alk phos 571. Tested negative for coronavirus. UA negative. CT of abdomen and pelvis reported redemonstration of known diffuse metastatic disease with no significant change. Chest x-ray reported streak opacity right base likely atelectasis, possible early pneumonia, multiple nodular densities present bilaterally similar to prior exam. EKG sinus tachycardia. Review of Systems ROS Statement: Those systems with pertinent positive or pertinent negative responses have been documented in the HPI. ROS Other: All systems not noted in ROS Statement are negative. Past Medical History Past Medical History: Cancer, Thyroid Disorder Additional Past Medical History / Comment(s): cervical CA History of Any Multi-Drug Resistant Organisms: None Reported Past Surgical History: No Surgical Hx Reported Additional Past Surgical History / Comment(s): RADIATION TO UTERUS., port to R side Past Anesthesia/Blood Transfusion Reactions: No Reported Reaction Past Psychological History: Anxiety Smoking Status: Former smoker Past Alcohol Use History: None Reported Additional Past Alcohol Use History / Comment(s): Quit smoking few weeks ago. Past Drug Use History: None Reported, Marijuana - Past Family History Mother Family Medical History: Unable to Obtain Father History Unknown: Yes Family Medical History: Unable to Obtain Medications and Allergies Home Medications Medication Instructions Recorded Confirmed Type traMADol HCl [Ultram] 50 mg PO Q6H PRN #12 tab 06/24/20 08/05/20 Rx ALPRAZolam [Xanax] 0.5 mg PO TID PRN 07/09/20 08/05/20 History Levothyroxine Sodium [Synthroid] 150 mcg PO DAILY 07/09/20 08/05/20 History Prochlorperazine [Compazine] 10 mg PO Q6H PRN 07/09/20 08/05/20 History Lactulose [Cephulac] 20 gm PO BID PRN #240 ml 07/12/20 08/05/20 Rx OLANZapine [ZyPREXA] 5 mg PO DAILY 30 Days #30 tab 07/12/20 08/05/20 Rx DULoxetine HCL [Cymbalta] 20 mg PO DAILY 30 Days #30 07/13/20 08/05/20 Rx capsule. HYDROcodone/APAP 7.5-325MG [[place] 1 tab PO Q6H PRN 07/17/20 08/05/20 History 7.5-325] Nystatin 100,000 Unit/ml Susp 400,000 units PO TID PRN 07/17/20 08/05/20 History [Mycostatin Oral Susp] Sennosides-Docusate Sodium 2 tab PO BID 07/17/20 08/05/20 History [Senokot-S] Pantoprazole Sodium [Protonix] 40 mg PO DAILY #30 tablet. 07/19/20 08/05/20 Rx Lidocaine-Prilocaine Cream [Emla 1 applic TOPICAL DAILY PRN 07/26/20 08/05/20 History Cream 2.5%/2.5%] polyethylene glycoL 3350 [Miralax] 17 gm PO DAILY powd.pack 07/28/20 08/05/20 Rx Lidocaine/Benadryl/Maalox/Nystatin 5 ml PO QID 08/05/20 08/05/20 History Oral Solution 1:1 Morphine Sulfate [Ms Contin] 30 mg PO Q12H 08/05/20 08/05/20 History Allergies Allergy/AdvReac Type Severity Reaction Status Date / Time No Known Allergies Allergy Verified 08/05/20 12:48 Physical Exam Vitals: Vital Signs Temp Pulse Pulse Resp BP BP Pulse Ox 08/06/20 07:39 98.5 F 127 H 20 122/71 94 L 08/06/20 06:29 120 H 18 103/71 97 08/05/20 21:46 113 H 17 102/70 97 08/05/20 17:44 119 H 18 100/60 96 08/05/20 14:43 98.5 F 120 H 18 88/56 93 L 08/05/20 10:57 99 F 111 H 18 101/66 100 Intake and Output 08/05/20 08/06/20 08/06/20 22:59 06:59 14:59 Other: Weight 83.915 kg PHYSICAL EXAM: VITAL SIGNS: As above GENERAL: Sitting up at bedside, no acute distress, teary eyed. HEENT: Conjunctivae normal. eyes normal. NECK: Supple, No JVD. CARDIOVASCULAR: S1, S2 regular.No murmur, no edema. RESPIRATION: Breath sounds diminished in the bases. No rhonchi, crackles, no wheezing. ABDOMEN: Soft, nondistended, diffuse tenderness with palpable mass in right lower quadrant, No guarding. Positive bowel sounds. PSYCHIATRY: Alert and oriented X3, mood and affect normal. NERVOUS SYSTEM: Cranial N 2-12 grossly normal. Moves all 4 limbs. No focal deficits. Strength and sensation grossly intact. Skin: Warm and dry, no rash, Results CBC & Chem 7: 08/05/20 12:28 08/05/20 12:28 Labs: Abnormal Lab Results - Last 24 Hours (Table) 08/05/20 08/05/20 08/05/20 Range/Units 12:28 12:28 12:28 WBC 19.0 H (3.8-10.6) k/uL RBC 2.78 L (3.80-5.40) m/uL Hgb 7.9 L (11.4-16.0) gm/dL Hct 25.1 L (34.0-46.0) % RDW 16.0 H (11.5-15.5) % Neutrophils # (Manual) 17.20 H (1.3-7.7) k/uL Lymphocytes # (Manual) 0.38 L (1.0-4.8) k/uL Metamyelocytes # (Man) 0.95 H (0) k/uL Myelocytes # (Manual) 0.57 H (0) k/uL Sodium 133 L (137-145) mmol/L Carbon Dioxide 21 L (22-30) mmol/L BUN 42 H (7-17) mg/dL Creatinine 1.93 H (0.52-1.04) mg/dL AST 99 H (14-36) U/L Alkaline Phosphatase 571 H (38-126) U/L Total Protein 5.8 L (6.3-8.2) g/dL Albumin 3.2 L (3.5-5.0) g/dL Urine Appearance Cloudy H (Clear) Urine Protein 2+ H (Negative) Urine Blood Small H (Negative) Urine WBC 6 H (0-5) /hpf Urine Mucus Rare H (None) /hpf Thrombosis Risk Factor Assmnt - Choose All That Apply Any of the Below Risk Factors Present?: Yes Each Factor Represents 1 point: Age 41-60 years, Obesity (BMI >25) Other Risk Factors: Yes Each Risk Factor Represents 2 Points: Malignancy Other congenital or acquired thrombophilia - If yes, enter type in comment: No Thrombosis Risk Factor Assessment Total Risk Factor Score: 4 Thrombosis Risk Factor Assessment Level: Moderate Risk Assessment and Plan Assessment: -Intractable chronic abdominal pain radiating around to back secondary to Primary cervical cancer with metastasis, recent chemotherapy-Sunday -Acute renal failure secondary to dehydration, related to nausea, vomiting from chemotherapy -Leukocytosis secondary to the above. -Elevated LFTs secondary to malignancy, metastasis -Chronic anemia, secondary to malignancy -Hypertension -Hyperlipidemia -History of cervical cancer, stage II B, status post chemo and radiation, with no further follow-up. -Lymphopenia -Anxiety -Nicotine dependence -THC use -obesity, BMI 38.7 -Hypothyroidism Plan: Continue on current medication regime, monitoring and symptomatically treatment. Oncology consult in place with recommendations pending. Frequent hospitalizations secondary to unable to tolerate chemotherapy, uncontrolled abdominal/back pain. Discussed potential options of hospice, palliative care- we'll discuss further with oncology. Prognosis guarded given multiple complex medical issues. The impression and plan of care has been dictated as directed. : I performed a history and examination of this patient, discussed the same with the dictator. I agree with the dictator's note ,documented as a scribe. Any additional findings or plans will be noted.
--- NOTE | 2020-08-06 14:47 | P.CONS ---
History of Present Illness - Reason for Consult Consult date: 08/06/20 Metastatic Cancer Requesting physician: Korin Morales - Chief Complaint pain - History of Present Illness Ms. Wilson is a 49-year-old white female patient initially seen in consult at [facility] 06/21/20 when she presented with complaints of intractable back and groin pain. She had a history of stage IIB cervical cancer, treated by Dr. Hendrix and Dr. Nice, [facility], in 2016. 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 She had had a Pap smear in the prior year that was normal. CT AP 06/07/14 showed a heterogenous soft tissue mass in the region of the cervix, 3.5 x 5.1 cm. There was associated bilateral pelvic adenopathy, nodes up to 1.1 cm. Cervix bx 06/08/15 severe squamous dysplasia/carcinoma in situ with a foci suspicious for invasive squamous cell. She was seen by Urology Dr. Atkinson 07/01/15 and had cystoscopy with left ureteroscopy and lt ureteral dilation and stent placement for hydronephrosis. Started Tx with cisplatin with concurrent radiation (Dr. Hand), 6 cycles chemo, completing around 08/12/15, whole pelvis radiation, with a parametrium boost, started 06/28/15, completed 09/15/15. 07/30/[address] biopsy-aborted due to small size and location. 08/13/15 she had Aris sleeve placement with Dr. Hendrix. She was seen in f/u 09/30/15, for follow-up post cervical stent removal, and pelvic brachytherapy. Documented good effect from the pelvic radiation with a normal-appearing cervix on examination. PET scan 10/19/15 had an impression of marked improvement with a new small hypermetabolic right submandibular node, persistent hypermetabolic right paraspinal node at the carinal level unchanged, marked improvement in findings in the pelvis with only a small residual area of mildly increased activity in the cervix. There are [address] Hand, last one dated 10/26/16, pt needed to continue to be followed by Dr. Hendrix-which she did not from the documents available. Pt states she didn't think she had to follow up after treatment. June 21, 2020 presenting to Emergency with Intractable back pain CT AP revealing concerning findings of LAD, liver lesion, adrenal mass, bilateral lung nodules. CT chest confirmed bilateral lung nodules, NM bone scan did not show mets. Biopsy of left inguinal mass revealed poorly diff squamous cell c/w cervical primary. Patient complaints of left leg swelling after sitting on her leg most of the evening. She was sent for Doppler-no DVT She started palliative systemic treatment Carbo and Taxol on 07/06/20 no neulasta. She is status post 1 cycle. She was admitted on 07/10/20 with some nausea and vomiting, as well as dehydration. She had an MRI of the brain, which showed a 4 mm enhancing focus in the midline. A small metastatic focus, versus a small vascular malformation were both and differential. However this was too small to define further and therefore plan was to repeat imaging in about 2-3 months. Patient had no associated symptoms. Unfortunately she has now had 4 re-admissions to [facility] through emergency for concerns of pain, not controlled with outpatient management. She is highly anxious. Status Post cycle 2 of chemo on 08/03/20. She has been complaining of worsening back pain the past week. Patient seen in ER Review of Systems All systems: negative Constitutional: Reports as per HPI Past Medical History Past Medical History: Cancer, Thyroid Disorder Additional Past Medical History / Comment(s): cervical CA History of Any Multi-Drug Resistant Organisms: None Reported Past Surgical History: No Surgical Hx Reported Additional Past Surgical History / Comment(s): RADIATION TO UTERUS., port to R side Past Anesthesia/Blood Transfusion Reactions: No Reported Reaction Past Psychological History: Anxiety Smoking Status: Former smoker Past Alcohol Use History: None Reported Additional Past Alcohol Use History / Comment(s): Quit smoking few weeks ago. Past Drug Use History: None Reported, Marijuana - Past Family History Mother Family Medical History: Unable to Obtain Father History Unknown: Yes Family Medical History: Unable to Obtain Medications and Allergies Home Medications Medication Instructions Recorded Confirmed Type traMADol HCl [Ultram] 50 mg PO Q6H PRN #12 tab 06/24/20 08/05/20 Rx ALPRAZolam [Xanax] 0.5 mg PO TID PRN 07/09/20 08/05/20 History Levothyroxine Sodium [Synthroid] 150 mcg PO DAILY 07/09/20 08/05/20 History Prochlorperazine [Compazine] 10 mg PO Q6H PRN 07/09/20 08/05/20 History Lactulose [Cephulac] 20 gm PO BID PRN #240 ml 07/12/20 08/05/20 Rx OLANZapine [ZyPREXA] 5 mg PO DAILY 30 Days #30 tab 07/12/20 08/05/20 Rx DULoxetine HCL [Cymbalta] 20 mg PO DAILY 30 Days #30 07/13/20 08/05/20 Rx capsule. HYDROcodone/APAP 7.5-325MG [[place] 1 tab PO Q6H PRN 07/17/20 08/05/20 History 7.5-325] Nystatin 100,000 Unit/ml Susp 400,000 units PO TID PRN 07/17/20 08/05/20 History [Mycostatin Oral Susp] Sennosides-Docusate Sodium 2 tab PO BID 07/17/20 08/05/20 History [Senokot-S] Pantoprazole Sodium [Protonix] 40 mg PO DAILY #30 tablet. 07/19/20 08/05/20 Rx Lidocaine-Prilocaine Cream [Eml[place] 1 applic TOPICAL DAILY PRN 07/26/20 08/05/20 History Cream 2.5%/2.5%] polyethylene glycoL 3350 [Miralax] 17 gm PO DAILY powd.pack 07/28/20 08/05/20 Rx Lidocaine/Benadryl/Maalox/Nystatin 5 ml PO QID 08/05/20 08/05/20 History Oral Solution 1:1 Morphine Sulfate [Ms Contin] 30 mg PO Q12H 08/05/20 08/05/20 History Allergies Allergy/AdvReac Type Severity Reaction Status Date / Time No Known Allergies Allergy Verified 08/05/20 12:48 Physical Exam Vitals: Vital Signs Temp Pulse Pulse Resp BP BP Pulse Ox 08/06/20 11:59 98.5 F 115 H 20 108/65 98 08/06/20 08:46 97/63 08/06/20 07:39 98.5 F 127 H 20 122/71 94 L 08/06/20 06:29 120 H 18 103/71 97 08/05/20 21:46 113 H 17 102/70 97 08/05/20 17:44 119 H 18 100/60 96 08/05/20 14:43 98.5 F 120 H 18 88/56 93 L Intake and Output 08/05/20 08/06/20 08/06/20 22:59 06:59 14:59 Other: Voiding Method Toilet Weight 83.915 kg - Constitutional General appearance: Present: cooperative, no acute distress - EENT Eyes: Present: EOMI ENT: Present: NA/AT, normal oropharynx - Neck Neck: Present: normal ROM - Respiratory Respiratory: bilateral: CTA - Gastrointestinal General gastrointestinal: Present: soft - Integumentary Integumentary: Present: pale Palpable metastatic lesions under ribcage at site of pain - Neurologic Neurologic: Present: CNII-XII intact - Musculoskeletal Musculoskeletal: Present: generalized weakness, strength equal bilaterally - Psychiatric Psychiatric: Present: A&O x's 3, appropriate affect Results CBC & Chem 7: 08/06/20 15:30 08/06/20 15:30 CT scan - abdomen: report reviewed CT scan - pelvis: report reviewed Assessment and Plan (1) Chronic pain due to malignant neoplastic disease Current Visit: Yes Status: Acute Code(s): G89.3 - NEOPLASM RELATED PAIN (ACUTE) (CHRONIC) SNOMED Code(s): 816495712 (2) JACI (acute kidney injury) Current Visit: Yes Status: Acute Code(s): N17.9 - ACUTE KIDNEY FAILURE, UNSPECIFIED SNOMED Code(s): 43512884 (3) Primary cervical cancer with metastasis to other site Current Visit: No Status: Acute Code(s): C53.9 - MALIGNANT NEOPLASM OF CERVIX UTERI, UNSPECIFIED SNOMED Code(s): 431104380 Plan: Assessment and Recommendations: Metastatic Cancer: - Status Post Palliatiive intent chemotherapy cycle 2 08/03 - Will reassess at discharge regarding plan for treatment Intractable Back Pain: - Possibily related to metastatic cancer versus UTI/Pyelonephritis - MRI Lumbar Spine ordered Acute Renal Insufficiency: - Dehydration versus UTI versus other - Ultrasound bladder and kidneys - Continue daily monitoring Leukocytoisi: - Likely secondary to neulasta but infectious cause cannot be ruled out Notmocytic anemia: - B12 deficiency and chemotherapy - B12 ordered and daily monitoring - Transfuse hemoglobin less than 7 Neoplastic related pain: - Increase MS ER to 30mg q8 hours ATC - Increase Oil Trough to 10/325 - Bowel regimen increased
[2020-08-06] MEDS: polyethylene glycoL 3350 17 GM POWD.PACK PO SCH (14:58)
[2020-08-06] MEDS: OLANZapine 5 MG TAB PO SCH (14:58)
[2020-08-06] MEDS: CYANOCOBALAMIN 1,000 MCG/ML 1 ML VIAL IM SCH (14:59)
[2020-08-06] MEDS: MAG HYDROX/AL HYDROX/SIMETH 30 ML, LIDOCAINE VISCOUS 30 ML, diphenhydrAMINE ELIXIR 75 M... PO SCH ×12 (15:27→21:16)
[2020-08-06] MEDS: MORPHINE SULFATE ER 30 MG TABLET PO SCH (15:27)
[2020-08-06 16:20] LABS: Basophils % (A) 0 %; Eosinophils # (A) 0.1 k/uL (0-0.7); Eosinophils % (A) 1 %; HCT 22.4 % (34.0-46.0); HGB 7.1 gm/dL (11.4-16.0); Hypochromasia Moderate; Lymphocytes # (A) 0.5 k/uL (1.0-4.8); Lymphocytes % (A) 5 %; MCH 28.4 pg (25.0-35.0); MCHC 31.5 g/dL (31.0-37.0); MCV 90.1 fL (80.0-100.0); Mean Platelet Volume 7.8; Monocytes # (A) 0.2 k/uL (0-1.0); Monocytes % (A) 2 %; Neutrophils # (A) 9.6 k/uL (1.3-7.7); Neutrophils % (A) 92 %; Platelet Count 278 k/uL (150-450); RBC 2.49 m/uL (3.80-5.40); RDW 15.9 % (11.5-15.5); WBC 10.4 k/uL (3.8-10.6)
--- NOTE | 2020-08-06 16:23 | US ---
EXAMINATION TYPE: US kidneys/renal and bladder DATE OF EXAM: 08/06/2020 COMPARISON: CT CLINICAL HISTORY: [place], back pain. Renal mets. Chemo patient. Patient just voided. EXAM MEASUREMENTS: Right Kidney: 10.3 x 6.0 x 5.3 cm Left Kidney: 11.7 x 5.3 x 6.6 c Right Kidney: Possible lower pole lesion = 1.7 x 1.2 x 1.3 cm. Right adrenal mass = 7.9 x 8.3 x 6.0 cm Left Kidney: Mild/moderate hydronephrosis. Lower pole mass = 5.3 x 3.9 x 3.2 cm. Bladder: not well visualized, nondistended Bilateral Jets not seen No nephrolithiasis is seen. The urinary bladder is anechoic. Bilateral ureteral jets are seen. IMPRESSION: 1. solid mass left kidney 2. Solid mass right adrenal gland. 3. Left-sided hydronephrosis.
[2020-08-06 16:36] LABS: ALT 15 U/L (4-34); AST 87 U/L (14-36); African American GFR (CKD) 57 (>60 ml/min/1.73 sqM); Albumin 2.8 g/dL (3.5-5.0); Albumin/Globulin Ratio 1.1; Alkaline Phosphatase 490 U/L (38-126); Anion Gap 10 mmol/L; Blood Urea Nitrogen 37 mg/dL (7-17); Calcium 8.2 mg/dL (8.4-10.2); Carbon Dioxide 23 mmol/L (22-30); Chloride 101 mmol/L (98-107); Globulin 2.6 g/dL; Glucose 92 mg/dL (74-99); Magnesium 2.2 mg/dL (1.6-2.3); Non-African American GFR(CKD) 50 (>60 ml/min/1.73 sqM); Potassium 4.4 mmol/L (3.5-5.1); Sodium 134 mmol/L (137-145); Total Bilirubin 0.6 mg/dL (0.2-1.3); Total Protein 5.4 g/dL (6.3-8.2)
[2020-08-06] MEDS: HYDROcodone/APAP 10-325MG 1 EACH TAB PO PRN (17:25)
[2020-08-07] MEDS: MORPHINE SULFATE ER 30 MG TABLET PO SCH ×3 (00:12→17:52)
[2020-08-07] MEDS: HYDROmorphone 0.5 MG/0.5 ML SYRINGE IVP PRN ×5 (00:43→22:07)
[2020-08-07] MEDS: HYDROcodone/APAP 10-325MG 1 EACH TAB PO PRN ×4 (02:26→23:52)
[2020-08-07] MEDS: SODIUM CHLORIDE 0.9% 1,000 ML IV SCH ×4 (02:54→22:28)
--- NOTE | 2020-08-07 04:20 | MR ---
EXAMINATION TYPE: MR lumbar spine wo/w con DATE OF EXAM: 08/06/2020 COMPARISON: None HISTORY: Concern for progressive cancer. CONTRAST: Standard multiplanar, multisequence MRI departmental protocol utilizing 8 mL intravenous Gadavist wilma olinium contrast. Multiplanar multiecho imaging of the lumbar spine was performed without and with contrast. The lumbar vertebra have normal spacing and alignment. There is no compression fracture. There is no lumbar paraspinal mass. There is no spinal stenosis. Lumbar nerve roots appear normal. The neural for moshe are widely patent. There is developmentally large spinal canal. The sacroiliac joints appear intact. There is 2 cm rounded subcutaneous mass within the subcutaneous fat over the posterior right side of the lumbar spine. This is at the L4 level. There is a second sma ller lesion measuring 1.5 cm at the L5-S1 level. This has low signal on T1 and T2 images and could co ntain some calcium. The contrast images show no pathologic enhancement. IMPRESSION: Negative MR scan of the lumbar spine. No spinal stenosis or disc herniation. No fracture.
[2020-08-07] MEDS: LEVOTHYROXINE 75 MCG TAB PO SCH (06:05)
[2020-08-07] MEDS: ALPRAZolam 0.5 MG TAB PO PRN (06:11)
[2020-08-07 07:37] LABS: Basophils % (A) 0 %; Eosinophils # (A) 0.1 k/uL (0-0.7); Eosinophils % (A) 1 %; HCT 21.9 % (34.0-46.0); HGB 7.1 gm/dL (11.4-16.0); Hypochromasia Slight; Lymphocytes # (A) 0.3 k/uL (1.0-4.8); Lymphocytes % (A) 5 %; MCH 29.2 pg (25.0-35.0); MCHC 32.7 g/dL (31.0-37.0); MCV 89.3 fL (80.0-100.0); Mean Platelet Volume 7.8; Monocytes # (A) 0.1 k/uL (0-1.0); Monocytes % (A) 2 %; Neutrophils % (A) 92 %; Platelet Count 227 k/uL (150-450); RBC 2.45 m/uL (3.80-5.40); RDW 15.9 % (11.5-15.5); WBC 6.5 k/uL (3.8-10.6)
[2020-08-07 07:46] LABS: ALT 14 U/L (4-34); AST 70 U/L (14-36); African American GFR (CKD) 63 (>60 ml/min/1.73 sqM); Albumin 2.8 g/dL (3.5-5.0); Albumin/Globulin Ratio 1.1; Alkaline Phosphatase 569 U/L (38-126); Anion Gap 9 mmol/L; Blood Urea Nitrogen 30 mg/dL (7-17); Calcium 8.5 mg/dL (8.4-10.2); Carbon Dioxide 22 mmol/L (22-30); Chloride 103 mmol/L (98-107); Globulin 2.5 g/dL; Glucose 99 mg/dL (74-99); Magnesium 2.1 mg/dL (1.6-2.3); Non-African American GFR(CKD) 54 (>60 ml/min/1.73 sqM); Sodium 134 mmol/L (137-145); Total Bilirubin 0.7 mg/dL (0.2-1.3); Total Protein 5.3 g/dL (6.3-8.2)
[2020-08-07] MEDS: SENNOSIDES-DOCUSATE SODIUM 1 EACH TAB PO SCH ×2 (08:49→22:26)
[2020-08-07] MEDS: CYANOCOBALAMIN 500 MCG TAB PO SCH (08:50)
[2020-08-07] MEDS: PANTOPRAZOLE 40 MG TABLET PO SCH (08:50)
[2020-08-07] MEDS: DULoxetine HCL 20 MG CAPSULE.DR PO SCH (08:54)
[2020-08-07] MEDS: CYANOCOBALAMIN 1,000 MCG/ML 1 ML VIAL IM SCH (08:54)
[2020-08-07] MEDS: MAG HYDROX/AL HYDROX/SIMETH 30 ML, LIDOCAINE VISCOUS 30 ML, diphenhydrAMINE ELIXIR 75 M... PO SCH ×16 (08:56→22:29)
[2020-08-07] MEDS: polyethylene glycoL 3350 17 GM POWD.PACK PO SCH (09:13)
[2020-08-07] MEDS ORDERED: LACTULOSE 20 GM/30 ML CUP PO PRN (12:26)
[2020-08-07] MEDS: OLANZapine 5 MG TAB PO SCH (13:37)
--- NOTE | 2020-08-07 19:01 | P.PN ---
Subjective From records, (covering Dr. Ayala) This a 49-year-old female admitted with intractable right upper quadrant abdominal pain in a patient with primary cervical cancer with metastasis currently being treated with chemotherapy. Patient reports abdominal pain radiating around to back, worsening over the last 24-48 hours accompanied by nausea, occasional emesis. Received chemotherapy on We, with worsening nausea,vomiting, abdominal pain. Denies constipation. Distraught over her hair falling out and unrelieved abdominal pain. Denies chest pain, palpitations or increased shortness of breath. Denies Fever, chills or congestion, denies cough. Afebrile, normal WBC, increased to 19. Hemoglobin 7.9 BUN 42, creatinine 1.93. T 99, alk phos 571. Tested negative for coronavirus. UA negative. CT of abdomen and pelvis reported redemonstration of known diffuse metastatic disease with no significant change. Chest x-ray reported streak opacity right base likely atelectasis, possible early pneumonia, multiple nodular densities present bilaterally similar to prior exam. EKG sinus tachycardia. 08/07/2020 Patient is a pleasant 49 years old female with significant history of stage IV cervical cancer undergoing chemotherapy presents because of lower abdominal pain and back pain. Thought to be from the spine however MRI of the lumbar spine is negative for mass, fracture or dislocation. However renal ultrasound showing left kidney mass with mild to moderate left hydronephrosis. Pain medication was increased at currently patient is on MS Contin 30 mg 3 times a day as well as Ultram, not on Dilaudid as well as topical agents. Patient is suffering from constipation and specifically asking about lactulose thinking that MiraLAX and ARE not helping her. Review of systems CONSTITUTIONAL: No fever, no malaise, no fatigue. HEENT: No recent visual problems or hearing problems. Denied any sore throat. CARDIOVASCULAR: No orthopnea, PND, no palpitations, no syncope. PULMONARY: No shortness of breath, no cough, no hemoptysis. GASTROINTESTINAL: No diarrhea, no nausea, no vomiting, no abdominal pain. Normoactive bowel sounds. Active Medications Generic Name Dose Route Start Last Admin Trade Name Freq PRN Reason Stop Dose Admin Acetaminophen 650 mg 08/05/20 15:00 08/06/20 07:25 Acetaminophen Tab 325 Mg Tab PO 650 mg Q6HR PRN Administration Mild Pain or Fever > 100.5 Hydrocodone Bitart/Acetaminophen 1 each 08/06/20 14:39 08/07/20 17:54 Hydrocodone/Apap 10-325mg 1 Each Tab PO 1 each Q6H PRN Administration Pain Alprazolam 0.5 mg 08/06/20 09:23 08/07/20 06:11 Alprazolam 0.5 Mg Tab PO 0.5 mg TID PRN Administration Anxiety Al Hydroxide/Mg Hydroxide 30 0 ml 08/06/20 13:00 08/07/20 17:55 ml/ Lidocaine HCl 30 ml/ PO 5 ml Diphenhydramine HCl 75 mg/ QID LEON Administration Nystatin 3,000,000 unit Cyanocobalamin 1,000 mcg 08/07/20 09:00 08/07/20 08:50 Cyanocobalamin 500 Mcg Tab PO 1,000 mcg DAILY LEON Administration Cyanocobalamin 1,000 mcg 08/06/20 14:45 08/07/20 08:54 Cyanocobalamin 1,000 Mcg/Ml 1 Ml Vial IM 1,000 mcg DAILY LEON Administration Duloxetine HCl 20 mg 08/06/20 09:30 08/07/20 08:54 Duloxetine Hcl 20 Mg Capsule.Dr PO 20 mg DAILY LEON Administration Hydromorphone HCl 0.5 mg 08/05/20 14:48 08/07/20 11:54 Hydromorphone 0.5 Mg/0.5 Ml Syringe IVP 0.5 mg Q3H PRN Administration Pain Sodium Chloride 1,000 mls @ 130 mls/hr 08/05/20 13:30 08/07/20 13:28 Saline 0.9% IV Not Given .Q7H42M LEON Lactulose 30 gm 08/07/20 12:26 Lactulose 20 Gm/30 Ml Cup PO BID PRN Constipation Levothyroxine Sodium 150 mcg 08/06/20 09:30 08/07/20 06:05 Levothyroxine 75 Mcg Tab PO 150 mcg 0630 LEON Administration Lidocaine/Prilocaine 1 applic 08/06/20 09:23 Lidocaine-Prilocaine 2.5-2.5% Cream 5 Gm Tube TOPICAL DAILY PRN 40MIN PRIOR TO PORT ACCESS Morphine Sulfate 30 mg 08/06/20 15:00 08/07/20 17:52 Morphine Sulfate Er 30 Mg Tablet PO 30 mg Q8HR LEON Administration Protocol Naloxone HCl 0.2 mg 08/05/20 15:00 Naloxone 0.4 Mg/Ml 1 Ml Vial IV Q2M PRN Opioid Reversal Olanzapine 5 mg 08/06/20 09:45 08/07/20 13:37 Olanzapine 5 Mg Tab PO 5 mg DAILY LEON Administration Pantoprazole Sodium 40 mg 08/06/20 09:45 08/07/20 08:50 Pantoprazole 40 Mg Tablet PO 40 mg DAILY LEON Administration Polyethylene Glycol 17 gm 08/06/20 09:45 08/07/20 09:13 Polyethylene Glycol 3350 17 Gm Powd.Pack PO 17 gm DAILY LEON Administration Prochlorperazine Maleate 10 mg 08/06/20 09:34 Prochlorperazine 10 Mg Tab PO Q6H PRN Nausea And Vomiting Senna/Docusate Sodium 2 each 08/06/20 09:45 08/07/20 08:49 Sennosides-Docusate Sodium 1 Each Tab PO 2 each BID LEON Administration Tramadol HCl 50 mg 08/06/20 09:46 Tramadol 50 Mg Tab PO Q6H PRN Moderate Pain Objective - Vital Signs Vital signs: Vital Signs Temp 98.1 F 08/07/20 13:00 Pulse 115 H 08/07/20 13:00 Resp 16 08/07/20 13:00 BP 129/85 08/07/20 13:00 Pulse Ox 96 08/07/20 13:00 Intake & Output 08/06/20 08/07/20 08/07/20 18:59 06:59 18:59 Intake Total 1190 Balance 1190 Weight 83.915 kg Intake: Intake, IV Titration 390 Amount Sodium Chloride 0.9% 1, 390 000 ml @ 130 mls/hr IV . Q7H42M [facility] Rx#:[id number] Oral 800 Other: Voiding Method Toilet Toilet Toilet - Exam GENERAL: The patient is alert and oriented x3, not in any acute distress. Obese HEENT: Pupils are round and equally reacting to light. EOMI. No scleral icterus. No conjunctival pallor. Normocephalic, atraumatic. No pharyngeal erythema. No thyromegaly. CARDIOVASCULAR: S1 and S2 present. No murmurs, rubs, or gallops. PULMONARY: Chest is clear to auscultation, no wheezing or crackles. -ABDOMEN: Soft, nontender, mild left-sided tenderness, abdomen is soft, normoactive bowel sounds. No palpable organomegaly. MUSCULOSKELETAL: No joint swelling or deformity. EXTREMITIES: No cyanosis, clubbing, or pedal edema. NEUROLOGICAL: Gross neurological examination did not reveal any focal deficits. SKIN: No rashes. no petechiae. - Labs CBC & Chem 7: 08/07/20 07:07 08/07/20 07:07 Labs: Abnormal Lab Results - Last 24 Hours (Table) 08/06/20 08/06/20 08/07/20 Range/Units 15:30 15:30 07:07 RBC 2.49 L 2.45 L (3.80-5.40) m/uL Hgb 7.1 L 7.1 L (11.4-16.0) gm/dL Hct 22.4 L 21.9 L (34.0-46.0) % RDW 15.9 H 15.9 H (11.5-15.5) % Neutrophils # 9.6 H (1.3-7.7) k/uL Lymphocytes # 0.5 L 0.3 L (1.0-4.8) k/uL Sodium 134 L (137-145) mmol/L BUN 37 H (7-17) mg/dL Creatinine 1.29 H (0.52-1.04) mg/dL Calcium 8.2 L (8.4-10.2) mg/dL AST 87 H (14-36) U/L Alkaline Phosphatase 490 H (38-126) U/L Total Protein 5.4 L (6.3-8.2) g/dL Albumin 2.8 L (3.5-5.0) g/dL 08/07/20 Range/Units 07:07 RBC (3.80-5.40) m/uL Hgb (11.4-16.0) gm/dL Hct (34.0-46.0) % RDW (11.5-15.5) % Neutrophils # (1.3-7.7) k/uL Lymphocytes # (1.0-4.8) k/uL Sodium 134 L (137-145) mmol/L BUN 30 H (7-17) mg/dL Creatinine 1.19 H (0.52-1.04) mg/dL Calcium (8.4-10.2) mg/dL AST 70 H (14-36) U/L Alkaline Phosphatase 569 H (38-126) U/L Total Protein 5.3 L (6.3-8.2) g/dL Albumin 2.8 L (3.5-5.0) g/dL Microbiology - Last 24 Hours (Table) 08/05/20 15:06 Blood Culture - Preliminary Blood No Growth after 24 hours 08/05/20 15:06 Blood Culture - Preliminary Blood No Growth after 24 hours Assessment and Plan Assessment: Left kidney mass and hydronephrosis with renal colic Stage IV cervical cancer, with metastasis to the right adrenal gland Lower abdominal pain and back pain related to above possible UTI related to kidney disease and mass Constipation, medication induced Obesity with BMI of 38 Hypothyroidism Plan: This is a pleasant 49 years old female who presents because of abdominal pain, left kidney mass and hydronephrosis. Continue with pain management. Continue with laxatives. Consult urology Patient is undergoing chemo therapy, oncology team on the case.Start ceftriaxone, resend urine analysis and urine culture Labs and medication were reviewed.. Continue same treatment. Continue with symptomatic treatment. Resume home medication. Monitor lytes and vitals. DVT and GI prophylaxis. Further recommendations as per clinical course of the patient DVT prophylaxis: Subcutaneous heparin GI Prophylaxis: Pepcid Prognosis is guarded
[2020-08-08] MEDS: MORPHINE SULFATE ER 30 MG TABLET PO SCH ×3 (01:48→17:00)
[2020-08-08] MEDS: HYDROmorphone 0.5 MG/0.5 ML SYRINGE IVP PRN ×5 (02:56→22:49)
[2020-08-08] MEDS: SODIUM CHLORIDE 0.9% 1,000 ML IV SCH ×3 (04:31→18:38)
[2020-08-08 04:34] VITALS: RESP 16
[2020-08-08] MEDS: LEVOTHYROXINE 75 MCG TAB PO SCH (05:32)
[2020-08-08] MEDS: ALPRAZolam 0.5 MG TAB PO PRN ×2 (05:36→19:48)
[2020-08-08 06:17] LABS: Appearance,Urine Clear (Clear); Bilirubin,Urine Negative (Negative); Blood,Urine Negative (Negative); Color,Urine Yellow; Glucose,Urine (UA) Negative (Negative); Ketones,Urine Negative (Negative); Leukocyte Esterase,Urine Negative (Negative); Nitrite,Urine Negative (Negative); PH, Urine 5.5 (5.0-8.0); Protein,Urine Trace (Negative); Specific Gravity,Urine 1.012 (1.001-1.035); Urobilinogen,Urine <2.0 mg/dL (<2.0)
[2020-08-08 07:58] LABS: Basophils % (A) 1 %; Eosinophils # (A) 0.1 k/uL (0-0.7); Eosinophils % (A) 3 %; HCT 22.7 % (34.0-46.0); HGB 7.2 gm/dL (11.4-16.0); Hypochromasia Slight; Lymphocytes # (A) 0.3 k/uL (1.0-4.8); Lymphocytes % (A) 9 %; MCH 28.8 pg (25.0-35.0); Mean Platelet Volume 7.9; Monocytes # (A) 0.1 k/uL (0-1.0); Monocytes % (A) 2 %; Neutrophils # (A) 2.6 k/uL (1.3-7.7); Neutrophils % (A) 84 %; Platelet Count 191 k/uL (150-450); RBC 2.52 m/uL (3.80-5.40); RDW 15.8 % (11.5-15.5); WBC 3.1 k/uL (3.8-10.6)
[2020-08-08 08:02] LABS: African American GFR (CKD) 69 (>60 ml/min/1.73 sqM); Anion Gap 9 mmol/L; Blood Urea Nitrogen 24 mg/dL (7-17); Calcium 8.7 mg/dL (8.4-10.2); Carbon Dioxide 22 mmol/L (22-30); Chloride 104 mmol/L (98-107); Glucose 108 mg/dL (74-99); Non-African American GFR(CKD) 60 (>60 ml/min/1.73 sqM); Potassium 3.9 mmol/L (3.5-5.1); Sodium 135 mmol/L (137-145)
--- NOTE | 2020-08-08 08:23 | P.PN ---
Subjective Progress Note Date: 08/08/20 Principal diagnosis: Intractable pain Metastatic cervical cancer UTI/pyelonephritis Afebrile. Pain slightly better controlled. Objective - Vital Signs Vital signs: Vital Signs Temp 99.0 F 08/08/20 04:33 Pulse 114 H 08/08/20 04:33 Resp 16 08/08/20 04:33 BP 107/75 08/08/20 04:33 Pulse Ox 97 08/08/20 04:33 Intake & Output 08/07/20 08/08/20 08/08/20 18:59 06:59 18:59 Intake Total 1040 Balance 1040 Intake: Intake, IV Titration 1040 Amount Sodium Chloride 0.9% 1, 1040 000 ml @ 130 mls/hr IV . Q7H42M [facility] Rx#:[id number] Other: Voiding Method Toilet Toilet - Exam Gen.: In no acute distress. HEENT: She does have conjunctival pallor. No scleral icterus. Neck: Supple. Lungs: No respiratory distress. Heart: Regular rate. No lower extremity edema. Abdomen: Soft. MSK: Appropriate strength in all 4 extremities. Neuro: Alert and oriented 3. Skin: No jaundice. Psych: Appropriate affect. - Labs CBC & Chem 7: 08/08/20 07:19 08/08/20 07:19 Labs: Abnormal Lab Results - Last 24 Hours (Table) 08/07/20 08/07/20 08/08/20 Range/Units 07:07 07:07 05:56 RBC 2.45 L (3.80-5.40) m/uL Hgb 7.1 L (11.4-16.0) gm/dL Hct 21.9 L (34.0-46.0) % RDW 15.9 H (11.5-15.5) % Lymphocytes # 0.3 L (1.0-4.8) k/uL Sodium 134 L (137-145) mmol/L BUN 30 H (7-17) mg/dL Creatinine 1.19 H (0.52-1.04) mg/dL AST 70 H (14-36) U/L Alkaline Phosphatase 569 H (38-126) U/L Total Protein 5.3 L (6.3-8.2) g/dL Albumin 2.8 L (3.5-5.0) g/dL Urine Protein Trace H (Negative) Microbiology - Last 24 Hours (Table) 08/05/20 15:06 Blood Culture - Preliminary Blood No Growth after 48 hours 08/05/20 15:06 Blood Culture - Preliminary Blood No Growth after 48 hours Assessment and Plan Assessment: 1. Intractable pain 2. Metastatic cervical cancer 3. UTI/pyelonephritis 4. JACI 5. B12 deficiency 6. Anemia due to B12 deficiency and chemotherapy 7. Leukocytosis, reactive Plan: Ms. Wilson is a very pleasant 79-year-old female with a history of metastatic cervical cancer on chemotherapy, status post cycle 2 on 08/03/20. She is here for intractable back pain. Has recurrent hospitalizations for pain. MRI of the lumbar spine negative. Bladder/abdominal ultrasound with solid left kidney mass as well as solid right adrenal mass and left-sided hydronephrosis. Currently afebrile on antibiotics for possible UTI/pyelonephritis. Awaiting labs from today. Renal insufficiency is improving. Continues to have anemia, hemoglobin 7.1 and stable, on B12 supplementation. Leukocytosis has resolved. Anemia multifactorial including B12 deficiency and chemotherapy. Continue B12 supplementation. Continue to monitor her CBC, supportive transfusion for hemoglobin less than 7 and platelets less than 15. Hold chemotherapy while inpatient and continue to adjust her pain regimen for pain control.
[2020-08-08] MEDS: polyethylene glycoL 3350 17 GM POWD.PACK PO SCH (08:33)
[2020-08-08] MEDS: HYDROcodone/APAP 10-325MG 1 EACH TAB PO PRN ×3 (08:35→22:49)
[2020-08-08] MEDS: CYANOCOBALAMIN 1,000 MCG/ML 1 ML VIAL IM SCH (08:36)
[2020-08-08] MEDS: DULoxetine HCL 20 MG CAPSULE.DR PO SCH (08:36)
[2020-08-08] MEDS: OLANZapine 5 MG TAB PO SCH (08:36)
[2020-08-08] MEDS: PANTOPRAZOLE 40 MG TABLET PO SCH (08:36)
[2020-08-08] MEDS: MAG HYDROX/AL HYDROX/SIMETH 30 ML, LIDOCAINE VISCOUS 30 ML, diphenhydrAMINE ELIXIR 75 M... PO SCH ×16 (08:37→23:28)
[2020-08-08] MEDS: SENNOSIDES-DOCUSATE SODIUM 1 EACH TAB PO SCH ×3 (08:39→20:09)
--- NOTE | 2020-08-08 13:14 | P.GSCN ---
History of Present Illness Consult date: 08/08/20 Reason for Consult: Left renal mass, left hydronephrosis Requesting physician: Sukhwinder E Sheet History of present illness: Ms. Wilson is a 49-year-old female with a history of cervical cancer, treated several years ago with chemotherapy and radiation therapy. She recently presented with bilateral abdominal and lower back pain. Imaging studies revealed multiple pulmonary lesions, a large right adrenal mass, and a large mass within the left medial thigh. The CT scan also showed a 3 cm left renal hilar mass. The patient denies dysuria and gross hematuria, but she reports occasional straining to void and urgency with occasional incontinence. Review of Systems - Constitutional Denies chills, Denies fever - Genitourinary Genitourinary: Reports as per HPI Past Medical History Past Medical History: Cancer, Thyroid Disorder Additional Past Medical History / Comment(s): cervical CA History of Any Multi-Drug Resistant Organisms: None Reported Past Surgical History: No Surgical Hx Reported Additional Past Surgical History / Comment(s): RADIATION TO UTERUS., port to R s paulino Past Anesthesia/Blood Transfusion Reactions: No Reported Reaction Past Psychological History: Anxiety Smoking Status: Former smoker Past Alcohol Use History: None Reported Additional Past Alcohol Use History / Comment(s): Quit smoking few weeks ago. Past Drug Use History: None Reported, Marijuana - Past Family History Mother Family Medical History: Unable to Obtain Father History Unknown: Yes Family Medical History: Unable to Obtain Medications and Allergies Home Medications Medication Instructions Recorded Confirmed Type traMADol HCl [Ultram] 50 mg PO Q6H PRN #12 tab 06/24/20 08/05/20 Rx ALPRAZolam [Xanax] 0.5 mg PO TID PRN 07/09/20 08/05/20 History Levothyroxine Sodium [Synthroid] 150 mcg PO DAILY 07/09/20 08/05/20 History Prochlorperazine [Compazine] 10 mg PO Q6H PRN 07/09/20 08/05/20 History Lactulose [Cephulac] 20 gm PO BID PRN #240 ml 07/12/20 08/05/20 Rx OLANZapine [ZyPREXA] 5 mg PO DAILY 30 Days #30 tab 07/12/20 08/05/20 Rx DULoxetine HCL [Cymbalta] 20 mg PO DAILY 30 Days #30 07/13/20 08/05/20 Rx capsule. HYDROcodone/APAP 7.5-325MG [Sedan 1 tab PO Q6H PRN 07/17/20 08/05/20 History 7.5-325] Nystatin 100,000 Unit/ml Susp 400,000 units PO TID PRN 07/17/20 08/05/20 History [Mycostatin Oral Susp] Sennosides-Docusate Sodium 2 tab PO BID 07/17/20 08/05/20 History [Senokot-S] Pantoprazole Sodium [Protonix] 40 mg PO DAILY #30 tablet. 07/19/20 08/05/20 Rx Lidocaine-Prilocaine Cream [Emla 1 applic TOPICAL DAILY PRN 07/26/20 08/05/20 History Cream 2.5%/2.5%] polyethylene glycoL 3350 [Miralax] 17 gm PO DAILY powd.pack 07/28/20 08/05/20 Rx Lidocaine/Benadryl/Maalox/Nystatin 5 ml PO QID 08/05/20 08/05/20 History Oral Solution 1:1 Morphine Sulfate [Ms Contin] 30 mg PO Q12H 08/05/20 08/05/20 History Allergies Allergy/AdvReac Type Severity Reaction Status Date / Time No Known Allergies Allergy Verified 08/05/20 12:48 Surgical - Exam Vital Signs Temp Pulse Resp BP Pulse Ox 99 F 111 H 18 101/66 100 08/05/20 10:57 08/05/20 10:57 08/05/20 10:57 08/05/20 10:57 08/05/20 10:57 - General well developed, well nourished, no distress - Neck no masses, trachea midline - Respiratory normal respiratory effort - Abdomen Soft, non-distended. There is no tenderness to palpation. A 2 cm subcutaneous mass is palpable within the right lower quadrant. - Psychiatric oriented to time, oriented to person, oriented to place, speech is normal, memory intact Results - Labs 08/08/20 07:19 08/08/20 07:19 Abnormal Lab Results - Last 24 Hours (Table) 08/08/20 08/08/20 08/08/20 Range/Units 05:56 07:19 07:19 WBC 3.1 L (3.8-10.6) k/uL RBC 2.52 L (3.80-5.40) m/uL Hgb 7.2 L (11.4-16.0) gm/dL Hct 22.7 L (34.0-46.0) % RDW 15.8 H (11.5-15.5) % Lymphocytes # 0.3 L (1.0-4.8) k/uL Sodium 135 L (137-145) mmol/L BUN 24 H (7-17) mg/dL Creatinine 1.10 H (0.52-1.04) mg/dL Glucose 108 H (74-99) mg/dL Urine Protein Trace H (Negative) Microbiology - Last 24 Hours (Table) 08/05/20 15:06 Blood Culture - Preliminary Blood No Growth after 48 hours 08/05/20 15:06 Blood Culture - Preliminary Blood No Growth after 48 hours Diabetes panel 08/08/20 Range/Units 07:19 Sodium 135 L (137-145) mmol/L Potassium 3.9 (3.5-5.1) mmol/L Chloride 104 (98-107) mmol/L Carbon Dioxide 22 (22-30) mmol/L BUN 24 H (7-17) mg/dL Creatinine 1.10 H (0.52-1.04) mg/dL Glucose 108 H (74-99) mg/dL Calcium 8.7 (8.4-10.2) mg/dL Calcium panel 08/08/20 Range/Units 07:19 Calcium 8.7 (8.4-10.2) mg/dL Pituitary panel 08/08/20 Range/Units 07:19 Sodium 135 L (137-145) mmol/L Potassium 3.9 (3.5-5.1) mmol/L Chloride 104 (98-107) mmol/L Carbon Dioxide 22 (22-30) mmol/L BUN 24 H (7-17) mg/dL Creatinine 1.10 H (0.52-1.04) mg/dL Glucose 108 H (74-99) mg/dL Calcium 8.7 (8.4-10.2) mg/dL Adrenal panel 08/08/20 Range/Units 07:19 Sodium 135 L (137-145) mmol/L Potassium 3.9 (3.5-5.1) mmol/L Chloride 104 (98-107) mmol/L Carbon Dioxide 22 (22-30) mmol/L BUN 24 H (7-17) mg/dL Creatinine 1.10 H (0.52-1.04) mg/dL Glucose 108 H (74-99) mg/dL Calcium 8.7 (8.4-10.2) mg/dL - Imaging CT scan - abdomen: report reviewed, image reviewed Assessment and Plan (1) Unspecified hydronephrosis Current Visit: Yes Status: Acute Code(s): N13.30 - UNSPECIFIED HYDRONEPHROSIS SNOMED Code(s): 35543539 Plan: I have reviewed the patient's CT scan, and compared it with her prior CT scans. She has a left lower pole hilar renal mass causing left hydronephrosis. The hydronephrosis appears to be somewhat worse than it was in early June. I discussed this with her, and explained that a ureteral stent could be placed to relieve obstruction and optimize left renal function. However, stents can be uncomfortable and difficult for some patients to tolerate. It is unclear at this time whether she will continue to receive chemotherapy, as palliative care has been discussed with her. If she is to receive additional chemotherapy and develops renal insufficiency that might limit chemotherapeutic options, I would be happy to place a ureteral stent to optimize her left renal function if desired. Bladder scan will be utilized to assess bladder emptying given that she occasionally feels a need to strain in order to void. Please notify us if we can be of any further assistance.
[2020-08-08] MEDS: CYANOCOBALAMIN 500 MCG TAB PO SCH (13:49)
--- NOTE | 2020-08-08 19:34 | P.PN ---
Subjective From records, (covering Dr. Ayala) This a 49-year-old female admitted with intractable right upper quadrant abdominal pain in a patient with primary cervical cancer with metastasis currently being treated with chemotherapy. Patient reports abdominal pain radiating around to back, worsening over the last 24-48 hours accompanied by nausea, occasional emesis. Received chemotherapy on [place], with worsening nausea,vomiting, abdominal pain. Denies constipation. Distraught over her hair falling out and unrelieved abdominal pain. Denies chest pain, palpitations or increased shortness of breath. Denies Fever, chills or congestion, denies cough. Afebrile, normal WBC, increased to 19. Hemoglobin 7.9 BUN 42, creatinine 1.93. T 99, alk phos 571. Tested negative for coronavirus. UA negative. CT of abdomen and pelvis reported redemonstration of known diffuse metastatic disease with no significant change. Chest x-ray reported streak opacity right base likely atelectasis, possible early pneumonia, multiple nodular densities present bilaterally similar to prior exam. EKG sinus tachycardia. 08/07/2020 Patient is a pleasant 49 years old female with significant history of stage IV cervical cancer undergoing chemotherapy presents because of lower abdominal pain and back pain. Thought to be from the spine however MRI of the lumbar spine is negative for mass, fracture or dislocation. However renal ultrasound showing left kidney mass with mild to moderate left hydronephrosis. Pain medication was increased at currently patient is on MS Contin 30 mg 3 times a day as well as Ultram, not on Dilaudid as well as topical agents. Patient is suffering from constipation and specifically asking about lactulose thinking that MiraLAX and ARE not helping her. 08/08/2020 Patient is improving today she has flatus low back pain and less abdominal pain and both rated at 7/10 and patient looks more comfortable. Her back pain mainly in the coccygeal area in the middle and his bile today while her lower abdomen pain is suprapubic across both sides and moderate today. Labs today showing WBC trending down to 3.1 and low hemoglobin of 7.2 which is stable however platelets are normal. First abnormal UA has repeated and shows significant improvement as repeat UA is not very suspicious of infection. Creatinine is trending down to 1.10 calcitonin is significantly elevated at 11.5 patient was started on ceftriaxone 1 g daily for cystitis and possible left pyelonephritis under going to increase the dose to 2 g daily. Neurologist e valuated the patient for left kidney mass and hydronephrosis and he recommended potential stent placement if patient agrees,, no palliative care, patient still going to get chemotherapy and her creatinine might affect the results. Bladder scan is ordered and is pending. Follow-up urine culture results. Patient is currently on normal saline floor to 75 mL/h, she had very good bowel movements with lactulose and she is happy about it. And antibiotics as above Review of systems CONSTITUTIONAL: No fever, no malaise, no fatigue. HEENT: No recent visual problems or hearing problems. Denied any sore throat. CARDIOVASCULAR: No orthopnea, PND, no palpitations, no syncope. PULMONARY: No shortness of breath, no cough, no hemoptysis. GASTROINTESTINAL: No diarrhea, no nausea, no vomiting, no abdominal pain. Normoactive bowel sounds. Active Medications Generic Name Dose Route Start Last Admin Trade Name Freq PRN Reason Stop Dose Admin Acetaminophen 650 mg 08/05/20 15:00 08/06/20 07:25 Acetaminophen Tab 325 Mg Tab PO 650 mg Q6HR PRN Administration Mild Pain or Fever > 100.5 Hydrocodone Bitart/Acetaminophen 1 each 08/06/20 14:39 08/08/20 16:59 Hydrocodone/Apap 10-325mg 1 Each Tab PO 1 each Q6H PRN Administration Pain Alprazolam 0.5 mg 08/06/20 09:23 08/08/20 05:36 Alprazolam 0.5 Mg Tab PO 0.5 mg TID PRN Administration Anxiety Al Hydroxide/Mg Hydroxide 30 0 ml 08/06/20 13:00 08/08/20 17:03 ml/ Lidocaine HCl 30 ml/ PO 5 ml Diphenhydramine HCl 75 mg/ QID LEON Administration Nystatin 3,000,000 unit Cyanocobalamin 1,000 mcg 08/07/20 09:00 08/08/20 13:49 Cyanocobalamin 500 Mcg Tab PO 1,000 mcg DAILY LEON Administration Cyanocobalamin 1,000 mcg 08/06/20 14:45 08/08/20 08:36 Cyanocobalamin 1,000 Mcg/Ml 1 Ml Vial IM 1,000 mcg DAILY LEON Administration Duloxetine HCl 20 mg 08/06/20 09:30 08/08/20 08:36 Duloxetine Hcl 20 Mg Capsule.Dr PO 20 mg DAILY LEON Administration Hydromorphone HCl 0.5 mg 08/05/20 14:48 08/08/20 18:36 Hydromorphone 0.5 Mg/0.5 Ml Syringe IVP 0.5 mg Q3H PRN Administration Pain Sodium Chloride 1,000 mls @ 75 mls/hr 08/05/20 13:30 08/08/20 18:38 Saline 0.9% IV 130 mls/hr .[id number] LEON Administration Ceftriaxone Sodium 1 gm/ 50 mls @ 100 mls/hr 08/08/20 21:00 Sodium Chloride IVPB BID LEON Lactulose 30 gm 08/07/20 12:26 08/07/20 22:25 Lactulose 20 Gm/30 Ml Cup PO 30 gm BID PRN Administration Constipation Levothyroxine Sodium 150 mcg 08/06/20 09:30 08/08/20 05:32 Levothyroxine 75 Mcg Tab PO 150 mcg 0630 LEON Administration Lidocaine/Prilocaine 1 applic 08/06/20 09:23 Lidocaine-Prilocaine 2.5-2.5% Cream 5 Gm Tube TOPICAL DAILY PRN 40MIN PRIOR TO PORT ACCESS Morphine Sulfate 30 mg 08/06/20 15:00 08/08/20 17:00 Morphine Sulfate Er 30 Mg Tablet PO 30 mg Q8HR LEON Administration Protocol Naloxone HCl 0.2 mg 08/05/20 15:00 Naloxone 0.4 Mg/Ml 1 Ml Vial IV Q2M PRN Opioid Reversal Olanzapine 5 mg 08/06/20 09:45 08/08/20 08:36 Olanzapine 5 Mg Tab PO 5 mg DAILY LEON Administration Pantoprazole Sodium 40 mg 08/06/20 09:45 08/08/20 08:36 Pantoprazole 40 Mg Tablet PO 40 mg DAILY LEON Administration Polyethylene Glycol 17 gm 08/06/20 09:45 08/08/20 08:33 Polyethylene Glycol 3350 17 Gm Powd.Pack PO 17 gm DAILY LEON Administration Prochlorperazine Maleate 10 mg 08/06/20 09:34 Prochlorperazine 10 Mg Tab PO Q6H PRN Nausea And Vomiting Senna/Docusate Sodium 2 each 08/06/20 09:45 08/08/20 08:39 Sennosides-Docusate Sodium 1 Each Tab PO Not Given BID LEON Tramadol HCl 50 mg 08/06/20 09:46 Tramadol 50 Mg Tab PO Q6H PRN Moderate Pain Objective - Vital Signs Vital signs: Vital Signs Temp 98.0 F 08/08/20 12:34 Pulse 119 H 08/08/20 12:34 Resp 16 08/08/20 12:34 BP 129/86 08/08/20 12:34 Pulse Ox 96 08/08/20 12:34 Intake & Output 08/07/20 08/08/20 08/08/20 18:59 06:59 18:59 Intake Total 1040 Balance 1040 Intake: Intake, IV Titration 1040 Amount Sodium Chloride 0.9% 1, 1040 000 ml @ 130 mls/hr IV . Q7H42M [facility] Rx#:[id number] Other: Voiding Method Toilet Toilet Toilet - Exam GENERAL: The patient is alert and oriented x3, not in any acute distress. Obese HEENT: Pupils are round and equally reacting to light. EOMI. No scleral icterus. No conjunctival pallor. Normocephalic, atraumatic. No pharyngeal erythema. No thyromegaly. CARDIOVASCULAR: S1 and S2 present. No murmurs, rubs, or gallops. PULMONARY: Chest is clear to auscultation, no wheezing or crackles. -ABDOMEN: Soft, nontender, mild left-sided tenderness, abdomen is soft, normoactive bowel sounds. No palpable organomegaly. MUSCULOSKELETAL: No joint swelling or deformity. EXTREMITIES: No cyanosis, clubbing, or pedal edema. NEUROLOGICAL: Gross neurological examination did not reveal any focal deficits. SKIN: No rashes. no petechiae. - Labs CBC & Chem 7: 08/08/20 07:19 08/08/20 07:19 Labs: Abnormal Lab Results - Last 24 Hours (Table) 08/08/20 08/08/20 08/08/20 Range/Units 05:56 07:19 07:19 WBC 3.1 L (3.8-10.6) k/uL RBC 2.52 L (3.80-5.40) m/uL Hgb 7.2 L (11.4-16.0) gm/dL Hct 22.7 L (34.0-46.0) % RDW 15.8 H (11.5-15.5) % Lymphocytes # 0.3 L (1.0-4.8) k/uL Sodium (137-145) mmol/L BUN (7-17) mg/dL Creatinine (0.52-1.04) mg/dL Glucose (74-99) mg/dL Procalcitonin 11.52 H (0.02-0.09) ng/mL Urine Protein Trace H (Negative) 08/08/20 Range/Units 07:19 WBC (3.8-10.6) k/uL RBC (3.80-5.40) m/uL Hgb (11.4-16.0) gm/dL Hct (34.0-46.0) % RDW (11.5-15.5) % Lymphocytes # (1.0-4.8) k/uL Sodium 135 L (137-145) mmol/L BUN 24 H (7-17) mg/dL Creatinine 1.10 H (0.52-1.04) mg/dL Glucose 108 H (74-99) mg/dL Procalcitonin (0.02-0.09) ng/mL Urine Protein (Negative) Microbiology - Last 24 Hours (Table) 08/05/20 15:06 Blood Culture - Preliminary Blood No Growth after 48 hours 08/05/20 15:06 Blood Culture - Preliminary Blood No Growth after 48 hours Assessment and Plan Assessment: Left kidney mass and hydronephrosis with renal colic Cystitis/left pyelonephritis Stage IV cervical cancer, with possible metastasis to the right adrenal gland, and left kidney mass Lower abdominal pain and back pain related to above possible UTI related to kidney disease and mass Constipation, medication induced. Improved Obesity with BMI of 38 Hypothyroidism Plan: This is a pleasant 49 years old female who presents because of abdominal pain, left kidney mass and hydronephrosis. Continue with pain management. Continue with laxatives. Consult urology Patient is undergoing chemo therapy, oncology team on the case.continue with ceftriaxone, , follow-up urine culture Labs and medication were reviewed.. Continue same treatment. Continue with symptomatic treatment. Resume home medication. Monitor lytes and vitals. DVT and GI prophylaxis. Further recommendations as per clinical course of the patient DVT prophylaxis: Subcutaneous heparin GI Prophylaxis: Pepcid Prognosis is guarded
[2020-08-09] MEDS: MORPHINE SULFATE ER 30 MG TABLET PO SCH ×2 (00:31→08:32)
[2020-08-09] MEDS: SODIUM CHLORIDE 0.9% 1,000 ML IV SCH (00:33)
[2020-08-09] MEDS: HYDROmorphone 0.5 MG/0.5 ML SYRINGE IVP PRN ×3 (03:24→12:39)
[2020-08-09] MEDS: LEVOTHYROXINE 75 MCG TAB PO SCH (05:09)
[2020-08-09 05:44] VITALS: BP 100/69; PULSE 114; TEMP 98.6
[2020-08-09] MEDS: ALPRAZolam 0.5 MG TAB PO PRN (06:42)
[2020-08-09] MEDS: HYDROcodone/APAP 10-325MG 1 EACH TAB PO PRN (06:42)
[2020-08-09] MEDS: CYANOCOBALAMIN 500 MCG TAB PO SCH (08:32)
[2020-08-09] MEDS: SENNOSIDES-DOCUSATE SODIUM 1 EACH TAB PO SCH (08:32)
[2020-08-09] MEDS: PANTOPRAZOLE 40 MG TABLET PO SCH (08:32)
[2020-08-09] MEDS: DULoxetine HCL 20 MG CAPSULE.DR PO SCH (08:33)
[2020-08-09] MEDS: CYANOCOBALAMIN 1,000 MCG/ML 1 ML VIAL IM SCH (08:33)
[2020-08-09] MEDS: OLANZapine 5 MG TAB PO SCH (08:33)
[2020-08-09] MEDS: polyethylene glycoL 3350 17 GM POWD.PACK PO SCH (08:34)
[2020-08-09 09:14] LABS: African American GFR (CKD) 88.2 (60.0-200.0); Calcium 8.9 mg/dL (8.7-10.3); Non-African American GFR(CKD) 76.1 (60.0-200.0); Potassium 3.9 mmol/L (3.5-5.5)
[2020-08-09 09:28] LABS: Basophils # (A) 0.01 X 10*3/uL (0.00-0.10); Basophils % (A) 0.8 %; Eosinophils # (A) 0.09 X 10*3/uL (0.04-0.35); Eosinophils % (A) 7.4 %; HGB 7.5 g/dL (12.0-15.0); Lymphocytes # (A) 0.37 X 10*3/uL (0.90-5.00); Lymphocytes % (A) 30.3 %; MCV 93.3 fL (80.0-97.0); Mean Platelet Volume 11.1 fL (9.5-12.2); Monocytes # (A) 0.14 X 10*3/uL (0.20-1.00); Monocytes % (A) 11.5 %; Neutrophils # (A) 0.58 X 10*3/uL (1.80-7.70); Neutrophils % (A) 47.5 %; Platelet Count 227 X 10*3/uL (140-440); RBC 2.68 X 10*6/uL (4.10-5.20); RDW 15.5 % (11.5-14.5); WBC 1.22 X 10*3/uL (4.50-10.00)
[2020-08-09] MEDS: MAG HYDROX/AL HYDROX/SIMETH 30 ML, LIDOCAINE VISCOUS 30 ML, diphenhydrAMINE ELIXIR 75 M... PO SCH ×4 (12:38)
--- NOTE | 2020-08-09 17:04 | P.DS ---
Providers Date of admission: 08/07/20 15:53 Expected date of discharge: 08/09/20 Attending physician: Kg Ayala Consults: 08/05/20 15:14 Consult Physician Stat Consulting Provider: Rian Laboy Consult Reason/Comments: stage 4 ovarian cancer Do you want consulting provider notified?: Yes 08/07/20 18:51 Consult Physician Urgent Consulting Provider: Ti Castro Consult Reason/Comments: left hydronephrosis and kid mass Do you want consulting provider notified?: Yes Primary care physician: Kg Ayala Hospital Course: Final Diagnoses: -Intractable chronic abdominal pain radiating around to back secondary to Primary stage IV cervical cancer with metastasis, recently received chemotherapy, improved -Acute renal failure secondary to dehydration, related to nausea, vomiting from chemotherapy, and worsening left hydronephrosis, left kidney mass -Left hydronephrosis, worsen per urology's review/comparison with prior CT in June. -Possible UTI, possible pyelonephritis on empiric antibiotics -Leukocytosis secondary to the above. -Elevated LFTs secondary to malignancy, metastasis -Chronic anemia, secondary to malignancy -Hypertension -Hyperlipidemia -Lymphopenia -Anxiety -Nicotine dependence -THC use -obesity, BMI 38.7 -Hypothyroidism Hospital course: This a 49-year-old female admitted with intractable right upper quadrant abdominal pain in a patient with primary cervical cancer with metastasis currently being treated with chemotherapy. Patient reports abdominal pain radiating around to back, worsening over the last 24-48 hours accompanied by nausea, occasional emesis. Received chemotherapy on Sunday, with worsening nausea,vomiting, abdominal pain. Denies constipation. Distraught over her hair falling out and unrelieved abdominal pain. Denies chest pain, palpitations or increased shortness of breath. Denies Fever, chills or congestion, denies cough. Afebrile, normal WBC, increased to 19. Hemoglobin 7.9 BUN 42, creatinine 1.93. T 99, alk phos 571. Tested negative for coronavirus. UA negative. CT of abdomen and pelvis reported redemonstration of known diffuse metastatic disease with no significant change. Chest x-ray reported streak opacity right base likely atelectasis, possible early pneumonia, multiple nodular densities present bilaterally similar to prior exam. EKG sinus tachycardia. Evaluated by oncology, urology.worsening left hydronephrosis; urology discussed potential of ureteral stent placement to relieve obstruction, optimizing left renal function, patient declined at this time .Frequent hospitalizations secondary to unable to tolerate chemotherapy, uncontrolled abdominal/back pain. Discussed potential options of hospice, palliative care-discuss further with oncology. Unclear at this time if patient will proceed with chemotherapy as she is having a difficult time tolerating it. Initiation of hospice/palliative care to be initiated by oncology if no further treatment. Patient asking to be discharged home . Patient will be discharged home today in a stable condition with guarded prognosis . Pain management as per oncology. The impression and plan of care has been dictated as directed. : I performed a history and examination of this patient, discussed the same with the dictator. I agree with the dictator's note ,documented as a scribe. Any additional findings or plans will be noted. Patient Condition at Discharge: Stable Plan - Discharge Summary Discharge Rx Participant: Yes New Discharge Prescriptions: New Lactulose [Cephulac] 30 gm PO BID PRN 14 Days ml PRN Reason: Constipation Morphine Sulfate ER [Ms Contin] 30 mg PO Q8HR #90 tablet Nystatin 100,000 Unit/ml Susp [Mycostatin Oral Susp] 3,000,000 unit PO QID #300 ml Cyanocobalamin [Vitamin B-12] 1,000 mcg PO DAILY #30 tab ALPRAZolam [Xanax] 0.5 mg PO TID PRN #30 tab PRN Reason: Anxiety Cefuroxime Axetil [Ceftin] 500 mg PO BID 1 Days #14 tab HYDROcodone/APAP 10-325MG [[place] 10-325] 1 each PO Q6H PRN #30 tab PRN Reason: Pain Lidocaine Viscous [Xylocaine Viscous 2%] 30 ml PO QID #300 ml Continue traMADol HCl [Ultram] 50 mg PO Q6H PRN #12 tab PRN Reason: Moderate Pain Prochlorperazine [Compazine] 10 mg PO Q6H PRN PRN Reason: Nausea And Vomiting Levothyroxine Sodium [Synthroid] 150 mcg PO DAILY ALPRAZolam [Xanax] 0.5 mg PO TID PRN PRN Reason: Anxiety Lactulose [Cephulac] 20 gm PO BID PRN #240 ml PRN Reason: Constipation OLANZapine [ZyPREXA] 5 mg PO DAILY 30 Days #30 tab DULoxetine HCL [Cymbalta] 20 mg PO DAILY 30 Days #30 capsule. Nystatin 100,000 Unit/ml Susp [Mycostatin Oral Susp] 400,000 units PO TID PRN PRN Reason: THRUSH/YEAST INFECTIONS Pantoprazole Sodium [Protonix] 40 mg PO DAILY #30 tablet. Lidocaine-Prilocaine Cream [Emla Cream 2.5%/2.5%] 1 applic TOPICAL DAILY PRN PRN Reason: 40MIN PRIOR TO PORT ACCESS polyethylene glycoL 3350 [Miralax] 17 gm PO DAILY powd.pack Lidocaine/Benadryl/Maalox/Nystatin Oral Solution 1:1 5 ml PO QID Sennosides-Docusate Sodium [Senokot-S] 2 tab PO BID #60 tab Discontinued HYDROcodone/APAP 7.5-325MG [[place] 7.5-325] 1 tab PO Q6H PRN PRN Reason: Pain Morphine Sulfate [Ms Contin] 30 mg PO Q12H Discharge Medication List traMADol HCl [Ultram] 50 mg PO Q6H PRN #12 tab 06/24/20 [Rx] ALPRAZolam [Xanax] 0.5 mg PO TID PRN 07/09/20 [History] Levothyroxine Sodium [Synthroid] 150 mcg PO DAILY 07/09/20 [History] Prochlorperazine [Compazine] 10 mg PO Q6H PRN 07/09/20 [History] Lactulose [Cephulac] 20 gm PO BID PRN #240 ml 07/12/20 [Rx] OLANZapine [ZyPREXA] 5 mg PO DAILY 30 Days #30 tab 07/12/20 [Rx] DULoxetine HCL [Cymbalta] 20 mg PO DAILY 30 Days #30 capsule. 07/13/20 [Rx] Nystatin 100,000 Unit/ml Susp [Mycostatin Oral Susp] 400,000 units PO TID PRN 07/17/20 [History] Pantoprazole Sodium [Protonix] 40 mg PO DAILY #30 tablet. 07/19/20 [Rx] Lidocaine-Prilocaine Cream [Emla Cream 2.5%/2.5%] 1 applic TOPICAL DAILY PRN 07/26/20 [History] polyethylene glycoL 3350 [Miralax] 17 gm PO DAILY powd.pack 07/28/20 [Rx] Lidocaine/Benadryl/Maalox/Nystatin Oral Solution 1:1 5 ml PO QID 08/05/20 [History] ALPRAZolam [Xanax] 0.5 mg PO TID PRN #30 tab 08/09/20 [Rx] Cefuroxime Axetil [Ceftin] 500 mg PO BID 1 Days #14 tab 08/09/20 [Rx] Cyanocobalamin [Vitamin B-12] 1,000 mcg PO DAILY #30 tab 08/09/20 [Rx] HYDROcodone/APAP 10-325MG [[place] 10-325] 1 each PO Q6H PRN #30 tab 08/09/20 [Rx] Lactulose [Cephulac] 30 gm PO BID PRN 14 Days ml 08/09/20 [Rx] Lidocaine Viscous [Xylocaine Viscous 2%] 30 ml PO QID #300 ml 08/09/20 [Rx] Morphine Sulfate ER [Ms Contin] 30 mg PO Q8HR #90 tablet 08/09/20 [Rx] Nystatin 100,000 Unit/ml Susp [Mycostatin Oral Susp] 3,000,000 unit PO QID #300 ml 08/09/20 [Rx] Sennosides-Docusate Sodium [Senokot-S] 2 tab PO BID #60 tab 08/09/20 [Rx] Follow up Appointment(s)/Referral(s): Rian Laboy MD [STAFF PHYSICIAN] - 08/12/20 1:45 pm (You will see Daphney.) Kg Ayala DO [Primary Care Provider] - 08/11/20 10:20 am [facility], [NON-STAFF] - 1 Week Patient Instructions/Handouts: Cefuroxime (By mouth), Hydrocodone/Acetaminophen (By mouth), Alprazolam (By mouth), Nystatin (By mouth), Lactulose (By mouth), Morphine, Slow Release (By mouth), Laxative, Stimulant Combination (By mouth), Lidocaine (Into the mouth), Acute Kidney Injury (DC), Neutropenia (DC), Vitamin B12 Deficiency (GEN) Discharge Disposition: HOME SELF-CARE
--- NOTE | 2020-08-09 22:12 | P.PN ---
Subjective Progress Note Date: 08/09/20 Principal diagnosis: Pyelonephritis and pain Pain better controlled with abx and increased MD ER and 10/325 norco. Objective - Vital Signs Vital signs: Vital Signs Temp 98.6 F 08/09/20 05:00 Pulse 114 H 08/09/20 08:00 Resp 16 08/09/20 08:00 BP 100/69 08/09/20 05:00 Pulse Ox 97 08/09/20 05:00 Intake & Output 08/09/20 08/09/20 08/10/20 06:59 18:59 06:59 Intake Total 240 Balance 240 Intake: Oral 240 Other: Voiding Method Toilet Toilet # Voids 3 - Exam - Constitutional General appearance: Present: cooperative, no acute distress - EENT Eyes: Present: EOMI ENT: Present: NA/AT, normal oropharynx - Neck Neck: Present: normal ROM - Respiratory Respiratory: bilateral: CTA - Gastrointestinal General gastrointestinal: Present: soft - Integumentary Integumentary: Present: pale Palpable metastatic lesions under ribcage at site of pain - Neurologic Neurologic: Present: CNII-XII intact - Musculoskeletal Musculoskeletal: Present: generalized weakness, strength equal bilaterally - Psychiatric Psychiatric: Present: A&O x's 3, appropriate affect - Labs CBC & Chem 7: 08/09/20 06:32 08/09/20 06:32 Labs: Abnormal Lab Results - Last 24 Hours (Table) 08/09/20 08/09/20 Range/Units 06:32 06:32 WBC 1.22 L* (4.50-10.00) X 10*3/uL RBC 2.68 L (4.10-5.20) X 10*6/uL Hgb 7.5 L (12.0-15.0) g/dL Hct 25.0 L (37.2-46.3) % MCHC 30.0 L (32.0-37.0) g/dL RDW 15.5 H (11.5-14.5) % Neutrophils # 0.58 L (1.80-7.70) X 10*3/uL Lymphocytes # 0.37 L (0.90-5.00) X 10*3/uL Monocytes # 0.14 L (0.20-1.00) X 10*3/uL Carbon Dioxide 20.0 L (21.6-31.8) mmol/L Microbiology - Last 24 Hours (Table) 08/05/20 15:06 Blood Culture - Preliminary Blood No Growth after 96 hours 08/05/20 15:06 Blood Culture - Preliminary Blood No Growth after 96 hours Assessment and Plan (1) Chronic pain due to malignant neoplastic disease Status: Acute Code(s): G89.3 - NEOPLASM RELATED PAIN (ACUTE) (CHRONIC) SNOMED Code(s): 387874137 (2) JACI (acute kidney injury) Status: Acute Code(s): N17.9 - ACUTE KIDNEY FAILURE, UNSPECIFIED SNOMED Code(s): 07061851 (3) Primary cervical cancer with metastasis to other site Status: Acute Code(s): C53.9 - MALIGNANT NEOPLASM OF CERVIX UTERI, UNSPECIFIED SNOMED Code(s): 288299896 Plan: Assessment and Recommendations: Metastatic Cancer: - Status Post Palliatiive intent chemotherapy cycle 2 08/03 - Will reassess at discharge regarding plan for treatment Intractable Back Pain: - Possibily related to metastatic cancer versus UTI/Pyelonephritis Acute Renal Insufficiency: - Dehydration versus UTI versus other - Improved Leukocytoisi: - Likely secondary to neulasta but infectious cause cannot be ruled out Notmocytic anemia: - B12 deficiency and chemotherapy - B12 ordered and daily monitoring - Transfuse hemoglobin less than 7 Neoplastic related pain:improved - Increased MS ER to 30mg q8 hours ATC - Increased [place] to 10/325 - Bowel regimen increased Pain regimen increased helping, we will send scripts from office. A MAPS report has been pulled, bowel regimen sent to pharmacy along with B12, follow-up next week and resume chemotherapy after completion of antibiotics
== END 2020-08-09 14:30 | disposition home or self-care (01) | DRG 755 ==
LOC: EC 10:56 → 5NMEDONC 14:45 → OBSVTOIN 08-07 15:53
PROVIDERS: ADMIT Family Medicine; ATTEND Family Medicine
DX: C53.9 Malignant neoplasm of cervix uteri, unspecified (principal); N17.9 Acute kidney failure, unspecified; C79.71 Secondary malignant neoplasm of right adrenal gland; N13.6 Pyonephrosis; C56.9 Malignant neoplasm of unspecified ovary; Z79.890 Hormone replacement therapy; Z20.822 Contact with and (suspected) exposure to COVID-19; Z92.21 Personal history of antineoplastic chemotherapy; Z51.5 Encounter for palliative care; D63.0 Anemia in neoplastic disease; E78.5 Hyperlipidemia, unspecified; E86.0 Dehydration; I10 Essential (primary) hypertension; Z92.3 Personal history of irradiation; E66.9 Obesity, unspecified; Z68.38 Body mass index [BMI] 38.0-38.9, adult; E03.9 Hypothyroidism, unspecified; K59.00 Constipation, unspecified; D51.9 Vitamin B12 deficiency anemia, unspecified; G89.3 Neoplasm related pain (acute) (chronic); F41.9 Anxiety disorder, unspecified; F17.200 Nicotine dependence, unspecified, uncomplicated; D72.810 Lymphocytopenia; N23 Unspecified renal colic; K76.9 Liver disease, unspecified
CPT/HCPCS: 36415; 71046; 72158; 74177; 76770; 80048; 80053; 81001; 81003; 83605; 83735; 84145; 85025; 87040; 87635; 93005; 96361; 96365; 96372; 96375; 96376; 99285

== ENCOUNTER 2020-08-22 17:11 | Emergency (ER) | payer OTHER ==
[2020-08-22 17:27] VITALS: BP 134/82; PULSE 111; RESP 22; TEMP 97.9
--- NOTE | 2020-08-22 18:51 | XR ---
EXAM: Abdomen radiograph. HISTORY: Pain. TECHNIQUE: Upright AP view. COMPARISON: CT 08/05/2020. FINDINGS: There are nondilated bowel loops with a nonobstructive pattern. No pneumoperitoneum. There is moderat e to large colonic stool burden. There are no pathologic calcifications. No acute osseous abnormality seen. IMPRESSION: Nonobstructive bowel gas pattern. Moderate to large stool burden.
[2020-08-22] MEDS ORDERED: SODIUM CHLORIDE 0.9% 1,000 ML IV STA (19:39)
[2020-08-22] MEDS ORDERED: HYDROmorphone 1 MG/ML 1 ML SYRINGE IVP STA (19:46)
--- NOTE | 2020-08-22 19:49 | ED ---
General Adult HPI - General Chief complaint: Abdominal Pain Stated complaint: Constipation Source: patient, RN notes reviewed Mode of arrival: wheelchair Limitations: no limitations - History of Present Illness Initial comments: Patient is a 49-year-old female that presents to emergency Department with constipation due to opiate use. She uses the opiates for pain management while she undergoes chemo for cancer. She Noted last time she had a solid bowel movement. She notes that she's tried taking milk of magnesia, magnesium citrate, lactulose with no relief. She stated that she was in mild discomfort while sitting up in bed during exam and interview. She noted she was willing to try anything at this point to get her bowels to move. She reports a history of cervical cancer. She denied any chest pain shortness of breath headache nausea vomiting diarrhea fever fatigue chills. - Related Data Home Medications Medication Instructions Recorded Confirmed ALPRAZolam [Xanax] 0.5 mg PO TID PRN 07/09/20 08/05/20 Levothyroxine Sodium [Synthroid] 150 mcg PO DAILY 07/09/20 08/05/20 Prochlorperazine [Compazine] 10 mg PO Q6H PRN 07/09/20 08/05/20 Nystatin 100,000 Unit/ml Susp 400,000 units PO TID PRN 07/17/20 08/05/20 [Mycostatin Oral Susp] Lidocaine-Prilocaine Cream [Emla 1 applic TOPICAL DAILY PRN 07/26/20 08/05/20 Cream 2.5%/2.5%] Lidocaine/Benadryl/Maalox/Nystatin 5 ml PO QID 08/05/20 08/05/20 Oral Solution 1:1 Previous Rx's Medication Instructions Recorded traMADol HCl [Ultram] 50 mg PO Q6H PRN #12 tab 06/24/20 Lactulose [Cephulac] 20 gm PO BID PRN #240 ml 07/12/20 OLANZapine [ZyPREXA] 5 mg PO DAILY 30 Days #30 tab 07/12/20 DULoxetine HCL [Cymbalta] 20 mg PO DAILY 30 Days #30 07/13/20 capsule. Pantoprazole Sodium [Protonix] 40 mg PO DAILY #30 tablet. 07/19/20 polyethylene glycoL 3350 [Miralax] 17 gm PO DAILY powd.pack 07/28/20 ALPRAZolam [Xanax] 0.5 mg PO TID PRN #30 tab 08/09/20 Cefuroxime Axetil [Ceftin] 500 mg PO BID 1 Days #14 tab 08/09/20 Cyanocobalamin [Vitamin B-12] 1,000 mcg PO DAILY #30 tab 08/09/20 HYDROcodone/APAP 10-325MG [[place] 1 each PO Q6H PRN #30 tab 08/09/20 10-325] Lactulose [Cephulac] 30 gm PO BID PRN 14 Days ml 08/09/20 Lidocaine Viscous [Xylocaine 30 ml PO QID #300 ml 08/09/20 Viscous 2%] Morphine Sulfate ER [Ms Contin] 30 mg PO Q8HR #90 tablet 08/09/20 Nystatin 100,000 Unit/ml Susp 3,000,000 unit PO QID #300 ml 08/09/20 [Mycostatin Oral Susp] Sennosides-Docusate Sodium 2 tab PO BID #60 tab 08/09/20 [Senokot-S] Docusate [Colace] 100 mg PO BID 30 Days #60 capsule 08/22/20 Sennosides [Senna] 8.6 mg PO HS 30 Days #30 tablet 08/22/20 Allergies Allergy/AdvReac Type Severity Reaction Status Date / Time No Known Allergies Allergy Verified 08/22/20 17:27 Review of Systems ROS Statement: Those systems with pertinent positive or pertinent negative responses have been documented in the HPI. ROS Other: All systems not noted in ROS Statement are negative. Past Medical History Past Medical History: Cancer, Thyroid Disorder Additional Past Medical History / Comment(s): cervical CA History of Any Multi-Drug Resistant Organisms: None Reported Past Surgical History: No Surgical Hx Reported Additional Past Surgical History / Comment(s): RADIATION TO UTERUS., port to R side Past Anesthesia/Blood Transfusion Reactions: No Reported Reaction Past Psychological History: Anxiety Smoking Status: Never smoker Past Alcohol Use History: None Reported Past Drug Use History: None Reported, Marijuana - Past Family History Mother Family Medical History: Unable to Obtain Father History Unknown: Yes Family Medical History: Unable to Obtain General Exam Limitations: no limitations General appearance: alert, in no apparent distress Head exam: Present: atraumatic, normocephalic, normal inspection Eye exam: Present: normal appearance, PERRL, EOMI. Absent: scleral icterus, conjunctival injection, periorbital swelling Neck exam: Present: normal inspection. Absent: tenderness, meningismus, lymphadenopathy Respiratory exam: Present: normal lung sounds bilaterally. Absent: respiratory distress, wheezes, rales, rhonchi, stridor Cardiovascular Exam: Present: regular rate, normal rhythm, normal heart sounds. Absent: systolic murmur, diastolic murmur, rubs, gallop, clicks GI/Abdominal exam: Present: soft, hypoactive bowel sounds. Absent: distended, tenderness, guarding, rebound, rigid Extremities exam: Present: normal inspection, full ROM, normal capillary refill. Absent: tenderness, pedal edema, joint swelling, calf tenderness Neurological exam: Present: alert, oriented X3, CN II-XII intact Psychiatric exam: Present: normal affect, normal mood Skin exam: Present: warm, dry, intact, normal color. Absent: rash Course Vital Signs 08/22/20 17:24 Temperature 97.9 F Pulse Rate 111 H Respiratory 22 Rate Blood Pressure 134/82 O2 Sat by Pulse 98 Oximetry Medical Decision Making - Medical Decision Making 49-year-old female complaining of constipation due to opiate use and chemotherapy. KUB, basic labs on liter normal saline ordered. KUB shows nonobstructive moderate to large stool burden. Soap suds enema ordered, 1 mg of Dilaudid ordered for pain. Soaps and suds enema produced a small bowel movement. Case discussed with Dr. Costello, patient can discharge home with continued efforts of stool softeners, enemas and follow-up with oncologist about kimberli seaman changing pain medication schedule and dosage. - Lab Data Result diagrams: 08/22/20 19:55 08/22/20 19:55 Lab Results 08/22/20 08/22/20 08/22/20 Range/Units 19:55 19:55 19:55 WBC 14.8 H (3.8-10.6) k/uL RBC 3.03 L (3.80-5.40) m/uL Hgb 8.7 L D (11.4-16.0) gm/dL Hct 26.8 L (34.0-46.0) % MCV 88.5 (80.0-100.0) fL MCH 28.7 (25.0-35.0) pg MCHC 32.4 (31.0-37.0) g/dL RDW 17.7 H (11.5-15.5) % Plt Count 493 H D (150-450) k/uL MPV 7.0 Neutrophils % 80 % Lymphocytes % 10 % Monocytes % 8 % Eosinophils % 1 % Basophils % 1 % Neutrophils # 11.9 H (1.3-7.7) k/uL Lymphocytes # 1.4 (1.0-4.8) k/uL Monocytes # 1.1 H (0-1.0) k/uL Eosinophils # 0.1 (0-0.7) k/uL Basophils # 0.1 (0-0.2) k/uL Hypochromasia Moderate Anisocytosis Slight Sodium 137 (137-145) mmol/L Potassium 4.1 (3.5-5.1) mmol/L Chloride 102 (98-107) mmol/L Carbon Dioxide 27 (22-30) mmol/L Anion Gap 8 mmol/L BUN 10 (7-17) mg/dL Creatinine 1.03 (0.52-1.04) mg/dL Est GFR (CKD-EPI)AfAm 75 (>60 ml/min/1.73 sqM) Est GFR (CKD-EPI)NonAf 65 (>60 ml/min/1.73 sqM) Glucose 106 H (74-99) mg/dL Calcium 10.3 H (8.4-10.2) mg/dL Total Bilirubin 0.5 (0.2-1.3) mg/dL AST 45 H (14-36) U/L ALT 12 (4-34) U/L Alkaline Phosphatase 665 H (38-126) U/L Total Protein 7.0 (6.3-8.2) g/dL Albumin 4.1 (3.5-5.0) g/dL Urine Color Yellow Urine Appearance Clear (Clear) Urine pH 6.5 (5.0-8.0) Ur Specific [place] 1.012 (1.001-1.035) Urine Protein Trace H (Negative) Urine Glucose (UA) Negative (Negative) Urine Ketones Negative (Negative) Urine Blood Small H (Negative) Urine Nitrite Negative (Negative) Urine Bilirubin Negative (Negative) Urine Urobilinogen <2.0 (<2.0) mg/dL Ur Leukocyte Esterase Small H (Negative) Urine RBC 28 H (0-5) /hpf Urine WBC 7 H (0-5) /hpf Ur Squamous Epith Cells 2 (0-4) /hpf Urine Mucus Few H (None) /hpf Disposition Clinical Impression: Constipation Disposition: HOME SELF-CARE Condition: Stable Instructions (If sedation given, give patient instructions): Constipation (ED), High Fiber Diet (ED), Fleet Enema (ED) Additional Instructions: Please return to the Emergency Department if symptoms worsen or any other co ncerns. Follow-up with primary care and oncology to discuss possible change in pain medication regimen. Colace and senna sent to pharmacy take as prescribed. Can continue to use at home enemas and other laxatives to try and get bowels to move. Drink plenty of fluids. Prescriptions: Docusate [Colace] 100 mg PO BID 30 Days #60 capsule Sennosides [Senna] 8.6 mg PO HS 30 Days #30 tablet Is patient prescribed a controlled substance at d/c from ED?: No Referrals: Kg Ayala DO [Primary Care Provider] - 1-2 days Time of Disposition: 21:48
[2020-08-22] MEDS ORDERED: ONDANSETRON 4 MG/2 ML VIAL IVP STA (20:04)
[2020-08-22 20:05] LABS: Anisocytosis Slight; Basophils # (A) 0.1 k/uL (0-0.2); Basophils % (A) 1 %; Eosinophils # (A) 0.1 k/uL (0-0.7); Eosinophils % (A) 1 %; HCT 26.8 % (34.0-46.0); Hypochromasia Moderate; Lymphocytes # (A) 1.4 k/uL (1.0-4.8); Lymphocytes % (A) 10 %; MCH 28.7 pg (25.0-35.0); MCHC 32.4 g/dL (31.0-37.0); MCV 88.5 fL (80.0-100.0); Monocytes # (A) 1.1 k/uL (0-1.0); Monocytes % (A) 8 %; Neutrophils # (A) 11.9 k/uL (1.3-7.7); Neutrophils % (A) 80 %; RBC 3.03 m/uL (3.80-5.40); RDW 17.7 % (11.5-15.5); WBC 14.8 k/uL (3.8-10.6)
[2020-08-22 20:12] LABS: HGB 8.7 gm/dL (11.4-16.0)
[2020-08-22 20:13] LABS: Platelet Count 493 k/uL (150-450)
[2020-08-22 20:16] LABS: Albumin 4.1 g/dL (3.5-5.0); Calcium 10.3 mg/dL (8.4-10.2); Potassium 4.1 mmol/L (3.5-5.1); Total Bilirubin 0.5 mg/dL (0.2-1.3)
[2020-08-22 20:56] LABS: Appearance,Urine Clear (Clear); Bilirubin,Urine Negative (Negative); Blood,Urine Small (Negative); Color,Urine Yellow; Glucose,Urine (UA) Negative (Negative); Ketones,Urine Negative (Negative); Leukocyte Esterase,Urine Small (Negative); Mucus,Urine Few /hpf; Nitrite,Urine Negative (Negative); PH, Urine 6.5 (5.0-8.0); Protein,Urine Trace (Negative); RBC,Urine 28 /hpf (0-5); Specific Gravity,Urine 1.012 (1.001-1.035); Squamous Epithelial Cell,Urine 2 /hpf (0-4); Urobilinogen,Urine <2.0 mg/dL (<2.0); WBC,Urine 7 /hpf (0-5)
== END 2020-08-22 23:00 | disposition home or self-care (01) ==
LOC: EC 17:11
DX: K59.00 Constipation, unspecified (principal); E07.9 Disorder of thyroid, unspecified; F12.90 Cannabis use, unspecified, uncomplicated; Z85.41 Personal history of malignant neoplasm of cervix uteri
CPT/HCPCS: 36415; 80053; 85025; 81001; 74018; 99283; 96374; 96375; 96361; J2405; J1170

== ENCOUNTER 2020-08-29 11:01 | Inpatient (IN) | payer OTHER ==
[2020-08-29] MEDS ORDERED: SODIUM CHLORIDE 0.9% 500 ML 500 ML IV STA ×2 (11:33→13:06)
[2020-08-29 12:15] LABS: Anisocytosis Slight; Basophils % (A) 0 %; Eosinophils # (A) 0.1 k/uL (0-0.7); Eosinophils % (A) 1 %; HGB 8.1 gm/dL (11.4-16.0); Hypochromasia Moderate; Lymphocytes # (A) 0.5 k/uL (1.0-4.8); Lymphocytes % (A) 9 %; MCH 27.5 pg (25.0-35.0); MCV 88.7 fL (80.0-100.0); Mean Platelet Volume 7.3; Monocytes # (A) 0.1 k/uL (0-1.0); Monocytes % (A) 1 %; Neutrophils # (A) 5.2 k/uL (1.3-7.7); Neutrophils % (A) 87 %; Platelet Count 301 k/uL (150-450); RBC 2.93 m/uL (3.80-5.40); RDW 17.8 % (11.5-15.5); WBC 5.9 k/uL (3.8-10.6)
--- NOTE | 2020-08-29 12:19 | ED ---
General Adult HPI - General Source: patient Mode of arrival: wheelchair Limitations: no limitations <Lisset Bowling - Last Filed: 08/29/20 12:18> <Maximiliano Fisher - Last Filed: 08/29/20 15:50> - General Chief complaint: Chest Pain Stated complaint: chest pain Time Seen by Provider: 08/29/20 11:18 - History of Present Illness Initial comments: Patient is a 49-year-old female, currently undergoing chemoradiation for advanced cervical cancer with metastases, presenting to the emergency Department with complaints of lower chest discomfort, constipation. Patient is describing pain in her epigastric, lower chest area but believes it is related to her constipation. Patient states she's been battling with this for many months. She has not had a second bowel movement in 3-4 days. She did have a very tiny amount come out today. She had lots of abdominal pressure and discomfort. She does take stool softeners and laxative. She denies any shortness of breath, no fevers or chills. She denies a cardiac history. Her last round of chemotherapy was 2 days ago. She has no further complaints at this time. Upon arrival to the ER, she has tachycardia at 118, rest of vitals are normal. (Lisset Bowling) - Related Data Home Medications Medication Instructions Recorded Confirmed Prochlorperazine [Compazine] 10 mg PO Q6H PRN 07/09/20 08/29/20 Lidocaine-Prilocaine Cream [Emla 1 applic TOPICAL DAILY PRN 07/26/20 08/29/20 Cream 2.5%/2.5%] Lidocaine/Benadryl/Maalox/Nystatin 5 ml PO QID PRN 08/05/20 08/29/20 Oral Solution 1:1 HYDROcodone/APAP 10-325MG [[place] 1 tab PO Q6H PRN 08/29/20 08/29/20 10-325] Levothyroxine Sodium [Synthroid] 150 mcg PO DAILY 08/29/20 08/29/20 Lidocaine Viscous [Xylocaine 30 ml PO QID PRN 08/29/20 08/29/20 Viscous 2%] Morphine Sulfate ER [Ms Contin] 30 mg PO Q8H 08/29/20 08/29/20 Previous Rx's Medication Instructions Recorded traMADol HCl [Ultram] 50 mg PO Q6H PRN #12 tab 06/24/20 OLANZapine [ZyPREXA] 5 mg PO DAILY 30 Days #30 tab 07/12/20 DULoxetine HCL [Cymbalta] 20 mg PO DAILY 30 Days #30 07/13/20 capsule. Pantoprazole Sodium [Protonix] 40 mg PO DAILY #30 tablet. 07/19/20 polyethylene glycoL 3350 [Miralax] 17 gm PO DAILY powd.pack 07/28/20 ALPRAZolam [Xanax] 0.5 mg PO TID PRN #30 tab 08/09/20 Cyanocobalamin [Vitamin B-12] 1,000 mcg PO DAILY #30 tab 08/09/20 Lactulose [Cephulac] 30 gm PO BID PRN 14 Days ml 08/09/20 Docusate [Colace] 100 mg PO BID 30 Days #60 capsule 08/22/20 Sennosides [Senna] 8.6 mg PO HS 30 Days #30 tablet 08/22/20 Allergies Allergy/AdvReac Type Severity Reaction Status Date / Time No Known Allergies Allergy Verified 08/29/20 12:04 Review of Systems ROS Other: All systems not noted in ROS Statement are negative. <Lisset Bowling - Last Filed: 08/29/20 12:18> ROS Other: All systems not noted in ROS Statement are negative. <Maximiliano Fisher - Last Filed: 08/29/20 15:50> ROS Statement: Those systems with pertinent positive or pertinent negative responses have been documented in the HPI. Past Medical History Past Medical History: Cancer, Thyroid Disorder Additional Past Medical History / Comment(s): cervical CA History of Any Multi-Drug Resistant Organisms: None Reported Past Surgical History: No Surgical Hx Reported Additional Past Surgical History / Comment(s): RADIATION TO UTERUS., port to R side Past Anesthesia/Blood Transfusion Reactions: No Reported Reaction Past Psychological History: Anxiety Smoking Status: Former smoker Past Alcohol Use History: None Reported Past Drug Use History: None Reported - Past Family History Mother Family Medical History: Unable to Obtain Father History Unknown: Yes Family Medical History: Unable to Obtain <Lisset Bowling Last Filed: 08/29/20 12:18> General Exam Limitations: no limitations <Lisset Bowling - Last Filed: 08/29/20 12:18> - General Exam Comments Initial Comments: GENERAL: Patient is well-developed and well-nourished. Patient is nontoxic and in mild distress. HEAD: Atraumatic, normocephalic. EYES: Pupils equal round and reactive to light, extraocular movements intact, sclera anicteric, conjunctiva are normal. Eyelids were unremarkable. ENT: TMs normal, nares patent, oropharynx clear without exudates. Moist mucous membranes. NECK: Normal range of motion, supple without lymphadenopathy or JVD. LUNGS: Unlabored respirations. Breath sounds clear to auscultation bilaterally and equal. No wheezes rales or rhonchi. HEART: Regular rate and rhythm without murmurs, rubs or gallops. ABDOMEN: Soft, generalized abdominal discomfort, no specific area of pain. normoactive bowel sounds. No guarding, no rebound. No masses appreciated. : Deferred MUSCULOSKELETAL: Normal extremities with adequate strength and normal range of motion, no pitting or edema. No clubbing or cyanosis. NEUROLOGICAL: Patient is alert and oriented x 3. Motor and sensory are also intact. Cranial nerves II through XII grossly intact. Symmetrical smile. Normal speech, normal gait. PSYCH: Normal mood, normal affect. SKIN: Warm, Dry, normal turgor, no rashes or lesions noted. (Lisset Bowling) Course Vital Signs 08/29/20 08/29/20 08/29/20 11:09 12:03 13:16 Temperature 98.0 F Pulse Rate 118 H 109 H 107 H Respiratory 20 18 18 Rate Blood Pressure 150/89 133/94 131/87 O2 Sat by Pulse 96 98 95 Oximetry EKG Findings - EKG Comments: EKG Findings:: Sinus tachycardia otherwise normal ECG. Ventricular rate 113, UT interval 160, QT 336. <Lisset Bowling - Last Filed: 08/29/20 12:18> Medical Decision Making - Lab Data Result diagrams: 08/29/20 12:06 <Lisset Bowling - Last Filed: 08/29/20 12:18> - Lab Data Result diagrams: 08/29/20 12:06 08/29/20 12:06 <Maximiliano Fisher - Last Filed: 08/29/20 15:50> - Medical Decision Making Patient is a 49-year-old female, currently undergoing chemoradiation for advanced cervical cancer, with metastases, presenting for lower chest pain, concerns for constipation. (Lisset Bowling) This patient was signed off to me by ISABEL Jones. Patient has been complaining of constipation secondary to narcotic use for analgesia. Patient reports also developing some epigastric abdominal pain. She had chemotherapy 2 days ago. On physical examination, she does epigastric abdominal tenderness. We attempted to enemas with no significant bowel movements. CBC revealed a hem oglobin of 8.1 which is improved from 5 days ago. Coags within normal limits. CMP revealed stable renal function with slight elevation in BUN at 21. She has lipase levels of 1000. Possibly a chemotherapy induced pancreatitis. Nothing by mouth. IV fluids and antiemetics. Analgesia on board. KUB shows no signs of obstruction. She will be admitted for further medical management. Case discussed with who will admit. Case discussed with Dr Gilliland. (Maximiliano Fisher) - Lab Data Lab Results 08/29/20 08/29/20 08/29/20 Range/Units 12:06 12:06 12:06 WBC 5.9 (3.8-10.6) k/uL RBC 2.93 L (3.80-5.40) m/uL Hgb 8.1 L (11.4-16.0) gm/dL Hct 26.0 L (34.0-46.0) % MCV 88.7 (80.0-100.0) fL MCH 27.5 (25.0-35.0) pg MCHC 31.0 (31.0-37.0) g/dL RDW 17.8 H (11.5-15.5) % Plt Count 301 (150-450) k/uL MPV 7.3 Neutrophils % 87 % Lymphocytes % 9 % Monocytes % 1 % Eosinophils % 1 % Basophils % 0 % Neutrophils # 5.2 (1.3-7.7) k/uL Lymphocytes # 0.5 L (1.0-4.8) k/uL Monocytes # 0.1 (0-1.0) k/uL Eosinophils # 0.1 (0-0.7) k/uL Basophils # 0.0 (0-0.2) k/uL Hypochromasia Moderate Anisocytosis Slight PT 10.7 (9.0-12.0) sec INR 1.0 (<1.2) APTT 24.0 (22.0-30.0) sec Sodium 137 (137-145) mmol/L Potassium 4.2 (3.5-5.1) mmol/L Chloride 104 (98-107) mmol/L Carbon Dioxide 21 L (22-30) mmol/L Anion Gap 12 mmol/L BUN 21 H (7-17) mg/dL Creatinine 0.88 (0.52-1.04) mg/dL Est GFR (CKD-EPI)AfAm >90 (>60 ml/min/1.73 sqM) Est GFR (CKD-EPI)NonAf 79 (>60 ml/min/1.73 sqM) Glucose 101 H (74-99) mg/dL Calcium 10.1 (8.4-10.2) mg/dL Magnesium 1.8 (1.6-2.3) mg/dL Total Bilirubin 0.5 (0.2-1.3) mg/dL AST 65 H (14-36) U/L ALT 11 (4-34) U/L Alkaline Phosphatase 894 H (38-126) U/L Troponin I (0.000-0.034) ng/mL Total Protein 6.5 (6.3-8.2) g/dL Albumin 3.9 (3.5-5.0) g/dL Amylase 82 (30-110) U/L Lipase 1022 H (23-300) U/L 08/29/20 Range/Units 12:06 WBC (3.8-10.6) k/uL RBC (3.80-5.40) m/uL Hgb (11.4-16.0) gm/dL Hct (34.0-46.0) % MCV (80.0-100.0) fL MCH (25.0-35.0) pg MCHC (31.0-37.0) g/dL RDW (11.5-15.5) % Plt Count (150-450) k/uL MPV Neutrophils % % Lymphocytes % % Monocytes % % Eosinophils % % Basophils % % Neutrophils # (1.3-7.7) k/uL Lymphocytes # (1.0-4.8) k/uL Monocytes # (0-1.0) k/uL Eosinophils # (0-0.7) k/uL Basophils # (0-0.2) k/uL Hypochromasia Anisocytosis PT (9.0-12.0) sec INR (<1.2) APTT (22.0-30.0) sec Sodium (137-145) mmol/L Potassium (3.5-5.1) mmol/L Chloride (98-107) mmol/L Carbon Dioxide (22-30) mmol/L Anion Gap mmol/L BUN (7-17) mg/dL Creatinine (0.52-1.04) mg/dL Est GFR (CKD-EPI)AfAm (>60 ml/min/1.73 sqM) Est GFR (CKD-EPI)NonAf (>60 ml/min/1.73 sqM) Glucose (74-99) mg/dL Calcium (8.4-10.2) mg/dL Magnesium (1.6-2.3) mg/dL Total Bilirubin (0.2-1.3) mg/dL AST (14-36) U/L ALT (4-34) U/L Alkaline Phosphatase (38-126) U/L Troponin I <0.012 (0.000-0.034) ng/mL Total Protein (6.3-8.2) g/dL Albumin (3.5-5.0) g/dL Amylase (30-110) U/L Lipase (23-300) U/L Disposition <Lisset Bowling - Last Filed: 08/29/20 12:18> Is patient prescribed a controlled substance at d/c from ED?: No Time of Disposition: 15:50 <Maximiliano Fisher - Last Filed: 08/29/20 15:50> Clinical Impression: Pancreatitis, Constipation Disposition: ADMITTED IP TO THIS HOSP Condition: Fair Referrals: Kg Ayala DO [Primary Care Provider] - 1-2 days
[2020-08-29 12:23] LABS: ALT 11 U/L (4-34); AST 65 U/L (14-36); African American GFR (CKD) >90 (>60 ml/min/1.73 sqM); Albumin 3.9 g/dL (3.5-5.0); Alkaline Phosphatase 894 U/L (38-126); Amylase 82 U/L (30-110); Anion Gap 12 mmol/L; Blood Urea Nitrogen 21 mg/dL (7-17); Calcium 10.1 mg/dL (8.4-10.2); Carbon Dioxide 21 mmol/L (22-30); Chloride 104 mmol/L (98-107); Glucose 101 mg/dL (74-99); Lipase 1022 U/L (23-300); Magnesium 1.8 mg/dL (1.6-2.3); Non-African American GFR(CKD) 79 (>60 ml/min/1.73 sqM); Potassium 4.2 mmol/L (3.5-5.1); Sodium 137 mmol/L (137-145); Total Bilirubin 0.5 mg/dL (0.2-1.3); Total Protein 6.5 g/dL (6.3-8.2)
[2020-08-29 12:27] LABS: Prothrombin Time 10.7 sec (9.0-12.0)
--- NOTE | 2020-08-29 12:39 | XR ---
EXAMINATION TYPE: XR chest 2V DATE OF EXAM: 08/29/2020 COMPARISON: Chest x-ray August 05, 2020. CT chest July 26, 2020 HISTORY: Chest pain and shortness of breath. History of metastatic cervical cancer. TECHNIQUE: Frontal and lateral views of the chest are obtained. FINDINGS: Stable right internal jugular Mediport catheter. Stable right basilar linear scarring. Sca ttered pulmonary nodules consistent with metastatic disease is seen in the left lung base are better appreciated on CT. There is no new suspicious focal air space opacity, pleural effusion, or pneumotho rax seen. The cardiac silhouette size remains within normal limits. The osseous structures are int act. IMPRESSION: Chronic changes without new acute pulmonary process. No significant change from most rec ent x-ray.
--- NOTE | 2020-08-29 12:41 | XR ---
EXAMINATION TYPE: XR KUB DATE OF EXAM: 08/29/2020 12:26 PM CLINICAL HISTORY: Constipation and pain. History of metastatic cervical cancer. TECHNIQUE: Two Upright KUB images of the abdomen are obtained. COMPARISON: CT abdomen and pelvis August 05, 2020. Most recent abdominal x-ray from 04/02/2021. FINDINGS: Scattered gas is seen in non-distended stomach and small bowel loops. Gas and fecal materia l is seen in non-distended colon. There is persistent hepatomegaly corresponding to hepatic metastati c disease on CT. Persistent elevated right hemidiaphragm with right basilar scarring. No free air. Vi sualized osseous structures are intact. IMPRESSION: Overall nonobstructive bowel gas pattern. No significant change from prior studies.
[2020-08-29] MEDS ORDERED: MORPHINE SULFATE 4 MG/ML SYRINGE IVP STA (13:06)
[2020-08-29] MEDS ORDERED: HYDROmorphone 1 MG/ML 1 ML SYRINGE IVP STA (15:30)
[2020-08-29] MEDS ORDERED: LORazepam 2 MG/ML INJ IV PRN (15:50)
[2020-08-29] MEDS ORDERED: NALOXONE 0.4 MG/ML 1 ML VIAL IV PRN (15:50)
[2020-08-29] MEDS ORDERED: MORPHINE SULFATE 4 MG/ML SYRINGE IV PRN (15:50)
[2020-08-29] MEDS ORDERED: HYDROmorphone 0.5 MG/0.5 ML SYRINGE IVP STA (16:58)
[2020-08-29] MEDS: SODIUM CHLORIDE 0.9% 1,000 ML IV SCH (17:31)
[2020-08-29] MEDS: HYDROmorphone 1 MG/ML 1 ML SYRINGE IVP PRN ×2 (19:57→22:49)
[2020-08-29] MEDS: ONDANSETRON 4 MG/2 ML VIAL IVP PRN (19:59)
[2020-08-29] MEDS ORDERED: traMADol 50 MG TAB PO PRN (21:03)
[2020-08-29] MEDS ORDERED: LACTULOSE 20 GM/30 ML CUP PO PRN (21:03)
[2020-08-29] MEDS: MORPHINE SULFATE ER 30 MG TABLET PO SCH (21:25)
[2020-08-29] MEDS ORDERED: PROCHLORPERAZINE 10 MG TAB PO PRN (23:00)
--- NOTE | 2020-08-29 23:04 | P.HPIM ---
History of Present Illness H&P Date: 08/29/20 Chief Complaint: Abdominal pain Patient is a 49-year-old female with a known history of cervical cancer diagnosed 5 years ago and current recurrence and is undergoing chemotherapy last chemotherapy was on Sunday presents ER with complaints of abdominal pain mainly in the epigastric region and radiating straight to the back. Associated nausea and vomiting. no diarrhea. denied any fever or chills. no dysuria or hematuria. patient was also complaining of chronic constipation. denied any chest pain or shortness of breath. upon arrival to the hospital patient was tachycardic with heart rate 118. patient has been afebrile. chest x-ray showed chronic changes without acute pulmonary process. no significant change from recent x-rays. kub x-ray showed overall nonobstructive bowel gas pattern. no significant change from prior studies. ekg showed sinus tachycardia lab data showed wbc 5.9, hemoglobin 8.1 and platelets 17.8 and lymphocytes 0.5 sodium 137 potassium 4.2 chloride 104 bun 21 creatinine 0.88 magnesium 1.8 ast 65 alt 11 and alk phos 894 troponin 0 0.012 and lipase level 1022 coronavirus pcr not detected Past Medical History Past Medical History: Cancer, Thyroid Disorder Additional Past Medical History / Comment(s): cervical CA History of Any Multi-Drug Resistant Organisms: None Reported Past Surgical History: No Surgical Hx Reported Additional Past Surgical History / Comment(s): RADIATION TO UTERUS., port to R side Past Anesthesia/Blood Transfusion Reactions: No Reported Reaction Past Psychological History: Anxiety Smoking Status: Former smoker Past Alcohol Use History: None Reported Additional Past Alcohol Use History / Comment(s): Quit smoking few weeks ago. Past Drug Use History: None Reported - Past Family History Mother Family Medical History: Unable to Obtain Father History Unknown: Yes Family Medical History: Unable to Obtain Medications and Allergies Home Medications Medication Instructions Recorded Confirmed Type traMADol HCl [Ultram] 50 mg PO Q6H PRN #12 tab 06/24/20 08/29/20 Rx Prochlorperazine [Compazine] 10 mg PO Q6H PRN 07/09/20 08/29/20 History OLANZapine [ZyPREXA] 5 mg PO DAILY 30 Days #30 tab 07/12/20 08/29/20 Rx DULoxetine HCL [Cymbalta] 20 mg PO DAILY 30 Days #30 07/13/20 08/29/20 Rx capsule. Pantoprazole Sodium [Protonix] 40 mg PO DAILY #30 tablet.dr 07/19/20 08/29/20 Rx Lidocaine-Prilocaine Cream [Emla 1 applic TOPICAL DAILY PRN 07/26/20 08/29/20 History Cream 2.5%/2.5%] polyethylene glycoL 3350 [Miralax] 17 gm PO DAILY powd.pack 07/28/20 08/29/20 Rx Lidocaine/Benadryl/Maalox/Nystatin 5 ml PO QID PRN 08/05/20 08/29/20 History Oral Solution 1:1 ALPRAZolam [Xanax] 0.5 mg PO TID PRN #30 tab 08/09/20 08/29/20 Rx Cyanocobalamin [Vitamin B-12] 1,000 mcg PO DAILY #30 tab 08/09/20 08/29/20 Rx Lactulose [Cephulac] 30 gm PO BID PRN 14 Days ml 08/09/20 08/29/20 Rx Docusate [Colace] 100 mg PO BID 30 Days #60 capsule 08/22/20 08/29/20 Rx Sennosides [Senna] 8.6 mg PO HS 30 Days #30 tablet 08/22/20 08/29/20 Rx HYDROcodone/APAP 10-325MG [[place] 1 tab PO Q6H PRN 08/29/20 08/29/20 History 10-325] Levothyroxine Sodium [Synthroid] 150 mcg PO DAILY 08/29/20 08/29/20 History Lidocaine Viscous [Xylocaine 30 ml PO QID PRN 08/29/20 08/29/20 History Viscous 2%] Morphine Sulfate ER [Ms Contin] 30 mg PO Q8H 08/29/20 08/29/20 History Allergies Allergy/AdvReac Type Severity Reaction Status Date / Time No Known Allergies Allergy Verified 08/29/20 12:04 Physical Exam Vitals: Vital Signs Temp Pulse Pulse Resp BP BP Pulse Ox 08/29/20 18:15 98.4 F 105 H 18 128/76 94 L 08/29/20 17:48 98.3 F 100 18 124/85 95 08/29/20 15:45 98.7 F 108 H 18 139/91 08/29/20 13:16 107 H 18 131/87 95 08/29/20 12:03 109 H 18 133/94 98 08/29/20 11:09 98.0 F 118 H 20 150/89 96 Intake and Output 08/29/20 08/29/20 08/29/20 06:59 14:59 22:59 Other: Weight 81.193 kg 81.193 kg PHYSICAL EXAMINATION: Patient is lying in the bed comfortably, mild distress, awake alert and oriented.. HEENT: Normocephalic. Neck is supple. Pupils reactive. Nostrils clear. Oral cavity is moist. Ears reveal no drainage. Neck reveals no JVD, carotid bruits, or thyromegaly. CHEST EXAMINATION: Trachea is central. Symmetrical expansion. Lung fuller clear to auscultation and percussion. CARDIAC: Normal S1, S2 with no gallops. No murmurs ABDOMEN: Soft. Epigastric abdominal mild tenderness, no guarding or rigidity.Bowel sounds normal. No organomegaly. No abdominal bruits. Extremities: reveal no edema. No clubbing or cyanosis Neurologically awake, alert, oriented x3 with well-coordinated movements. No focal deficits noted Skin: No rash or skin lesions. Psychiatric: Coperative. Nonsuicidal Musculoskeletal: No joint swelling or deformity. Normal range of motion. Results CBC & Chem 7: 08/29/20 12:06 08/29/20 12:06 Labs: Abnormal Lab Results - Last 24 Hours (Table) 08/29/20 08/29/20 Range/Units 12:06 12:06 RBC 2.93 L (3.80-5.40) m/uL Hgb 8.1 L (11.4-16.0) gm/dL Hct 26.0 L (34.0-46.0) % RDW 17.8 H (11.5-15.5) % Lymphocytes # 0.5 L (1.0-4.8) k/uL Carbon Dioxide 21 L (22-30) mmol/L BUN 21 H (7-17) mg/dL Glucose 101 H (74-99) mg/dL AST 65 H (14-36) U/L Alkaline Phosphatase 894 H (38-126) U/L Lipase 1022 H (23-300) U/L Thrombosis Risk Factor Assmnt - DVT/VTE Prophylaxis DVT/VTE Prophylaxis: Pharmacologic Prophylaxis ordered Assessment and Plan Assessment: acute pancreatitis with abdominal pain epigastric radiating to the back and elevated lipase level. chronic constipation cervical cancer with recent chemotherapy on sunday normocytic anemia elevated ast and alk phos anxiety previous history of smoking hypothyroidism dvt prophylaxis with heparin subcu plan: patient will be continued iv hydration and nothing by mouth until pain improving. continue with bowel rest and pain management with dilaudid. follow- up cbc and bmp tomorrow. patient was given fluid bolus in the er. continue with stool softeners and bowel regimen. symptomatic management for nausea. continue with home medications and further recommendations based on clinical course. prognosis guarded at this time. Time with Patient: Greater than 30
[2020-08-29] MEDS: HYDROcodone/APAP 10-325MG 1 EACH TAB PO PRN (23:56)
[2020-08-30] MEDS: HYDROmorphone 1 MG/ML 1 ML SYRINGE IVP PRN ×7 (02:20→21:32)
[2020-08-30] MEDS: ALPRAZolam 0.5 MG TAB PO PRN ×2 (02:51→13:23)
[2020-08-30] MEDS ORDERED: LIDOCAINE-PRILOCAINE 2.5-2.5% CREAM 5 GM TUBE TOPICAL PRN (03:17)
[2020-08-30] MEDS: LEVOTHYROXINE 75 MCG TAB PO SCH (05:02)
[2020-08-30] MEDS: SODIUM CHLORIDE 0.9% 1,000 ML IV SCH ×2 (05:47→15:41)
[2020-08-30] MEDS: MORPHINE SULFATE ER 30 MG TABLET PO SCH ×3 (06:08→21:32)
[2020-08-30 06:43] LABS: Anisocytosis Slight; Basophils % (A) 0 %; Eosinophils # (A) 0.1 k/uL (0-0.7); Eosinophils % (A) 2 %; HCT 20.5 % (34.0-46.0); Hypochromasia Moderate; Lymphocytes # (A) 0.6 k/uL (1.0-4.8); Lymphocytes % (A) 12 %; MCH 28.5 pg (25.0-35.0); MCHC 32.5 g/dL (31.0-37.0); MCV 87.8 fL (80.0-100.0); Mean Platelet Volume 7.4; Monocytes # (A) 0.1 k/uL (0-1.0); Monocytes % (A) 2 %; Neutrophils # (A) 3.9 k/uL (1.3-7.7); Neutrophils % (A) 82 %; Platelet Count 256 k/uL (150-450); RBC 2.34 m/uL (3.80-5.40); RDW 17.6 % (11.5-15.5); WBC 4.7 k/uL (3.8-10.6)
[2020-08-30 06:59] LABS: HGB 6.7 gm/dL (11.4-16.0)
[2020-08-30] MEDS: HYDROcodone/APAP 10-325MG 1 EACH TAB PO PRN (07:07)
[2020-08-30] MEDS: HEPARIN SODIUM,PORCINE/PF 5,000 UNIT/0.5 ML SYRINGE SQ SCH ×2 (07:58→21:31)
[2020-08-30] MEDS: polyethylene glycoL 3350 17 GM POWD.PACK PO SCH (07:58)
[2020-08-30] MEDS: DULoxetine HCL 20 MG CAPSULE.DR PO SCH (07:58)
[2020-08-30] MEDS: CYANOCOBALAMIN 500 MCG TAB PO SCH (07:58)
[2020-08-30] MEDS: PANTOPRAZOLE 40 MG/10 ML VIAL IV SCH (07:59)
[2020-08-30] MEDS: DOCUSATE 100 MG CAP PO SCH ×2 (07:59→21:31)
--- NOTE | 2020-08-30 10:08 | P.CONS ---
History of Present Illness - Reason for Consult Consult date: 08/30/20 Metastatic Cervical cancer Requesting physician: Maximiliano Fisher - Chief Complaint Pain - History of Present Illness Ms. Wilson is a 49-year-old white female patient initially seen in consult at [facility] 06/21/20 when she presented with complaints of in tractable back and groin pain. She had a history of stage IIB cervical cancer, treated by Dr. Hendrix and Dr. Nice, [facility], in 2016. 06/09/15 [place] was seen in Emergency, sent from the legal biller office for suspected cervical cancer, associated intractable back pain, urinary urgency and frequency with abnormal vaginal bleeding 3 months. She had had a Pap smear in the prior year that was normal. CT AP 06/07/14 showed a heterogenous soft tissue mass in the region of the cervix, 3.5 x 5.1 cm. There was associated bilateral pelvic adenopathy, nodes up to 1.1 cm. Cervix bx 06/08/15 severe squamous dysplasia/carcinoma in situ with a foci suspicious for invasive squamous cell. She was seen by Urology Dr. Atkinson 07/01/15 and had cystoscopy with left ureteroscopy and lt ureteral dilation and stent placement for hydronephrosis. Started Tx with cisplatin with concurrent radiation (Dr. Hand), 6 cycles chemo, completing around 08/12/15, whole pelvis radiation, with a parametrium boost, started 06/28/15, completed 09/15/15. 07/30/[address] biopsy-aborted due to small size and location. 08/13/15 she had Aris sleeve placement with Dr. Hendrix. She was seen in f/u 09/30/15, for follow-up post cervical stent removal, and pelvic brachytherapy. Documented good effect from the pelvic radiation with a normal-appearing cervix on examination. PET scan 10/19/15 had an impression of marked improvement with a new small hypermetabolic right submandibular node, persistent hypermetabolic right paraspinal node at the carinal level unchanged, marked improvement in findings in the pelvis with only a small residual area of mildly increased activity in the cervix. There are [address] Hand, last one dated 10/26/16, pt needed to continue to be followed by Dr. Hendrix-which she did not from the documents available. Pt states she didn't think she had to follow up after treatment. June 21, 2020 presenting to Emergency with Intractable back pain CT AP revealing concerning findings of LAD, liver lesion, adrenal mass, bilateral lung nodules. CT chest confirmed bilateral lung nodules, NM bone scan did not show mets. Biopsy of left inguinal mass revealed poorly diff squamous cell c/w cervical primary. Patient complaints of left leg swelling after sitting on her leg most of the evening. She was sent for Doppler-no DVT She started palliative systemic treatment Carbo and Taxol on 07/06/20 no neulasta. She is status post 1 cycle. She was admitted on 07/10/20 with some nausea and vomiting, as well as dehydration. She had an MRI of the brain, which showed a 4 mm enhancing focus in the midline. A small metastatic focus, versus a small vascular malformation were both and differential. However this was too small to define further and therefore plan was to repeat imaging in about 2-3 months. Patient had no associated symptoms. Unfortunately she has now had 5 re-admissions to [facility] through emergency for concerns of pain, last visit treated for pyelonephritis and was feeling much better. Review of Systems All systems: negative Constitutional: Reports as per HPI Past Medical History Past Medical History: Cancer, Thyroid Disorder Additional Past Medical History / Comment(s): cervical CA History of Any Multi-Drug Resistant Organisms: None Reported Past Surgical History: No Surgical Hx Reported Additional Past Surgical History / Comment(s): RADIATION TO UTERUS., port to R side Past Anesthesia/Blood Transfusion Reactions: No Reported Reaction Past Psychological History: Anxiety Smoking Status: Former smoker Past Alcohol Use History: None Reported Additional Past Alcohol Use History / Comment(s): Quit smoking few weeks ago. Past Drug Use History: None Reported - Past Family History Mother Family Medical History: Unable to Obtain Father History Unknown: Yes Family Medical History: Unable to Obtain Medications and Allergies Home Medications Medication Instructions Recorded Confirmed Type traMADol HCl [Ultram] 50 mg PO Q6H PRN #12 tab 06/24/20 08/29/20 Rx Prochlorperazine [Compazine] 10 mg PO Q6H PRN 07/09/20 08/29/20 History OLANZapine [ZyPREXA] 5 mg PO DAILY 30 Days #30 tab 07/12/20 08/29/20 Rx DULoxetine HCL [Cymbalta] 20 mg PO DAILY 30 Days #30 07/13/20 08/29/20 Rx capsule. Pantoprazole Sodium [Protonix] 40 mg PO DAILY #30 tablet. 07/19/20 08/29/20 Rx Lidocaine-Prilocaine Cream [Emla 1 applic TOPICAL DAILY PRN 07/26/20 08/29/20 History Cream 2.5%/2.5%] polyethylene glycoL 3350 [Miralax] 17 gm PO DAILY powd.pack 07/28/20 08/29/20 Rx Lidocaine/Benadryl/Maalox/Nystatin 5 ml PO QID PRN 08/05/20 08/29/20 History Oral Solution 1:1 ALPRAZolam [Xanax] 0.5 mg PO TID PRN #30 tab 08/09/20 08/29/20 Rx Cyanocobalamin [Vitamin B-12] 1,000 mcg PO DAILY #30 tab 08/09/20 08/29/20 Rx Lactulose [Cephulac] 30 gm PO BID PRN 14 Days ml 08/09/20 08/29/20 Rx Docusate [Colace] 100 mg PO BID 30 Days #60 capsule 08/22/20 08/29/20 Rx Sennosides [Senna] 8.6 mg PO HS 30 Days #30 tablet 08/22/20 08/29/20 Rx HYDROcodone/APAP 10-325MG [[place] 1 tab PO Q6H PRN 08/29/20 08/29/20 History 10-325] Levothyroxine Sodium [Synthroid] 150 mcg PO DAILY 08/29/20 08/29/20 History Lidocaine Viscous [Xylocaine 30 ml PO QID PRN 08/29/20 08/29/20 History Viscous 2%] Morphine Sulfate ER [Ms Contin] 30 mg PO Q8H 08/29/20 08/29/20 History Allergies Allergy/AdvReac Type Severity Reaction Status Date / Time No Known Allergies Allergy Verified 08/29/20 12:04 Physical Exam Vitals: Vital Signs Temp Pulse Pulse Resp BP BP Pulse Ox 08/30/20 07:14 18 08/30/20 02:00 97.8 F 103 H 18 109/72 97 08/29/20 20:00 105 H 18 08/29/20 18:15 98.4 F 105 H 18 128/76 94 L 08/29/20 17:48 98.3 F 100 18 124/85 95 08/29/20 15:45 98.7 F 108 H 18 139/91 08/29/20 13:16 107 H 18 131/87 95 08/29/20 12:03 109 H 18 133/94 98 08/29/20 11:09 98.0 F 118 H 20 150/89 96 Intake and Output 08/29/20 08/30/20 08/30/20 22:59 06:59 14:59 Other: Voiding Method Toilet # Voids 5 Weight 81.193 kg - Constitutional General appearance: Present: cooperative, no acute distress - EENT Eyes: Present: EOMI ENT: Present: NA/AT, normal oropharynx - Neck Neck: Present: normal ROM - Respiratory Respiratory: bilateral: CTA - Gastrointestinal General gastrointestinal: Present: soft - Integumentary Integumentary: Present: pale Palpable metastatic lesions under ribcage at site of pain - Neurologic Neurologic: Present: CNII-XII intact - Musculoskeletal Musculoskeletal: Present: generalized weakness, strength equal bilaterally - Psychiatric Psychiatric: Present: A&O x's 3, appropriate affect Results CBC & Chem 7: 08/30/20 06:14 08/30/20 06:14 Labs: Abnormal Lab Results - Last 24 Hours (Table) 08/29/20 08/29/20 08/30/20 Range/Units 12:06 12:06 06:14 RBC 2.93 L 2.34 L (3.80-5.40) m/uL Hgb 8.1 L 6.7 L* (11.4-16.0) gm/dL Hct 26.0 L 20.5 L (34.0-46.0) % RDW 17.8 H 17.6 H (11.5-15.5) % Lymphocytes # 0.5 L 0.6 L (1.0-4.8) k/uL Carbon Dioxide 21 L (22-30) mmol/L BUN 21 H (7-17) mg/dL Glucose 101 H (74-99) mg/dL AST 65 H (14-36) U/L Alkaline Phosphatase 894 H (38-126) U/L Lipase 1022 H (23-300) U/L Crossmatch 08/30/20 Range/Units 08:25 RBC (3.80-5.40) m/uL Hgb (11.4-16.0) gm/dL Hct (34.0-46.0) % RDW (11.5-15.5) % Lymphocytes # (1.0-4.8) k/uL Carbon Dioxide (22-30) mmol/L BUN (7-17) mg/dL Glucose (74-99) mg/dL AST (14-36) U/L Alkaline Phosphatase (38-126) U/L Lipase (23-300) U/L Crossmatch See Detail Chest x-ray: report reviewed Abdominal x-ray: report reviewed Assessment and Plan Plan: Assessment and Plan (1) Chronic pain due to malignant neoplastic disease Status: Acute Code(s): G89.3 - NEOPLASM RELATED PAIN (ACUTE) (CHRONIC) SNOMED Code(s): 911669740 (2) JACI (acute kidney injury) Status: Acute Code(s): N17.9 - ACUTE KIDNEY FAILURE, UNSPECIFIED SNOMED Code(s): 90654441 (3) Primary cervical cancer with metastasis to other site Status: Acute Code(s): C53.9 - MALIGNANT NEOPLASM OF CERVIX UTERI, UNSPECIFIED SNOMED Code(s): 327381631 Plan: Abdominal Pain and Increased Lipase: - Admitted for treatment of pancreatitis - Lipase = 1022 - GI following Metastatic Cervical Cancer: - Status Post Palliatiive intent chemotherapy cycle 3 08/24 - Will reassess at discharge regarding plan for treatment Recent Admission for: Intractable Back Pain:Treated Resolved - Possibily related to metastatic cancer versus UTI/Pyelonephritis Normocytic anemia: - B12 deficiency and chemotherapy - B12 ordered and daily monitoring - Transfuse hemoglobin less than 7 - Hemoglobin 6.7 today: One unit PRBC ordered - Recheck pre-transfusion iron studies Neoplastic related pain:improved - Increased MS ER to 30mg q8 hours ATC - Increased [place] to 10/325 - Bowel regimen increased Anxiety/Depression" - Xanax PRn Physician Attest: I have completed the full history and physical and agree with above dictation, dictated as a scribe.
[2020-08-30 10:49] LABS: % Iron Saturation 9.92 (12.00-45.00); African American GFR (CKD) 101.8 (60.0-200.0); Albumin/Globulin Ratio 2.22 (1.60-3.17); Anion Gap 11.3 mmol/L (4.00-12.00); BUN/Creat Ratio 18.75 Ratio (12.00-20.00); Calcium 9.4 mg/dL (8.7-10.3); Carbon Dioxide 20.7 mmol/L (21.6-31.8); Globulin 1.8 g/dL (1.6-3.3); Non-African American GFR(CKD) 87.8 (60.0-200.0); Potassium 3.6 mmol/L (3.5-5.5); Total Bilirubin 0.5 mg/dL (0.2-1.2); Total Protein 5.8 g/dL (6.2-8.2)
[2020-08-30 11:25] LABS: Reticulocyte % 0.5 % (0.5-2.0)
[2020-08-30 14:27] LABS: Appearance,Urine Clear (Clear); Bilirubin,Urine Negative (Negative); Blood,Urine Small (Negative); Color,Urine Yellow; Glucose,Urine (UA) Negative (Negative); Ketones,Urine Negative (Negative); Leukocyte Esterase,Urine Negative (Negative); Mucus,Urine Rare /hpf; Nitrite,Urine Negative (Negative); PH, Urine 5.5 (5.0-8.0); Protein,Urine Trace (Negative); RBC,Urine 12 /hpf (0-5); Specific Gravity,Urine 1.009 (1.001-1.035); Squamous Epithelial Cell,Urine 1 /hpf (0-4); Urobilinogen,Urine <2.0 mg/dL (<2.0); WBC,Urine 2 /hpf (0-5)
--- NOTE | 2020-08-30 15:59 | P.PN ---
Subjective Progress Note Date: 08/30/20 This a 49-year-old female admitted with acute pancreatitis, abdominal pain, chronic constipation, cervical cancer receiving chemotherapy and multiple other medical issues. Recently hospitalized for pyelonephritis. Remains NPO secondary to pancreatitis. Labs pending. Afebrile .Denies chest pain, palpitations or shortness of breath. Objective - Vital Signs Vital signs: Vital Signs Temp 97.1 F L 08/30/20 12:16 Pulse 99 08/30/20 15:04 Resp 16 08/30/20 15:04 BP 137/81 08/30/20 15:04 Pulse Ox 96 08/30/20 15:04 Intake & Output 08/29/20 08/30/20 08/30/20 18:59 06:59 18:59 Intake Total 310 Balance 310 Weight 81.193 kg Intake: Blood Product 310 Rc As-1 Unit 310 [id number] Other: Voiding Method Toilet # Voids 5 - Exam PHYSICAL EXAMINATION: Patient is lying in the bed comfortably,NAD, alert and oriented 3 HEENT: Normocephalic. Neck is supple. Pupils reactive. Oral cavity is moist. Neck : supple, no JVD. CHEST EXAMINATION: Trachea is central. Symmetrical expansion. Lung fuller clear to auscultation and percussion. CARDIAC: Normal S1, S2 with no gallops. No murmurs ABDOMEN: Soft. Epigastric abdominal mild tenderness, no guarding or rigidity.Bowel sounds normal. Extremities: reveal no edema. No clubbing or cyanosis Neurologically awake, alert, oriented x3 with well-coordinated movements. No focal deficits noted Skin: Warm and dry, No rash. - Labs CBC & Chem 7: 08/30/20 06:14 08/30/20 06:14 Labs: Abnormal Lab Results - Last 24 Hours (Table) 08/30/20 08/30/20 08/30/20 Range/Units 06:14 06:14 06:14 RBC 2.34 L (3.80-5.40) m/uL Hgb 6.7 L* (11.4-16.0) gm/dL Hct 20.5 L (34.0-46.0) % RDW 17.6 H (11.5-15.5) % Lymphocytes # 0.6 L (1.0-4.8) k/uL Sodium 133 L (135-145) mmol/L Carbon Dioxide 20.7 L (21.6-31.8) mmol/L Iron 25 L (50-170) ug/dL % Saturation 9.92 L (12.00-45.00) Ferritin 1453.4 H (10.0-291.0) ng/mL AST 42 H (13-35) U/L Alkaline Phosphatase 666 H (41-126) U/L Total Protein 5.8 L (6.2-8.2) g/dL Lipase 108 H (14-63) U/L Urine Protein (Negative) Urine Blood (Negative) Urine RBC (0-5) /hpf Urine Mucus (None) /hpf Crossmatch 08/30/20 08/30/20 Range/Units 08:25 10:02 RBC (3.80-5.40) m/uL Hgb (11.4-16.0) gm/dL Hct (34.0-46.0) % RDW (11.5-15.5) % Lymphocytes # (1.0-4.8) k/uL Sodium (135-145) mmol/L Carbon Dioxide (21.6-31.8) mmol/L Iron (50-170) ug/dL % Saturation (12.00-45.00) Ferritin (10.0-291.0) ng/mL AST (13-35) U/L Alkaline Phosphatase (41-126) U/L Total Protein (6.2-8.2) g/dL Lipase (14-63) U/L Urine Protein Trace H (Negative) Urine Blood Small H (Negative) Urine RBC 12 H (0-5) /hpf Urine Mucus Rare H (None) /hpf Crossmatch See Detail Assessment and Plan Assessment: acute pancreatitis with abdominal pain epigastric radiating to the back and elevated lipase level. chronic constipation cervical cancer with metastasis ,recent chemotherapy on sunday normocytic anemia elevated ast and alk phos anxiety previous history of smoking hypothyroidism Plan: Continue on current medication regime ,monitoring and symptomatic treatment. Labs pending. IV fluid hydration, stool softeners, anti-emetics, pain management. NPO, r/t pancreatitis. The impression and plan of care has been dictated as directed. : I performed a history and examination of this patient, discussed the same with the dictator. I agree with the dictator's note ,documented as a scribe. Any additional findings or plans will be noted.
[2020-08-30 16:13] LABS: Folate, Serum 5.5 ng/mL
[2020-08-30] MEDS ORDERED: SENNOSIDES 8.6 MG TAB PO SCH (21:00)
[2020-08-30] MEDS: SENNOSIDES-DOCUSATE SODIUM 1 EACH TAB PO SCH (21:31)
[2020-08-31] MEDS: HYDROmorphone 1 MG/ML 1 ML SYRINGE IVP PRN ×3 (00:26→07:53)
[2020-08-31] MEDS: ONDANSETRON 4 MG/2 ML VIAL IVP PRN (00:49)
[2020-08-31] MEDS: HYDROcodone/APAP 10-325MG 1 EACH TAB PO PRN (01:01)
[2020-08-31] MEDS: SODIUM CHLORIDE 0.9% 1,000 ML IV SCH (04:00)
[2020-08-31] MEDS: MORPHINE SULFATE ER 30 MG TABLET PO SCH (04:31)
[2020-08-31 05:38] VITALS: BP 113/73; PULSE 94; RESP 17; TEMP 97.5
[2020-08-31] MEDS: LEVOTHYROXINE 75 MCG TAB PO SCH (06:00)
[2020-08-31 06:54] LABS: Anisocytosis Slight; Basophils % (A) 1 %; Eosinophils # (A) 0.1 k/uL (0-0.7); Eosinophils % (A) 1 %; HCT 22.4 % (34.0-46.0); HGB 7.5 gm/dL (11.4-16.0); Hypochromasia Slight; Lymphocytes # (A) 0.6 k/uL (1.0-4.8); Lymphocytes % (A) 13 %; MCHC 33.3 g/dL (31.0-37.0); MCV 86.9 fL (80.0-100.0); Mean Platelet Volume 7.7; Monocytes # (A) 0.3 k/uL (0-1.0); Monocytes % (A) 5 %; Neutrophils # (A) 3.8 k/uL (1.3-7.7); Neutrophils % (A) 78 %; Platelet Count 226 k/uL (150-450); RBC 2.58 m/uL (3.80-5.40); RDW 17.9 % (11.5-15.5); WBC 4.8 k/uL (3.8-10.6)
[2020-08-31] MEDS: ALPRAZolam 0.5 MG TAB PO PRN (07:55)
[2020-08-31] MEDS: DOCUSATE 100 MG CAP PO SCH (07:55)
[2020-08-31] MEDS: CYANOCOBALAMIN 500 MCG TAB PO SCH (07:55)
[2020-08-31] MEDS: PANTOPRAZOLE 40 MG/10 ML VIAL IV SCH (07:56)
[2020-08-31] MEDS: HEPARIN SODIUM,PORCINE/PF 5,000 UNIT/0.5 ML SYRINGE SQ SCH (07:56)
[2020-08-31] MEDS: SENNOSIDES-DOCUSATE SODIUM 1 EACH TAB PO SCH (08:04)
[2020-08-31] MEDS: polyethylene glycoL 3350 17 GM POWD.PACK PO SCH ×2 (08:04→09:05)
--- NOTE | 2020-08-31 08:42 | P.DS ---
Providers Date of admission: 08/29/20 16:39 Expected date of discharge: 08/31/20 Attending physician: Kg Ayala Consults: 08/29/20 15:51 Consult Physician Routine Consulting Provider: Rian Laboy Consult Reason/Comments: Chemotherapy, pancreatitis Do you want consulting provider notified?: Yes Primary care physician: Kg Ayala Hospital Course: Final Diagnoses: acute pancreatitis with abdominal pain epigastric radiating to the back and elevated lipase level, improved chronic constipation cervical cancer with metastasis ,recent chemotherapy on sunday normocytic anemia elevated ast and alk phos anxiety previous history of smoking hypothyroidism Hospital course:This a 49-year-old female admitted with acute pancreatitis, abdominal pain, chronic constipation, cervical cancer receiving chemotherapy and multiple other medical issues. Recently hospitalized for pyelonephritis. Remains NPO secondary to pancreatitis. Labs pending. Afebrile .Denies chest pain, palpitations or shortness of breath. Yesterday lipase down to 108. Denies abdominal pain, complains of chronic back pain. Significant clinical improvement. Denies chest pain, palpitations or shortness of breath. Patient will be discharged home today in a stable condition with guarded prognosis pending she tolerates clear liquid diet. The impression and plan of care has been dictated as directed. Dr.: I performed a history and examination of this patient, discussed the same with the dictator. I agree with the dictator's note ,documented as a scribe. Any additional findings or plans will be noted. Patient Condition at Discharge: Stable Plan - Discharge Summary New Discharge Prescriptions: Continue traMADol HCl [Ultram] 50 mg PO Q6H PRN #12 tab PRN Reason: Moderate Pain Prochlorperazine [Compazine] 10 mg PO Q6H PRN PRN Reason: Nausea And Vomiting OLANZapine [ZyPREXA] 5 mg PO DAILY 30 Days #30 tab DULoxetine HCL [Cymbalta] 20 mg PO DAILY 30 Days #30 capsule. Pantoprazole Sodium [Protonix] 40 mg PO DAILY #30 tablet. Lidocaine-Prilocaine Cream [Emla Cream 2.5%/2.5%] 1 applic TOPICAL DAILY PRN PRN Reason: 40MIN PRIOR TO PORT ACCESS polyethylene glycoL 3350 [Miralax] 17 gm PO DAILY powd.pack Lidocaine/Benadryl/Maalox/Nystatin Oral Solution 1:1 5 ml PO QID PRN PRN Reason: Pain Lactulose [Cephulac] 30 gm PO BID PRN 14 Days ml PRN Reason: Constipation Cyanocobalamin [Vitamin B-12] 1,000 mcg PO DAILY #30 tab ALPRAZolam [Xanax] 0.5 mg PO TID PRN #30 tab PRN Reason: Anxiety Docusate [Colace] 100 mg PO BID 30 Days #60 capsule Lidocaine Viscous [Xylocaine Viscous 2%] 30 ml PO QID PRN PRN Reason: Pain Sennosides [Senna] 8.6 mg PO HS 30 Days #30 tablet Levothyroxine Sodium [Synthroid] 150 mcg PO DAILY HYDROcodone/APAP 10-325MG [[place] 10-325] 1 tab PO Q6H PRN PRN Reason: Pain Morphine Sulfate ER [Ms Contin] 30 mg PO Q8H Discharge Medication List traMADol HCl [Ultram] 50 mg PO Q6H PRN #12 tab 06/24/20 [Rx] Prochlorperazine [Compazine] 10 mg PO Q6H PRN 07/09/20 [History] OLANZapine [ZyPREXA] 5 mg PO DAILY 30 Days #30 tab 07/12/20 [Rx] DULoxetine HCL [Cymbalta] 20 mg PO DAILY 30 Days #30 capsule. 07/13/20 [Rx] Pantoprazole Sodium [Protonix] 40 mg PO DAILY #30 tablet. 07/19/20 [Rx] Lidocaine-Prilocaine Cream [Emla Cream 2.5%/2.5%] 1 applic TOPICAL DAILY PRN 07/26/20 [History] polyethylene glycoL 3350 [Miralax] 17 gm PO DAILY powd.pack 07/28/20 [Rx] Lidocaine/Benadryl/Maalox/Nystatin Oral Solution 1:1 5 ml PO QID PRN 08/05/20 [History] ALPRAZolam [Xanax] 0.5 mg PO TID PRN #30 tab 08/09/20 [Rx] Cyanocobalamin [Vitamin B-12] 1,000 mcg PO DAILY #30 tab 08/09/20 [Rx] Lactulose [Cephulac] 30 gm PO BID PRN 14 Days ml 08/09/20 [Rx] Docusate [Colace] 100 mg PO BID 30 Days #60 capsule 08/22/20 [Rx] Sennosides [Senna] 8.6 mg PO HS 30 Days #30 tablet 08/22/20 [Rx] HYDROcodone/APAP 10-325MG [[place] 10-325] 1 tab PO Q6H PRN 08/29/20 [History] Levothyroxine Sodium [Synthroid] 150 mcg PO DAILY 08/29/20 [History] Lidocaine Viscous [Xylocaine Viscous 2%] 30 ml PO QID PRN 08/29/20 [History] Morphine Sulfate ER [Ms Contin] 30 mg PO Q8H 08/29/20 [History] Follow up Appointment(s)/Referral(s): [facility], [NON-STAFF] - 1 Week Kg Ayala DO [Primary Care Provider] - 1 Week Activity/Diet/Wound Care/Special Instructions: Confirm follow-up with oncology prior to discharge
--- NOTE | 2020-08-31 21:27 | P.PN ---
Subjective Progress Note Date: 08/31/20 Principal diagnosis: Pancreatitis She is feeling better today and would like to go home. Re-inforced remaining adherent to medications, bowel regimen. Status Post One unit PRBC 08/30, lipase decreased today Objective - Vital Signs Vital signs: Vital Signs Temp 97.5 F L 08/31/20 05:00 Pulse 94 08/31/20 05:00 Resp 17 08/31/20 05:00 BP 113/73 08/31/20 05:00 Pulse Ox 98 08/31/20 05:00 Intake & Output 08/31/20 08/31/20 09/01/20 06:59 18:59 06:59 Intake Total 1200 Balance 1200 Intake: Intake, IV Titration 1200 Amount Sodium Chloride 0.9% 1, 1200 000 ml @ 100 mls/hr IV . Q10H LEON Rx#:[id number] Other: Voiding Method Toilet Toilet # Voids 4 - Exam - Constitutional General appearance: Present: cooperative, no acute distress - EENT Eyes: Present: EOMI ENT: Present: NA/AT, normal oropharynx - Neck Neck: Present: normal ROM - Respiratory Respiratory: bilateral: CTA - Gastrointestinal General gastrointestinal: Present: soft - Integumentary Integumentary: Present: pale Palpable metastatic lesions under ribcage at site of pain - Neurologic Neurologic: Present: CNII-XII intact - Musculoskeletal Musculoskeletal: Present: generalized weakness, strength equal bilaterally - Psychiatric Psychiatric: Present: A&O x's 3, appropriate affect - Labs CBC & Chem 7: 08/31/20 05:16 08/30/20 06:14 Labs: Abnormal Lab Results - Last 24 Hours (Table) 08/31/20 Range/Units 05:16 RBC 2.58 L (3.80-5.40) m/uL Hgb 7.5 L (11.4-16.0) gm/dL Hct 22.4 L (34.0-46.0) % RDW 17.9 H (11.5-15.5) % Lymphocytes # 0.6 L (1.0-4.8) k/uL Microbiology - Last 24 Hours (Table) 08/30/20 10:30 Blood Culture - Preliminary Blood No Growth after 24 hours 08/30/20 10:30 Blood Culture - Preliminary Blood No Growth after 24 hours Assessment and Plan Plan: Assessment and Plan (1) Chronic pain due to malignant neoplastic disease Status: Acute Code(s): G89.3 - NEOPLASM RELATED PAIN (ACUTE) (CHRONIC) SNOMED Code(s): 348974765 (2) JACI (acute kidney injury) Status: Acute Code(s): N17.9 - ACUTE KIDNEY FAILURE, UNSPECIFIED SNOMED Code(s): 17365190 (3) Primary cervical cancer with metastasis to other site Status: Acute Code(s): C53.9 - MALIGNANT NEOPLASM OF CERVIX UTERI, UNSPECIFIED SNOMED Code(s): 207900028 Plan: Abdominal Pain and Increased Lipase: - Admitted for treatment of pancreatitis - Lipase = 1022, repeat 108 Metastatic Cervical Cancer: - Status Post Palliatiive intent chemotherapy cycle 3 08/24 - Will reassess at discharge regarding plan for treatment Recent Admission for: Intractable Back Pain:Treated Resolved - Possibily related to metastatic cancer versus UTI/Pyelonephritis Normocytic anemia: - B12 deficiency and chemotherapy - B12 ordered and daily monitoring - Transfuse hemoglobin less than 7 - Hemoglobin 6.7 08/30 and status post one unit PRBC Neoplastic related pain:improved - Increased MS ER to 30mg q8 hours ATC - Increased [place] to 10/325 - Bowel regimen increased Anxiety/Depression" - Xanax PRn Plan: - Ok for discharge from oncology standpoint. - Will follow-up in office prior to next treatment to re-assess - CBC this week Physician Attest: I have completed the full history and physical and agree with above dictation, dictated as a scribe.
[2020-09-03 16:36] LABS: LD Isoenzymes 1 9 % (19-38); LD Isoenzymes 2 17 % (30-43); LD Isoenzymes 3 23 % (16-26); LD Isoenzymes 4 25 % (3-12); LD Isoenzymes 5 26 % (3-14); Lactacte Dehydrogenase(LD) ISO 370 U/L (100-200)
== END 2020-08-31 12:00 | disposition home or self-care (01) | DRG 439 ==
LOC: EC 11:01 → 5NMEDONC 16:39
PROVIDERS: ADMIT Family Medicine; ATTEND Family Medicine
DX: K85.90 Acute pancreatitis without necrosis or infection, unspecified (principal); C79.89 Secondary malignant neoplasm of other specified sites; N17.9 Acute kidney failure, unspecified; C53.9 Malignant neoplasm of cervix uteri, unspecified; D64.9 Anemia, unspecified; E03.9 Hypothyroidism, unspecified; R91.8 Other nonspecific abnormal finding of lung field; E27.9 Disorder of adrenal gland, unspecified; F41.9 Anxiety disorder, unspecified; G89.3 Neoplasm related pain (acute) (chronic); K59.03 Drug induced constipation; K76.9 Liver disease, unspecified; T40.605A Adverse effect of unspecified narcotics, initial encounter; Z79.890 Hormone replacement therapy; Z79.899 Other long term (current) drug therapy; Z87.891 Personal history of nicotine dependence; Z92.3 Personal history of irradiation; Z87.440 Personal history of urinary (tract) infections; E53.8 Deficiency of other specified B group vitamins; Z20.822 Contact with and (suspected) exposure to COVID-19; Z51.5 Encounter for palliative care; Z79.891 Long term (current) use of opiate analgesic
CPT/HCPCS: 36415; 71046; 74018; 80053; 81001; 82150; 82607; 82728; 82746; 83540; 83550; 83625; 83690; 83735; 84484; 85025; 85045; 85610; 85730; 86850; 86900; 86901; 86920; 87040; 87635; 93005; 96361; 96374; 96375; 99285

== ENCOUNTER 2020-09-08 12:10 | Emergency (ER) | payer OTHER ==
[2020-09-08] MEDS ORDERED: HYDROmorphone 1 MG/ML 1 ML SYRINGE IM STA (13:24)
--- NOTE | 2020-09-08 14:03 | XR ---
EXAMINATION TYPE: XR knee complete LT DATE OF EXAM: 09/08/2020 CLINICAL HISTORY: Left knee pain for one day TECHNIQUE: Three views of the left knee are obtained. COMPARISON: None. FINDINGS: There is no acute fracture/dislocation evident in left knee. Mild to moderate narrowing pa tellofemoral compartment with mild spurring. Mild to moderate narrowing medial tibiofemoral compartm ent. Mild overlying subcutaneous edema. No suspicious suprapatellar joint effusion. IMPRESSION: As above.
--- NOTE | 2020-09-08 14:26 | ED ---
Extremity Problem HPI - General Source: patient Mode of arrival: wheelchair Limitations: no limitations <Lisset Bowling - Last Filed: 09/08/20 14:51> <CarmenKorin Itzel - Last Filed: 09/09/20 00:43> - General Chief complaint: Extremity Problem,Nontraumatic Stated complaint: abd & leg pain Time Seen by Provider: 09/08/20 12:50 - History of Present Illness Initial comments: Patient is a 49-year-old female, currently undergoing treatment for cervical cancer, presenting to the emergency Department with complaints of left knee pain. She states that the anterior part of her left knee started hurting yesterday, no falls or trauma. No previous injuries or trauma to left extremity. She denies any recent fevers or chills. She is having some discomfort of her abdomen but states that is normal for her. She is undergoing treatment for cancer. She does have pain medications at home. She states that she wanted to make sure her knee was okay. No redness of the knee. She does have some bilateral lower accepted the swelling that is been going on for weeks now. She has no further complaints at this time. Her vitals are stable upon arrival. (Lisset Bowling) - Related Data Home Medications Medication Instructions Recorded Confirmed Prochlorperazine [Compazine] 10 mg PO Q6H PRN 07/09/20 09/08/20 Lidocaine-Prilocaine Cream [Emla 1 applic TOPICAL DAILY PRN 07/26/20 09/08/20 Cream 2.5%/2.5%] Lidocaine/Benadryl/Maalox/Nystatin 5 ml PO QID PRN 08/05/20 09/08/20 Oral Solution 1:1 HYDROcodone/APAP 10-325MG [[place] 1 tab PO Q6H PRN 08/29/20 09/08/20 10-325] Levothyroxine Sodium [Synthroid] 150 mcg PO DAILY 08/29/20 09/08/20 Lidocaine Viscous [Xylocaine 30 ml PO QID PRN 08/29/20 09/08/20 Viscous 2%] Morphine Sulfate ER [Ms Contin] 30 mg PO Q8H 08/29/20 09/08/20 Previous Rx's Medication Instructions Recorded traMADol HCl [Ultram] 50 mg PO Q6H PRN #12 tab 06/24/20 OLANZapine [ZyPREXA] 5 mg PO DAILY 30 Days #30 tab 07/12/20 DULoxetine HCL [Cymbalta] 20 mg PO DAILY 30 Days #30 07/13/20 capsule. Pantoprazole Sodium [Protonix] 40 mg PO DAILY #30 tablet. 07/19/20 polyethylene glycoL 3350 [Miralax] 17 gm PO DAILY powd.pack 07/28/20 ALPRAZolam [Xanax] 0.5 mg PO TID PRN #30 tab 08/09/20 Cyanocobalamin [Vitamin B-12] 1,000 mcg PO DAILY #30 tab 08/09/20 Lactulose [Cephulac] 30 gm PO BID PRN 14 Days ml 08/09/20 Docusate [Colace] 100 mg PO BID 30 Days #60 capsule 08/22/20 Sennosides [Senna] 8.6 mg PO HS 30 Days #30 tablet 08/22/20 Allergies Allergy/AdvReac Type Severity Reaction Status Date / Time No Known Allergies Allergy Verified 09/08/20 13:56 Review of Systems ROS Other: All systems not noted in ROS Statement are negative. <Lisset Bowling - Last Filed: 09/08/20 14:51> ROS Other: All systems not noted in ROS Statement are negative. <Korin Morales - Last Filed: 09/09/20 00:43> ROS Statement: Those systems with pertinent positive or pertinent negative responses have been documented in the HPI. Past Medical History Past Medical History: Cancer, Thyroid Disorder Additional Past Medical History / Comment(s): cervical CA History of Any Multi-Drug Resistant Organisms: None Reported Past Surgical History: No Surgical Hx Reported Additional Past Surgical History / Comment(s): RADIATION TO UTERUS., port to R side Past Anesthesia/Blood Transfusion Reactions: No Reported Reaction Past Psychological History: Anxiety Smoking Status: Former smoker Past Alcohol Use History: None Reported Past Drug Use History: None Reported - Past Family History Mother Family Medical History: Unable to Obtain Father History Unknown: Yes Family Medical History: Unable to Obtain <Lisset Bowling - Last Filed: 09/08/20 14:51> General Exam Limitations: no limitations <Lisset Bowling - Last Filed: 09/08/20 14:51> - General Exam Comments Initial Comments: GENERAL: Patient is well-developed and well-nourished. Patient is nontoxic and in no acute distress. HEAD: Atraumatic, normocephalic. EYES: Pupils equal round and reactive to light, extraocular movements intact, sclera anicteric, conjunctiva are normal. Eyelids were unremarkable. ENT: TMs normal, nares patent, oropharynx clear without exudates. Moist mucous membranes. NECK: Normal range of motion, supple without lymphadenopathy or JVD. LUNGS: Unlabored respirations. Breath sounds clear to auscultation bilaterally and equal. No wheezes rales or rhonchi. HEART: Regular rate and rhythm without murmurs, rubs or gallops. ABDOMEN: Soft, mild tender with palpation, normoactive bowel sounds. No guarding, no rebound. No masses appreciated. : Deferred MUSCULOSKELETAL: Normal extremities with adequate strength and normal range of motion. No clu bbing or cyanosis. Patient has very mild bilateral lower leg edema, no pain with palpation of the anterior knee, she For active range of motion of left knee.Erythema or signs of infection. NEUROLOGICAL: Patient is alert and oriented x 3. Motor and sensory are also intact. Cranial nerves II through XII grossly intact. Symmetrical smile. Normal speech, normal gait. PSYCH: Normal mood, normal affect. SKIN: Warm, Dry, normal turgor, no rashes or lesions noted. (Lisset Bowling) Course Vital Signs 09/08/20 09/08/20 12:13 14:35 Temperature 98.1 F 98.2 F Pulse Rate 92 91 Respiratory 17 18 Rate Blood Pressure 129/83 133/83 O2 Sat by Pulse 98 99 Oximetry Medical Decision Making <Lisset Bowling - Last Filed: 09/08/20 14:51> <Korin Morales - Last Filed: 09/09/20 00:43> - Medical Decision Making Patient is a 49-year-old female, currently undergoing treatment for cervical cancer, presenting for left anterior knee pain times one day. No falls or trauma. Her vitals are stable. X-rays revealed no acute fracture dislocations, there is some mild to moderate narrowing, arthritis. No joint effusion. Patient did receive pain medicine today, she's been resting control. I discussed these findings with her. She does have an appointment with her oncologist next week, she will discuss her knee pain if it continues. She is stable for discharge. Return parameters were discussed with the patient she verbalized understanding. Discussed with Dr. Morales. (Lisset Bowling) I was available for consultation in the emergency department. The history and physical exam were done by the midlevel provider. I was consulted for this patients care. I reviewed the case with the midlevel provider and based on their presentation of the patient, I agree with the assessment, medical decision making and plan of care as documented. Chart was dictated using [employer] dictation software. Attempts were made to correct any dictation errors however some typographical errors may persist. Patient was seen during a national state of emergency due to the Covid-19 pandemic. (Korin Moarles) Disposition Is patient prescribed a controlled substance at d/c from ED?: No Time of Disposition: 14:25 <Lisset Bowling - Last Filed: 09/08/20 14:51> <Korin Morales - Last Filed: 09/09/20 00:43> Clinical Impression: Left anterior knee pain Disposition: HOME SELF-CARE Condition: Stable Instructions (If sedation given, give patient instructions): Knee Pain (ED) Additional Instructions: Please return to the Emergency Department if symptoms worsen or any other concerns. Recommend elevation, ice to the left knee. Follow-up with your PCP as symptoms persist. Referrals: Kg Ayala DO [Primary Care Provider] - 1-2 days
[2020-09-08 14:53] VITALS: BP 133/83; PULSE 91; RESP 18; TEMP 98.2
== END 2020-09-08 14:35 | disposition home or self-care (01) ==
LOC: EC 12:10
DX: M25.562 Pain in left knee (principal); R10.9 Unspecified abdominal pain; R60.0 Localized edema; E07.9 Disorder of thyroid, unspecified; Z79.890 Hormone replacement therapy; Z79.899 Other long term (current) drug therapy; Z87.891 Personal history of nicotine dependence; Z85.41 Personal history of malignant neoplasm of cervix uteri
CPT/HCPCS: 73562; 99283; 96372; J1170

== ENCOUNTER → 2020-09-15 | Outpatient (CLI) | payer OTHER ==
--- NOTE | 2020-09-15 14:06 | CT ---
EXAMINATION TYPE: CT ChestAbdPelvis w con DATE OF EXAM: 09/15/2020 COMPARISON: Most recent CT August 05, 2020 and older studies HISTORY: H/O cervical CA CT DLP: 1378 mGycm. Automated Exposure Control for Dose Reduction was Utilized. CONTRAST: CT scan of the thorax, abdomen and pelvis is performed with oral and with IV Contrast, patient inject ed with 100ml mL of Isovue 300. FINDINGS: LUNGS: Persistent mild to moderate bibasilar linear scarring and/or atelectasis. Scattered bilateral pulmonary nodules show continued improvement in size and number. For reference. A lateral left lower lobe nodule on axial image 41 measures 7 x 5 mm current study versus 1.5 x 1.2 cm most recent prior s tudies in July. Additional visualized nodules are smaller in size greater in number in the bases. No pleural effusion or pneumothorax seen. MEDIASTINUM: There are no greater than 1 cm hilar or mediastinal lymph nodes. No cardiomegaly or pe ricardial effusion is seen. OTHER: Stable right internal jugular Mediport catheter. Slightly more prominent but subcentimeter macy ateral axillary lymph nodes. For reference 10 x 9 mm right lymph node axial image 31 noted. LIVER/GB: Multiple heterogeneous hypodense masses consistent with diffuse metastatic disease again se en. There is overall improvement in size and number of lesions scattered throughout the liver. Some l esions stable in size, others less prominent. They are more ill-defined and are difficult to accurate ly measure. Hepatomegaly stable or slightly less prominent. Lobulated contour redemonstrated. Because of multifocal diffuse disease and poor definition, reference lesions are difficult to accurately trae sure. PANCREAS: No significant abnormality is seen. SPLEEN: No significant abnormality is seen. ADRENALS: Heterogeneous large right adrenal metastatic lesion measuring 8 5.9 x 3.7 cm axial image 64 diminish in size from prior. Inferior left adrenal metastatic lesion diminished in size. More superi or 1.9 x 1.4 cm lesion is fairly stable from prior study KIDNEYS: Persistent 3.1 cm metastatic lesion inferior medial aspect left kidney likely separate from left kidney diminished in size from prior study 3.9 cm. This is causing persistent moderate left-side d hydronephrosis. Some excretion is identified on current study. BOWEL: Oral contrast only reaches the ileal loops in the lower abdomen and pelvis. Left-sided sigmoid colonic deviation due to pelvic cystic lesion redemonstrated. No suspicious small or large bowel dil atation. UTERUS/ADNEXA: Abnormal anteverted uterus with central hypodense prominence redemonstrated. Interval resolution of posterior right pelvic cyst or cystic lesion. LYMPH NODES: Persistent intraperitoneal lesions, for reference 5.0 cm anterior right mid abdominal le ally axial image 53 redemonstrated, diminished in size at 4.5 cm long axis with heterogeneity and geo tral necrosis. Stable left groin 2.4 cm lesion or lymph node axial image 119. OSSEOUS STRUCTURES: No significant abnormality is seen. OTHER: Persistent 2.2 cm right mid abdominal subcutaneous metastatic lesion axial image 90 diminished in size from 2.8 cm most recent prior. Additional posterior 1.0 cm subcutaneous metastatic lesion ax ial image 87 stable diminished in size from 2.0 cm prior. Right lateral groin metastatic lesion axial image 93 stable 2.2 cm long axis. Stable 2.0 cm posterior lower lumbar subcutaneous lesion maximally measures 93 IMPRESSION: Partial positive treatment response as detailed above to known cervical metastatic diseas e.
== END | disposition home or self-care (01) ==
LOC: RADPROMAIN 11:21
PROVIDERS: ATTEND Internal Medicine Hematology & Oncology
DX: C53.9 Malignant neoplasm of cervix uteri, unspecified (principal); C79.51 Secondary malignant neoplasm of bone
CPT/HCPCS: 82565; 84520; 71260; 74177; J1642; Q9967

== ENCOUNTER → 2020-09-16 | Outpatient (CLI) | payer OTHER ==
--- NOTE | 2020-09-17 04:11 | MR ---
EXAMINATION TYPE: MR knee LT wo con DATE OF EXAM: 09/16/2020 COMPARISON: None HISTORY: Left knee pain x 2 mos, no trauma. Hx cervical cancer. Multiplanar multiecho imaging of the left knee was performed without contrast. The anterior and posterior cruciate ligaments are intact. There is moderate knee joint effusion. The collateral ligaments are intact. There is abnormal increased signal on the proton density images in t he large area of the medial femoral condyle and consistent with edema and bone bruise. I see no fract ure line. There is also some mild edema in the posterior lateral tibial condyle adjacent to the fibul a consistent with edema. The collateral ligaments are intact. There is a 1.5 cm area of increased flu id signal in the intercondylar posterior proximal tibia. The lateral meniscus is intact. Medial meniscus appears intact. There is subcutaneous edema over the anterior tibial tubercle and the patella tendon. IMPRESSION: No evidence of ligament or tendon tear. Large bone bruise involving the medial femoral condyle and a smaller bone bruise in the posterior lat eral tibial condyle. No fracture line seen. Knee joint effusion. Degenerative cyst formation in the i ntercondylar posterior proximal tibia.
== END | disposition home or self-care (01) ==
LOC: RADMRIMAIN 14:56
PROVIDERS: ATTEND Internal Medicine Hematology & Oncology
DX: S80.02XA Contusion of left knee, initial encounter (principal); M85.662 Other cyst of bone, left lower leg

== ENCOUNTER 2020-09-20 18:49 | Inpatient (IN) | payer OTHER ==
[2020-09-20] MEDS ORDERED: SODIUM CHLORIDE 0.9% 500 ML 500 ML IV STA (20:35)
[2020-09-20] MEDS ORDERED: MORPHINE SULFATE 4 MG/ML SYRINGE IV STA (20:35)
[2020-09-20] MEDS ORDERED: ONDANSETRON 4 MG/2 ML VIAL IVP STA (20:35)
--- NOTE | 2020-09-20 21:21 | ED ---
General Adult HPI - General Chief complaint: Fall Stated complaint: fall, abd/back pain Time Seen by Provider: 09/20/20 20:09 Source: patient Mode of arrival: wheelchair Limitations: no limitations - History of Present Illness Initial comments: 49 year-old female patient currently undergoing treatment for metastatic cervical cancer, presents to the emergency department for evaluation of back and abdominal pain after experiencing a fall last night. States that she fell out of the shower. Denies hitting any thing on the way down. States she thinks she hit her head because she has tenderness and developed a headache today. Denies any loss of consciousness. States she does generally have back and abdominal pain. States the abdominal pain is worse today after the fall. Reports nausea and vomiting. States that she has chronic left knee pain which she feels worsened after the fall. She is able to bear weight and bend the knee. Last took her pain medication at 10:00 this morning. Patient denies any recent rash, fever, chills, cough, shortness of breath, chest pain, diarrhea, constipation, numbness, tingling, dizziness, weakness, hematuria, dysuria, urinary urgency, urinary frequency, or any other complaints. - Related Data Home Medications Medication Instructions Recorded Confirmed Prochlorperazine [Compazine] 10 mg PO Q6H PRN 07/09/20 09/20/20 Lidocaine-Prilocaine Cream [Emla 1 applic TOPICAL DAILY PRN 07/26/20 09/20/20 Cream 2.5%/2.5%] HYDROcodone/APAP 10-325MG [[place] 1 tab PO TID PRN 08/29/20 09/20/20 10-325] Levothyroxine Sodium [Synthroid] 150 mcg PO DAILY 08/29/20 09/20/20 Morphine Sulfate ER [Ms Contin] 30 mg PO BID 08/29/20 09/20/20 OLANZapine [ZyPREXA] 5 mg PO HS 09/20/20 09/20/20 Sennosides/Docusate Sodium [Senna 1 tab PO DAILY 09/20/20 09/20/20 Plus 8.6-50 mg Tablet] Previous Rx's Medication Instructions Recorded DULoxetine HCL [Cymbalta] 20 mg PO DAILY 30 Days #30 07/13/20 senia. polyethylene glycoL 3350 [Miralax] 17 gm PO DAILY powd.pack 07/28/20 ALPRAZolam [Xanax] 0.5 mg PO TID PRN #30 tab 08/09/20 Lactulose [Cephulac] 30 gm PO BID PRN 14 Days ml 08/09/20 Allergies Allergy/AdvReac Type Severity Reaction Status Date / Time No Known Allergies Allergy Verified 09/20/20 18:52 Review of Systems ROS Statement: Those systems with pertinent positive or pertinent negative responses have been documented in the HPI. ROS Other: All systems not noted in ROS Statement are negative. Past Medical History Past Medical History: Cancer, Thyroid Disorder Additional Past Medical History / Comment(s): cervical CA History of Any Multi-Drug Resistant Organisms: None Reported Past Surgical History: No Surgical Hx Reported Additional Past Surgical History / Comment(s): RADIATION TO UTERUS., port to R side Past Anesthesia/Blood Transfusion Reactions: No Reported Reaction Past Psychological History: Anxiety Smoking Status: Former smoker Past Alcohol Use History: None Reported Past Drug Use History: None Reported, Marijuana - Past Family History Mother Family Medical History: Unable to Obtain Father History Unknown: Yes Family Medical History: Unable to Obtain General Exam Limitations: no limitations General appearance: alert, in no apparent distress, other (This is a well- developed, well-nourished adult female patient in no acute distress. Vital signs upon presentation are temperature 98.0F, pulse 1:15, respirations 18 blood pressure 117/77, pulse ox 98% on room air.) Head exam: Present: atraumatic, normocephalic, normal inspection Eye exam: Present: normal appearance, PERRL, EOMI. Absent: scleral icterus, conjunctival injection, nystagmus, periorbital swelling ENT exam: Present: normal exam, normal oropharynx, mucous membranes moist Neck exam: Present: normal inspection, full ROM. Absent: tenderness, meningismus, lymphadenopathy Respiratory exam: Present: normal lung sounds bilaterally. Absent: respiratory distress, wheezes, rales, rhonchi, stridor Cardiovascular Exam: Present: regular rate, normal rhythm, normal heart sounds. Absent: systolic murmur, diastolic murmur, rubs, gallop, clicks GI/Abdominal exam: Present: soft, tenderness (lower abdominal tenderness), normal bowel sounds. Absent: distended, guarding, rebound, rigid Neurological exam: Present: alert, oriented X3, CN II-XII intact Psychiatric exam: Present: normal affect, normal mood Skin exam: Present: warm, dry, intact, normal color. Absent: rash Course Vital Signs 09/20/20 09/20/20 18:52 22:00 Temperature 98.0 F Pulse Rate 115 H 100 Respiratory 18 18 Rate Blood Pressure 117/77 105/62 O2 Sat by Pulse 98 100 Oximetry Medical Decision Making - Medical Decision Making 49-year-old female patient with past history significant for metastatic cervical cancer presents to the emergency department today for evaluation of increased abdominal and back pain after a fall last night. Physical examination did reveal abdominal tenderness generalized. She had no spinal tenderness. She did report head injury. Labs reviewed and were significant for elevated lipase. CT brain C-spine negative. CT of the pelvis showed no new findings or injuries did redemonstrate metastatic disease. She'll be admitted to the hospital for pancreatitis. We'll provide pain management. We'll consult GI and oncology. She is agreeable to this plan. Dr. Ayala is accepting. Case discussed with my attending Dr. Michaels. - Lab Data Result diagrams: 09/20/20 21:32 09/20/20 21:32 Lab Results 09/20/20 09/20/20 09/20/20 Range/Units 21:32 21:32 21:32 WBC 7.2 (3.8-10.6) k/uL RBC 2.59 L (3.80-5.40) m/uL Hgb 7.3 L (11.4-16.0) gm/dL Hct 22.4 L (34.0-46.0) % MCV 86.4 (80.0-100.0) fL MCH 28.2 (25.0-35.0) pg MCHC 32.6 (31.0-37.0) g/dL RDW 19.4 H (11.5-15.5) % Plt Count 241 (150-450) k/uL MPV 7.7 Neutrophils % 79 % Lymphocytes % 13 % Monocytes % 4 % Eosinophils % 1 % Basophils % 1 % Neutrophils # 5.7 (1.3-7.7) k/uL Lymphocytes # 1.0 (1.0-4.8) k/uL Monocytes # 0.3 (0-1.0) k/uL Eosinophils # 0.1 (0-0.7) k/uL Basophils # 0.0 (0-0.2) k/uL Hypochromasia Slight Anisocytosis Slight PT 10.9 (9.0-12.0) sec INR 1.0 (<1.2) APTT 30.1 H (22.0-30.0) sec Sodium 135 L (137-145) mmol/L Potassium 4.2 (3.5-5.1) mmol/L Chloride 102 (98-107) mmol/L Carbon Dioxide 24 (22-30) mmol/L Anion Gap 9 mmol/L BUN 23 H (7-17) mg/dL Creatinine 0.99 (0.52-1.04) mg/dL Est GFR (CKD-EPI)AfAm 79 (>60 ml/min/1.73 sqM) Est GFR (CKD-EPI)NonAf 68 (>60 ml/min/1.73 sqM) Glucose 99 (74-99) mg/dL Calcium 12.8 H (8.4-10.2) mg/dL Total Bilirubin 0.5 (0.2-1.3) mg/dL AST 36 (14-36) U/L ALT 9 (4-34) U/L Alkaline Phosphatase 618 H (38-126) U/L Total Protein 6.7 (6.3-8.2) g/dL Albumin 4.0 (3.5-5.0) g/dL Lipase 1286 H (23-300) U/L - Radiology Data Radiology results: report reviewed, image reviewed CT brain and C-spine without contrast was obtained. Report is reviewed in its entirety. Impression by Dr. Dominguez shows negative computed tomography scan of the brain. No change compared to old exam. Spondylotic changes in the cervical spine. No fracture. CT abdomen and pelvis is obtained. Report was reviewed in its entirety. Impression by Dr. Dominguez shows multiple liver masses consistent with metastatic disease similar to old exam. Large right adrenal mass and small left adrenal mass consistent with metastatic disease. Right-sided omental mass consistent with metastatic disease. Subcutaneous mass right midabdomen could relate to metastatic disease. Unusual cystic mass at the left renal having could be metastatic. Unchanged. Enlarged left inguinal lymph node unchanged. No bowel obstruction. No free air. Atelectasis right lung base unchanged. There is improvement in the multiple nodules in the lower lobes compared to old exam. Disposition Clinical Impression: Pancreatitis Disposition: ADMITTED IP TO THIS [facility] Condition: Serious Decision to Admit Reason: Admit from EC Decision Date: 09/20/20 Decision Time: 23:27
[2020-09-20] MEDS ORDERED: HYDROmorphone 1 MG/ML 1 ML SYRINGE IVP STA ×2 (21:36→22:50)
[2020-09-20 22:08] LABS: Anisocytosis Slight; Basophils % (A) 1 %; Eosinophils # (A) 0.1 k/uL (0-0.7); Eosinophils % (A) 1 %; HCT 22.4 % (34.0-46.0); HGB 7.3 gm/dL (11.4-16.0); Hypochromasia Slight; Lymphocytes % (A) 13 %; MCH 28.2 pg (25.0-35.0); MCHC 32.6 g/dL (31.0-37.0); MCV 86.4 fL (80.0-100.0); Mean Platelet Volume 7.7; Monocytes # (A) 0.3 k/uL (0-1.0); Monocytes % (A) 4 %; Neutrophils # (A) 5.7 k/uL (1.3-7.7); Neutrophils % (A) 79 %; Platelet Count 241 k/uL (150-450); RBC 2.59 m/uL (3.80-5.40); RDW 19.4 % (11.5-15.5); WBC 7.2 k/uL (3.8-10.6)
[2020-09-20 22:15] LABS: Calcium 12.8 mg/dL (8.4-10.2); Potassium 4.2 mmol/L (3.5-5.1); Total Bilirubin 0.5 mg/dL (0.2-1.3); Total Protein 6.7 g/dL (6.3-8.2)
[2020-09-20 22:25] LABS: Partial Thromboplastin Time 30.1 sec (22.0-30.0); Prothrombin Time 10.9 sec (9.0-12.0)
--- NOTE | 2020-09-20 22:34 | CT ---
EXAMINATION TYPE: CT brain cspine wo con DATE OF EXAM: 09/20/2020 COMPARISON: CT brain 07/17/2020 HISTORY: headache following fall CT DLP: 1216.7 mGycm Automated exposure control for dose reduction was used. Ventricles have normal size. There is no mass effect nor midline shift. There is no sign of intracran ial hemorrhage. The calvarium is intact. Skull base is intact. Cervical vertebra show some straightening. There is anterior spurring from C3 to C6 with mild disc sp cassia narrowing. The facet joints are intact. There is no compression fracture. Skull base is intact. IMPRESSION: Negative CT scan of the brain. No change compared to old exam. Spondylotic changes in the cervical spine. No fracture.
--- NOTE | 2020-09-20 22:44 | CT ---
EXAMINATION TYPE: CT abdomen pelvis w con DATE OF EXAM: 09/20/2020 COMPARISON: 08/05/2020 HISTORY: abdominal and back pain following fall. hx of cervical ca. CT DLP: 1258.8 mGycm Automated exposure control for dose reduction was used. CONTRAST: Performed with IV Contrast, patient injected with 100 mL of Isovue 300. Images obtained from the diaphragm to the floor the pelvis with IV contrast. There is some atelectasis at the right lung base. There is 1 cm low-density nodule left lower lobe. T here is no pleural effusion. Heart size is normal. There are numerous areas of hypodensity throughout the liver of variable size. These measure up to 4 cm. The bile ducts are not dilated. Liver is enlarged and measures 22 cm in length. Spleen is intact. There is no pancreatic mass. Stomach is intact. There is irregular mass involving the right adrenal gland that measures 5 x 4 cm with central low att enuation. There is 2 cm left adrenal mass. Kidneys show satisfactory contrast opacification. There is thick walled cystic mass at the left renal hilum that measures 2.6 cm in diameter. This could be an atypical parapelvic cyst or renal tumor. There is 2 cm rounded subcutaneous mass on the right anterior mid abdomen. There is irregular mass in volving the omentum on the right side of the mid abdomen that measures 4.2 cm in diameter with centra l low attenuation. There is no evidence of a bowel obstruction. Bladder distends smoothly. There is e nlarged left inguinal lymph node measuring 2.3 cm. There is no free fluid in the pelvis. Lumbar vertebra have normal alignment. There is no compression fracture. The bony pelvis is intact. T he hip joints are intact. Uterus is anteverted. IMPRESSION: Multiple liver masses consistent with metastatic disease similar to old exam. Large right adrenal mass and smaller left adrenal mass consistent with metastatic disease. Right side omental mass consistent with metastatic disease. Subcutaneous mass right mid abdomen could relate to metastatic disease. Unusual cystic thick-walled mass at the left renal hilum could be metastatic. Unchanged. Enlarged lef t inguinal lymph node unchanged. No bowel obstruction. No free air. Atelectasis right lung base unchanged. There is improvement in the multiple nodules in the lower lobe s compared to old exam.
[2020-09-20] MEDS ORDERED: ONDANSETRON 4 MG/2 ML VIAL IVP PRN (23:26)
[2020-09-20] MEDS ORDERED: NALOXONE 0.4 MG/ML 1 ML VIAL IV PRN (23:26)
[2020-09-21] MEDS: HYDROmorphone 1 MG/ML 1 ML SYRINGE IVP PRN ×8 (00:24→21:21)
[2020-09-21] MEDS: SODIUM CHLORIDE 0.9% 1,000 ML IV SCH ×3 (02:28→12:45)
[2020-09-21 04:26] LABS: Appearance,Urine Clear (Clear); Bacteria,Urine Rare /hpf; Bilirubin,Urine Negative (Negative); Blood,Urine Trace (Negative); Calcium Oxalate Crystals,Urine Rare /hpf; Color,Urine Yellow; Glucose,Urine (UA) Negative (Negative); Hyaline Casts,Urine 4 /lpf (0-2); Ketones,Urine Negative (Negative); Leukocyte Esterase,Urine Trace (Negative); Nitrite,Urine Negative (Negative); PH, Urine 5.5 (5.0-8.0); Protein,Urine Negative (Negative); RBC,Urine 4 /hpf (0-5); Specific Gravity,Urine 1.039 (1.001-1.035); Urobilinogen,Urine <2.0 mg/dL (<2.0); WBC,Urine 12 /hpf (0-5)
[2020-09-21 07:12] LABS: Anisocytosis Slight; Basophils % (A) 1 %; Eosinophils # (A) 0.1 k/uL (0-0.7); Eosinophils % (A) 1 %; HCT 22.4 % (34.0-46.0); HGB 7.2 gm/dL (11.4-16.0); Hypochromasia Moderate; Lymphocytes # (A) 0.8 k/uL (1.0-4.8); Lymphocytes % (A) 11 %; MCH 28.1 pg (25.0-35.0); MCV 87.8 fL (80.0-100.0); Mean Platelet Volume 7.7; Monocytes # (A) 0.1 k/uL (0-1.0); Monocytes % (A) 2 %; Neutrophils # (A) 6.2 k/uL (1.3-7.7); Neutrophils % (A) 85 %; Platelet Count 235 k/uL (150-450); RBC 2.55 m/uL (3.80-5.40); RDW 19.4 % (11.5-15.5); WBC 7.3 k/uL (3.8-10.6)
[2020-09-21 07:22] LABS: Albumin 3.9 g/dL (3.5-5.0); Calcium 12.4 mg/dL (8.4-10.2); Potassium 4.8 mmol/L (3.5-5.1); Total Bilirubin 0.5 mg/dL (0.2-1.3); Total Protein 6.8 g/dL (6.3-8.2)
[2020-09-21] MEDS ORDERED: LIDOCAINE-PRILOCAINE 2.5-2.5% CREAM 5 GM TUBE TOPICAL PRN (08:45)
[2020-09-21] MEDS: PANTOPRAZOLE 40 MG/10 ML VIAL IVP SCH (10:07)
[2020-09-21] MEDS: LEVOTHYROXINE 75 MCG TAB PO SCH (10:08)
[2020-09-21] MEDS: SENNOSIDES-DOCUSATE SODIUM 1 EACH TAB PO SCH (10:08)
[2020-09-21] MEDS: MORPHINE SULFATE ER 30 MG TABLET PO SCH ×2 (10:08→20:32)
[2020-09-21] MEDS ORDERED: ONDANSETRON 4 MG/2 ML VIAL IVP STA (10:28)
--- NOTE | 2020-09-21 14:43 | P.HPIM ---
History of Present Illness H&P Date: 09/21/20 Chief Complaint: Abdominal pain Patient is a 49-year-old female with a known history of recurrent cervical cancer with metastasis undergoing chemotherapy, presents with worsening diffuse abdominal pain radiating straight back, status post fall accompanied by nausea, no vomiting, and no diarrhea. Reports possible head and left knee trauma with the fall. Reports she has chronic abdominal ,back and left knee pain, but pain continued to worsen-unrelieved by her current med regimen at home. Denies syncope Denies fever or chills. Denies chest pain, palpitations or shortness of breath. Denies any lightheadedness, dizziness or focal deficits. CT of brain/C-spine reported negative, no change. CT of abdomen and pelvis reported multiple liver masses consistent with metastatic disease similar to prior exam, large right lung mass and smaller left adrenal mass consistent with metastatic disease, right-sided omental mass consistent with metastatic disease, subcutaneous mass mid abdomen possible metastatic disease, left renal hilum thickened wall mass, possibly metastatic, unchanged enlarged left inguinal lymph node unchanged. Improvement in multiple nodules bilateral lower lobes. Lipase on admission 1286, currently down to 1055. T bili normal, elevated alk phos 618 currently 597. UA negative. Casas virus not detected. Afebrile, normal WBC. Hemoglobin 7.2, platelets 235, APTT 30.1. BUN 22, creatinine 0.9. Review of Systems ROS Statement: Those systems with pertinent positive or pertinent negative responses have been documented in the HPI. ROS Other: All systems not noted in ROS Statement are negative. Past Medical History Past Medical History: Cancer, Thyroid Disorder Additional Past Medical History / Comment(s): cervical CA, mets History of Any Multi-Drug Resistant Organisms: None Reported Past Surgical History: No Surgical Hx Reported Additional Past Surgical History / Comment(s): RADIATION TO UTERUS., port to R side Past Anesthesia/Blood Transfusion Reactions: No Reported Reaction Past Psychological History: Anxiety Smoking Status: Former smoker Past Alcohol Use History: None Reported Additional Past Alcohol Use History / Comment(s): . Past Drug Use History: None Reported, Marijuana - Past Family History Mother Family Medical History: Unable to Obtain Father History Unknown: Yes Family Medical History: Unable to Obtain Medications and Allergies Home Medications Medication Instructions Recorded Confirmed Type Prochlorperazine [Compazine] 10 mg PO Q6H PRN 07/09/20 09/20/20 History DULoxetine HCL [Cymbalta] 20 mg PO DAILY 30 Days #30 07/13/20 09/20/20 Rx capsule. Lidocaine-Prilocaine Cream [Emla 1 applic TOPICAL DAILY PRN 07/26/20 09/20/20 History Cream 2.5%/2.5%] polyethylene glycoL 3350 [Miralax] 17 gm PO DAILY powd.pack 07/28/20 09/20/20 Rx ALPRAZolam [Xanax] 0.5 mg PO TID PRN #30 tab 08/09/20 09/20/20 Rx Lactulose [Cephulac] 30 gm PO BID PRN 14 Days ml 08/09/20 09/20/20 Rx HYDROcodone/APAP 10-325MG [[place] 1 tab PO TID PRN 08/29/20 09/20/20 History 10-325] Levothyroxine Sodium [Synthroid] 150 mcg PO DAILY 08/29/20 09/20/20 History Morphine Sulfate ER [Ms Contin] 30 mg PO BID 08/29/20 09/20/20 History OLANZapine [ZyPREXA] 5 mg PO HS 09/20/20 09/20/20 History Sennosides/Docusate Sodium [[place] 1 tab PO DAILY 09/20/20 09/20/20 History Plus 8.6-50 mg Tablet] Allergies Allergy/AdvReac Type Severity Reaction Status Date / Time No Known Allergies Allergy Verified 09/20/20 18:52 Physical Exam Vitals: Vital Signs Temp Pulse Pulse Resp BP BP Pulse Ox 09/21/20 04:23 97.7 F 95 18 118/77 97 09/21/20 02:55 97.6 F 99 16 115/76 96 09/21/20 02:27 97.7 F 98 18 116/66 98 09/20/20 22:00 100 18 105/62 100 09/20/20 18:52 98.0 F 115 H 18 117/77 98 Intake and Output 09/20/20 09/21/20 09/21/20 22:59 06:59 14:59 Intake Total 300 Balance 300 Intake: Intake, IV Titration 300 Amount Sodium Chloride 0.9% 1, 300 000 ml @ 100 mls/hr IV . Q10H [facility] Rx#:[id number] Other: Voiding Method Toilet Incontinent # Voids 2 Weight 73.028 kg 73.028 kg PHYSICAL EXAMINATION: General: Alert and oriented 3, Patient is lying in the bed, no acute distress HEENT: Normocephalic. Neck is supple. Pupils reactive.Oral mucosa dry. Neck reveals no JVD, carotid bruits, or thyromegaly. CHEST EXAMINATION: Trachea is central. Symmetrical expansion. Lung fuller clear to auscultation and percussion. CARDIAC: Normal S1, S2 with no gallops. No murmurs ABDOMEN: Soft. Diffuse abdominal tenderness, no guarding or rigidity.Bowel sounds normal. No organomegaly. No abdominal bruits. Extremities: reveal no edema. No clubbing or cyanosis Neurologically awake, alert, oriented x3 with well-coordinated movements. No focal deficits noted Skin: No rash, warm and dry Results CBC & Chem 7: 09/21/20 06:43 09/21/20 06:43 Labs: Abnormal Lab Results - Last 24 Hours (Table) 09/20/20 09/20/20 09/20/20 Range/Units 21:32 21:32 21:32 RBC 2.59 L (3.80-5.40) m/uL Hgb 7.3 L (11.4-16.0) gm/dL Hct 22.4 L (34.0-46.0) % RDW 19.4 H (11.5-15.5) % Lymphocytes # (1.0-4.8) k/uL APTT 30.1 H (22.0-30.0) sec Sodium 135 L (137-145) mmol/L BUN 23 H (7-17) mg/dL Glucose (74-99) mg/dL Calcium 12.8 H (8.4-10.2) mg/dL AST (14-36) U/L Alkaline Phosphatase 618 H (38-126) U/L Lipase 1286 H (23-300) U/L Ur Specific [place] (1.001-1.035) Urine Blood (Negative) Ur Leukocyte Esterase (Negative) Urine WBC (0-5) /hpf Calcium Oxalate Crystal (None) /hpf Urine Bacteria (None) /hpf Hyaline Casts (0-2) /lpf 09/21/20 09/21/20 09/21/20 Range/Units 02:29 06:43 06:43 RBC 2.55 L (3.80-5.40) m/uL Hgb 7.2 L (11.4-16.0) gm/dL Hct 22.4 L (34.0-46.0) % RDW 19.4 H (11.5-15.5) % Lymphocytes # 0.8 L (1.0-4.8) k/uL APTT (22.0-30.0) sec Sodium (137-145) mmol/L BUN 22 H (7-17) mg/dL Glucose 106 H (74-99) mg/dL Calcium 12.4 H (8.4-10.2) mg/dL AST 37 H (14-36) U/L Alkaline Phosphatase 597 H (38-126) U/L Lipase 1055 H (23-300) U/L Ur Specific [place] 1.039 H (1.001-1.035) Urine Blood Trace H (Negative) Ur Leukocyte Esterase Trace H (Negative) Urine WBC 12 H (0-5) /hpf Calcium Oxalate Crystal Rare H (None) /hpf Urine Bacteria Rare H (None) /hpf Hyaline Casts 4 H (0-2) /lpf Thrombosis Risk Factor Assmnt - Choose All That Apply Any of the Below Risk Factors Present?: Yes Each Factor Represents 1 point: Age 41-60 years, Obesity (BMI >25) Other Risk Factors: Yes Each Risk Factor Represents 2 Points: Malignancy Thrombosis Risk Factor Assessment Total Risk Factor Score: 4 Thrombosis Risk Factor Assessment Level: Moderate Risk Assessment and Plan Assessment: Abdominal pain related to acute pancreatitis, possibly related to chemotherapy, possibly related to metastasis chronic constipation cervical cancer, receiving chemotherapy Elevated alk phos, probably secondary to chemotherapy, metastasis. normocytic anemia anxiety previous history of smoking hypothyroidism Plan continue on current medication regime ,monitoring and symptomatic treatment. Maintain IV fluid hydration. Bowel rest- NPO, with ice chips. Pain management. Anti-emetics. Continue with stool softeners, bowel regimen. GI consult in place. Repeat labs in a.m. Prognosis guarded given multiple complex medical issues. The impression and plan of care has been dictated as directed. : I performed a history and examination of this patient, discussed the same with the dictator. I agree with the dictator's note ,documented as a scribe. Any additional findings or plans will be noted.
--- NOTE | 2020-09-21 16:14 | US ---
EXAMINATION TYPE: US gallbladder DATE OF EXAM: 09/21/2020 COMPARISON: Recent CT CLINICAL HISTORY: pancreatitis. ABD pain, pancreatitis EXAM MEASUREMENTS: Liver Length: 22.8 cm Gallbladder Wall: 0.2 cm CBD: 0.6 cm Right Kidney: 10.7 x 4.2 x 5.0 cm Pancreas: wnl Liver: Enlarged, grossly heterogeneous with vague mass-like appearance consistent with known liver m ets Gallbladder: wnl Evidence for sonographic Lazcano's sign: Yes CBD: wnl Right Kidney: wnl IMPRESSION: 1. Heterogenous appearance to the liver compatible with the patient's reported hepatic metastasis.
--- NOTE | 2020-09-21 16:59 | P.CONS ---
History of Present Illness - Reason for Consult Consult date: 09/21/20 metastatic endometrial cancer, on treatment Requesting physician: Leora Araya - Chief Complaint fall, ,abd pain - History of Present Illness Ms. Wilson is a very pleasant 49-year-old female who is status post 4/6 cycles of carbo/Taxol for metastatic endometrial cancer. She was treated elsewhere but 07/04 seen here at [facility]. Admitted for back and groin pain, she had CT AP revealing concerning findings of LAD, liver lesion, adrenal mass, bilateral lung nodules. CT chest confirmed bilateral lung nodules. NM bone scan did not show bone mets. Biopsy of left inguinal mass revealed poorly diff squamous cell c/w cervical primary. she was started on treatment with carboplatin and Taxol. She was hospitalized in early July after cycle 1 for severe constipation, lower extremity swelling and abdominal pain. Conservative management and bowel movement relieved her presenting complaints. 08/12/20 she was seen in the office. Summarizing the previous month she had 3 admissions to [facility]-07/17-07/19, admitted for complaints of vomiting and headache. CT of the brain, one area of suspicion noted on MRI at her 07/09-07/13 visit, no acute changed, it is going to be followed. 07/26 - 07/28 admitted for abdominal pain. CT chest negative for PE. CTAP showed no change when compared to CT AP 07/09. Abdominal US, known liver and right adrenal lesions are less well visualized. Admitted 08/05 - 08/09 for abdominal pain. Lumbar spine MRI was negative for metastases. The abdominal/bladder ultrasound showing right adrenal mass and left lower pole mass in the kidneys. CT AP showed no new disease compared to scan from 10 days ago. Pt had cycle 1 of chemotherapy on 07/06, cycle 2 was delayed, given 08/03. At 09/01/20 visit she was s/p 3 cycles of carbo taxol, she was in the hospital over the weekend after Tx, treated for pancreatitis. 09/16/20 she was seen by Dr. Charles, CT showed improvement at all sites of metastatic disease, partial response. She was to finish 6 cycles. She had cycle 4 on 09/14. Plans for Pembrolizumab, as pt is PD-L1 +, at progression. Admitted after a fall, she has upper abdominal pain, mid back pain, persistent, home pain medications were not providing any relief. She feels consistently nauseated right now, no vomiting, no fevers, oral irritation, difficulty swallowing, chest pain, difficulty breathing, dysuria, hematuria, not sure of last bowel movement, legs feel weak. imaging of the head and neck did not reveal any fractures or head trauma. Lipase is 1055. Calcium 12.4. WBC and platelets are normal, hemoglobin 7.2. Malignancy Hx: lHistory of stage IIB cervical cancer, treated by Dr. Hendrix and Dr. Nice out of [facility], in 2016. 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 She had had a Pap smear in the prior year that was normal. CT AP 06/07/14 showed a heterogenous soft tissue mass in the region of the cervix, 3.5 x 5.1 cm. There was associated bilateral pelvic adenopathy, nodes up to 1.1 cm. Cervix bx 06/08/15 severe squamous dysplasia/carcinoma in situ with a foci suspicious for invasive squamous cell. She was seen by Urology Dr. Atkinson 07/01/15 and had cystoscopy with left ureteroscopy and lt ureteral dilation and stent placement for hydronephrosis. Started Tx with cisplatin with concurrent radiation (Dr. Hand), 6 cycles chemo, completing around 08/12/15, whole pelvis radiation, with a parametrium boost, started 06/28/15, completed 09/15/15. 07/30/[address] biopsy-aborted due to small size and location. 08/13/15 she had Aris sleeve placement with Dr. Hendrix. She was seen 09/30/15, for follow-up post cervical stent removal, and pelvic brachytherapy. Documented good effect from the pelvic radiation with a normal-appearing cervix on examination. PET scan 10/19/15 had an impression of marked improvement with a new small hypermetabolic right submandibular node, persistent hypermetabolic right paraspinal node at the carinal level unchanged, marked improvement in findings in the pelvis with only a small residual area of mildly increased activity in the cervix. There are [address] Hand, last one dated 10/26/16, pt needed to cont to be followed by Dr. Hendrix-which she did not from the documents available. Pt states she didn't think she had to follow up after treatment. Review of Systems 10 point ROS is neg except as stated in HPI Past Medical History Past Medical History: Cancer, Thyroid Disorder Additional Past Medical History / Comment(s): cervical CA, mets History of Any Multi-Drug Resistant Organisms: None Reported Past Surgical History: No Surgical Hx Reported Additional Past Surgical History / Comment(s): RADIATION TO UTERUS., port to R side Past Anesthesia/Blood Transfusion Reactions: No Reported Reaction Past Psychological History: Anxiety Smoking Status: Former smoker Past Alcohol Use History: None Reported Additional Past Alcohol Use History / Comment(s): . Past Drug Use History: Marijuana - Past Family History Mother Family Medical History: Unable to Obtain Father History Unknown: Yes Family Medical History: Unable to Obtain Medications and Allergies Home Medications Medication Instructions Recorded Confirmed Type Prochlorperazine [Compazine] 10 mg PO Q6H PRN 07/09/20 09/20/20 History DULoxetine HCL [Cymbalta] 20 mg PO DAILY 30 Days #30 07/13/20 09/20/20 Rx capsule. Lidocaine-Prilocaine Cream [Emla 1 applic TOPICAL DAILY PRN 07/26/20 09/20/20 History Cream 2.5%/2.5%] polyethylene glycoL 3350 [Miralax] 17 gm PO DAILY powd.pack 07/28/20 09/20/20 Rx ALPRAZolam [Xanax] 0.5 mg PO TID PRN #30 tab 08/09/20 09/20/20 Rx Lactulose [Cephulac] 30 gm PO BID PRN 14 Days ml 08/09/20 09/20/20 Rx HYDROcodone/APAP 10-325MG [[place] 1 tab PO TID PRN 08/29/20 09/20/20 History 10-325] Levothyroxine Sodium [Synthroid] 150 mcg PO DAILY 08/29/20 09/20/20 History Morphine Sulfate ER [Ms Contin] 30 mg PO BID 08/29/20 09/20/20 History OLANZapine [ZyPREXA] 5 mg PO HS 09/20/20 09/20/20 History Sennosides/Docusate Sodium [Senna 1 tab PO DAILY 09/20/20 09/20/20 History Plus 8.6-50 mg Tablet] Allergies Allergy/AdvReac Type Severity Reaction Status Date / Time No Known Allergies Allergy Verified 09/20/20 18:52 Physical Exam Vitals: Vital Signs Temp Pulse Pulse Resp BP BP Pulse Ox 09/21/20 04:23 97.7 F 95 18 118/77 97 09/21/20 02:55 97.6 F 99 16 115/76 96 09/21/20 02:27 97.7 F 98 18 116/66 98 09/20/20 22:00 100 18 105/62 100 09/20/20 18:52 98.0 F 115 H 18 117/77 98 Intake and Output 09/20/20 09/21/20 09/21/20 22:59 06:59 14:59 Intake Total 300 Balance 300 Intake: Intake, IV Titration 300 Amount Sodium Chloride 0.9% 1, 300 000 ml @ 100 mls/hr IV . Q10H [facility] Rx#:[id number] Other: Voiding Method Toilet Incontinent # Voids 2 Weight 73.028 kg 73.028 kg - Constitutional General appearance: cooperative, disheveled, mild distress, obese - EENT Eyes: anicteric sclerae, EOMI ENT: hearing grossly normal, normal oropharynx - Neck Neck: lymphadenopathy (1.5cm lt axilla) - Respiratory Respiratory: bilateral: CTA - Cardiovascular Rhythm: regular Heart sounds: normal: S1, S2 Abnormal Heart Sounds: no systolic murmur, no diastolic murmur, no rub, no S3 Gallop, no S4 Gallop, no click, no other leg Peripheral Edema: bilateral: Trace - Gastrointestinal General gastrointestinal: no absent bowel sounds, decreased bowel sounds, no distended, no hepatomegaly, no hyperactive bowel sounds, no normal bowel sounds, no organomegaly, no rigid, no scaphoid, soft, no splenomegaly, no tenderness, no umbilical hernia, no ventral hernia Localized gastrointestinal: tender: epigastric periumbilical - Integumentary Mult SQ tumor masses-thigh, buttocks - Neurologic Neurologic: CNII-XII intact - Musculoskeletal Musculoskeletal: generalized weakness - Psychiatric Psychiatric: A&O x's 3, intact judgment & insight Results CBC & Chem 7: 09/21/20 06:43 09/21/20 06:43 Labs: Abnormal Lab Results - Last 24 Hours (Table) 09/20/20 09/20/20 09/20/20 Range/Units 21:32 21:32 21:32 RBC 2.59 L (3.80-5.40) m/uL Hgb 7.3 L (11.4-16.0) gm/dL Hct 22.4 L (34.0-46.0) % RDW 19.4 H (11.5-15.5) % Lymphocytes # (1.0-4.8) k/uL APTT 30.1 H (22.0-30.0) sec Sodium 135 L (137-145) mmol/L BUN 23 H (7-17) mg/dL Glucose (74-99) mg/dL Calcium 12.8 H (8.4-10.2) mg/dL AST (14-36) U/L Alkaline Phosphatase 618 H (38-126) U/L Lipase 1286 H (23-300) U/L Ur Specific [place] (1.001-1.035) Urine Blood (Negative) Ur Leukocyte Esterase (Negative) Urine WBC (0-5) /hpf Calcium Oxalate Crystal (None) /hpf Urine Bacteria (None) /hpf Hyaline Casts (0-2) /lpf 09/21/20 09/21/20 09/21/20 Range/Units 02:29 06:43 06:43 RBC 2.55 L (3.80-5.40) m/uL Hgb 7.2 L (11.4-16.0) gm/dL Hct 22.4 L (34.0-46.0) % RDW 19.4 H (11.5-15.5) % Lymphocytes # 0.8 L (1.0-4.8) k/uL APTT (22.0-30.0) sec Sodium (137-145) mmol/L BUN 22 H (7-17) mg/dL Glucose 106 H (74-99) mg/dL Calcium 12.4 H (8.4-10.2) mg/dL AST 37 H (14-36) U/L Alkaline Phosphatase 597 H (38-126) U/L Lipase 1055 H (23-300) U/L Ur Specific [place] 1.039 H (1.001-1.035) Urine Blood Trace H (Negative) Ur Leukocyte Esterase Trace H (Negative) Urine WBC 12 H (0-5) /hpf Calcium Oxalate Crystal Rare H (None) /hpf Urine Bacteria Rare H (None) /hpf Hyaline Casts 4 H (0-2) /lpf CT scan - abdomen: report reviewed CT Scan - head: report reviewed CT scan - pelvis: report reviewed Assessment and Plan (1) Fall Narrative/Plan: No fracture or concussion on imaging. PT/OT. Recommendations for assistive devices for pt. PT/OT at home possibly. Current Visit: Yes Status: Acute Priority: High Code(s): W19.XXXA - UNSPECIFIED FALL, INITIAL ENCOUNTER SNOMED Code(s): 3714019 (2) Pancreatitis Narrative/Plan: Per IM mgmt Current Visit: Yes Status: Acute Priority: High Code(s): K85.90 - ACUTE PANCREATITIS WITHOUT NECROSIS OR INFECTION, UNSP SNOMED Code(s): 90789892 (3) Uterine cancer Narrative/Plan: Pt is s/p 4/6 cycles. She has been hospitalized after each cycle, the last 2 for pancreatitis. Literature review dose not have documentation of carbo/taxol treatment being associated with pancreatitis. But, pt has 2 more cycle to complete. Will discuss hospitalization with primary Oncologist. Her most recent scans showed a partial response. Current Visit: Yes Status: Chronic Priority: Medium Code(s): C55 - MALIGNANT NEOPLASM OF UTERUS, PART UNSPECIFIED SNOMED Code(s): 536208372 Plan: Dr. Friendests: I have performed H&P, seen and examined pt, developed impression and plan of care. Discussed with dictator. Agree with dictation, documented as a scribe
[2020-09-21] MEDS: ALPRAZolam 0.5 MG TAB PO PRN (20:36)
[2020-09-21] MEDS: ONDANSETRON 4 MG/2 ML VIAL IVP PRN (23:01)
[2020-09-22] MEDS: HYDROmorphone 1 MG/ML 1 ML SYRINGE IVP PRN ×6 (00:41→23:17)
[2020-09-22] MEDS: ONDANSETRON 4 MG/2 ML VIAL IVP PRN (03:29)
[2020-09-22] MEDS: LEVOTHYROXINE 75 MCG TAB PO SCH (05:09)
[2020-09-22 06:18] LABS: Anisocytosis Slight; Basophils % (A) 0 %; Eosinophils # (A) 0.1 k/uL (0-0.7); Eosinophils % (A) 1 %; HGB 7.1 gm/dL (11.4-16.0); Hypochromasia Moderate; Lymphocytes # (A) 1.1 k/uL (1.0-4.8); Lymphocytes % (A) 11 %; MCH 28.4 pg (25.0-35.0); MCHC 32.2 g/dL (31.0-37.0); MCV 88.1 fL (80.0-100.0); Mean Platelet Volume 7.6; Monocytes # (A) 0.6 k/uL (0-1.0); Monocytes % (A) 6 %; Neutrophils # (A) 7.8 k/uL (1.3-7.7); Neutrophils % (A) 79 %; Platelet Count 241 k/uL (150-450); RDW 19.8 % (11.5-15.5); WBC 9.8 k/uL (3.8-10.6)
--- NOTE | 2020-09-22 07:02 | P.CONS ---
History of Present Illness - Reason for Consult Consult date: 09/21/20 Pancreatitis Requesting physician: Kg Ayala - Chief Complaint Mechanical fall - History of Present Illness 49-year-old female with a medical history significant for metastatic cervical cancer undergoing chemotherapy who presented to the hospital for evaluation of mechanical fall as well as back and abdominal pain with associated nausea and vomiting. The patient was previously hospitalized on 09/01 with a diagnosis of pancreatitis. No significant alcohol use this patient was only a social drinker. No history of gallbladder disease. Patient was treated with medical management and sent home and presented back to the hospital with back and abdominal pain after mechanical fall. Patient was found to have significant elevation in her amylase and lipase on presentation with a lipase of 1286 on presentation currently 1055. Total bilirubin 0.5, AST 37 and ALT 10 with alkaline phosphatase 597. The patient reports abdominal pain in the epigastric region and diffuse across her abdomen. She reports tenderness to palpation. She has associated nausea and vomiting. No change in bowel habits or reports of GI bleeding. The patient previously underwent CT scan on 06/21/2020 concerning for metastatic disease with liver lesions, adrenal mass and lateral lung nodule noted. She has previously had chemotherapy initiated in June 2020. Her last treatment was on Sunday prior to presentation. Review of Systems REVIEW OF SYSTEMS: CONSTITUTIONAL: Denies any fevers, chills,but she does report some fatigue and weakness CARDIOVASCULAR: Denies any chest pain, palpitations high or low blood pressures RESPIRATORY: Denies any shortness of breath, hemoptysis or cough. GENITOURINARY: No dysuria or hematuria. MUSCULOSKELETAL: No weakness reported. SKIN: Denies any new rashes or lesions, jaundice or pallor. PSYCHIATRIC: Denies any depression or anxiety. NEUROLOGY: Denies headache, denies any new focal deficits. EARS/NOSE/THROAT: No recent hearing change, congestion, nasal discharge or sore throat. EYES: No pain in eyes, discharge or change in vision. GASTROINTESTINAL: As per HPI. Past Medical History Past Medical History: Cancer, Thyroid Disorder Additional Past Medical History / Comment(s): cervical CA, mets History of Any Multi-Drug Resistant Organisms: None Reported Past Surgical History: No Surgical Hx Reported Additional Past Surgical History / Comment(s): RADIATION TO UTERUS., port to R side Past Anesthesia/Blood Transfusion Reactions: No Reported Reaction Past Psychological History: Anxiety Smoking Status: Former smoker Past Alcohol Use History: None Reported Additional Past Alcohol Use History / Comment(s): . Past Drug Use History: Marijuana - Past Family History Mother Family Medical History: Unable to Obtain Father History Unknown: Yes Family Medical History: Unable to Obtain Medications and Allergies Home Medications Medication Instructions Recorded Confirmed Type Prochlorperazine [Compazine] 10 mg PO Q6H PRN 07/09/20 09/20/20 History DULoxetine HCL [Cymbalta] 20 mg PO DAILY 30 Days #30 07/13/20 09/20/20 Rx capsule. Lidocaine-Prilocaine Cream [Emla 1 applic TOPICAL DAILY PRN 07/26/20 09/20/20 History Cream 2.5%/2.5%] polyethylene glycoL 3350 [Miralax] 17 gm PO DAILY powd.pack 07/28/20 09/20/20 Rx ALPRAZolam [Xanax] 0.5 mg PO TID PRN #30 tab 08/09/20 09/20/20 Rx Lactulose [Cephulac] 30 gm PO BID PRN 14 Days ml 08/09/20 09/20/20 Rx HYDROcodone/APAP 10-325MG [[place] 1 tab PO TID PRN 08/29/20 09/20/20 History 10-325] Levothyroxine Sodium [Synthroid] 150 mcg PO DAILY 08/29/20 09/20/20 History Morphine Sulfate ER [Ms Contin] 30 mg PO BID 08/29/20 09/20/20 History OLANZapine [ZyPREXA] 5 mg PO HS 09/20/20 09/20/20 History Sennosides/Docusate Sodium [Senna 1 tab PO DAILY 09/20/20 09/20/20 History Plus 8.6-50 mg Tablet] Allergies Allergy/AdvReac Type Severity Reaction Status Date / Time No Known Allergies Allergy Verified 09/20/20 18:52 Physical Exam Vitals: Vital Signs Temp Pulse Pulse Resp BP BP Pulse Ox 09/21/20 11:32 98.8 F 120 H 18 119/76 96 09/21/20 04:23 97.7 F 95 18 118/77 97 09/21/20 02:55 97.6 F 99 16 115/76 96 09/21/20 02:27 97.7 F 98 18 116/66 98 09/20/20 22:00 100 18 105/62 100 09/20/20 18:52 98.0 F 115 H 18 117/77 98 Intake and Output 09/20/20 09/21/20 09/21/20 22:59 06:59 14:59 Intake Total 300 Balance 300 Intake: Intake, IV Titration 300 Amount Sodium Chloride 0.9% 1, 300 000 ml @ 100 mls/hr IV . Q10H COUNT INCLUDES THE [facility] Rx#:[id number] Other: Voiding Method Toilet Incontinent # Voids 2 Weight 73.028 kg 73.028 kg On physical examination, patient appears comfortable in no apparent distress. HEAD: Normocephalic, atraumatic. EYES: No scleral icterus. No conjunctival injection. MOUTH: No lesions, tongue midline. NECK: Trachea midline, no gross abnormalities. CHEST: Clear to auscultation with no wheezing or rhonchi appreciated. HEART: Regular rate and rhythm. ABDOMEN: Soft, tender to palpation. Bowel sounds are positive. No organomegaly. No guarding or rigidity. EXTREMITIES: No pedal edema. SKIN: No rashes, no jaundice. NEUROLOGIC: Alert and oriented x3. No focal deficits. Results CBC & Chem 7: 09/22/20 05:44 09/21/20 06:43 Labs: Abnormal Lab Results - Last 24 Hours (Table) 09/20/20 09/20/20 09/20/20 Range/Units 21:32 21:32 21:32 RBC 2.59 L (3.80-5.40) m/uL Hgb 7.3 L (11.4-16.0) gm/dL Hct 22.4 L (34.0-46.0) % RDW 19.4 H (11.5-15.5) % Lymphocytes # (1.0-4.8) k/uL APTT 30.1 H (22.0-30.0) sec Sodium 135 L (137-145) mmol/L BUN 23 H (7-17) mg/dL Glucose (74-99) mg/dL Calcium 12.8 H (8.4-10.2) mg/dL AST (14-36) U/L Alkaline Phosphatase 618 H (38-126) U/L Lipase 1286 H (23-300) U/L Ur Specific [place] (1.001-1.035) Urine Blood (Negative) Ur Leukocyte Esterase (Negative) Urine WBC (0-5) /hpf Calcium Oxalate Crystal (None) /hpf Urine Bacteria (None) /hpf Hyaline Casts (0-2) /lpf 09/21/20 09/21/20 09/21/20 Range/Units 02:29 06:43 06:43 RBC 2.55 L (3.80-5.40) m/uL Hgb 7.2 L (11.4-16.0) gm/dL Hct 22.4 L (34.0-46.0) % RDW 19.4 H (11.5-15.5) % Lymphocytes # 0.8 L (1.0-4.8) k/uL APTT (22.0-30.0) sec Sodium (137-145) mmol/L BUN 22 H (7-17) mg/dL Glucose 106 H (74-99) mg/dL Calcium 12.4 H (8.4-10.2) mg/dL AST 37 H (14-36) U/L Alkaline Phosphatase 597 H (38-126) U/L Lipase 1055 H (23-300) U/L Ur Specific [place] 1.039 H (1.001-1.035) Urine Blood Trace H (Negative) Ur Leukocyte Esterase Trace H (Negative) Urine WBC 12 H (0-5) /hpf Calcium Oxalate Crystal Rare H (None) /hpf Urine Bacteria Rare H (None) /hpf Hyaline Casts 4 H (0-2) /lpf Microbiology - Last 24 Hours (Table) 09/21/20 02:29 Urine Culture - Preliminary Urine,Voided CT scan - abdomen: report reviewed Assessment and Plan (1) Pancreatitis Narrative/Plan: 49-year-old female with metastatic cervical cancer presented to the hospital with abdominal and back pain after mechanical fall with associated nausea and vomiting. Significant elevation in lipase on presentation. Previously patient was hospitalized for pancreatitis in August and treated medically. She denies any new exposures, new medications except for the chemotherapy, excessive alcohol use or gallbladder disease. Unclear etiology, may be medication related, plan is for further laboratory evaluation to rule out other process otherwise continue medical management. Current Visit: Yes Status: Acute Priority: High Code(s): K85.90 - ACUTE PANCREATITIS WITHOUT NECROSIS OR INFECTION, UNSP SNOMED Code(s): 48173260 (2) Fall Current Visit: Yes Status: Acute Priority: High Code(s): W19.XXXA - UNSPECIFIED FALL, INITIAL ENCOUNTER SNOMED Code(s): 1333617 (3) Metastatic cancer Current Visit: Yes Status: Acute Code(s): C79.9 - SECONDARY MALIGNANT NEOPLASM OF UNSPECIFIED SITE SNOMED Code(s): 767832760 (4) Abdominal pain Current Visit: No Status: Acute Priority: High Code(s): R10.9 - UN SPECIFIED ABDOMINAL PAIN SNOMED Code(s): 91981166 Plan: Supportive care N.p.o. except for ice chips and advance as tolerated Continue IV fluid hydration, IV fluids initiated on 150 cc/h Continue pain control Encourage ambulation as tolerated Laboratory evaluation including triglycerides, CADY, and IgG4 ordered Ultrasound of the abdomen ordered Thank you for allowing us to participate in the care of the patient we will continue to follow
[2020-09-22 07:38] LABS: ALT 9 U/L (4-34); AST 31 U/L (14-36); African American GFR (CKD) 87 (>60 ml/min/1.73 sqM); Albumin 3.9 g/dL (3.5-5.0); Albumin/Globulin Ratio 1.4; Alkaline Phosphatase 533 U/L (38-126); Anion Gap 12 mmol/L; Blood Urea Nitrogen 19 mg/dL (7-17); Calcium 11.7 mg/dL (8.4-10.2); Carbon Dioxide 17 mmol/L (22-30); Chloride 108 mmol/L (98-107); Globulin 2.8 g/dL; Glucose 88 mg/dL (74-99); Lipase 867 U/L (23-300); Non-African American GFR(CKD) 75 (>60 ml/min/1.73 sqM); Potassium 4.5 mmol/L (3.5-5.1); Sodium 137 mmol/L (137-145); Total Bilirubin 0.5 mg/dL (0.2-1.3); Total Protein 6.7 g/dL (6.3-8.2); Triglycerides 233 mg/dL (<150)
[2020-09-22] MEDS: SENNOSIDES-DOCUSATE SODIUM 1 EACH TAB PO SCH (07:39)
[2020-09-22] MEDS: PANTOPRAZOLE 40 MG/10 ML VIAL IVP SCH (07:39)
[2020-09-22] MEDS: MORPHINE SULFATE ER 30 MG TABLET PO SCH ×2 (07:39→20:41)
[2020-09-22] MEDS: SODIUM CHLORIDE 0.9% 1,000 ML IV SCH ×4 (07:40→20:40)
[2020-09-22] MEDS: ALPRAZolam 0.5 MG TAB PO PRN ×2 (10:07→20:55)
--- NOTE | 2020-09-22 12:25 | P.PN ---
Subjective Progress Note Date: 09/22/20 Principal diagnosis: Pancreatitis Should seen and examined lying in bed. She is very teary-eyed today. She states she wants to be discharged home. States her abdominal pain has improved significantly. She denies any nausea or vomiting. States she did not have a bowel movement today. Gallbladder ultrasound shows liver enlarged grossly heterogeneous with vague masslike appearance consistent with no liver metastases in the liver. Gallbladder within normal limit with no gallstones noted, CBD 0.6 cm. Triglycerides 237, lipase improved to 867. CADY and IgG4 pending. Objective - Vital Signs Vital signs: Vital Signs Temp 97.5 F L 09/22/20 05:00 Pulse 92 09/22/20 05:00 Resp 20 09/22/20 05:00 BP 113/75 09/22/20 05:00 Pulse Ox 100 09/22/20 05:00 Intake & Output 09/21/20 09/22/20 09/22/20 18:59 06:59 18:59 Intake Total 900 100 Balance 900 100 Intake: Intake, IV Titration 900 Amount Sodium Chloride 0.9% 1, 900 000 ml @ 150 mls/hr IV . Q6H40M [facility] Rx#:[id number] Oral 100 Other: Voiding Method Toilet Incontinent # Voids 2 - Exam General appearance: The patient is alert, oriented, appears in no acute distress. HET: Head is normocephalic and atraumatic. Conjunctiva pink. Sclera anicteric. Neck: Supple without lymphadenopathy. Abdomen: Soft, very mild epigastric tenderness, nondistended with bowel sounds. No guarding or rigidity. Extremities: Normal skin color and turgor. No pedal edema Skin: No rashes, no jaundice Neurological: No focal deficits. Alert and oriented 3. - Labs CBC & Chem 7: 09/22/20 05:44 09/22/20 05:44 Labs: Abnormal Lab Results - Last 24 Hours (Table) 09/22/20 09/22/20 Range/Units 05:44 05:44 RBC 2.50 L (3.80-5.40) m/uL Hgb 7.1 L (11.4-16.0) gm/dL Hct 22.0 L (34.0-46.0) % RDW 19.8 H (11.5-15.5) % Neutrophils # 7.8 H (1.3-7.7) k/uL Chloride 108 H (98-107) mmol/L Carbon Dioxide 17 L (22-30) mmol/L BUN 19 H (7-17) mg/dL Calcium 11.7 H (8.4-10.2) mg/dL Alkaline Phosphatase 533 H (38-126) U/L Triglycerides 233 H (<150) mg/dL Lipase 867 H (23-300) U/L Microbiology - Last 24 Hours (Table) 09/21/20 02:29 Urine Culture - Preliminary Urine,Voided Assessment and Plan (1) Pancreatitis Narrative/Plan: 49-year-old female with metastatic cervical cancer presented to the hospital with abdominal and back pain after mechanical fall with associated nausea and vomiting. Significant elevation in lipase on presentation. Previously patient was hospitalized for pancreatitis in August and treated medically. She denies any new exposures, new medications except for the chemotherapy, excessive alcohol use or gallbladder disease. Unclear etiology, may be medication related, plan is for further laboratory evaluation to rule out other process otherwise continue medical management. Current Visit: Yes Status: Acute Priority: High Code(s): K85.90 - ACUTE PA NCREATITIS WITHOUT NECROSIS OR INFECTION, UNSP SNOMED Code(s): 37424647 (2) Fall Current Visit: Yes Status: Acute Priority: High Code(s): W19.XXXA - UNSPECIFIED FALL, INITIAL ENCOUNTER SNOMED Code(s): 5896939 (3) Metastatic cancer Current Visit: Yes Status: Acute Code(s): C79.9 - SECONDARY MALIGNANT NEOPLASM OF UNSPECIFIED SITE SNOMED Code(s): 418963203 (4) Abdominal pain Current Visit: No Status: Acute Priority: High Code(s): R10.9 - UNSPECIFIED ABDOMINAL PAIN SNOMED Code(s): 76604669 Plan: Supportive care Advance to clear liquid diet Continue IV fluid hydration Continue pain control Encourage ambulation as tolerated Laboratory evaluation including triglycerides, CADY, and IgG4 ordered Ultrasound of the abdomen ordered Thank you for allowing us to participate in the care of the patient we will continue to follow Dr. Solorzano I agree with the dictator's note, documented as a scribe by Anel Weller.
--- NOTE | 2020-09-22 14:26 | P.CN ---
Psychiatric Consult - . Consult date: 09/22/20 Consult:: IDENTIFYING DATA: This patient is a single, employed, 49-year-old female who was admitted for abdominal pain. HISTORY OF PRESENT ILLNESS: The patient has a significant history of recurrent cervical cancer with metastases undergoing chemotherapy, and pancreatitis, who presented to the hospital on 09/21/20 with a chief complaint of abdominal pain. Psychiatry has been consulted for mood stabilization. As per discussion with the patient's nurse, the patient has been displaying mood lability causing the staff and the patient's primary team concern. The patient has been noted to be happy and elevated in some instances, followed by very depressed and sad and tearful shortly after. Upon evaluation, the patient reports that she has been feeling increasingly emotional since starting chemotherapy. She reports that because of her chemotherapy, she has undergone a medically induced menopause. The patient does endorse increased stressors, in particular related to her physical health. The patient states that she has been upset while in the hospital because she had a strong desire to leave to return home to her bed. She states that she understands that she needs treatment here and apologizes for her mood swings. The patient also reads out a letter that she wrote for her mother and father to show her appreciation for them. In regards to bipolar symptoms, the patient denies any periods of excessive energy, pressured speech, racing thoughts, or grandiosity. She does endorse mood lability. She denies any auditory or visual hallucinations. She denies any paranoia or other delusions. She is not reporting any suicidal or homicidal ideation, intention, and/or plan. She denies any prior attempts at suicide. She is not reporting any significant symptoms of depression. She denies any issues with sleep or a ppetite aside from nausea related to her chemotherapy. The patient's home medications include Zyprexa 5 mg at bedtime and Cymbalta 20 mg by mouth daily as well as Xanax for anxiety. The patient is able to recall the Cymbalta being prescribed to her for management of pain but does not remember why Zyprexa is prescribed to her. PAST PSYCHIATRIC HISTORY: The patient denies any psychiatric history. Her home medications include Cymbalta, Zyprexa, and Xanax. She denies any prior psychotropic medication regimens. She denies any history of inpatient psychiatric hospitals patient's she denies any current outpatient psychiatric follow-up for counseling services. Patient denies any history of suicide attempts. PAST MEDICAL HISTORY: Past Medical History: Cancer, Thyroid Disorder Additional Past Medical History / Comment(s): cervical CA, mets History of Any Multi-Drug Resistant Organisms: None Reported Past Surgical History: No Surgical Hx Reported Additional Past Surgical History / Comment(s): RADIATION TO UTERUS., port to R side Past Anesthesia/Blood Transfusion Reactions: No Reported Reaction Past Psychological History: Anxiety Smoking Status: Former smoker Past Alcohol Use History: None Reported Additional Past Alcohol Use History / Comment(s): . Past Drug Use History: None Reported, Marijuana ALLERGIES: NO KNOWN DRUG ALLERGIES CHEMICAL DEPENDENCY HISTORY: Patient reports that she is a former smoker. She quit tobacco since her diagnosis of cancer. She reports occasional marijuana use in the form of vegetables. She does report a very remote history of cocaine use, stating that her last use was greater than 10 years ago. She denies any alcohol or other illicit drug use. FAMILY PSYCHIATRIC/SUBSTANCE USE HISTORY: The patient does not endorse any family history of psychiatric illness or substance abuse. The patient is adopted. SOCIAL HISTORY: The patient reports that she is adopted. She states that she is single. She has 3 children whom she has given up for adoption. 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 She reports an 11th grade education. She quit tobacco in June 2019. MENTAL STATUS EXAM: General Appearance: Patient appears to be stated age is alert, pleasant, and cooperative. Patient appears to have fair hygiene and grooming wearing hospital gown with fair eye contact. Patient has short hair and appears to be balding is likely secondary to her chemotherapy. Behavior: Patient is calmly lying in bed without any agitated behavior. Patient becomes appropriately tearful at times. Speech: Patient's speech is fluent and nonpressured. Mood/Affect: Patient reports their mood is "okay, a little nervous", affect is highly expensive but otherwise euthymic. Suicidality/Homicidality: Patient denies having any suicidal or homicidal ideation intent or plan. Perceptions: Patient denies any visual hallucinations and denies any auditory hallucinations Though content/process: There is no evidence of any delusional thought content and thought process is linear and goal-directed. Memory and concentration: AOX3, grossly intact for the purposes of this session. Can spell "WORLD" backwards Judgment and insight: Fair IMPRESSIONS: Mood disorder, unspecified, secondary to general medical condition - the patient is not presenting with any significant psychiatric symptoms consistent with a bipolar or depressive diagnosis. The patient does report that she has a chemically induced menopausal state which may be contributing to her mood lability on top of her psychosocial stressors, in particular with her cancer diagnosis. Cannabis use Pancreatitis Metastatic cancer PLAN: -At this time patient DOES NOT meet criteria for inpatient psychiatric admission. -Would recommend the following medication changes/additions: After discussion with the patient, she is open to trying Abilify for management of mood lability and to augment her antidepressant medication of Cymbalta. The risks, benefits, and treatment alternatives were discussed with the patient in great detail. -Start Abilify 5 mg by mouth daily for mood augmentation/stabilization -Restart Cymbalta 20 mg by mouth twice a day for management of depression -Continue Xanax 0.5 mg by mouth 3 times a day when necessary for anxiety -Will continue to follow along 09/22/20 14:25
--- NOTE | 2020-09-22 15:53 | P.PN ---
Subjective Progress Note Date: 09/22/20 Patient is a 49-year-old female with a known history of recurrent cervical cancer with metastasis undergoing chemotherapy, presents with worsening diffuse abdominal pain radiating straight back, status post fall accompanied by nausea, no vomiting, and no diarrhea. Reports possible head and left knee trauma with the fall. Reports she has chronic abdominal ,back and left knee pain, but pain continued to worsen-unrelieved by her current med regimen at home. Denies syncope Denies fever or chills. Denies chest pain, palpitations or shortness of breath. Denies any lightheadedness, dizziness or focal deficits. CT of brain/C-spine reported negative, no change. CT of abdomen and pelvis reported multiple liver masses consistent with metastatic disease similar to prior exam, large right lung mass and smaller left adrenal mass consistent with metastatic disease, right-sided omental mass consistent with metastatic disease, subcutaneous mass mid abdomen possible metastatic disease, left renal hilum t hickened wall mass, possibly metastatic, unchanged enlarged left inguinal lymph node unchanged. Improvement in multiple nodules bilateral lower lobes. Lipase on admission 1286, currently down to 1055. T bili normal, elevated alk phos 618 currently 597. UA negative. Casas virus not detected. Afebrile, normal WBC. Hemoglobin 7.2, platelets 235, APTT 30.1. BUN 22, creatinine 0.9. 09/22/20 maintained on IV fluid hydration with significant clinical improvement. Lipase 867, less abdominal pain. Alk phos down to 533. Tolerating ice chips with no nausea vomiting or diarrhea. Gallbladder ultrasound reporting heterogenesis appearance to the liver compatible with reported hepatic metastasi s. Teary-eyed, eager to go home. Objective - Vital Signs Vital signs: Vital Signs Temp 97.7 F 09/22/20 12:44 Pulse 94 09/22/20 12:44 Resp 18 09/22/20 12:44 BP 117/79 09/22/20 12:44 Pulse Ox 98 09/22/20 12:44 Intake & Output 09/21/20 09/22/20 09/22/20 18:59 06:59 18:59 Intake Total 900 100 Balance 900 100 Intake: Intake, IV Titration 900 Amount Sodium Chloride 0.9% 1, 900 000 ml @ 150 mls/hr IV . Q6H40M [facility] Rx#:[id number] Oral 100 Other: Voiding Method Toilet Incontinent # Voids 2 - Exam PHYSICAL EXAMINATION: General: Alert and oriented 3, Patient is sitting up in the bed, no acute dist ress, teary-eyed HEENT: Normocephalic. Neck is supple. Pupils reactive.Oral mucosa dry. Neck reveals no JVD, carotid bruits, or thyromegaly. CHEST EXAMINATION: Trachea is central. Symmetrical expansion. Lung fuller clear to auscultation and percussion. CARDIAC: Normal S1, S2 with no gallops. No murmurs ABDOMEN: Soft. Decreased Diffuse abdominal tenderness, no guarding or rigidity.Bowel sounds normal. No organomegaly. No abdominal bruits. Extremities: reveal no edema. No clubbing or cyanosis Neurologically awake, alert, oriented x3 with well-coordinated movements. No focal deficits noted Skin: No rash, warm and dry - Labs CBC & Chem 7: 09/22/20 05:44 09/22/20 05:44 Labs: Abnormal Lab Results - Last 24 Hours (Table) 09/22/20 09/22/20 Range/Units 05:44 05:44 RBC 2.50 L (3.80-5.40) m/uL Hgb 7.1 L (11.4-16.0) gm/dL Hct 22.0 L (34.0-46.0) % RDW 19.8 H (11.5-15.5) % Neutrophils # 7.8 H (1.3-7.7) k/uL Chloride 108 H (98-107) mmol/L Carbon Dioxide 17 L (22-30) mmol/L BUN 19 H (7-17) mg/dL Calcium 11.7 H (8.4-10.2) mg/dL Alkaline Phosphatase 533 H (38-126) U/L Triglycerides 233 H (<150) mg/dL Lipase 867 H (23-300) U/L Microbiology - Last 24 Hours (Table) 09/21/20 02:29 Urine Culture - Preliminary Urine,Voided Gram Neg Bacilli Assessment and Plan Assessment: Abdominal pain related to acute pancreatitis, possibly related to chemotherapy, possibly related to metastasis Fall chronic constipation cervical cancer, receiving chemotherapy Elevated alk phos, probably secondary to chemotherapy, metastasis. normocytic anemia anxiety previous history of smoking hypothyroidism Plan continue on current medication regime ,monitoring and symptomatic treatment. Maintain IV fluid hydration. Diet advancement as per GI. Pain management. Continue with stool softeners, bowel regimen. Repeat labs in a.m. discussed possible DC home tomorrow pending continued significant improvement in lipase and tolerating diet .Prognosis guarded given multiple complex medical issues. The impression and plan of care has been dictated as directed. : I performed a history and examination of this patient, discussed the same with the dictator. I agree with the dictator's note ,documented as a scribe. Any additional findings or plans will be noted.
--- NOTE | 2020-09-22 15:57 | P.PN ---
Subjective Progress Note Date: 09/22/20 Principal diagnosis: abd pain, pancreatitis Pt mood is very labile today. She agrees with the plan of care then, very quickly she becomes tearful and stating she is not understanding why she has to stay in the hospital. Nursing and staff report pt was aggressive over night, be dylon was completely normal when her mother was there visiting yesterday. Objective - Vital Signs Vital signs: Vital Signs Temp 97.5 F L 09/22/20 05:00 Pulse 92 09/22/20 05:00 Resp 20 09/22/20 05:00 BP 113/75 09/22/20 05:00 Pulse Ox 100 09/22/20 05:00 Intake & Output 09/21/20 09/22/20 09/22/20 18:59 06:59 18:59 Intake Total 900 100 Balance 900 100 Intake: Intake, IV Titration 900 Amount Sodium Chloride 0.9% 1, 900 000 ml @ 150 mls/hr IV . Q6H40M [facility] Rx#:[id number] Oral 100 Other: Voiding Method Toilet Incontinent # Voids 2 - Constitutional General appearance: Present: average body habitus, disheveled, mild distress, severe distress - EENT Eyes: Present: anicteric sclerae, EOMI ENT: Present: hearing grossly normal - Respiratory Respiratory: bilateral: CTA - Cardiovascular Heart sounds: normal: S1, S2 - Gastrointestinal General gastrointestinal: Present: normal bowel sounds, soft, tenderness - Integumentary Integumentary: Present: pale - Neurologic Neurologic: Present: CNII-XII intact - Musculoskeletal Musculoskeletal: Present: strength equal bilaterally - Psychiatric Psychiatric: Present: A&O x's 3 - Labs CBC & Chem 7: 09/22/20 05:44 09/22/20 05:44 Labs: Abnormal Lab Results - Last 24 Hours (Table) 09/22/20 09/22/20 Range/Units 05:44 05:44 RBC 2.50 L (3.80-5.40) m/uL Hgb 7.1 L (11.4-16.0) gm/dL Hct 22.0 L (34.0-46.0) % RDW 19.8 H (11.5-15.5) % Neutrophils # 7.8 H (1.3-7.7) k/uL Chloride 108 H (98-107) mmol/L Carbon Dioxide 17 L (22-30) mmol/L BUN 19 H (7-17) mg/dL Calcium 11.7 H (8.4-10.2) mg/dL Alkaline Phosphatase 533 H (38-126) U/L Triglycerides 233 H (<150) mg/dL Lipase 867 H (23-300) U/L Microbiology - Last 24 Hours (Table) 09/21/20 02:29 Urine Culture - Preliminary Urine,Voided Assessment and Plan (1) Fall Narrative/Plan: No fracture or concussion on imaging. PT/OT. Recommendations for assistive devices for pt. PT/OT at home possibly. Current Visit: Yes Status: Acute Priority: High Code(s): W19.XXXA - UNSPECIFIED FALL, INITIAL ENCOUNTER SNOMED Code(s): 9686604 (2) Pancreatitis Narrative/Plan: Pancreatic enzymes decreasing, she has been started in clear liquids Current Visit: Yes Status: Acute Priority: High Code(s): K85.90 - ACUTE PANCREATITIS WITHOUT NECROSIS OR INFECTION, UNSP SNOMED Code(s): 77742193 (3) Uterine cancer Narrative/Plan: Pt is s/p 4/6 cycles. She has been hospitalized after each cycle, the last 2 for pancreatitis. Literature review dose not have documentation of carbo/taxol treatment being associated with pancreatitis. But, pt has 2 more cycle to complete. Will discuss hospitalization with primary Oncologist. Her most recent scans showed a partial response. Current Visit: Yes Status: Chronic Priority: Medium Code(s): C55 - MALIGNANT NEOPLASM OF UTERUS, PART UNSPECIFIED SNOMED Code(s): 043499025 Plan: Did request Psychiatry Consult due to pt erratic behavior and mood swings Attests: I have performed H&P, seen and examined pt, developed impression and plan of care. Discussed with dictator. Agree with dictation, documented as a scribe
[2020-09-22] MEDS: DULoxetine HCL 20 MG CAPSULE.DR PO SCH (20:41)
[2020-09-23] MEDS: ONDANSETRON 4 MG/2 ML VIAL IVP PRN ×4 (05:23→20:28)
[2020-09-23] MEDS: LEVOTHYROXINE 75 MCG TAB PO SCH (05:30)
[2020-09-23] MEDS: HYDROmorphone 1 MG/ML 1 ML SYRINGE IVP PRN ×6 (05:30→22:52)
[2020-09-23] MEDS: SODIUM CHLORIDE 0.9% 1,000 ML IV SCH ×3 (05:33→19:00)
[2020-09-23 07:28] LABS: Anisocytosis Slight; Basophils % (A) 0 %; Eosinophils # (A) 0.1 k/uL (0-0.7); Eosinophils % (A) 2 %; HCT 20.1 % (34.0-46.0); Hypochromasia Moderate; Lymphocytes # (A) 0.8 k/uL (1.0-4.8); Lymphocytes % (A) 15 %; MCHC 31.5 g/dL (31.0-37.0); MCV 88.8 fL (80.0-100.0); Mean Platelet Volume 8.5; Monocytes # (A) 0.6 k/uL (0-1.0); Monocytes % (A) 11 %; Neutrophils # (A) 3.6 k/uL (1.3-7.7); Neutrophils % (A) 68 %; Platelet Count 221 k/uL (150-450); RBC 2.27 m/uL (3.80-5.40); WBC 5.2 k/uL (3.8-10.6)
[2020-09-23 07:45] LABS: HGB 6.3 gm/dL (11.4-16.0)
[2020-09-23] MEDS: PANTOPRAZOLE 40 MG/10 ML VIAL IVP SCH (09:00)
[2020-09-23] MEDS: DULoxetine HCL 20 MG CAPSULE.DR PO SCH ×2 (09:01→20:50)
[2020-09-23] MEDS: ARIPiprazole 5 MG TAB PO SCH (09:01)
[2020-09-23] MEDS: SENNOSIDES-DOCUSATE SODIUM 1 EACH TAB PO SCH (09:01)
[2020-09-23] MEDS: MORPHINE SULFATE ER 30 MG TABLET PO SCH ×2 (09:01→20:50)
[2020-09-23] MEDS: ALPRAZolam 0.5 MG TAB PO PRN (12:50)
[2020-09-23 13:17] LABS: IgG Subclass 3 46.4 mg/dL (11.0-85.0); IgG Subclass 4 30.3 mg/dL (3.0-175.0)
--- NOTE | 2020-09-23 13:52 | P.PN ---
Progress Note - Text Progress Note Date: 09/23/20 Interval History: Patient was seen resting in bed accompanied by her friend in her room. The pat ieradha is agreeable to discuss her mental health with her friend present. The patient is currently not reporting any suicidal or homicidal ideation, intention, and/or plan. She is not planning any auditory or visual hallucinations. She is denying any paranoia or other delusions. She is currently not endorsing any significant symptoms of mood lability. She is not reporting any significant side effects of her medications. The patient has been noted to be intermittently tearful by staff. Despite this, the patient continues to not report any significant psychiatric pathology consistent with a major depressive diagnosis or bipolar disorder. Mental Status Exam: General Appearance: Patient appears to be stated age is alert, pleasant, and cooperative. Patient appears to have fair hygiene and grooming wearing hospital gown with fair eye contact. Patient has short hair and appears to have thinning of her hair that is likely secondary to her chemotherapy. Behavior: Patient is calmly lying in bed without any agitated behavior. Normal psychomotor activity. Good eye contact. Speech: Patient's speech is fluent and nonpressured. Mood/Affect: Patient reports their mood is "doing okay", affect is expressive and a little expansive but otherwise euthymic. Suicidality/Homicidality: Patient denies having any suicidal or homicidal ideation intent or plan. Perceptions: Patient denies any visual hallucinations and denies any auditory hallucinations Though content/process: There is no evidence of any delusional thought content and thought process is linear and goal-directed. Memory and concentration: AOX3, grossly intact for the purposes of this session. Can spell "WORLD" backwards Judgment and insight: Fair Assessment Mood disorder, unspecified, secondary to general medical condition - the patient is not presenting with any significant psychiatric symptoms consistent with a bipolar or depressive diagnosis. The patient does report that she has a c hemically induced menopausal state which may be contributing to her mood lability on top of her psychosocial stressors, in particular with her cancer diagnosis. Cannabis use Pancreatitis Metastatic cancer Plan: -At this time patient DOES NOT meet criteria for inpatient psychiatric admission. -Would recommend the following medication changes/additions: -Continue Abilify 5 mg by mouth daily for mood augmentation/stabilization -Continue Cymbalta 20 mg by mouth twice a day for management of depression -Continue Xanax 0.5 mg by mouth 3 times a day when necessary for anxiety -Psychiatry will sign off at this time. Thank you for this consult. Please call if any questions or reconsult if necessary.
[2020-09-23 14:09] LABS: African American GFR (CKD) >90 (>60 ml/min/1.73 sqM); Anion Gap 7 mmol/L; Blood Urea Nitrogen 14 mg/dL (7-17); Calcium 10.9 mg/dL (8.4-10.2); Carbon Dioxide 20 mmol/L (22-30); Chloride 111 mmol/L (98-107); Glucose 77 mg/dL (74-99); Lipase 942 U/L (23-300); Non-African American GFR(CKD) 88 (>60 ml/min/1.73 sqM); Potassium 3.9 mmol/L (3.5-5.1); Sodium 138 mmol/L (137-145)
--- NOTE | 2020-09-23 15:12 | P.PN ---
Subjective Progress Note Date: 09/23/20 Patient is a 49-year-old female with a known history of recurrent cervical cancer with metastasis undergoing chemotherapy, presents with worsening diffuse abdominal pain radiating straight back, status post fall accompanied by nausea, no vomiting, and no diarrhea. Reports possible head and left knee trauma with the fall. Reports she has chronic abdominal ,back and left knee pain, but pain continued to worsen-unrelieved by her current med regimen at home. Denies syncope Denies fever or chills. Denies chest pain, palpitations or shortness of breath. Denies any lightheadedness, dizziness or focal deficits. CT of brain/C-spine reported negative, no change. CT of abdomen and pelvis reported multiple liver masses consistent with metastatic disease similar to prior exam, large right lung mass and smaller left adrenal mass consistent with metastatic disease, right-sided omental mass consistent with metastatic disease, subcutaneous mass mid abdomen possible metastatic disease, left renal hilum t hickened wall mass, possibly metastatic, unchanged enlarged left inguinal lymph node unchanged. Improvement in multiple nodules bilateral lower lobes. Lipase on admission 1286, currently down to 1055. T bili normal, elevated alk phos 618 currently 597. UA negative. Casas virus not detected. Afebrile, normal WBC. Hemoglobin 7.2, platelets 235, APTT 30.1. BUN 22, creatinine 0.9. 09/22/20 maintained on IV fluid hydration with significant clinical improvement. Lipase 867, less abdominal pain. Alk phos down to 533. Tolerating ice chips with no nausea vomiting or diarrhea. Gallbladder ultrasound reporting heterogenesis appearance to the liver compatible with reported hepatic metastasi s. Teary-eyed, eager to go home. 09/23/2020 labs pending, urine culture pending. Reports continued improvement in pain. Nausea with vomiting this morning. Afebrile. Objective - Vital Signs Vital signs: Vital Signs Temp 97.4 F L 09/23/20 13:20 Pulse 85 09/23/20 13:20 Resp 18 09/23/20 13:20 BP 108/80 09/23/20 13:20 Pulse Ox 99 09/23/20 12:50 Intake & Output 09/22/20 09/23/20 09/23/20 18:59 06:59 18:59 Intake Total 1260 310 Balance 1260 310 Intake: Intake, IV Titration 1200 Amount Sodium Chloride 0.9% 1, 1200 000 ml @ 150 mls/hr IV . Q6H40M [facility] Rx#:[id number] Oral 60 Blood Product 310 Rc As-1 Unit 310 [id number] Other: Voiding Method Toilet Incontinent # Voids 4 - Exam PHYSICAL EXAMINATION: General: Alert and oriented 3, Patient is sitting up in the bed, no acute distress HEENT: Normocephalic. Neck is supple. Pupils reactive.Oral mucosa dry. Neck reveals no JVD, carotid bruits, or thyromegaly. CHEST EXAMINATION: Trachea is central. Symmetrical expansion. Lung fuller clear to auscultation and percussion. CARDIAC: Normal S1, S2 with no gallops. No murmurs ABDOMEN: Soft. Minimal abdominal tenderness, no guarding or rigidity.Bowel sounds normal. No organomegaly. No abdominal bruits. Extremities: reveal no edema. No clubbing or cyanosis Neurologically awake, alert, oriented x3 with well-coordinated movements. No focal deficits noted Skin: No rash, warm and dry - Labs CBC & Chem 7: 09/23/20 07:01 09/23/20 07:01 Labs: Abnormal Lab Results - Last 24 Hours (Table) 09/22/20 09/23/20 09/23/20 Range/Units 05:44 07:01 07:01 RBC 2.27 L (3.80-5.40) m/uL Hgb 6.3 L* (11.4-16.0) gm/dL Hct 20.1 L (34.0-46.0) % RDW 20.0 H (11.5-15.5) % Lymphocytes # 0.8 L (1.0-4.8) k/uL Chloride 111 H (98-107) mmol/L Carbon Dioxide 20 L (22-30) mmol/L Calcium 10.9 H (8.4-10.2) mg/dL Lipase 942 H (23-300) U/L IgG2 158.0 L (169.0-640.0) mg/dL Crossmatch 09/23/20 Range/Units 10:17 RBC (3.80-5.40) m/uL Hgb (11.4-16.0) gm/dL Hct (34.0-46.0) % RDW (11.5-15.5) % Lymphocytes # (1.0-4.8) k/uL Chloride (98-107) mmol/L Carbon Dioxide (22-30) mmol/L Calcium (8.4-10.2) mg/dL Lipase (23-300) U/L IgG2 (169.0-640.0) mg/dL Crossmatch See Detail Microbiology - Last 24 Hours (Table) 09/21/20 02:29 Urine Culture - Final Urine,Voided Citrobacter braakii Assessment and Plan Assessment: Abdominal pain related to acute pancreatitis, possibly related to chemotherapy, possibly related to metastasis Fall Possible acute UTI, culture pending chronic constipation cervical cancer, receiving chemotherapy Elevated alk phos, probably secondary to chemotherapy, metastasis. normocytic anemia, anxiety previous history of smoking hypothyroidism Plan continue on current medication regime ,monitoring and symptomatic treatment. Partial labs returned, hgb 6.3, 1 unit of packed RBCs ordered. Lipase pending. Maintain IV fluid hydration. Diet as per GI. Prognosis guarded given multiple complex medical issues. The impression and plan of care has been dictated as directed. : I performed a history and examination of this patient, discussed the same with the dictator. I agree with the dictator's note ,documented as a scribe. Any additional findings or plans will be noted.
--- NOTE | 2020-09-23 15:28 | P.PN ---
Subjective Progress Note Date: 09/23/20 Principal diagnosis: abd pain, pancreatitis Pt mood cont to be very labile. I discussed it with her directly, she did have a Psychiatry eval, meds adjusted. She remains anxious, scattered in thoughts but appropriate. She vomited this AM. Objective - Vital Signs Vital signs: Vital Signs Temp 98.4 F 09/23/20 15:06 Pulse 75 09/23/20 15:06 Resp 18 09/23/20 15:06 BP 114/77 09/23/20 15:06 Pulse Ox 97 09/23/20 15:06 Intake & Output 09/22/20 09/23/20 09/23/20 18:59 06:59 18:59 Intake Total 1260 310 Balance 1260 310 Intake: Intake, IV Titration 1200 Amount Sodium Chloride 0.9% 1, 1200 000 ml @ 150 mls/hr IV . Q6H40M [facility] Rx#:[id number] Oral 60 Blood Product 310 Rc As-1 Unit 310 [id number] Other: Voiding Method Toilet Incontinent # Voids 4 - Constitutional General appearance: Present: average body habitus, cooperative, mild distress - EENT Eyes: Present: anicteric sclerae, EOMI ENT: Present: hearing grossly normal, normal oropharynx - Respiratory Respiratory: bilateral: CTA - Cardiovascular Rhythm: regular Heart sounds: normal: S1, S2 Abnormal Heart Sounds: Absent: systolic murmur, diastolic murmur, rub, S3 Gallop, S4 Gallop, click, other - Peripheral edema leg Peripheral Edema: bilateral: None - Gastrointestinal General gastrointestinal: Present: normal bowel sounds, soft - Integumentary Integumentary: Present: pale - Neurologic Neurologic: Present: CNII-XII intact - Musculoskeletal Musculoskeletal: Present: strength equal bilaterally - Psychiatric Psychiatric: Present: A&O x's 3 - Labs CBC & Chem 7: 09/23/20 07:01 09/23/20 07:01 Labs: Abnormal Lab Results - Last 24 Hours (Table) 09/22/20 09/23/20 09/23/20 Range/Units 05:44 07:01 07:01 RBC 2.27 L (3.80-5.40) m/uL Hgb 6.3 L* (11.4-16.0) gm/dL Hct 20.1 L (34.0-46.0) % RDW 20.0 H (11.5-15.5) % Lymphocytes # 0.8 L (1.0-4.8) k/uL Chloride 111 H (98-107) mmol/L Carbon Dioxide 20 L (22-30) mmol/L Calcium 10.9 H (8.4-10.2) mg/dL Lipase 942 H (23-300) U/L IgG2 158.0 L (169.0-640.0) mg/dL Crossmatch 09/23/20 Range/Units 10:17 RBC (3.80-5.40) m/uL Hgb (11.4-16.0) gm/dL Hct (34.0-46.0) % RDW (11.5-15.5) % Lymphocytes # (1.0-4.8) k/uL Chloride (98-107) mmol/L Carbon Dioxide (22-30) mmol/L Calcium (8.4-10.2) mg/dL Lipase (23-300) U/L IgG2 (169.0-640.0) mg/dL Crossmatch See Detail Microbiology - Last 24 Hours (Table) 09/21/20 02:29 Urine Culture - Final Urine,Voided Citrobacter braakii Assessment and Plan (1) Fall Current Visit: Yes Status: Acute Priority: High Code(s): W19.XXXA - UNSPECIFIED FALL, INITIAL ENCOUNTER SNOMED Code(s): 5426999 (2) Pancreatitis Narrative/Plan: Pancreatic enzymes slowly decreasing. She was started on clear liquids, did vo antonio this AM. Cont clears for now Current Visit: Yes Status: Acute Priority: High Code(s): K85.90 - ACUTE PANCREATITIS WITHOUT NECROSIS OR INFECTION, UNSP SNOMED Code(s): 86174188 (3) Uterine cancer Narrative/Plan: Pt is s/p 4/6 cycles. She has been hospitalized after each cycle, the last 2 for pancreatitis. Literature review dose not have documentation of carbo/taxol treatment being associated with pancreatitis. But, pt has 2 more cycle to complete. Will discuss hospitalization with primary Oncologist. Her most recent scans showed a partial response. Current Visit: Yes Status: Chronic Priority: Medium Code(s): C55 - MALIGNANT NEOPLASM OF UTERUS, PART UNSPECIFIED SNOMED Code(s): 305644678 (4) Antineoplastic chemotherapy induced anemia Narrative/Plan: 1 unit PRBCs for Hgb 6.3. CBC AM. Current Visit: Yes Status: Acute Priority: Medium Code(s): D64.81 - ANEMIA DUE TO ANTINEOPLASTIC CHEMOTHERAPY; T45.1X5A - ADVERSE EFFECT OF ANTINEOPLASTIC AND IMMUNOSUP DRUGS, INIT SNOMED Code(s): 343476431
[2020-09-23 16:02] LABS: BUN/Creat Ratio 18.75 Ratio (12.00-20.00)
[2020-09-23] MEDS: PROCHLORPERAZINE 10 MG TAB PO PRN (20:50)
[2020-09-24] MEDS: SODIUM CHLORIDE 0.9% 1,000 ML IV SCH ×5 (00:51→22:05)
[2020-09-24] MEDS: ONDANSETRON 4 MG/2 ML VIAL IVP PRN ×5 (00:53→22:02)
[2020-09-24] MEDS: HYDROmorphone 1 MG/ML 1 ML SYRINGE IVP PRN ×3 (02:20→19:39)
[2020-09-24] MEDS: PROCHLORPERAZINE 10 MG TAB PO PRN ×2 (04:42→19:48)
[2020-09-24] MEDS: ALPRAZolam 0.5 MG TAB PO PRN (04:42)
[2020-09-24] MEDS: LEVOTHYROXINE 75 MCG TAB PO SCH (04:42)
[2020-09-24 06:08] LABS: Anisocytosis Slight; Basophils % (A) 1 %; Eosinophils # (A) 0.1 k/uL (0-0.7); Eosinophils % (A) 2 %; HCT 25.1 % (34.0-46.0); HGB 7.6 gm/dL (11.4-16.0); Hypochromasia Marked; Lymphocytes # (A) 0.7 k/uL (1.0-4.8); Lymphocytes % (A) 15 %; MCH 27.2 pg (25.0-35.0); MCHC 30.2 g/dL (31.0-37.0); MCV 89.9 fL (80.0-100.0); Mean Platelet Volume 7.8; Monocytes # (A) 0.5 k/uL (0-1.0); Monocytes % (A) 11 %; Neutrophils # (A) 3.3 k/uL (1.3-7.7); Neutrophils % (A) 69 %; Platelet Count 215 k/uL (150-450); Poikilocytosis Slight; RBC 2.79 m/uL (3.80-5.40); RDW 19.5 % (11.5-15.5); WBC 4.7 k/uL (3.8-10.6)
[2020-09-24] MEDS: MORPHINE SULFATE ER 30 MG TABLET PO SCH ×2 (09:12→20:41)
[2020-09-24] MEDS: SENNOSIDES-DOCUSATE SODIUM 1 EACH TAB PO SCH (09:12)
[2020-09-24] MEDS: ARIPiprazole 5 MG TAB PO SCH (09:14)
[2020-09-24] MEDS: DULoxetine HCL 20 MG CAPSULE.DR PO SCH ×2 (09:14→20:41)
[2020-09-24] MEDS: PANTOPRAZOLE 40 MG TABLET PO SCH (09:20)
--- NOTE | 2020-09-24 09:30 | P.PN ---
Subjective Progress Note Date: 09/24/20 Patient is a 49-year-old female with a known history of recurrent cervical cancer with metastasis undergoing chemotherapy, presents with worsening diffuse abdominal pain radiating straight back, status post fall accompanied by nausea, no vomiting, and no diarrhea. Reports possible head and left knee trauma with the fall. Reports she has chronic abdominal ,back and left knee pain, but pain continued to worsen-unrelieved by her current med regimen at home. Denies syncope Denies fever or chills. Denies chest pain, palpitations or shortness of breath. Denies any lightheadedness, dizziness or focal deficits. CT of brain/C-spine reported negative, no change. CT of abdomen and pelvis reported multiple liver masses consistent with metastatic disease similar to prior exam, large right lung mass and smaller left adrenal mass consistent with metastatic disease, right-sided omental mass consistent with metastatic disease, subcutaneous mass mid abdomen possible metastatic disease, left renal hilum t hickened wall mass, possibly metastatic, unchanged enlarged left inguinal lymph node unchanged. Improvement in multiple nodules bilateral lower lobes. Lipase on admission 1286, currently down to 1055. T bili normal, elevated alk phos 618 currently 597. UA negative. Casas virus not detected. Afebrile, normal WBC. Hemoglobin 7.2, platelets 235, APTT 30.1. BUN 22, creatinine 0.9. 09/22/20 maintained on IV fluid hydration with significant clinical improvement. Lipase 867, less abdominal pain. Alk phos down to 533. Tolerating ice chips with no nausea vomiting or diarrhea. Gallbladder ultrasound reporting heterogenesis appearance to the liver compatible with reported hepatic metastasi s. Teary-eyed, eager to go home. 09/23/2020 labs pending, urine culture pending. Reports continued improvement in pain. Nausea with vomiting this morning. Afebrile. 09/24/2020 continues on IV fluid hydration .continues to have nausea and vomiting on clear liquid diet X 2 this a.m. abdominal pain present but lessened. Lipase down to 805. Rocephin initiated yesterday for acute UTI with Citr obacter braaki. Receiving 1 unit of packed RBCs yesterday for hemoglobin of 6.3 , current hemoglobin 7.6 .Denies cough, congestion or shortness of breath. Denies chest pain, palpitations. Objective - Vital Signs Vital signs: Vital Signs Temp 97.6 F 09/24/20 05:00 Pulse 91 09/24/20 05:00 Resp 20 09/24/20 05:00 BP 129/81 09/24/20 05:00 Pulse Ox 97 09/24/20 05:00 Intake & Output 09/23/20 09/24/20 09/24/20 18:59 06:59 18:59 Intake Total 2120 2680 Output Total 150 Balance 2120 2530 Intake: Intake, IV Titration 1500 1800 Amount Sodium Chloride 0.9% 1, 1500 1800 000 ml @ 150 mls/hr IV . Q6H40M [facility] Rx#:[id number] Oral 880 Blood Product 620 Rc As-1 Unit 310 [id number] Output: Emesis 150 Other: Voiding Method Toilet Incontinent # Voids 5 3 - Exam PHYSICAL EXAMINATION: General: Alert and oriented 3, sitting up in the bed, no acute distress HEENT: Normocephalic. Neck is supple. Pupils reactive.Oral mucosa moist. Neck supple, no JVD CHEST EXAMINATION:Symmetrical expansion. Lung fuller clear to auscultation and percussion. CARDIAC: Normal S1, S2 with no gallops. No murmurs ABDOMEN: Soft. Minimal abdominal tenderness, no guarding or rigidity.Bowel sounds normal. Extremities: reveal no edema. No clubbing or cyanosis Neurologically cranial nerves II through XII grossly intact .No focal deficits noted Skin: No rash, warm and dry - Labs CBC & Chem 7: 09/24/20 05:02 09/23/20 07:01 Labs: Abnormal Lab Results - Last 24 Hours (Table) 09/22/20 09/23/20 09/23/20 Range/Units 05:44 07:01 10:17 RBC (3.80-5.40) m/uL Hgb (11.4-16.0) gm/dL Hct (34.0-46.0) % MCHC (31.0-37.0) g/dL RDW (11.5-15.5) % Lymphocytes # (1.0-4.8) k/uL Chloride 111 H (98-107) mmol/L Carbon Dioxide 20 L (22-30) mmol/L Calcium 10.9 H (8.4-10.2) mg/dL Lipase 942 H (23-300) U/L IgG2 158.0 L (169.0-640.0) mg/dL Crossmatch See Detail 09/24/20 09/24/20 Range/Units 05:02 05:02 RBC 2.79 L (3.80-5.40) m/uL Hgb 7.6 L (11.4-16.0) gm/dL Hct 25.1 L (34.0-46.0) % MCHC 30.2 L (31.0-37.0) g/dL RDW 19.5 H (11.5-15.5) % Lymphocytes # 0.7 L (1.0-4.8) k/uL Chloride (98-107) mmol/L Carbon Dioxide (22-30) mmol/L Calcium (8.4-10.2) mg/dL Lipase 805 H (23-300) U/L IgG2 (169.0-640.0) mg/dL Crossmatch Microbiology - Last 24 Hours (Table) 09/21/20 02:29 Urine Culture - Final Urine,Voided Citrobacter braakii Assessment and Plan Assessment: Abdominal pain related to acute pancreatitis, possibly related to chemotherapy, possibly related to metastasis Fall Acute UTI, Citrobacter braakii chronic constipation cervical cancer, receiving chemotherapy Elevated alk phos, probably secondary to chemotherapy, metastasis. normocytic anemia, anxiety previous history of smoking hypothyroidism Plan continue on current medication regime ,monitoring and symptomatic alexi tment. Maintain IV fluid hydration. Diet advancement as per GI. Possibly discharge home in 24-48 hours pending nausea and vomiting subsides and lipase continues to trend down .Prognosis guarded given multiple complex medical issues. The impression and plan of care has been dictated as directed. : I performed a history and examination of this patient, discussed the same with the dictator. I agree with the dictator's note ,documented as a scribe. Any additional findings or plans will be noted.
[2020-09-24 12:36] VITALS: BMI 33.6
--- NOTE | 2020-09-24 16:53 | P.PN ---
Subjective Progress Note Date: 09/24/20 the patient reports some improvement in abdominal pain. However oral intake is still limited. She states that he had one or 2 episodes of vomiting with clear liquids. She keeps stating that she will likely due to better at home. no fever/chills/diarrhea Objective - Vital Signs Vital signs: Vital Signs Temp 98.4 F 09/24/20 12:15 Pulse 86 09/24/20 12:15 Resp 18 09/24/20 12:15 BP 129/77 09/24/20 12:15 Pulse Ox 99 09/24/20 12:15 Intake & Output 09/23/20 09/24/20 09/24/20 18:59 06:59 18:59 Intake Total 2120 2680 Output Total 150 Balance 2120 2530 Weight 73.028 kg Intake: Intake, IV Titration 1500 1800 Amount Sodium Chloride 0.9% 1, 1500 1800 000 ml @ 150 mls/hr IV . Q6H40M [facility] Rx#:[id number] Oral 880 Blood Product 620 Rc As-1 Unit 310 [id number] Output: Emesis 150 Other: Voiding Method Toilet Toilet Incontinent Incontinent # Voids 5 3 - Constitutional General appearance: Present: no acute distress - EENT Eyes: Present: EOMI ENT: Present: hearing grossly normal, normal oropharynx - Respiratory Respiratory: bilateral: CTA - Cardiovascular Rhythm: regular Heart sounds: normal: S1, S2 - Gastrointestinal General gastrointestinal: Present: decreased bowel sounds, soft - Integumentary Integumentary: Present: normal - Neurologic Neurologic: Present: CNII-XII intact - Musculoskeletal Musculoskeletal: Present: generalized weakness, strength equal bilaterally - Psychiatric Psychiatric: Present: A&O x's 3 - Labs CBC & Chem 7: 09/24/20 05:02 09/23/20 07:01 Labs: Abnormal Lab Results - Last 24 Hours (Table) 09/24/20 09/24/20 Range/Units 05:02 05:02 RBC 2.79 L (3.80-5.40) m/uL Hgb 7.6 L (11.4-16.0) gm/dL Hct 25.1 L (34.0-46.0) % MCHC 30.2 L (31.0-37.0) g/dL RDW 19.5 H (11.5-15.5) % Lymphocytes # 0.7 L (1.0-4.8) k/uL Lipase 805 H (23-300) U/L Assessment and Plan (1) Pancreatitis Narrative/Plan: enzymes have shown satisfactory decline. She continues to have abnormal discomfort though now this appears to be more consistent with her baseline pain. Oral intake is still limited and she apparently continues to have some vomiting. The patient remains very anxious to go home. It was emphasized to her, then discharge would happen once she demonstrates ability to tolerate a reasonable diet. She actually has been quite reluctant to eat generally. She states that she will work harder in terms of trying to advance her diet. Continue current supportive treatment - as the patient has had episodes of pancreatitis after her last 2 chemotherapy treatments, there is concern if one or both of her agents could be an etiological factors. However as noted previously, detailed review of literature does not show any known link between either of her chemotherapy agents and pancreatitis. Current Visit: Yes Status: Acute Priority: High Code(s): K85.90 - ACUTE PANCREATITIS WITHOUT NECROSIS OR INFECTION, UNSP SNOMED Code(s): 42660582 (2) Antineoplastic chemotherapy induced anemia Narrative/Plan: patient is status post 1 unit of PRBC yesterday with appropriate increase in hemoglobin. Continue to monitor and transfuse for less than 7 Current Visit: Yes Status: Acute Priority: Medium Code(s): D64.81 - ANEMIA DUE TO ANTINEOPLASTIC CHEMOTHERAPY; T45.1X5A - ADVERSE EFFECT OF ANTINEOPLASTIC AND IMMUNOSUP DRUGS, INIT SNOMED Code(s): 298853662 (3) Metastatic cancer Narrative/Plan: the patient is status post 4/6 cycles of planned chemotherapy with carboplatin and Taxol. As noted previously there is concern about the chemotherapy causing pancreatitis, to review of literature does not note any association between her chemotherapy agents and pancreatitis. It was discussed with the patient, and her mother, that while this remains a consideration, it would be desirable to definitely establish which if any of her agents is causing her problem before eliminating any of them. This is especially since systemic treatment options for her type of malignancy are comparatively limited. - Follow-up with Dr. Charles outpatient, prior to resuming any systemic treatment Current Visit: Yes Status: Acute Code(s): C79.9 - SECONDARY MALIGNANT NEOPLASM OF UNSPECIFIED SITE SNOMED Code(s): 398237569
[2020-09-25] MEDS: PROCHLORPERAZINE 10 MG TAB PO PRN ×2 (01:27→08:31)
[2020-09-25] MEDS: ALPRAZolam 0.5 MG TAB PO PRN ×2 (01:32→17:12)
[2020-09-25] MEDS: SODIUM CHLORIDE 0.9% 1,000 ML IV SCH ×2 (04:32→17:12)
[2020-09-25] MEDS: LEVOTHYROXINE 75 MCG TAB PO SCH (05:49)
[2020-09-25] MEDS: ONDANSETRON 4 MG/2 ML VIAL IVP PRN (05:49)
[2020-09-25 06:48] LABS: Anisocytosis Moderate; Basophils % (A) 0 %; Eosinophils # (A) 0.1 k/uL (0-0.7); Eosinophils % (A) 1 %; HCT 23.6 % (34.0-46.0); HGB 7.3 gm/dL (11.4-16.0); Hypochromasia Marked; Lymphocytes # (A) 0.7 k/uL (1.0-4.8); Lymphocytes % (A) 16 %; MCH 27.9 pg (25.0-35.0); MCHC 30.8 g/dL (31.0-37.0); MCV 90.5 fL (80.0-100.0); Mean Platelet Volume 8.1; Monocytes # (A) 0.6 k/uL (0-1.0); Monocytes % (A) 13 %; Neutrophils # (A) 3.1 k/uL (1.3-7.7); Neutrophils % (A) 68 %; Platelet Count 212 k/uL (150-450); Poikilocytosis Slight; RBC 2.61 m/uL (3.80-5.40); WBC 4.5 k/uL (3.8-10.6)
[2020-09-25] MEDS: SENNOSIDES-DOCUSATE SODIUM 1 EACH TAB PO SCH (08:11)
[2020-09-25] MEDS: MORPHINE SULFATE ER 30 MG TABLET PO SCH ×2 (08:11→20:29)
[2020-09-25] MEDS: DULoxetine HCL 20 MG CAPSULE.DR PO SCH ×2 (08:12→20:29)
[2020-09-25] MEDS: PANTOPRAZOLE 40 MG TABLET PO SCH (08:12)
[2020-09-25] MEDS: ARIPiprazole 5 MG TAB PO SCH (08:12)
[2020-09-25 10:03] LABS: African American GFR (CKD) 101.8 (60.0-200.0); Anion Gap 11.4 mmol/L (4.00-12.00); BUN/Creat Ratio 8.75 Ratio (12.00-20.00); Calcium 10.3 mg/dL (8.7-10.3); Carbon Dioxide 18.6 mmol/L (21.6-31.8); Magnesium 1.7 mg/dL (1.5-2.4); Non-African American GFR(CKD) 87.8 (60.0-200.0); Potassium 3.3 mmol/L (3.5-5.5)
[2020-09-25] MEDS: HYDROmorphone 1 MG/ML 1 ML SYRINGE IVP PRN (12:32)
--- NOTE | 2020-09-25 19:18 | PN ---
PROGRESS NOTE DATE OF SERVICE: 09/25/2020 CHIEF COMPLAINT: Nauseated. Patricia seen today as a followup. She feels much better but she still has some nausea and some abdominal pain. No vomiting. She is tolerating current diet fairly well. No fever or chills. CURRENT MEDICATION: Reviewed in her electronic medical record. PHYSICAL EXAMINATION: She is alert, oriented x3. She is she is in no acute distress. Well developed, well nourished. VITAL SIGNS: Temperature 97.9. Afebrile. Pulse is 92, regular, respiration 18, blood pressure 118/75. HEENT: Normocephalic, atraumatic. No obvious icterus. NECK: Supple. CHEST: Equal expansion bilaterally. LUNGS: Clear to auscultation. HEART: Regular rate and rhythm. ABDOMEN: Soft. There is mild tenderness in the epigastric area. EXTREMITIES reveal no edema. LABORATORY DATA: WBC of 4.5, hemoglobin 7.3, hematocrit 23.3, platelets are 212. Sodium 138, potassium 3.3, chloride 103, BUN is 7, creatinine 0.1, calcium is 10.3, lipase is 107. IMPRESSION: 1. Metastatic cancer of the cervix. The patient currently on carboplatin and Taxol. 2. Anemia, multifactorial. In part related to chemotherapy and in part related to acute pancreatitis. 3. Acute pancreatitis, appears to be clinically improving. I doubt this is related to her current chemotherapeutic regimen. 4. Hypercalcemia, appears to be improving with was current management. RECOMMENDATION: 1. From oncology standpoint, the patient could be discharged home. 2. She will follow up with Dr. Charles in the outpatient setting. Discussed with the patient and her mother at bedside. MMODL / IJN: [id number] /
[2020-09-25] MEDS ORDERED: Potassium Replacement Protocol 1 EACH MISC MISCELLANE PRN (19:41)
[2020-09-25] MEDS ORDERED: Magnesium Replacement Protocol 1 EACH MISC MISCELLANE PRN (19:41)
[2020-09-25] MEDS: POTASSIUM CHLORIDE ER 20 MEQ TAB.ER PO SCH ×3 (20:28→22:46)
[2020-09-25] MEDS: MAGNESIUM SULFATE-D5W PMX 1 GM in DEXTROSE/WATER 1 100ML.BAG IVPB SCH ×2 (20:29→21:43)
--- NOTE | 2020-09-25 21:18 | PN ---
PROGRESS NOTE DATE OF SERVICE: 09/25/2020 This 49-year-old woman who was admitted with abdominal pain related to acute pancreatitis is being closely monitored at this time. The patient also had chemotherapy. The patient has acute urinary tract infection with Citrobacter. Lab villegas the white count is 7.2, hemoglobin 7.3. The patient did receive 1 unit of transfusion. No chest pain. No palpitations. Patient feeling some cold feeling. Patient has hypokalemia. Lipase is also elevated. PAST MEDICAL HISTORY: Reviewed. CURRENT MEDICATIONS: Reviewed include Xanax, ( ), Rocephin Dilaudid, Synthroid, MS Contin, other doses reviewed. PHYSICAL EXAMINATION: Patient alert and oriented x3. Pulse 86, blood pressure 98/40, temperature 98.2, pulse ox 98% on room air. HEENT: Conjunctivae normal. Oral mucosa moist. NECK: No jugular venous distention. No lymph node enlargement. CARDIOVASCULAR: S1, S2, muffled. No S3, no S4, RESPIRATORY: Diminished breath sounds at the bases. A few scattered rhonchi. ABDOMEN: Soft. Minimal discomfort. No guarding, no rigidity. LEGS: No edema, no swelling. NERVOUS SYSTEM: No focal deficits. LABS: Hemoglobin 7.3, potassium 3.3. ASSESSMENT: 1. Abdominal pain with possible acute pancreatitis related to metastasis or chemotherapy. 2. Acute UTI, Citrobacter braakii. 3. Chronic constipation. 4. Cervical cancer, receiving chemotherapy. 5. Elevated alkaline phosphatase. 6. Normocytic anemia. 7. Anxiety. 8. Hypothyroidism. 9. Hypokalemia. 10.Anemia, multifactorial possibly due to malignancy, status post 1 unit transfusion. 11.History of anxiety. 12.Obesity with body mass index of 33. 13.FULL CODE. 14.History of THC. RECOMMENDATION AND DISCUSSION: This 49-year-old woman who presented with multiple complex medical issues, will continue current management, continue symptomatic treatment. Will continue the antibiotics. Otherwise, continue the rest of medications. Advance diet. Repeat labs will be ordered for tomorrow. Guarded prognosis. Further recommendations to follow. MMODL / IJN: [id number] /
[2020-09-26 04:40] VITALS: BP 131/83; PULSE 91; RESP 16; TEMP 97.8
[2020-09-26] MEDS: LEVOTHYROXINE 75 MCG TAB PO SCH (05:30)
[2020-09-26 06:24] LABS: Anisocytosis Moderate; Basophils % (A) 1 %; Eosinophils # (A) 0.1 k/uL (0-0.7); Eosinophils % (A) 2 %; HCT 25.1 % (34.0-46.0); HGB 7.7 gm/dL (11.4-16.0); Hypochromasia Marked; Lymphocytes # (A) 0.6 k/uL (1.0-4.8); Lymphocytes % (A) 11 %; MCH 27.8 pg (25.0-35.0); MCHC 30.6 g/dL (31.0-37.0); MCV 90.6 fL (80.0-100.0); Mean Platelet Volume 7.6; Monocytes # (A) 0.6 k/uL (0-1.0); Monocytes % (A) 11 %; Neutrophils # (A) 3.6 k/uL (1.3-7.7); Neutrophils % (A) 72 %; Platelet Count 230 k/uL (150-450); Poikilocytosis Slight; RBC 2.77 m/uL (3.80-5.40); RDW 20.3 % (11.5-15.5)
[2020-09-26] MEDS: ARIPiprazole 5 MG TAB PO SCH (08:33)
[2020-09-26] MEDS: PANTOPRAZOLE 40 MG TABLET PO SCH (08:33)
[2020-09-26] MEDS: DULoxetine HCL 20 MG CAPSULE.DR PO SCH (08:33)
[2020-09-26] MEDS: MORPHINE SULFATE ER 30 MG TABLET PO SCH (08:34)
[2020-09-26] MEDS: SENNOSIDES-DOCUSATE SODIUM 1 EACH TAB PO SCH (08:35)
[2020-09-26 10:37] LABS: African American GFR (CKD) 101.8 (60.0-200.0); Albumin 3.7 g/dL (3.80-4.90); Albumin/Globulin Ratio 2.06 (1.60-3.17); Anion Gap 9.7 mmol/L (4.00-12.00); BUN/Creat Ratio 6.25 Ratio (12.00-20.00); Calcium 10.3 mg/dL (8.7-10.3); Carbon Dioxide 19.3 mmol/L (21.6-31.8); Globulin 1.8 g/dL (1.6-3.3); Magnesium 2.3 mg/dL (1.5-2.4); Non-African American GFR(CKD) 87.8 (60.0-200.0); Potassium 3.5 mmol/L (3.5-5.5); Total Bilirubin 0.5 mg/dL (0.2-1.2); Total Protein 5.5 g/dL (6.2-8.2)
--- NOTE | 2020-09-26 21:05 | DS ---
DISCHARGE SUMMARY DATE OF SERVICE: 09/26/2020 FINAL DIAGNOSES: 1. Abdominal pain with possible acute pancreatitis related to metastasis on chemotherapy. 2. Acute UTI, Citrobacter braaki. 3. Chronic constipation. 4. Cervical cancer receiving chemotherapy. 5. Elevated alkaline phosphatase. 6. Normocytic anemia. 7. Anxiety. 8. Hypothyroidism. 9. Hypokalemia. 10.Anemia, multifactorial possibly due to malignancy, status post 1 to 2 transfusion. 11.History of anxiety. 12.History of obesity with body mass index of 33. 13.History of THC. 14.FULL CODE. DISCHARGE DISPOSITION: The patient is discharge in stable condition with guarded prognosis. History cleared by multiple consults. Patient is extremely keen on going home. HISTORY OF PRESENT ILLNESS: This 49-year-old woman with a past medical history of multiple medical problems being followed by Dr. Kg Ayala in the outpatient setting. The patient was admitted to the hospital with multiple medical issues as mentioned earlier. Patient treated symptomatically. The patient improved significantly. The patient also given antibiotics. On exam, vitals signs stable. Cardiovascular S1, S2. Abdomen soft. Nervous system: No focal deficits. DISCHARGE ADVICE AND MEDICATIONS: 1. Diet is cardiac diet. 2. Activity limited until followup. 3. Follow up with Dr. Kg Ayala as recommended. DISCHARGE MEDICATIONS: 1. Compazine p.r.n. 2. Lidocaine prilocaine p.r.n. 3. Morphine sulfate 30 mg p.o. t.i.d. 4. [place] 10 mg t.i.d. p.r.n. 5. Senokot 1 tablet p.o. daily. 6. Synthroid 150 mcg p.o. daily. 7. Zyprexa 5 mg q.h.s. 8. Lactulose 30 b.i.d. p.r.n. 9. Cymbalta 20 mg p.o. daily. 10.MiraLAX 17 g daily. 11.Protonix 40 mg daily. 12.Xanax 0.5 p.o. t.i.d. Once again the patient discharged in stable condition with guarded prognosis. MMODL / IJN: [id number] /
== END 2020-09-26 11:40 | disposition home or self-care (01) | DRG 435 ==
LOC: EC 18:49 → 5NMEDONC 23:08
PROVIDERS: ADMIT Family Medicine; ATTEND Family Medicine
PROC: 30233N1 Transfusion of Nonautologous Red Blood Cells into Peripheral Vein, Percutaneous Approach (ICD-10-PCS; principal; 2020-09-23)
DX: C78.7 Secondary malignant neoplasm of liver and intrahepatic bile duct (principal); K85.90 Acute pancreatitis without necrosis or infection, unspecified; N39.0 Urinary tract infection, site not specified; R16.0 Hepatomegaly, not elsewhere classified; C53.9 Malignant neoplasm of cervix uteri, unspecified; D64.81 Anemia due to antineoplastic chemotherapy; C54.1 Malignant neoplasm of endometrium; F39 Unspecified mood [affective] disorder; F41.9 Anxiety disorder, unspecified; W19.XXXA Unspecified fall, initial encounter; Z79.890 Hormone replacement therapy; Z79.899 Other long term (current) drug therapy; T45.1X5A Adverse effect of antineoplastic and immunosuppressive drugs, initial encounter; Z78.0 Asymptomatic menopausal state; Z87.891 Personal history of nicotine dependence; W18.30XA Fall on same level, unspecified, initial encounter; M25.562 Pain in left knee; R91.8 Other nonspecific abnormal finding of lung field; Z85.41 Personal history of malignant neoplasm of cervix uteri; R59.0 Localized enlarged lymph nodes; E03.9 Hypothyroidism, unspecified; F12.90 Cannabis use, unspecified, uncomplicated; Z85.42 Personal history of malignant neoplasm of other parts of uterus; G89.29 Other chronic pain; E27.9 Disorder of adrenal gland, unspecified; Z92.21 Personal history of antineoplastic chemotherapy; K59.09 Other constipation; E83.52 Hypercalcemia; E87.6 Hypokalemia; E66.9 Obesity, unspecified; Z68.33 Body mass index [BMI] 33.0-33.9, adult; Z92.3 Personal history of irradiation; S09.90XA Unspecified injury of head, initial encounter; B96.89 Other specified bacterial agents as the cause of diseases classified elsewhere
CPT/HCPCS: 36415; 70450; 72125; 74177; 76705; 80048; 80053; 81001; 82150; 82787; 83690; 83735; 84478; 85025; 85610; 85730; 86038; 86850; 86900; 86901; 86920; 87077; 87086; 87186; 87635; 96361; 96374; 96375; 96376; 99285

== ENCOUNTER → 2020-10-01 | Outpatient (CLI) | payer OTHER ==
[2020-10-01 23:14] LABS: Basophils # (A) 0.05 X 10*3/uL (0.00-0.10); Basophils % (A) 0.4 %; Eosinophils # (A) 0.06 X 10*3/uL (0.04-0.35); Eosinophils % (A) 0.5 %; HCT 25.1 % (37.2-46.3); HGB 7.4 g/dL (12.0-15.0); Lymphocytes % (A) 9.4 %; MCH 27.5 pg (27.0-32.0); MCHC 29.5 g/dL (32.0-37.0); MCV 93.3 fL (80.0-97.0); Mean Platelet Volume 10.1 fL (9.5-12.2); Monocytes # (A) 1.37 X 10*3/uL (0.20-1.00); Monocytes % (A) 10.7 %; Neutrophils % (A) 77.7 %; Platelet Count 247 X 10*3/uL (140-440); RBC 2.69 X 10*6/uL (4.10-5.20); RDW 21.2 % (11.5-14.5); WBC 12.75 X 10*3/uL (4.50-10.00)
[2020-10-02 00:18] LABS: African American GFR (CKD) 125.8 (60.0-200.0); Albumin 3.8 g/dL (3.80-4.90); Albumin/Globulin Ratio 1.81 (1.60-3.17); Anion Gap 9.9 mmol/L (4.00-12.00); BUN/Creat Ratio 16.67 Ratio (12.00-20.00); Calcium 10.7 mg/dL (8.7-10.3); Carbon Dioxide 26.1 mmol/L (21.6-31.8); Globulin 2.1 g/dL (1.6-3.3); Non-African American GFR(CKD) 108.5 (60.0-200.0); Potassium 3.1 mmol/L (3.5-5.5); Total Bilirubin 0.6 mg/dL (0.2-1.2); Total Protein 5.9 g/dL (6.2-8.2)
== END | disposition home or self-care (01) ==
LOC: LABWHC1 15:07
PROVIDERS: ATTEND Hospitalist
DX: D64.9 Anemia, unspecified (principal)
CPT/HCPCS: 36415; 80053; 82150; 83690; 85025

== ENCOUNTER 2020-11-02 15:16 | Inpatient (IN) | payer OTHER ==
[2020-11-02] MEDS ORDERED: ONDANSETRON 4 MG/2 ML VIAL IVP STA (16:08)
[2020-11-02] MEDS ORDERED: SODIUM CHLORIDE 0.9% 1,000 ML IV STA ×4 (16:08→18:51)
[2020-11-02] MEDS ORDERED: MORPHINE SULFATE 4 MG/ML SYRINGE IV STA (16:09)
--- NOTE | 2020-11-02 16:17 | ED ---
Nausea/Vomiting/Diarrhea HPI - General Chief complaint: Weakness Stated complaint: Not eating,Weakness Time Seen by Provider: 11/02/20 15:54 Source: patient Mode of arrival: ambulatory Limitations: no limitations - History of Present Illness Initial comments: This 49-year-old female presents with mother with a complaint of nausea and vomiting. She does have a history of cervical cancer which has been treated since June of this year. She has multiple areas of metastases. Her last chemotherapy was approximately one week ago. The nausea and vomiting started approximately 4 days ago. She states that she is unable to keep any food or fluid down. She seems to be vomiting her medications up. She complains of diffuse pain throughout her entire body. She also complains of some midepigastric abdominal pain and has a history of pancreatitis on 2 previous occasions. She denies any fevers or chills. There is no chest pain or shortness of breath. She does complain of occasional diarrhea as well. No other complaints or modifying factors. The patient relates that she just changed primary care physicians from Dr. Ayala to Dr. Reyes one week ago. - Related Data Home Medications Medication Instructions Recorded Confirmed Prochlorperazine [Compazine] 10 mg PO Q6H PRN 07/09/20 10/26/20 Lidocaine-Prilocaine Cream [Emla 1 applic TOPICAL DAILY PRN 07/26/20 10/26/20 Cream 2.5%/2.5%] HYDROcodone/APAP 10-325MG [[place] 1 tab PO TID PRN 08/29/20 10/26/20 10-325] Levothyroxine Sodium [Synthroid] 150 mcg PO DAILY 08/29/20 10/26/20 Morphine Sulfate ER [Ms Contin] 30 mg PO BID 08/29/20 10/26/20 OLANZapine [ZyPREXA] 5 mg PO HS 09/20/20 10/26/20 Sennosides/Docusate Sodium [Senna 1 tab PO DAILY 09/20/20 10/26/20 Plus 8.6-50 mg Tablet] Previous Rx's Medication Instructions Recorded DULoxetine HCL [Cymbalta] 20 mg PO DAILY 30 Days #30 07/13/20 capsule. polyethylene glycoL 3350 [Miralax] 17 gm PO DAILY powd.pack 07/28/20 ALPRAZolam [Xanax] 0.5 mg PO TID PRN #30 tab 08/09/20 Lactulose [Cephulac] 30 gm PO BID PRN 14 Days ml 08/09/20 Pantoprazole [Protonix] 40 mg PO AC-BRKFST #30 tablet. 09/26/20 Allergies Allergy/AdvReac Type Severity Reaction Status Date / Time No Known Allergies Allergy Verified 11/02/20 15:36 Review of Systems ROS Statement: Those systems with pertinent positive or pertinent negative responses have been documented in the HPI. ROS Other: All systems not noted in ROS Statement are negative. Past Medical History Past Medical History: Cancer, Thyroid Disorder Additional Past Medical History / Comment(s): cervical CA, mets History of Any Multi-Drug Resistant Organisms: None Reported Past Surgical History: No Surgical Hx Reported Additional Past Surgical History / Comment(s): RADIATION TO UTERUS., port to R side Past Anesthesia/Blood Transfusion Reactions: No Reported Reaction Past Psychological History: Anxiety Smoking Status: Former smoker Past Alcohol Use History: None Reported Past Drug Use History: None Reported - Past Family History Mother Family Medical History: Unable to Obtain Father History Unknown: Yes Family Medical History: Unable to Obtain General Exam - General Exam Comments Initial Comments: GENERAL: The patient is well nourished and dehydrated. VITAL SIGNS: Heart rate, blood pressure, respiratory rate reviewed as recorded in nurse's notes. EYES: Pupils are round and reactive. Extraocular movements are intact. No conjunctival / lid redness or swelling. ENT: No external evidence of injury, swelling, or ecchymosis. Airway is patent. Throat is clear. Dry mucous membranes noted NECK: Nontender. No swelling or evidence of injury. No subcutaneous emphysema. Trachea is midline. No thyroid mass. HEART: Regular rate and rhythm. Good peripheral pulses. LUNGS/CHEST: Breath sounds clear and equal bilaterally. No rales, rhonchi, or wheezes. No ecchymosis, subcutaneous emphysema, or tenderness. ABDOMEN: Abdomen soft with mild tenderness noted in the midepigastric region. No palpable masses or organomegaly. No peritoneal signs. No abdominal wall swelling or ecchymosis. EXTREMITIES: No extremity tenderness. Normal muscle tone and function. No thoracolumbar tenderness. NEUROLOGIC: Sensation is grossly intact. Cranial nerve exam reveals face is symmetrical, tongue is midline, speech is clear. SKIN: No abrasions or ecchymosis is noted. No induration or masses noted. PSYCHIATRIC: Alert and oriented. Appropriate behavior and judgment. Limitations: no limitations Course Vital Signs 11/02/20 11/02/20 11/02/20 15:37 16:51 18:38 Temperature 97.9 F Pulse Rate 98 94 87 Respiratory 16 18 18 Rate Blood Pressure 111/72 118/70 114/78 O2 Sat by Pulse 98 97 97 Oximetry Medical Decision Making - Medical Decision Making The patient was seen and examined. All diagnostics were reviewed. An IV is established and she is hydrated. She also receives Zofran intravenously with relief of nausea. She refuses morphine stating that it does not help her symptoms. She therefore received Dilaudid. She is fairly insistent on additional doses of narcotics and later receives another milligram of Dilaudid intravenously. She is thoroughly hydrated. The laboratory shows multiple abnormalities including a decreased hemoglobin of 6.9, elevated calcium, elevated alkaline phosphatase, decreased CO2. The acute abdominal series x-ray does not show any acute significant abnormalities. The patient is felt to require admission to the hospital for further IV hydration, symptom control, and oncology evaluation. She apparently does have severe cervical cancer with metastases. Long-term prognosis is considered to be overall fairly poor. She is agreeable with admission. Case is discussed with Dr. Reyes who is agreeable with admission. - Lab Data Result diagrams: 11/02/20 16:48 11/02/20 16:48 Lab Results 11/02/20 11/02/20 11/02/20 Range/Units 16:48 16:48 17:12 WBC 3.8 (3.8-10.6) k/uL RBC 2.26 L (3.80-5.40) m/uL Hgb 6.9 L* (11.4-16.0) gm/dL Hct 20.3 L (34.0-46.0) % MCV 90.1 (80.0-100.0) fL MCH 30.7 (25.0-35.0) pg MCHC 34.1 (31.0-37.0) g/dL RDW 20.3 H (11.5-15.5) % Plt Count 63 L D (150-450) k/uL MPV 8.8 Neutrophils % 75 % Lymphocytes % 17 % Monocytes % 3 % Eosinophils % 2 % Basophils % 0 % Neutrophils # 2.9 (1.3-7.7) k/uL Lymphocytes # 0.6 L (1.0-4.8) k/uL Monocytes # 0.1 (0-1.0) k/uL Eosinophils # 0.1 (0-0.7) k/uL Basophils # 0.0 (0-0.2) k/uL Poikilocytosis Slight Anisocytosis Moderate Sodium 134 L (137-145) mmol/L Potassium 4.8 (3.5-5.1) mmol/L Chloride 102 (98-107) mmol/L Carbon Dioxide 19 L (22-30) mmol/L Anion Gap 13 mmol/L BUN 24 H (7-17) mg/dL Creatinine 0.82 (0.52-1.04) mg/dL Est GFR (CKD-EPI)AfAm >90 (>60 ml/min/1.73 sqM) Est GFR (CKD-EPI)NonAf 86 (>60 ml/min/1.73 sqM) Glucose 82 (74-99) mg/dL Calcium 11.3 H (8.4-10.2) mg/dL Total Bilirubin 1.1 (0.2-1.3) mg/dL AST 43 H (14-36) U/L ALT 12 (4-34) U/L Alkaline Phosphatase 613 H (38-126) U/L Total Protein 6.6 (6.3-8.2) g/dL Albumin 4.2 (3.5-5.0) g/dL Lipase 717 H (23-300) U/L Blood Type A Negative Blood Type Recheck A Neg Bld Type Recheck Status No Antibody Screen NEGATIVE Crossmatch See Detail Spec Expiration Date 11/05/20202311 Disposition Clinical Impression: Nausea and vomiting, Diarrhea, Dehydration, Primary cervical cancer with metas tasis to other site, Lung nodules, Lesion of adrenal gland, 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
--- NOTE | 2020-11-02 16:49 | XR ---
EXAMINATION TYPE: XR abdomen acute w cxr DATE OF EXAM: 11/02/2020 COMPARISON: 08/29/2020 HISTORY: Constipation TECHNIQUE: 4 views FINDINGS: There is some linear density in the right lower lobe. The other lung fuller are clear. Ther e is right central venous catheter with tip in the superior vena cava. Heart and mediastinum appear n ormal. There is no sign of intestinal obstruction or pneumoperitoneum. Fecal pattern is normal. There is no sign of a mass. There are no pathologic calcifications over the kidneys. IMPRESSION: There is some atelectasis right lung base. Nonacute abdomen.
[2020-11-02] MEDS ORDERED: HYDROmorphone 1 MG/ML 1 ML SYRINGE IVP STA ×2 (16:54→18:50)
[2020-11-02 16:56] LABS: Anisocytosis Moderate; Basophils % (A) 0 %; Eosinophils # (A) 0.1 k/uL (0-0.7); Eosinophils % (A) 2 %; HCT 20.3 % (34.0-46.0); Lymphocytes # (A) 0.6 k/uL (1.0-4.8); Lymphocytes % (A) 17 %; MCH 30.7 pg (25.0-35.0); MCHC 34.1 g/dL (31.0-37.0); MCV 90.1 fL (80.0-100.0); Mean Platelet Volume 8.8; Monocytes # (A) 0.1 k/uL (0-1.0); Monocytes % (A) 3 %; Neutrophils # (A) 2.9 k/uL (1.3-7.7); Neutrophils % (A) 75 %; Poikilocytosis Slight; RBC 2.26 m/uL (3.80-5.40); RDW 20.3 % (11.5-15.5); WBC 3.8 k/uL (3.8-10.6)
[2020-11-02 17:02] LABS: HGB 6.9 gm/dL (11.4-16.0)
[2020-11-02 17:13] LABS: ALT 12 U/L (4-34); AST 43 U/L (14-36); African American GFR (CKD) >90 (>60 ml/min/1.73 sqM); Albumin 4.2 g/dL (3.5-5.0); Alkaline Phosphatase 613 U/L (38-126); Anion Gap 13 mmol/L; Blood Urea Nitrogen 24 mg/dL (7-17); Calcium 11.3 mg/dL (8.4-10.2); Carbon Dioxide 19 mmol/L (22-30); Chloride 102 mmol/L (98-107); Glucose 82 mg/dL (74-99); Lipase 717 U/L (23-300); Non-African American GFR(CKD) 86 (>60 ml/min/1.73 sqM); Potassium 4.8 mmol/L (3.5-5.1); Sodium 134 mmol/L (137-145); Total Bilirubin 1.1 mg/dL (0.2-1.3); Total Protein 6.6 g/dL (6.3-8.2)
[2020-11-02 17:15] LABS: Platelet Count 63 k/uL (150-450)
[2020-11-02] MEDS ORDERED: NALOXONE 0.4 MG/ML 1 ML VIAL IV PRN (20:03)
[2020-11-02] MEDS ORDERED: LIDOCAINE-PRILOCAINE 2.5-2.5% CREAM 5 GM TUBE TOPICAL PRN (20:07)
[2020-11-02] MEDS ORDERED: PROCHLORPERAZINE 10 MG TAB PO PRN (20:07)
[2020-11-02] MEDS ORDERED: LACTULOSE 20 GM/30 ML CUP PO PRN (20:07)
[2020-11-02] MEDS: PANTOPRAZOLE 40 MG/10 ML VIAL IV SCH (20:30)
[2020-11-02] MEDS: ONDANSETRON 4 MG/2 ML VIAL IVP PRN (21:45)
[2020-11-02] MEDS: HYDROmorphone 1 MG/ML 1 ML SYRINGE IVP PRN (22:09)
[2020-11-02 22:52] LABS: Appearance,Urine Clear (Clear); Bacteria,Urine Rare /hpf; Bilirubin,Urine Negative (Negative); Blood,Urine Small (Negative); Color,Urine Yellow; Glucose,Urine (UA) Negative (Negative); Hyaline Casts,Urine 5 /lpf (0-2); Ketones,Urine 1+ (Negative); Leukocyte Esterase,Urine Moderate (Negative); Mucus,Urine Rare /hpf; Nitrite,Urine Negative (Negative); PH, Urine 5.5 (5.0-8.0); Protein,Urine Trace (Negative); RBC,Urine 1 /hpf (0-5); Specific Gravity,Urine 1.016 (1.001-1.035); Urobilinogen,Urine <2.0 mg/dL (<2.0); WBC,Urine 4 /hpf (0-5)
[2020-11-02] MEDS: MORPHINE SULFATE ER 30 MG TABLET PO SCH (23:13)
[2020-11-03] MEDS: OLANZapine 5 MG TAB PO SCH ×2 (00:07→21:28)
[2020-11-03] MEDS: HYDROmorphone 1 MG/ML 1 ML SYRINGE IVP PRN ×6 (01:25→19:20)
[2020-11-03] MEDS: LEVOTHYROXINE 75 MCG TAB PO SCH (06:05)
[2020-11-03 06:20] LABS: Anisocytosis Slight; Basophils % (A) 0 %; Eosinophils # (A) 0.1 k/uL (0-0.7); Eosinophils % (A) 3 %; HCT 20.8 % (34.0-46.0); HGB 7.1 gm/dL (11.4-16.0); Hypochromasia Slight; Lymphocytes # (A) 0.6 k/uL (1.0-4.8); Lymphocytes % (A) 20 %; MCH 31.5 pg (25.0-35.0); MCHC 34.1 g/dL (31.0-37.0); MCV 92.4 fL (80.0-100.0); Mean Platelet Volume 8.8; Monocytes # (A) 0.2 k/uL (0-1.0); Monocytes % (A) 6 %; Neutrophils # (A) 2.1 k/uL (1.3-7.7); Neutrophils % (A) 69 %; Poikilocytosis Slight; RBC 2.25 m/uL (3.80-5.40); RDW 18.9 % (11.5-15.5); WBC 3.1 k/uL (3.8-10.6)
[2020-11-03 06:24] LABS: Platelet Count 49 k/uL (150-450)
[2020-11-03] MEDS: PANTOPRAZOLE 40 MG/10 ML VIAL IV SCH (07:22)
[2020-11-03] MEDS: SENNOSIDES-DOCUSATE SODIUM 1 EACH TAB PO SCH (07:23)
[2020-11-03] MEDS: MORPHINE SULFATE ER 30 MG TABLET PO SCH ×2 (07:23→21:26)
[2020-11-03] MEDS: polyethylene glycoL 3350 17 GM POWD.PACK PO SCH (07:23)
[2020-11-03] MEDS: DULoxetine HCL 20 MG CAPSULE.DR PO SCH (07:24)
[2020-11-03] MEDS ORDERED: ENOXAPARIN 40 MG/0.4 ML SYRINGE SQ SCH (09:00)
[2020-11-03 13:09] VITALS: BMI 31.3
--- NOTE | 2020-11-03 14:16 | P.CONS ---
History of Present Illness - Reason for Consult Consult date: 11/03/20 Metastatic Cervical Cancer Requesting physician: Reyes Rockwell - Chief Complaint Nausea, vomiting pain - History of Present Illness Ms. Wilson is a very pleasant 49-year-old female patient who we were asked to see at [facility] 06/21/20 when she presented with complaints of intractable back and groin pain. She had a history of stage IIB cervical cancer , treated by Dr. Hendrix and Dr. Nice out of [facility], in 2016. She was seen 06/09/15 at [facility], sent from the [facility] office for suspected cervical cancer, associated intractable back pain, urinary urgency and frequency with abnormal vaginal bleeding 3 months. She had had a Pap smear in the prior year that was normal. CT AP 06/07/14 showed a heterogenous soft tissue mass in the region of the cervix, 3.5 x 5.1 cm. There was associated bilateral pelvic adenopathy, nodes up to 1.1 cm. Cervix bx 06/08/15 severe squamous dysplasia/carcinoma in situ with a foci suspicious for invasive squamous cell. She was seen by Urology Dr. Atkinson 07/01/15 and had cystoscopy with left ureteroscopy and lt ureteral dilation and stent placement for hydronephrosis. Started Tx with cisplatin with concurrent radiation (Dr. Hand), 6 cycles chemo, completing around 08/12/15, whole pelvis radiation, with a parametrium boost, started 06/28/15, completed 09/15/15. 07/30/[address] biopsy-aborted due to small size and location. 08/13/15 she had Aris sleeve placement with Dr. Hendrix. She was seen in f/u 09/30/15, for follow-up post cervical stent removal, and pelvic brachytherapy. Documented good effect from the pelvic radiation with a normal-appearing cervix on examination. PET scan 10/19/15 had an impression of marked improvement with a new small hypermetabolic right submandibular node, persistent hypermetabolic right paraspinal node at the carinal level unchanged, marked improvement in findings in the pelvis with only a small residual area of mildly increased activity in the cervix. There are [address] Hand, last one dated 10/26/16, pt needed to cont to be followed by Dr. Hendrix-which she did not from the documents available. Pt states she didn't think she had to follow up after treatment. On admit to [facility] she had CT AP revealing concerninig findings of LAD, liver lesion, adrenal mass, bilateral lung nodules. CT chest confirmed bilateral lung nodules, NM bone scan did not show mets. Biopsy of left inguinal mass revealed poorly diff squamous cell c/w cervical primary. Pain controlled. Here today to establish and review plan of care. Her back and groin pain is fairly well mamanged on current regimen. She states she sat on her left leg last night and now it is all swollen. 07/14/20-Pt here s/p 1 cycle of carbo taxol for met cervical ca. She states treatment "kicked my butt". She was hospitalized last week for severe constipation, BLE swelling and abd pain. She finally had bowel movement. States that that helped quite a bit with her complaints. Her pain medications were adjusted with better control of pain. She is using lactulose when necessary for constipation. She denied fevers, oral irritation, difficulty in breathing, cough, dysuria, hematuria, vaginal discharge, rashes or bleeding. 07/23/20: C/O constipation, moderate abdominal pain, relatively well controlled with current analgesics regimen 08/12/20-Summarizing the last month-pt has had 3 admissions to [facility]-07/17-07/19, admitted for complaints of vomiting and headache. CT of the brain, one area of suspicion noted on MRI at her 07/09-07/13 visit, no acute changed, it is going to be followed. 07/26 - 07/28 admitted for abdominal pain. CT chest negative for PE. CTAP showed no change when compared to CT AP 07/09. Abdominal US, known liver and right adrenal lesions are less well visualized. Admitted 08/05 - 08/09 for abdominal pain. Lumbar spine MRI was negative for metastases. The abdominal/bladder ultrasound showing right adrenal mass and left lower pole mass in the kidneys. CT AP showed no new disease compared to scan from 10 days ago. Pt has had chemotherapy on 07/06, cycle 2 was delayed. 2nd cycle 08/03. She is here today with complaints of vomiting, she has not taken any antiemetics. General malaise. 09/01/20-Pt here s/p 3 cycles of carbo taxol, last Sunday, [place], got out yesterday. Treated for pancreatitis. She is currently on clear liquids only. She has pain from the SQ masses pushing on tissues/nerves-especially the one on the back of the left leg. General malaise. 09/16/20: feels Ok, tired, C/O L knee pain. CT Scan: Improvement at all sites of metastatic disease (OK). 10/07/20: C/O severe L knee > MRI > Non-malignant cause. C/O fatigue She is now status post 6 cycles of chemotherapy with caboplatin and taxol, restaging scans are scheduled in early November. She presents one week after her la st chemo again with Nausea, vomiting, diarrhea. Review of Systems All systems: negative Constitutional: Reports as per HPI Past Medical History Past Medical History: Cancer, Thyroid Disorder Additional Past Medical History / Comment(s): cervical CA, mets History of Any Multi-Drug Resistant Organisms: None Reported Past Surgical History: No Surgical Hx Reported Additional Past Surgical History / Comment(s): RADIATION TO UTERUS., port to R side Past Anesthesia/Blood Transfusion Reactions: No Reported Reaction Past Psychological History: Anxiety Smoking Status: Former smoker Past Alcohol Use History: None Reported Additional Past Alcohol Use History / Comment(s): . Past Drug Use History: None Reported - Past Family History Mother Family Medical History: Unable to Obtain Father History Unknown: Yes Family Medical History: Unable to Obtain Medications and Allergies Home Medications Medication Instructions Recorded Confirmed Type Prochlorperazine [Compazine] 10 mg PO Q6H PRN 07/09/20 11/02/20 History DULoxetine HCL [Cymbalta] 20 mg PO DAILY 30 Days #30 07/13/20 11/02/20 Rx capsule. Lidocaine-Prilocaine Cream [Emla 1 applic TOPICAL DAILY PRN 07/26/20 11/02/20 History Cream 2.5%/2.5%] polyethylene glycoL 3350 [Miralax] 17 gm PO DAILY powd.pack 07/28/20 11/02/20 Rx ALPRAZolam [Xanax] 0.5 mg PO TID PRN #30 tab 08/09/20 11/02/20 Rx Lactulose [Cephulac] 30 gm PO BID PRN 14 Days ml 08/09/20 11/02/20 Rx HYDROcodone/APAP 10-325MG [[place] 1 tab PO TID PRN 08/29/20 11/02/20 History 10-325] Levothyroxine Sodium [Synthroid] 150 mcg PO DAILY 08/29/20 11/02/20 History Morphine Sulfate ER [Ms Contin] 30 mg PO BID 08/29/20 11/02/20 History OLANZapine [ZyPREXA] 5 mg PO HS 09/20/20 11/02/20 History Sennosides/Docusate Sodium [Senna 1 tab PO DAILY 09/20/20 11/02/20 History Plus 8.6-50 mg Tablet] Pantoprazole [Protonix] 40 mg PO AC-BRKFST #30 tablet. 09/26/20 11/02/20 Rx Allergies Allergy/AdvReac Type Severity Reaction Status Date / Time No Known Allergies Allergy Verified 11/02/20 19:03 Physical Exam Vitals: Vital Signs Temp Pulse Pulse Pulse Resp BP BP 11/03/20 11:40 97.6 F 75 16 113/68 11/03/20 02:00 98.1 F 81 16 100/66 11/03/20 01:24 98/64 11/02/20 22:59 96/61 11/02/20 22:58 98.2 F 80 16 99/66 11/02/20 22:55 82 14 11/02/20 21:54 98.1 F 87 16 111/71 11/02/20 21:02 98.1 F 91 18 108/77 11/02/20 20:32 98.1 F 80 18 102/71 11/02/20 20:22 98.1 F 85 18 106/65 11/02/20 18:38 87 18 114/78 11/02/20 16:51 94 18 118/70 11/02/20 15:37 97.9 F 98 16 111/72 Pulse Ox 11/03/20 11:40 97 11/03/20 02:00 98 11/03/20 01:24 11/02/20 22:59 11/02/20 22:58 98 11/02/20 22:55 11/02/20 21:54 96 11/02/20 21:02 97 11/02/20 20:32 97 06/22/21 20:22 97 11/02/20 18:38 97 11/02/20 16:51 97 11/02/20 15:37 98 Intake and Output 11/02/20 11/03/20 11/03/20 22:59 06:59 14:59 Intake Total 310 1200 Balance 310 1200 Intake: Intake, IV Titration 1200 Amount Sodium Chloride 0.9% 1, 1200 000 ml @ 100 mls/hr IV . Q10H STA Rx#:[id number] Blood Product 310 Rc As-1 Unit 310 [id number] Other: Voiding Method Bedpan # Voids 3 Weight 68.039 kg 68.039 kg - Constitutional General appearance: Present: average body habitus, cooperative, mild distress - EENT Eyes: Present: anicteric sclerae, EOMI ENT: Present: hearing grossly normal, normal oropharynx - Respiratory Respiratory: bilateral: CTA - Cardiovascular Rhythm: regular Heart sounds: normal: S1, S2 Abnormal Heart Sounds: Absent: systolic murmur, diastolic murmur, rub, S3 Gallop, S4 Gallop, click, other - Peripheral edema leg Peripheral Edema: bilateral: None - Gastrointestinal General gastrointestinal: Present: normal bowel sounds, soft - Integumentary Integumentary: Present: pale - Neurologic Neurologic: Present: CNII-XII intact - Musculoskeletal Musculoskeletal: Present: strength equal bilaterally - Psychiatric Psychiatric: Present: A&O x's 3 Results CBC & Chem 7: 11/03/20 05:36 11/03/20 14:19 Labs: Abnormal Lab Results - Last 24 Hours (Table) 11/02/20 11/02/20 11/02/20 Range/Units 16:48 16:48 16:48 WBC (3.8-10.6) k/uL RBC 2.26 L (3.80-5.40) m/uL Hgb 6.9 L* (11.4-16.0) gm/dL Hct 20.3 L (34.0-46.0) % RDW 20.3 H (11.5-15.5) % Plt Count 63 L D (150-450) k/uL Lymphocytes # 0.6 L (1.0-4.8) k/uL Sodium 134 L (137-145) mmol/L Carbon Dioxide 19 L (22-30) mmol/L BUN 24 H (7-17) mg/dL Calcium 11.3 H (8.4-10.2) mg/dL AST 43 H (14-36) U/L Alkaline Phosphatase 613 H (38-126) U/L Lipase 717 H (23-300) U/L Urine Protein Trace H (Negative) Urine Ketones 1+ H (Negative) Urine Blood Small H (Negative) Ur Leukocyte Esterase Moderate H (Negative) Urine Bacteria Rare H (None) /hpf Hyaline Casts 5 H (0-2) /lpf Urine Mucus Rare H (None) /hpf Crossmatch 11/02/20 11/03/20 Range/Units 17:12 05:36 WBC 3.1 L (3.8-10.6) k/uL RBC 2.25 L (3.80-5.40) m/uL Hgb 7.1 L (11.4-16.0) gm/dL Hct 20.8 L (34.0-46.0) % RDW 18.9 H (11.5-15.5) % Plt Count 49 L (150-450) k/uL Lymphocytes # 0.6 L (1.0-4.8) k/uL Sodium (137-145) mmol/L Carbon Dioxide (22-30) mmol/L BUN (7-17) mg/dL Calcium (8.4-10.2) mg/dL AST (14-36) U/L Alkaline Phosphatase (38-126) U/L Lipase (23-300) U/L Urine Protein (Negative) Urine Ketones (Negative) Urine Blood (Negative) Ur Leukocyte Esterase (Negative) Urine Bacteria (None) /hpf Hyaline Casts (0-2) /lpf Urine Mucus (None) /hpf Crossmatch See Detail Assessment and Plan (1) Pancytopenia due to antineoplastic chemotherapy Current Visit: Yes Status: Acute Code(s): D61.810 - ANTINEOPLASTIC CHEMOTHERAPY INDUCED PANCYTOPENIA; T45.1X5A - ADVERSE EFFECT OF ANTINEOPLASTIC AND IMMUNOSUP DRUGS, INIT SNOMED Code(s): 427954421531522 (2) Primary cervical cancer with metastasis to other site Current Visit: Yes Status: Acute Code(s): C53.9 - MALIGNANT NEOPLASM OF CERVIX UTERI, UNSPECIFIED SNOMED Code(s): 029398182 (3) Chronic pain due to malignant neoplastic disease Current Visit: Yes Status: Acute Code(s): G89.3 - NEOPLASM RELATED PAIN (ACUTE) (CHRONIC) SNOMED Code(s): 322247730 (4) Pancreatitis Current Visit: No Status: Acute Priority: High Code(s): K85.90 - ACUTE PANCREATITIS WITHOUT NECROSIS OR INFECTION, UNSP SNOMED Code(s): 18103680 Plan: Assessment and Recommendations: Metastatic Cervical Cancer: - Status POst 6 cycles of chemo and restaginf in early November Abdominal Pain/Nausea and Vomiting: - Likely due to pancreatitis - Supportive care Thrombocytopenia <50K - Today 49K therefore hold anticoagulation VTE prophylaxis unless greater than 50K Hypercalcemia: - Fluid Hydration rescue - Await repeat Awaiting recheck CMP and Lipase Continue Antibiotics and bowel rest Restage CT scans COntinue supportive care Daily labs
[2020-11-03 15:06] LABS: ALT 10 U/L (4-34); AST 36 U/L (14-36); African American GFR (CKD) >90 (>60 ml/min/1.73 sqM); Albumin 3.5 g/dL (3.5-5.0); Albumin/Globulin Ratio 1.4; Alkaline Phosphatase 455 U/L (38-126); Amylase 54 U/L (30-110); Anion Gap 8 mmol/L; Blood Urea Nitrogen 19 mg/dL (7-17); Carbon Dioxide 17 mmol/L (22-30); Chloride 108 mmol/L (98-107); Globulin 2.5 g/dL; Glucose 68 mg/dL (74-99); Lipase 516 U/L (23-300); Magnesium 1.9 mg/dL (1.6-2.3); Non-African American GFR(CKD) >90 (>60 ml/min/1.73 sqM); Potassium 4.4 mmol/L (3.5-5.1); Sodium 133 mmol/L (137-145)
[2020-11-03 19:04] LABS: African American GFR (CKD) 101.8 (60.0-200.0); Albumin 3.9 g/dL (3.80-4.90); Albumin/Globulin Ratio 2.05 (1.60-3.17); BUN/Creat Ratio 28.75 Ratio (12.00-20.00); Calcium 9.5 mg/dL (8.7-10.3); Globulin 1.9 g/dL (1.6-3.3); Magnesium 1.9 mg/dL (1.5-2.4); Non-African American GFR(CKD) 87.8 (60.0-200.0); Phosphorus 2.1 mg/dL (2.4-5.1); Potassium 4.4 mmol/L (3.5-5.5); Total Bilirubin 0.8 mg/dL (0.2-1.2); Total Protein 5.8 g/dL (6.2-8.2)
[2020-11-03] MEDS: ONDANSETRON 4 MG/2 ML VIAL IVP PRN (21:29)
[2020-11-03 22:09] LABS: Appearance,Urine Clear (Clear); Bilirubin,Urine Negative (Negative); Blood,Urine Negative (Negative); Color,Urine Yellow; Glucose,Urine (UA) Negative (Negative); Ketones,Urine Trace (Negative); Leukocyte Esterase,Urine Negative (Negative); Nitrite,Urine Negative (Negative); Protein,Urine Trace (Negative); Specific Gravity,Urine 1.012 (1.001-1.035); Urobilinogen,Urine <2.0 mg/dL (<2.0)
[2020-11-04] MEDS: HYDROmorphone 1 MG/ML 1 ML SYRINGE IVP PRN ×6 (02:49→23:46)
[2020-11-04] MEDS: LEVOTHYROXINE 75 MCG TAB PO SCH (05:33)
[2020-11-04] MEDS: ONDANSETRON 4 MG/2 ML VIAL IVP PRN (05:48)
[2020-11-04] MEDS: MORPHINE SULFATE ER 30 MG TABLET PO SCH ×2 (08:31→22:05)
[2020-11-04] MEDS: ALPRAZolam 0.5 MG TAB PO PRN (08:31)
[2020-11-04] MEDS: polyethylene glycoL 3350 17 GM POWD.PACK PO SCH (08:32)
[2020-11-04] MEDS: PANTOPRAZOLE 40 MG TABLET PO SCH (08:32)
[2020-11-04] MEDS: SENNOSIDES-DOCUSATE SODIUM 1 EACH TAB PO SCH (08:32)
[2020-11-04] MEDS: DULoxetine HCL 20 MG CAPSULE.DR PO SCH (08:32)
[2020-11-04] MEDS: IOPAMIDOL CONTRAST (ORAL USE) VIAL PO PRN ×2 (09:24→10:36)
--- NOTE | 2020-11-04 09:58 | HP ---
HISTORY AND PHYSICAL CHIEF COMPLAINT: Intractable nausea, vomiting, diarrhea, abdominal pain, anemia and carcinoma of the cervix. HISTORY OF PRESENT ILLNESS: This is the first admission in this hospital under my care. She is receiving chemotherapy for carcinoma of the cervix and started to develop nausea, vomiting, and crampy abdominal pain. She has had no hematemesis, melena, hematochezia, etc. REVIEW OF SYSTEMS: Otherwise unremarkable. She is not having any headaches, neurologic problems, shortness of breath, cough, chest pain, orthopnea, hematuria, dysuria, etc. PAST MEDICAL HISTORY, FAMILY HISTORY, PERSONAL AND SOCIAL HISTORY: She has had 3 pregnancies and 3 children. She is not allergic to any medication. She denies surgery in the past. She does not smoke. PHYSICAL EXAMINATION: Blood pressure is 106/60 with a pulse of 68 and regular, respirations of 18 and temperature 96.8. In general she appeared to be chronically ill with alopecia. She was pale. She was mildly dehydrated. Head, ears, eyes, nose and mouth were normal. Chest was clear to auscultation. Cardiac exam demonstrates sinus rhythm with no murmurs or extra sounds. The abdomen was soft and she had generalized mild tenderness, particularly in the lower abdomen. No definite masses. Extremities are normal. Neurological, she is intact. She is admitted to the hospital with diagnoses: 1. Intractable nausea and vomiting. 2. Dehydration. 3. Probable reaction to chemotherapy. 4. Dehydration. 5. Carcinoma of the cervix. PLAN: 1. Bedrest. 2. IV fluids. 3. Antiemetics. 4. Analgesics. 5. Consult with Oncology. MMODL / IJN: [id number] /
--- NOTE | 2020-11-04 10:02 | PN ---
PROGRESS NOTE DATE OF SERVICE: 11/03/2020 CHIEF COMPLAINT: Intractable nausea and vomiting, on chemotherapy for carcinoma of the cervix. HISTORY OF PRESENT ILLNESS: This lady is still nauseated. She is having significant amount of lower abdominal pain. PHYSICAL EXAMINATION: Chest is clear. Cardiac exam is normal. Bowel sounds are present. She is tender in the abdomen. IMPRESSION: 1. Nausea and vomiting secondary to chemotherapy. 2. Dehydration. 3. Carcinoma of the cervix. PLAN: Continue with IV fluids and antiemetics. She will be seen by Oncology. MMODL / IJN: [id number] /
--- NOTE | 2020-11-04 12:24 | CT ---
EXAMINATION TYPE: CT ChestAbdPelvis w con DATE OF EXAM: 11/04/2020 COMPARISON: Abdomen and pelvis 09/20/[address] chest 09/15/2020 HISTORY: 49-year-old female abdominal pain, nausea, vomiting, pancreatitis, restaging cancer. TECHNIQUE: Contiguous axial scanning of the chest, abdomen, and pelvis performed with IV Contrast, pa tient injected with 100 mL of Isovue 300. Delayed images through the kidneys were obtained. Coronal/s agittal reconstructions performed. CT DLP: 1502 mGycm Automated exposure control for dose reduction was used. FINDINGS: CHEST: Right anterior chest wall injection port with catheter tip at the cavoatrial junction. Heart normal size without pericardial effusion. Aorta normal caliber with bovine configuration to the aortic arch. 1.0 cm subcutaneous soft tissue nodule anterior left upper arm, axial image 8 previously not included in the [id number]. No thoracic lymphadenopathy by CT size criteria. Bands of atelectasis or scarring in the lower lungs, right greater than left. Redemonstrated bilateral pulmonary nodules. These measure up to 7 mm. While overall size is relativel y unchanged, they show decreasing soft tissue fullness suggesting some interval treatment response. No new pulmonary nodules are seen. No consolidation or pleural effusion. ABDOMEN: Hepatomegaly at 22.9 cm with innumerable hypodense hepatic masses, largest at the right hepatic dome measuring 4.0 cm. These are not significantly changed in the interval. Portal venous system is patent . No biliary ductal dilatation. Gallbladder, right kidney, spleen, and pancreas show no gross abnormality. Redemonstrated right adrenal mass currently at 5.2 x 3.0 cm versus 5.9 x 2.7 cm, previously. Multiple nodules of the left adrenal gland measuring up to 2.4 x 1.4 cm, not significantly changed. Heterogeneous soft tissue medial left kidney has decreased since 2.1 cm versus 3.0 cm, previously. Th ere is mild left-sided pelvocaliectasis which remains. No obstructing mass or calcification along the left ureter is seen. Multiple subcutaneous soft tissue deposits, anterior right mid abdomen is smaller 1.4 cm versus 2.3 c m, previously. Posterior right perimedian back is stable at 1.1 cm. Posterior lower back is relatively unchanged at 2.0 cm. Lateral right hip 2.0 cm versus 2.2 cm, previously. Medial right buttock 1.4 cm versus 1.2 cm, previously. Partially visualized large mass within the upper left adductor compartment measuring at least 8.4 cm incompletely imaged. Measuring up to 9.3 cm, previously. No mesenteric or retroperitoneal lymphadenopathy. Redemonstrated 3.0 cm soft tissue deposit anterior lower right omentum, decreased in size versus 4.5 cm, previously. Oral contrast progressed into the ascending colon. No significant stool burden. No pericolonic inflam matory change. Circumferential wall thickening of the sigmoid colon probably due to nondistention. PELVIS: Left inguinal lymph node 1.5 cm versus 1.7 cm, previously. Bladder urine distended. Uterus anteverted . There is some heterogeneous enhancement along the myometrium which may be physiologic. Small pelvic phleboliths. Presacral edema Left perirectal nodularity measuring 1.8 x 0.7 cm relatively unchanged. Neither ovary clearly identif ied. BONES: Right-sided L5 pars defect. No osseous destructive process seen. IMPRESSION: 1. METASTATIC DISEASE WITH REDEMONSTRATED MULTIPLE PULMONARY NODULES, HEPATIC METASTASES, SCATTERED S OFT TISSUE DEPOSITS, METASTATIC DEPOSIT IN THE LOWER RIGHT OMENTUM, AT THE LEFT RENAL SINUS, BILATERA L ADRENAL INVOLVEMENT, AND A LARGE MASS INVOLVING THE UPPER LEFT ADDUCTOR COMPARTMENT. 2. THERE HAS BEEN OVERALL PARTIAL TREATMENT RESPONSE. While the pulmonary nodules are relatively mini lar in size, they show decreasing soft tissue fullness. Other lesions that have decreased in size: R ight adrenal mass, a few scattered soft tissue deposits, right omental deposit, left renal sinus lesi on, and the partially visualized large upper left thigh intramuscular mass. 3. Hepatic lesions, left adrenal nodules, and a couple subcutaneous soft tissue deposits are not sign ificantly changed. One along the medial right buttock is minimally larger at 1.4 cm versus 1.2 cm, pr eviously.
[2020-11-04 15:42] LABS: Anisocytosis Slight; HCT 21.6 % (34.0-46.0); HGB 7.3 gm/dL (11.4-16.0); Hypochromasia Slight; MCHC 33.8 g/dL (31.0-37.0); MCV 91.9 fL (80.0-100.0); Mean Platelet Volume 9.3; Platelet Count 44 k/uL (150-450); Poikilocytosis Slight; RBC 2.35 m/uL (3.80-5.40); RDW 19.2 % (11.5-15.5); WBC 2.1 k/uL (3.8-10.6)
[2020-11-04 15:46] LABS: ALT 10 U/L (4-34); AST 34 U/L (14-36); African American GFR (CKD) >90 (>60 ml/min/1.73 sqM); Albumin 3.7 g/dL (3.5-5.0); Albumin/Globulin Ratio 1.4; Alkaline Phosphatase 455 U/L (38-126); Anion Gap 9 mmol/L; Blood Urea Nitrogen 16 mg/dL (7-17); Calcium 10.5 mg/dL (8.4-10.2); Carbon Dioxide 19 mmol/L (22-30); Chloride 104 mmol/L (98-107); Globulin 2.6 g/dL; Glucose 67 mg/dL (74-99); Lipase 440 U/L (23-300); Magnesium 1.9 mg/dL (1.6-2.3); Non-African American GFR(CKD) 83 (>60 ml/min/1.73 sqM); Potassium 4.4 mmol/L (3.5-5.1); Sodium 132 mmol/L (137-145); Total Bilirubin 1.1 mg/dL (0.2-1.3); Total Protein 6.3 g/dL (6.3-8.2)
[2020-11-04 17:21] LABS: Basophils # (M) 0.02 k/uL (0-0.2); Eosinophils # (M) 0.11 k/uL (0-0.7); Lymphocytes # (M) 0.53 k/uL (1.0-4.8); Monocytes # (M) 0.38 k/uL (0-1.0); Neutrophils # (M) 1.07 k/uL (1.3-7.7); Neutrophils % (M) 51 %; Nucleated Red Blood Cells 0 /100 WBC (0-0); Total Cells Counted 100
--- NOTE | 2020-11-04 20:37 | PN ---
PROGRESS NOTE DATE OF SERVICE: 11/04/2020 CHIEF COMPLAINT: Intractable nausea and vomiting. HISTORY OF PRESENT ILLNESS: This lady is doing a little bit better. She is a little bit less nauseated. She is still having some lower abdominal pain. Her hemoglobin is 7.1, and she does have an elevated alkaline phosphatase and lipase. She is being seen by Oncology. PHYSICAL EXAMINATION: She remains pale and chronically ill in appearance. Chest is clear. Cardiac exam is normal. Abdomen is soft and nontender. Extremities are normal. IMPRESSION: 1. Intractable nausea and vomiting secondary to chemotherapy for carcinoma of the cervix. 2. Pancreatitis. 3. Elevated alkaline phosphatase. PLAN: Continue to try to control her symptoms and discharge home when cleared by Oncology. MMODL / IJN: [id number] /
--- NOTE | 2020-11-04 21:43 | P.PN ---
Subjective Progress Note Date: 11/04/20 Principal diagnosis: Pancreatitis Left knee pain is her biggest complaint, large left posterior thigh mass is increased size Objective - Vital Signs Vital signs: Vital Signs Temp 98 F 11/04/20 19:05 Pulse 80 11/04/20 19:05 Resp 20 11/04/20 19:05 BP 104/63 11/04/20 19:05 Pulse Ox 97 11/04/20 19:05 Intake & Output 11/04/20 11/04/20 11/05/20 06:59 18:59 06:59 Intake Total 120 Balance 120 Intake: IV 120 0.9 120 Other: # Voids 2 2 - Exam - Constitutional General appearance: Present: average body habitus, cooperative, mild distress - EENT Eyes: Present: anicteric sclerae, EOMI ENT: Present: hearing grossly normal, normal oropharynx - Respiratory Respiratory: bilateral: CTA - Cardiovascular Rhythm: regular Heart sounds: normal: S1, S2 Abnormal Heart Sounds: Absent: systolic murmur, diastolic murmur, rub, S3 Gallop, S4 Gallop, click, other - Peripheral edema leg Peripheral Edema: bilateral: None - Gastrointestinal General gastrointestinal: Present: normal bowel sounds, soft - Integumentary Integumentary: Present: pale - Neurologic Neurologic: Present: CNII-XII intact - Musculoskeletal Musculoskeletal: Present: strength equal bilaterally - Psychiatric Psychiatric: Present: A&O x's 3 - Labs CBC & Chem 7: 11/04/20 15:33 11/04/20 15:33 Labs: Abnormal Lab Results - Last 24 Hours (Table) 11/03/20 11/04/20 11/04/20 Range/Units 21:57 15:33 15:33 WBC 2.1 L (3.8-10.6) k/uL RBC 2.35 L (3.80-5.40) m/uL Hgb 7.3 L (11.4-16.0) gm/dL Hct 21.6 L (34.0-46.0) % RDW 19.2 H (11.5-15.5) % Plt Count 44 L (150-450) k/uL Neutrophils # (Manual) 1.07 L (1.3-7.7) k/uL Lymphocytes # (Manual) 0.53 L (1.0-4.8) k/uL Sodium 132 L (137-145) mmol/L Carbon Dioxide 19 L (22-30) mmol/L Glucose 67 L (74-99) mg/dL Calcium 10.5 H (8.4-10.2) mg/dL Alkaline Phosphatase 455 H (38-126) U/L Lipase 440 H (23-300) U/L Urine Protein Trace H (Negative) Urine Ketones Trace H (Negative) Assessment and Plan (1) Pancytopenia due to antineoplastic chemotherapy Current Visit: Yes Status: Acute Code(s): D61.810 - ANTINEOPLASTIC CHEMOTHERAPY INDUCED PANCYTOPENIA; T45.1X5A - ADVERSE EFFECT OF ANTINEOPLASTIC AND IMMUNOSUP DRUGS, INIT SNOMED Code(s): 727377685075033 (2) Primary cervical cancer with metastasis to other site Current Visit: Yes Status: Acute Code(s): C53.9 - MALIGNANT NEOPLASM OF CERVIX UTERI, UNSPECIFIED SNOMED Code(s): 475492805 (3) Chronic pain due to malignant neoplastic disease Current Visit: Yes Status: Acute Code(s): G89.3 - NEOPLASM RELATED PAIN (ACUTE) (CHRONIC) SNOMED Code(s): 176652257 (4) Pancreatitis Current Visit: No Status: Acute Priority: High Code(s): K85.90 - ACUTE PANCREATITIS WITHOUT NECROSIS OR INFECTION, UNSP SNOMED Code(s): 15618472 Plan: Assessment and Recommendations: Metastatic Cervical Cancer: - Status POst 6 cycles of chemo and restaginf in early November Abdominal Pain/Nausea and Vomiting: - Likely due to pancreatitis - Supportive care Thrombocytopenia <50K - Today 49K therefore hold anticoagulation VTE prophylaxis unless greater than 50K Hypercalcemia: - Fluid Hydration rescue - Await repeat Awaiting recheck CMP and Lipase Reviewed CT Further evaluate Left Knee and thigh Lidocaine patch Advance diet
[2020-11-04] MEDS: OLANZapine 5 MG TAB PO SCH (22:06)
[2020-11-05] MEDS: HYDROmorphone 1 MG/ML 1 ML SYRINGE IVP PRN ×7 (02:58→22:59)
[2020-11-05] MEDS: LEVOTHYROXINE 75 MCG TAB PO SCH (06:01)
[2020-11-05 07:18] LABS: Anisocytosis Slight; HCT 21.5 % (34.0-46.0); HGB 7.1 gm/dL (11.4-16.0); Hypochromasia Slight; MCH 30.6 pg (25.0-35.0); MCHC 32.8 g/dL (31.0-37.0); MCV 93.3 fL (80.0-100.0); Macrocytosis Slight; Mean Platelet Volume 8.6; Platelet Count 40 k/uL (150-450); Poikilocytosis Slight; RDW 19.8 % (11.5-15.5); WBC 2.1 k/uL (3.8-10.6)
[2020-11-05] MEDS: PANTOPRAZOLE 40 MG TABLET PO SCH (08:13)
[2020-11-05] MEDS: DULoxetine HCL 20 MG CAPSULE.DR PO SCH (08:13)
[2020-11-05] MEDS: MORPHINE SULFATE ER 30 MG TABLET PO SCH ×2 (08:14→20:47)
[2020-11-05] MEDS: polyethylene glycoL 3350 17 GM POWD.PACK PO SCH (08:14)
[2020-11-05] MEDS: SENNOSIDES-DOCUSATE SODIUM 1 EACH TAB PO SCH (08:14)
[2020-11-05] MEDS: LIDOCAINE 5% PATCH TOPICAL SCH ×2 (08:16→10:04)
[2020-11-05 09:40] LABS: Eosinophils # (M) 0.13 k/uL (0-0.7); Lymphocytes # (M) 0.61 k/uL (1.0-4.8); Neutrophils # (M) 0.86 k/uL (1.3-7.7); Neutrophils % (M) 41 %; Nucleated Red Blood Cells 0 /100 WBC (0-0); Total Cells Counted 100
--- NOTE | 2020-11-05 09:42 | MR ---
MR left thigh with and without contrast HISTORY: Mass in posterior thigh Multiplanar multisequence and postcontrast images obtained through the left thigh, patient received 7 .5 cc Gadavist IV Correlation to CT scan 11/04/2020 At the level of the abductor compartment as noted on prior CT, there is a mass of mixed increased sig nal on T2 weighted images, intermediate on T1 with enhancement following contrast administration delia uring approximately 17.4 cm in cephalad to caudal dimension by 8.8 cm in AP dimension by 6.9 cm in tr ansverse dimension. Local mass effect on the surrounding musculature is noted. Suspect there are inte rnal vascular channels, possible cystic spaces present. Immediately adjacent to the mass and slightly lateral there is an additional mass with similar characteristics measuring 5.8 cm x 3.2 cm x 6.6cm i n cephalad to caudal dimension. There are local edema changes within the soft tissues. Local mass eff ect is noted, left inguinal node is again seen showing some enhancement. No evident bone involvement. IMPRESSION: Favor metastatic deposits.
[2020-11-05 11:00] LABS: African American GFR (CKD) 88.2 (60.0-200.0); Albumin/Globulin Ratio 2.11 (1.60-3.17); Anion Gap 8.9 mmol/L (4.00-12.00); BUN/Creat Ratio 16.67 Ratio (12.00-20.00); Calcium 10.2 mg/dL (8.7-10.3); Carbon Dioxide 20.1 mmol/L (21.6-31.8); Globulin 1.9 g/dL (1.6-3.3); Non-African American GFR(CKD) 76.1 (60.0-200.0); Potassium 4.3 mmol/L (3.5-5.5); Total Bilirubin 0.6 mg/dL (0.2-1.2); Total Protein 5.9 g/dL (6.2-8.2)
--- NOTE | 2020-11-05 16:44 | PN ---
PROGRESS NOTE DATE OF SERVICE: 11/05/2020 CHIEF COMPLAINT: Intractable nausea and vomiting secondary to chemotherapy for metastatic cervical cancer. HISTORY OF PRESENT ILLNESS: This lady is fairly stable and she is not as nauseated. She had some pain and swelling in the left knee and on current contrast study it looks as though she has metastases in the femur. PHYSICAL EXAMINATION: Chest is clear. Cardiac exam is normal. Abdomen is soft and nontender. She remains pale. IMPRESSION: 1. Metastatic carcinoma of the cervix. 2. Dehydration. 3. Intractable nausea and vomiting. PLAN: Wait for any further recommendations from Hematology. MMODL / IJN: [id number] /
[2020-11-05] MEDS: OLANZapine 5 MG TAB PO SCH (20:47)
[2020-11-06] MEDS: HYDROmorphone 1 MG/ML 1 ML SYRINGE IVP PRN ×6 (02:15→22:18)
[2020-11-06] MEDS: LEVOTHYROXINE 75 MCG TAB PO SCH (05:30)
[2020-11-06] MEDS: PANTOPRAZOLE 40 MG TABLET PO SCH (08:44)
[2020-11-06] MEDS: DULoxetine HCL 20 MG CAPSULE.DR PO SCH (08:44)
[2020-11-06] MEDS: MORPHINE SULFATE ER 30 MG TABLET PO SCH ×2 (08:44→20:37)
[2020-11-06] MEDS: polyethylene glycoL 3350 17 GM POWD.PACK PO SCH (08:46)
[2020-11-06] MEDS: SENNOSIDES-DOCUSATE SODIUM 1 EACH TAB PO SCH (08:46)
[2020-11-06] MEDS: OLANZapine 5 MG TAB PO SCH (20:38)
--- NOTE | 2020-11-06 20:41 | PN ---
PROGRESS NOTE DATE OF SERVICE: 11/06/2020. I am covering for Dr. Hurd. HISTORY: This 49-year-old woman was admitted with metastatic carcinoma of the cervix, also had dehydration. The nausea and vomiting is improved at this time. Hematology/Oncology following the patient closely. No chest pain. No palpitations. No fever. PHYSICAL EXAMINATION: Alert and oriented x3. Pulse 95, blood pressure 112/74, respirations 16, temperature 98.1, pulse ox 94% on room air. HEENT: Conjunctive normal. NECK: Supple. No JVD. CARDIOVASCULAR: S1 and S2 muffled. LUNGS: Breath sounds diminished at the bases. ABDOMEN: Soft nontender. NERVOUS SYSTEM: No focal deficits. LAB STUDIES: WBC 2.2, hemoglobin 7.2, platelets of 40. Sodium 135. ASSESSMENT: 1. Pancytopenia secondary to chemotherapy. 2. Cervical cancer with metastases. 3. Dehydration. 4. Intractable nausea and vomiting, improved. 5. Hyponatremia. 6. FULL CODE. RECOMMENDATIONS AND DISCUSSION: In this 49 year old woman who presented with multiple complex medical issues, we will monitor the patient closely, continue the current management and symptomatic treatment. Advance diet. Regular diet. Repeat labs. Closely follow with Hematology/Oncology. Dr. Hurd will follow tomorrow. MMODL / IJN: [id number] /
[2020-11-07] MEDS: HYDROmorphone 1 MG/ML 1 ML SYRINGE IVP PRN ×6 (03:02→23:53)
[2020-11-07] MEDS: LEVOTHYROXINE 75 MCG TAB PO SCH (06:05)
[2020-11-07 06:18] LABS: Anisocytosis Moderate; Basophils % (A) 0 %; Eosinophils # (A) 0.1 k/uL (0-0.7); Eosinophils % (A) 2 %; Hypochromasia Slight; Lymphocytes # (A) 0.7 k/uL (1.0-4.8); Lymphocytes % (A) 16 %; MCH 31.7 pg (25.0-35.0); MCV 93.2 fL (80.0-100.0); Macrocytosis Slight; Mean Platelet Volume 8.3; Monocytes # (A) 0.4 k/uL (0-1.0); Monocytes % (A) 11 %; Neutrophils # (A) 2.7 k/uL (1.3-7.7); Neutrophils % (A) 67 %; Poikilocytosis Slight; RBC 2.06 m/uL (3.80-5.40); RDW 20.1 % (11.5-15.5); WBC 4.1 k/uL (3.8-10.6)
[2020-11-07 06:50] LABS: HCT 19.2 % (34.0-46.0); HGB 6.5 gm/dL (11.4-16.0); Platelet Count 42 k/uL (150-450)
[2020-11-07] MEDS: PANTOPRAZOLE 40 MG TABLET PO SCH (09:28)
[2020-11-07] MEDS: polyethylene glycoL 3350 17 GM POWD.PACK PO SCH (09:28)
[2020-11-07] MEDS: SENNOSIDES-DOCUSATE SODIUM 1 EACH TAB PO SCH (09:28)
[2020-11-07] MEDS: LIDOCAINE 5% PATCH TOPICAL SCH (09:29)
[2020-11-07] MEDS: DULoxetine HCL 20 MG CAPSULE.DR PO SCH (09:30)
[2020-11-07] MEDS: MORPHINE SULFATE ER 30 MG TABLET PO SCH ×2 (09:38→21:40)
[2020-11-07 10:33] LABS: African American GFR (CKD) 119.6 (60.0-200.0); Anion Gap 9.3 mmol/L (4.00-12.00); BUN/Creat Ratio 17.14 Ratio (12.00-20.00); Calcium 10.8 mg/dL (8.7-10.3); Carbon Dioxide 21.7 mmol/L (21.6-31.8); Non-African American GFR(CKD) 103.2 (60.0-200.0); Potassium 4.1 mmol/L (3.5-5.5)
[2020-11-07] MEDS: ALPRAZolam 0.5 MG TAB PO PRN (12:09)
--- NOTE | 2020-11-07 13:33 | PN ---
PROGRESS NOTE DATE OF SERVICE: 11/07/2020. CHIEF COMPLAINT: Metastatic cervical carcinoma with nausea and vomiting. HISTORY OF PRESENT ILLNESS: This lady is doing fairly well, but she is receiving another unit of packed cells today. She is having episodes of depression. She is anxious to be discharged. PHYSICAL EXAMINATION: Color remains poor. Chest is clear. Cardiac exam is normal. She does have some edema of the feet and will try Dakotah stockings. IMPRESSION: 1. Metastatic carcinoma of the cervix. 2. Dependent edema. 3. Depression. 4. Anemia. PLAN: 1. Dakotah stockings. 2. Transfuse 1 unit. 3. Hopefully, will be able to discharge soon. MMODL / IJN: [id number] /
[2020-11-07] MEDS: OLANZapine 5 MG TAB PO SCH (21:43)
[2020-11-08] MEDS: ALPRAZolam 0.5 MG TAB PO PRN ×2 (00:26→12:18)
[2020-11-08] MEDS: HYDROmorphone 1 MG/ML 1 ML SYRINGE IVP PRN ×2 (02:53→06:03)
[2020-11-08 04:35] VITALS: RESP 18
[2020-11-08] MEDS: LEVOTHYROXINE 75 MCG TAB PO SCH (06:02)
[2020-11-08 07:16] LABS: Anisocytosis Moderate; Basophils % (A) 0 %; Eosinophils # (A) 0.1 k/uL (0-0.7); Eosinophils % (A) 2 %; HCT 22.6 % (34.0-46.0); HGB 7.8 gm/dL (11.4-16.0); Lymphocytes # (A) 0.9 k/uL (1.0-4.8); Lymphocytes % (A) 16 %; MCH 30.8 pg (25.0-35.0); MCHC 34.4 g/dL (31.0-37.0); MCV 89.7 fL (80.0-100.0); Mean Platelet Volume 8.1; Monocytes # (A) 0.5 k/uL (0-1.0); Monocytes % (A) 8 %; Neutrophils # (A) 4.1 k/uL (1.3-7.7); Neutrophils % (A) 72 %; Poikilocytosis Slight; RBC 2.52 m/uL (3.80-5.40); RDW 20.5 % (11.5-15.5); WBC 5.7 k/uL (3.8-10.6)
[2020-11-08 07:19] LABS: Platelet Count 42 k/uL (150-450)
[2020-11-08 07:35] LABS: African American GFR (CKD) >90 (>60 ml/min/1.73 sqM); Anion Gap 9 mmol/L; Blood Urea Nitrogen 14 mg/dL (7-17); Carbon Dioxide 23 mmol/L (22-30); Chloride 106 mmol/L (98-107); Glucose 85 mg/dL (74-99); Non-African American GFR(CKD) >90 (>60 ml/min/1.73 sqM); Potassium 4.6 mmol/L (3.5-5.1); Sodium 138 mmol/L (137-145)
[2020-11-08] MEDS: MORPHINE SULFATE ER 30 MG TABLET PO SCH (08:22)
[2020-11-08] MEDS: LIDOCAINE 5% PATCH TOPICAL SCH (08:24)
[2020-11-08] MEDS: PANTOPRAZOLE 40 MG TABLET PO SCH (08:25)
[2020-11-08] MEDS: SENNOSIDES-DOCUSATE SODIUM 1 EACH TAB PO SCH (08:25)
[2020-11-08] MEDS: polyethylene glycoL 3350 17 GM POWD.PACK PO SCH (08:25)
[2020-11-08] MEDS: DULoxetine HCL 20 MG CAPSULE.DR PO SCH (09:49)
[2020-11-08 11:54] VITALS: BP 100/65; PULSE 83; TEMP 98.2
--- NOTE | 2020-11-08 22:41 | DS ---
DISCHARGE SUMMARY CHIEF COMPLAINT: Intractable nausea and vomiting. HISTORY OF PRESENT ILLNESS AND PHYSICAL EXAMINATION: Details of this lady's history and physical can be found in the initial workup. COURSE IN THE HOSPITAL: After admission, she was placed on bedrest, started on intravenous fluids and IV antiemetics. She was seen by Oncology. Nausea and vomiting improved. She did require 2 transfusions of packed cells. She was doing fairly well and was fairly comfortable without nausea. Her hemoglobin is up to around 7.8 and it was felt she could go home on the . She will go home on her usual activity and diet and medication and she will follow up with us in several days and as well with Oncology. FINAL DIAGNOSES: 1. Intractable nausea and vomiting secondary to chemotherapy. 2. Metastatic carcinoma of the cervix. 3. Anemia. OPERATIONS: None. CONSULTATIONS: Oncology. She is improved. MMYANET / AMY: [id number] /
== END 2020-11-08 13:48 | disposition home health service (06) | DRG 640 ==
LOC: EC 15:16 → 5NMEDONC 20:09
PROVIDERS: ADMIT Family Medicine; ATTEND Family Medicine
PROC: 30233N1 Transfusion of Nonautologous Red Blood Cells into Peripheral Vein, Percutaneous Approach (ICD-10-PCS; principal; 2020-11-02)
DX: E86.0 Dehydration (principal); D61.810 Antineoplastic chemotherapy induced pancytopenia; K85.90 Acute pancreatitis without necrosis or infection, unspecified; C79.70 Secondary malignant neoplasm of unspecified adrenal gland; C78.02 Secondary malignant neoplasm of left lung; C78.01 Secondary malignant neoplasm of right lung; R11.2 Nausea with vomiting, unspecified; E87.1 Hypo-osmolality and hyponatremia; C53.9 Malignant neoplasm of cervix uteri, unspecified; Z20.822 Contact with and (suspected) exposure to COVID-19; T45.1X5A Adverse effect of antineoplastic and immunosuppressive drugs, initial encounter; D49.512 Neoplasm of unspecified behavior of left kidney; E83.52 Hypercalcemia; F32.9 Major depressive disorder, single episode, unspecified; G89.3 Neoplasm related pain (acute) (chronic); E07.9 Disorder of thyroid, unspecified; F41.9 Anxiety disorder, unspecified; M25.562 Pain in left knee; R19.7 Diarrhea, unspecified; Z79.890 Hormone replacement therapy; Z79.899 Other long term (current) drug therapy; Z87.891 Personal history of nicotine dependence; Z87.19 Personal history of other diseases of the digestive system
CPT/HCPCS: 36415; 71260; 74022; 74177; 80048; 80053; 81001; 81003; 82150; 83690; 83735; 84100; 85025; 86850; 86900; 86901; 86920; 87635; 96361; 96374; 96375; 96376; 99285

== ENCOUNTER → 2020-11-11 | Outpatient (CLI) | payer OTHER ==
[~2020-11-11] MED LIST: SODIUM CHLORIDE 0.9% 1,000 ML IV ONE
[2020-11-11 10:01] VITALS: BP 113/74; PULSE 93; RESP 16; TEMP 98
== END ==
LOC: PROCWHC3 09:45
PROVIDERS: ATTEND Internal Medicine Hematology & Oncology
DX: C53.9 Malignant neoplasm of cervix uteri, unspecified (principal); F17.200 Nicotine dependence, unspecified, uncomplicated
CPT/HCPCS: 96360; J1642

== ENCOUNTER → 2020-11-15 | Outpatient (CLI) | payer OTHER | END | disposition home or self-care (01) | CPT/HCPCS: 70553; A9585 ==

== ENCOUNTER 2020-11-20 00:17 | Inpatient (IN) | payer OTHER ==
[2020-11-20] MEDS ORDERED: SODIUM CHLORIDE 0.9% 1,000 ML IV STA ×2 (00:28)
[2020-11-20] MEDS ORDERED: ONDANSETRON 4 MG/2 ML VIAL IVP STA (00:36)
[2020-11-20] MEDS ORDERED: HYDROmorphone 1 MG/ML 1 ML SYRINGE IVP STA (00:36)
--- NOTE | 2020-11-20 00:37 | ED ---
Abdominal Pain HPI - General Chief Complaint: Abdominal Pain Stated Complaint: Abdominal pain Time Seen by Provider: 11/20/20 00:27 Source: patient, RN notes reviewed, old records reviewed Mode of arrival: ambulatory Limitations: no limitations - History of Present Illness Initial Comments: This is a 49-year-old female to the ER for evaluation. Patient presents today for evaluation of chronic pain. Patient has r acute on chronic abdominal pain. Weakness swollen lower extremities dehydration. Does not feel well. History of same. No recent new changes. No recent travel history sick contacts. Patient currently afebrile with no vomiting, no diarrhea. Really complaining about abdominal pain MD Complaint: abdominal pain -: hour(s) Location: diffuse Migration to: no migration Severity: severe Severity scale (1-10): 10 Quality: cramping, stabbing, aching Consistency: intermittent Improves With: nothing Worsens With: nothing Associated Symptoms: nausea Treatments Prior to Arrival: prescription analgesics - Related Data Home Medications Medication Instructions Recorded Confirmed Prochlorperazine [Compazine] 10 mg PO Q6H PRN 07/09/20 11/16/20 Lidocaine-Prilocaine Cream [Emla 1 applic TOPICAL DAILY PRN 07/26/20 11/16/20 Cream 2.5%/2.5%] HYDROcodone/APAP 10-325MG [[place] 1 tab PO TID PRN 08/29/20 11/16/20 10-325] Levothyroxine Sodium [Synthroid] 150 mcg PO DAILY 08/29/20 11/16/20 Morphine Sulfate ER [Ms Contin] 30 mg PO BID 08/29/20 11/16/20 OLANZapine [ZyPREXA] 5 mg PO HS 09/20/20 11/16/20 Sennosides/Docusate Sodium [Senna 1 tab PO DAILY 09/20/20 11/16/20 Plus 8.6-50 mg Tablet] Previous Rx's Medication Instructions Recorded DULoxetine HCL [Cymbalta] 20 mg PO DAILY 30 Days #30 07/13/20 capsule. polyethylene glycoL 3350 [Miralax] 17 gm PO DAILY powd.pack 07/28/20 ALPRAZolam [Xanax] 0.5 mg PO TID PRN #30 tab 08/09/20 Lactulose [Cephulac] 30 gm PO BID PRN 14 Days ml 08/09/20 Pantoprazole [Protonix] 40 mg PO AC-BRKFST #30 tablet. 09/26/20 Allergies Allergy/AdvReac Type Severity Reaction Status Date / Time No Known Allergies Allergy Verified 11/16/20 11:07 Review of Systems ROS Statement: Those systems with pertinent positive or pertinent negative responses have been documented in the HPI. ROS Other: All systems not noted in ROS Statement are negative. Past Medical History Past Medical History: Cancer, Thyroid Disorder Additional Past Medical History / Comment(s): cervical CA, mets History of Any Multi-Drug Resistant Organisms: None Reported Past Surgical History: No Surgical Hx Reported Additional Past Surgical History / Comment(s): RADIATION TO UTERUS., port to R side Past Anesthesia/Blood Transfusion Reactions: No Reported Reaction Past Psychological History: Anxiety Smoking Status: Former smoker Past Alcohol Use History: None Reported Past Drug Use History: None Reported - Past Family History Mother Family Medical History: Unable to Obtain Father History Unknown: Yes Family Medical History: Unable to Obtain General Exam General appearance: alert, in no apparent distress Head exam: Present: atraumatic, normocephalic, normal inspection Eye exam: Present: normal appearance, PERRL, EOMI. Absent: scleral icterus, conjunctival injection, periorbital swelling ENT exam: Present: normal exam, mucous membranes moist Neck exam: Present: normal inspection. Absent: tenderness, meningismus, lymphadenopathy Respiratory exam: Present: normal lung sounds bilaterally. Absent: respiratory distress, wheezes, rales, rhonchi, stridor Cardiovascular Exam: Present: regular rate, normal rhythm, normal heart sounds. Absent: systolic murmur, diastolic murmur, rubs, gallop, clicks GI/Abdominal exam: Present: soft, normal bowel sounds. Absent: distended, tenderness, guarding, rebound, rigid Extremities exam: Present: normal inspection, full ROM, normal capillary refill. Absent: tenderness, pedal edema, joint swelling, calf tenderness Back exam: Present: normal inspection Neurological exam: Present: alert, oriented X3, CN II-XII intact Psychiatric exam: Present: normal affect, normal mood Skin exam: Present: warm, dry, intact, normal color. Absent: rash Course Vital Signs 11/20/20 00:22 Temperature 97.9 F Pulse Rate 79 Respiratory 17 Rate Blood Pressure 98/63 O2 Sat by Pulse 97 Oximetry - Reevaluation(s) Reevaluation #1: 11/20/20 03:04 Medical record is reviewed Reevaluation #2: 11/20/20 03:04 Patient still feels unwell Reevaluation #3: 11/20/20 03:05 Patient has no pain control, difficult to control pain Reevaluation #4: 11/20/20 03:05 Patient is informed of results and questions are answered Reevaluation #5: 11/20/20 03:05 Patient can be admitted for evaluation and treatment Medical Decision Making - Medical Decision Making 49 female to the ER for evaluation. Patient presents today for evaluation of acute on chronic pain. Patient will be admitted for pain control - Lab Data Result diagrams: 11/20/20 01:08 11/20/20 01:08 Lab Results 11/20/20 11/20/20 11/20/20 Range/Units 01:08 01:08 01:08 WBC 10.5 (3.8-10.6) k/uL RBC 2.56 L (3.80-5.40) m/uL Hgb 7.9 L (11.4-16.0) gm/dL Hct 23.5 L (34.0-46.0) % MCV 92.0 (80.0-100.0) fL MCH 31.0 (25.0-35.0) pg MCHC 33.7 (31.0-37.0) g/dL RDW 21.6 H (11.5-15.5) % Plt Count 101 L D (150-450) k/uL MPV 8.1 Neutrophils % 86 % Lymphocytes % 7 % Monocytes % 6 % Eosinophils % 1 % Basophils % 1 % Neutrophils # 9.0 H (1.3-7.7) k/uL Lymphocytes # 0.7 L (1.0-4.8) k/uL Monocytes # 0.6 (0-1.0) k/uL Eosinophils # 0.1 (0-0.7) k/uL Basophils # 0.1 (0-0.2) k/uL Hypochromasia Slight Poikilocytosis Slight Anisocytosis Moderate Macrocytosis Slight Sodium 136 L (137-145) mmol/L Potassium 3.7 (3.5-5.1) mmol/L Chloride 102 (98-107) mmol/L Carbon Dioxide 22 (22-30) mmol/L Anion Gap 12 mmol/L BUN 17 (7-17) mg/dL Creatinine 0.83 (0.52-1.04) mg/dL Est GFR (CKD-EPI)AfAm >90 (>60 ml/min/1.73 sqM) Est GFR (CKD-EPI)NonAf 85 (>60 ml/min/1.73 sqM) Glucose 70 L (74-99) mg/dL Calcium 10.0 (8.4-10.2) mg/dL Total Bilirubin 1.2 (0.2-1.3) mg/dL AST 50 H (14-36) U/L ALT 14 (4-34) U/L Alkaline Phosphatase 819 H (38-126) U/L Creatine Kinase 52 (30-135) U/L Total Protein 6.1 L (6.3-8.2) g/dL Albumin 3.7 (3.5-5.0) g/dL Amylase 46 (30-110) U/L Lipase 451 H (23-300) U/L Urine Color Yellow Urine Appearance Cloudy H (Clear) Urine pH 6.0 (5.0-8.0) Ur Specific [place] 1.017 (1.001-1.035) Urine Protein Trace H (Negative) Urine Glucose (UA) Negative (Negative) Urine Ketones Trace H (Negative) Urine Blood Small H (Negative) Urine Nitrite Negative (Negative) Urine Bilirubin Negative (Negative) Urine Urobilinogen 2.0 (<2.0) mg/dL Ur Leukocyte Esterase Trace H (Negative) Urine RBC 3 (0-5) /hpf Urine WBC 6 H (0-5) /hpf Ur Squamous Epith Cells 2 (0-4) /hpf Urine Bacteria Rare H (None) /hpf Urine Mucus Rare H (None) /hpf - Radiology Data Radiology results: report reviewed (X-ray KUB is no acute changes), image reviewed Disposition Clinical Impression: Abdominal pain, Intractable pain Disposition: ADMITTED IP TO THIS [facility] Condition: Good Referrals: Howard Hurd MD [Primary Care Provider] - 1-2 days
[2020-11-20 01:24] LABS: Anisocytosis Moderate; Basophils # (A) 0.1 k/uL (0-0.2); Basophils % (A) 1 %; Eosinophils # (A) 0.1 k/uL (0-0.7); Eosinophils % (A) 1 %; HCT 23.5 % (34.0-46.0); HGB 7.9 gm/dL (11.4-16.0); Hypochromasia Slight; Lymphocytes # (A) 0.7 k/uL (1.0-4.8); Lymphocytes % (A) 7 %; MCHC 33.7 g/dL (31.0-37.0); Macrocytosis Slight; Mean Platelet Volume 8.1; Monocytes # (A) 0.6 k/uL (0-1.0); Monocytes % (A) 6 %; Neutrophils % (A) 86 %; Poikilocytosis Slight; RBC 2.56 m/uL (3.80-5.40); RDW 21.6 % (11.5-15.5); WBC 10.5 k/uL (3.8-10.6)
[2020-11-20 01:28] LABS: Platelet Count 101 k/uL (150-450)
[2020-11-20 01:44] LABS: ALT 14 U/L (4-34); AST 50 U/L (14-36); African American GFR (CKD) >90 (>60 ml/min/1.73 sqM); Albumin 3.7 g/dL (3.5-5.0); Alkaline Phosphatase 819 U/L (38-126); Amylase 46 U/L (30-110); Anion Gap 12 mmol/L; Blood Urea Nitrogen 17 mg/dL (7-17); Carbon Dioxide 22 mmol/L (22-30); Chloride 102 mmol/L (98-107); Creatine Kinase 52 U/L (30-135); Glucose 70 mg/dL (74-99); Lipase 451 U/L (23-300); Non-African American GFR(CKD) 85 (>60 ml/min/1.73 sqM); Potassium 3.7 mmol/L (3.5-5.1); Sodium 136 mmol/L (137-145); Total Bilirubin 1.2 mg/dL (0.2-1.3); Total Protein 6.1 g/dL (6.3-8.2)
--- NOTE | 2020-11-20 01:45 | XR ---
EXAMINATION TYPE: XR KUB DATE OF EXAM: 11/20/2020 COMPARISON: 11/02/2020 HISTORY: Pain TECHNIQUE: 2 views supine FINDINGS: There is no sign of intestinal obstruction or pneumoperitoneum. Fecal pattern is normal. I see no evidence of a mass. There are no pathologic calcifications over the kidneys. There is minimal atelectasis right lung base. IMPRESSION: There is some minimal atelectasis right lung base with elevated right diaphragm similar t o old exam. Nonacute abdomen.
[2020-11-20 02:09] LABS: Appearance,Urine Cloudy (Clear); Bacteria,Urine Rare /hpf; Bilirubin,Urine Negative (Negative); Blood,Urine Small (Negative); Color,Urine Yellow; Glucose,Urine (UA) Negative (Negative); Ketones,Urine Trace (Negative); Leukocyte Esterase,Urine Trace (Negative); Mucus,Urine Rare /hpf; Nitrite,Urine Negative (Negative); Protein,Urine Trace (Negative); RBC,Urine 3 /hpf (0-5); Specific Gravity,Urine 1.017 (1.001-1.035); Squamous Epithelial Cell,Urine 2 /hpf (0-4); WBC,Urine 6 /hpf (0-5)
[2020-11-20] MEDS ORDERED: NALOXONE 0.4 MG/ML 1 ML VIAL IV PRN (03:06)
[2020-11-20] MEDS: SODIUM CHLORIDE 0.9% 1,000 ML IV SCH ×2 (03:27→15:29)
[2020-11-20] MEDS: HYDROmorphone 1 MG/ML 1 ML SYRINGE IVP PRN ×6 (04:07→23:44)
[2020-11-20] MEDS ORDERED: PANTOPRAZOLE 40 MG/10 ML VIAL IV SCH (09:00)
--- NOTE | 2020-11-20 12:29 | HP ---
HISTORY AND PHYSICAL CHIEF COMPLAINT: Intractable pain. HISTORY OF PRESENT ILLNESS: This is another admission for this 49-year-old white female with intractable metastatic carcinoma of the cervix. She has been on morphine at home. However, her abdominal pain has been getting worse. It is now in the upper as well as lower abdomen. She has apparently not had any vomiting. REVIEW OF SYSTEMS: Unremarkable otherwise. She is not complaining of chest pain, headache, vomiting, urinary incontinence, melena, hematochezia, etc. Past medical history, family history and personal and social histories are all otherwise unremarkable. She is not allergic to any medications. PHYSICAL EXAMINATION: Blood pressure is 106/60 with a pulse of 68, respirations 18 and she is afebrile. In general she appeared to be chronically ill in appearance and slightly lethargic. Skin was dry. Head, ears, eyes, nose and mouth were normal. Chest is clear. Cardiac exam is normal and the abdomen is slightly distended and is somewhat firm. She had generalized tenderness which was more significant in the lower abdomen and in the right upper quadrant. Bowel sounds are not heard. Extremities are normal. Neurologically she seemed to be intact. She is admitted to the hospital with diagnoses: 1. Intractable pain. 2. Metastatic carcinoma of the cervix. PLAN: 1. Bedrest. 2. IV fluids. 3. Increase analgesia. 4. Oncology consult. MMODL / PORTIAN: [id number] /
[2020-11-20 13:35] VITALS: BMI 31.3
[2020-11-20] MEDS: ONDANSETRON 4 MG/2 ML VIAL IVP PRN ×2 (14:10→23:45)
[2020-11-20] MEDS ORDERED: LACTULOSE 20 GM/30 ML CUP PO PRN (14:11)
[2020-11-20] MEDS ORDERED: PROCHLORPERAZINE 10 MG TAB PO PRN (14:11)
[2020-11-20] MEDS ORDERED: polyethylene glycoL 3350 17 GM POWD.PACK PO PRN (14:11)
[2020-11-20] MEDS: LORazepam 2 MG/ML INJ IV PRN (16:59)
[2020-11-20] MEDS: OLANZapine 5 MG TAB PO SCH (22:25)
[2020-11-21] MEDS: SODIUM CHLORIDE 0.9% 1,000 ML IV SCH ×3 (01:03→21:20)
[2020-11-21 03:20] LABS: Glucose,Whole Blood 79 mg/dL (75-99)
[2020-11-21] MEDS: HYDROmorphone 1 MG/ML 1 ML SYRINGE IVP PRN ×5 (03:47→22:20)
[2020-11-21] MEDS: LEVOTHYROXINE 75 MCG TAB PO SCH (06:16)
[2020-11-21] MEDS: DULoxetine HCL 20 MG CAPSULE.DR PO SCH (08:08)
[2020-11-21] MEDS: PANTOPRAZOLE 40 MG TABLET PO SCH (08:08)
[2020-11-21] MEDS: SENNOSIDES-DOCUSATE SODIUM 1 EACH TAB PO SCH (08:08)
--- NOTE | 2020-11-21 09:23 | PN ---
PROGRESS NOTE DATE OF SERVICE: 11/21/2020 CHIEF COMPLAINT: Intractable pain. HISTORY OF PRESENT ILLNESS: This lady is doing a bit better. Pain control somewhat improved. She has had no fever, chills, nausea, vomiting, etc. PHYSICAL EXAMINATION: Chest demonstrates occasional rales. Cardiac exam is normal. Abdomen is still generally tender throughout and in the upper aspects of the abdomen as well. Extremities demonstrate slightly less edema in the left leg. IMPRESSION: Metastatic carcinoma of the cervix. PLAN: Ultrasound has been ordered to the upper abdomen. Depending on the outcome, she may require further CT scanning, but this is not likely to alter her course. We will continue to address her pain. MMODL / IJN: [id number] /
--- NOTE | 2020-11-21 10:15 | US ---
EXAMINATION TYPE: US abdomen complete DATE OF EXAM: 11/21/2020 COMPARISON: CT 11/04/2020, ultrasound 09/21/2020 CLINICAL HISTORY: abd pain. Pain patient has known Liver Mets. EXAM MEASUREMENTS: Liver Length: 24.4 cm Gallbladder Wall: .2 cm CBD: 1.2 cm, questionable accuracy of this measurement Spleen: 11.4 cm Right Kidney: 10.3 x 3.6 x 4.4 cm Left Kidney: 10.1 x 4.1 x 3.6 cm Pancreas: Obscured by bowel gas Liver: Hepatomegaly multiple nodules know liver metastasis. Gallbladder: wnl Evidence for sonographic Lazcano's sign: No CBD: Dilated possibly Spleen: wnl Right Kidney: No hydronephrosis or masses seen Left Kidney: No hydronephrosis or masses seen Upper IVC: Limited Abd Aorta: wnl The liver is heterogeneous as on previous exams. The intrahepatic portion of the IVC and proximal ab dominal aorta are within normal limits. There is no evidence of cholelithiasis. Common bile duct is possibly dilated, not seen well with certainty. The spleen is unremarkable. Kidneys are symmetric and free of hydronephrosis. No renal lesions are seen. IMPRESSION: Patient with known metastatic disease to the liver, liver is enlarged. Structure measured as common bile duct may be incorrect.
[2020-11-21 10:44] LABS: Anisocytosis Moderate; Basophils # (A) 0.1 k/uL (0-0.2); Basophils % (A) 1 %; Eosinophils # (A) 0.1 k/uL (0-0.7); Eosinophils % (A) 1 %; HCT 23.5 % (34.0-46.0); HGB 7.8 gm/dL (11.4-16.0); Hypochromasia Moderate; Lymphocytes # (A) 0.7 k/uL (1.0-4.8); Lymphocytes % (A) 6 %; MCH 31.3 pg (25.0-35.0); MCHC 33.2 g/dL (31.0-37.0); MCV 94.4 fL (80.0-100.0); Macrocytosis Slight; Mean Platelet Volume 8.2; Monocytes # (A) 0.6 k/uL (0-1.0); Monocytes % (A) 6 %; Neutrophils # (A) 9.5 k/uL (1.3-7.7); Neutrophils % (A) 86 %; Platelet Count 106 k/uL (150-450); Poikilocytosis Slight; RBC 2.49 m/uL (3.80-5.40); RDW 21.9 % (11.5-15.5)
[2020-11-21 10:52] LABS: ALT 12 U/L (4-34); AST 56 U/L (14-36); African American GFR (CKD) >90 (>60 ml/min/1.73 sqM); Albumin 3.5 g/dL (3.5-5.0); Albumin/Globulin Ratio 1.5; Alkaline Phosphatase 771 U/L (38-126); Amylase 56 U/L (30-110); Anion Gap 13 mmol/L; Blood Urea Nitrogen 13 mg/dL (7-17); Calcium 9.5 mg/dL (8.4-10.2); Carbon Dioxide 19 mmol/L (22-30); Chloride 103 mmol/L (98-107); Globulin 2.4 g/dL; Glucose 75 mg/dL (74-99); Lipase 660 U/L (23-300); Magnesium 1.7 mg/dL (1.6-2.3); Non-African American GFR(CKD) 86 (>60 ml/min/1.73 sqM); Potassium 3.6 mmol/L (3.5-5.1); Sodium 135 mmol/L (137-145); Total Bilirubin 1.1 mg/dL (0.2-1.3); Total Protein 5.9 g/dL (6.3-8.2)
--- NOTE | 2020-11-21 16:01 | P.CONS ---
History of Present Illness - Reason for Consult Consult date: 11/21/20 Metastatic Cervical Cancer Requesting physician: Howard Hurd - History of Present Illness Ms. Wilson is a very pleasant 49-year-old female patient who we were asked to see at [facility] 06/21/20 when she presented with complaints of intractable back and groin pain. She had a history of stage IIB cervical cancer, treated by Dr. Hendrix and Dr. Nice out of [facility], in 2016. She was seen 06/09/15 at [facility], sent from the immigration coordinator office for suspected cervical cancer, associated intractable back pain, urinary urgency and frequency with abnormal vaginal bleeding 3 months. She had had a Pap smear in the prior year that was normal. CT AP 06/07/14 showed a heterogenous soft tissue mass in the region of the cervix, 3.5 x 5.1 cm. There was associated bilateral pelvic adenopathy, nodes up to 1.1 cm. Cervix bx 06/08/15 severe squamous dysplasia/carcinoma in situ with a foci suspicious for invasive squamous cell. She was seen by Urology Dr. Atkinson 07/01/15 and had cystoscopy with left ureteroscopy and lt ureteral dilation and stent placement for hydronephrosis. Started Tx with cisplatin with concurrent radiation (Dr. Hand), 6 cycles chemo, completing around 08/12/15, whole pelvis radiation, with a parametrium boost, started 06/28/15, completed 09/15/15. 07/30/[address] biopsy-aborted due to small size and location. 08/13/15 she had Aris sleeve placement with Dr. Hendrix. She was seen in f/u 09/30/15, for follow-up post cervical stent removal, and pelvic brachytherapy. Documented good effect from the pelvic radiation with a normal-appearing cervix on examination. PET scan 10/19/15 had an impression of marked improvement with a new small hypermetabolic right submandibular node, persistent hypermetabolic right paraspinal node at the carinal level unchanged, marked improvement in findings in the pelvis with only a small residual area of mildly increased activity in the cervix. There are [address] Hand, last one dated 10/26/16, pt needed to cont to be followed by Dr. Hendrix-which she did not from the documents available. Pt states she didn't think she had to follow up after treatment. [facility] had [facility] AP revealing concerninig findings of LAD, liver lesion, adrenal mass, bilateral lung nodules. CT chest confirmed bilateral lung nodules, NM bone scan did not show mets. Biopsy of left inguinal mass revealed poorly diff squamous cell c/w cervical primary. Pain controlled. Here today to establish and review plan of care. Her back and groin pain is fairly well mamanged on current regimen. She states she sat on her left leg last night and now it is all swollen. 07/14/20-Pt here s/p 1 cycle of carbo taxol for met cervical ca. She states treatment "kicked my butt". She was hospitalized last week for severe constipation, BLE swelling and abd pain. She finally had bowel movement. States that that helped quite a bit with her complaints. Her pain medications were adjusted with better control of pain. She is using lactulose when necessary for constipation. She denied fevers, oral irritation, difficulty in breathing, cough, dysuria, hematuria, vaginal discharge, rashes or bleeding. 07/23/20: C/O constipation, moderate abdominal pain, relatively well controlled with current analgesics regimen 08/12/20-Summarizing the last month-pt has had 3 admissions to [facility]-07/17-07/19, admitted for complaints of vomiting and headache. CT of the brain, one area of suspicion noted on MRI at her 07/09-07/13 visit, no acute changed, it is going to be followed. 07/26 - 07/28 admitted for abdominal pain. CT chest negative for PE. CTAP showed no change when compared to CT AP 07/09. Abdominal US, known liver and right adrenal lesions are less well visualized. Admitted 08/05 - 08/09 for abdominal pain. Lumbar spine MRI was negative for metastases. The abdominal/bladder ultrasound showing right adrenal mass and left lower pole mass in the kidneys. CT AP showed no new disease compared to scan from 10 days ago. Pt has had chemotherapy on 07/06, cycle 2 was delayed. 2nd cycle 08/03. She is here today with complaints of vomiting, she has not taken any antiemetics. General malaise. 09/01/20-Pt here s/p 3 cycles of carbo taxol, last Sunday, [place] hops[place] over the [place], got out yesterday. Treated for pancreatitis. She is currently on clear liquids only. She has pain from the SQ masses pushing on tissues/nerves-especially the one on the back of the left leg. General malaise. 09/16/20: feels Ok, tired, C/O L knee pain. CT Scan: Improvement at all sites of metastatic disease ([place]). 10/07/20: C/O severe L knee > MRI > Non-malignant cause. C/O fatigue She is now status post 6 cycles of chemotherapy with carboplatin and taxol.. She recently admitted for pancreatitis 11/03 and re-presents for abdominal pain today with increased enzymes. She presents with increased confusion, mental status changes, vague abdominal pain versus constipation. Review of Systems All systems: negative Constitutional: Reports as per HPI Past Medical History Past Medical History: Cancer, Thyroid Disorder Additional Past Medical History / Comment(s): cervical CA, mets History of Any Multi-Drug Resistant Organisms: None Reported Past Surgical History: No Surgical Hx Reported Additional Past Surgical History / Comment(s): RADIATION TO UTERUS., port to R side Past Anesthesia/Blood Transfusion Reactions: No Reported Reaction Past Psychological History: Anxiety Smoking Status: Former smoker Past Alcohol Use History: None Reported Additional Past Alcohol Use History / Comment(s): . Past Drug Use History: None Reported - Past Family History Mother Family Medical History: Unable to Obtain Father History Unknown: Yes Family Medical History: Unable to Obtain Medications and Allergies Home Medications Medication Instructions Recorded Confirmed Type Prochlorperazine [Compazine] 10 mg PO Q6H PRN 07/09/20 11/20/20 History DULoxetine HCL [Cymbalta] 20 mg PO DAILY 30 Days #30 07/13/20 11/20/20 Rx capsule. Lidocaine-Prilocaine Cream [Emla 1 applic TOPICAL DAILY PRN 07/26/20 11/20/20 History Cream 2.5%/2.5%] ALPRAZolam [Xanax] 0.5 mg PO TID PRN #30 tab 08/09/20 11/20/20 Rx Lactulose [Cephulac] 30 gm PO BID PRN 14 Days ml 08/09/20 11/20/20 Rx HYDROcodone/APAP 10-325MG [[place] 1 tab PO Q6H PRN 08/29/20 11/20/20 History 10-325] Levothyroxine Sodium [Synthroid] 150 mcg PO DAILY 08/29/20 11/20/20 History Morphine Sulfate ER [Ms Contin] 30 mg PO Q12H 08/29/20 11/20/20 History OLANZapine [ZyPREXA] 5 mg PO HS 09/20/20 11/20/20 History Sennosides/Docusate Sodium [[place]enna 1 tab PO DAILY 09/20/20 11/20/20 History Plus 8.6-50 mg Tablet] Pantoprazole [Protonix] 40 mg PO AC-BRKFST #30 tablet. 09/26/20 11/20/20 Rx polyethylene glycoL 3350 [Miralax] 17 gm PO DAILY PRN 11/20/20 11/20/20 History Allergies Allergy/AdvReac Type Severity Reaction Status Date / Time No Known Allergies Allergy Verified 11/20/20 10:37 Physical Exam Vitals: Vital Signs Temp Pulse Resp BP Pulse Ox 11/21/20 05:30 97.8 F 98 16 128/63 97 11/21/20 04:01 98 12 123/90 95 11/20/20 22:05 92 11/20/20 19:12 98.0 F 94 14 98/61 97 11/20/20 15:22 99/66 11/20/20 14:11 98.4 F 86 18 95/67 99 Intake and Output 11/20/20 11/21/20 11/21/20 22:59 06:59 14:59 Intake Total 700 1000 Balance 700 1000 Intake: Intake, IV Titration 400 1000 Amount Sodium Chloride 0.9% 1, 400 1000 000 ml @ 100 mls/hr IV . Q10H [facility] Rx#:[id number] Oral 300 Other: Voiding Method Bedside Commode # Voids 0 - Constitutional General appearance: cooperative - EENT Eyes: PERRLA ENT: NA/AT - Neck Neck: normal ROM - Respiratory Respiratory: bilateral: diminished - Cardiovascular Rhythm: regular leg Peripheral Edema: bilateral: 1+ - Gastrointestinal General gastrointestinal: soft - Integumentary Integumentary: pale - Musculoskeletal Musculoskeletal: generalized weakness - Psychiatric Lethargic and not fully grasping conversation appropriately Psychiatric: A&O x's 3 Results CBC & Chem 7: 11/21/20 09:52 11/21/20 09:52 Abdominal x-ray: report reviewed US - abdomen: report reviewed MRI - head: report reviewed Assessment and Plan (1) Antineoplastic chemotherapy induced anemia Current Visit: No Status: Acute Priority: Medium Code(s): D64.81 - ANEMIA DUE TO ANTINEOPLASTIC CHEMOTHERAPY; T45.1X5A - ADVERSE EFFECT OF ANTINEOPLASTIC AND IMMUNOSUP DRUGS, INIT SNOMED Code(s): 992103246 (2) Chronic back pain Current Visit: No Status: Acute Code(s): M54.9 - DORSALGIA, UNSPECIFIED; G89.29 - OTHER CHRONIC PAIN SNOMED Code(s): 820994140 (3) Primary cervical cancer with metastasis to other site Current Visit: No Status: Acute Code(s): C53.9 - MALIGNANT NEOPLASM OF CERVIX UTERI, UNSPECIFIED SNOMED Code(s): 075427534 Plan: Assessment and Recommendations: Pancreatitis: - Light liquid diet and conservative rest Mental Status CHanges: - MOre lethargic and not grasping as normal, Recent MRI was unclear if metastatic lesion versus other cause. Will ask Radiation oncology to assist in evaluating and place on low dose dexamethasone in the interim to assess if increases alertness Metastatic Cervical Cancer: - Status POst treatment with 6 cycles chemotherapy - Response noted - Long recovery post last treatment with recurrent hospitalizations.
--- NOTE | 2020-11-21 19:53 | US ---
EXAMINATION TYPE: US venous doppler duplex LE BI DATE OF EXAM: 11/21/2020 7:11 PM COMPARISON: US 2020 CLINICAL HISTORY: swelling/pain. Exam done portable. SIDE PERFORMED: Bilateral TECHNIQUE: The lower extremity deep venous system is examined utilizing real time linear array sonog magdalena with graded compression, doppler sonography and color-flow sonography. VESSELS IMAGED: Common Femoral Vein Deep Femoral Vein Greater Saphenous Vein * Femoral Vein Popliteal Vein Small Saphenous Vein * Proximal Calf Veins (* superficial vessels) Right Leg: Appears negative for DVT Left Leg: Appears negative for DVT IMPRESSION: No evidence of bilateral lower extremity DVT.
[2020-11-21 20:43] LABS: Glucose,Whole Blood 73 mg/dL (75-99)
[2020-11-21] MEDS: dexAMETHasone 4 MG TAB PO SCH (21:41)
[2020-11-21] MEDS: OLANZapine 5 MG TAB PO SCH (21:41)
[2020-11-21] MEDS: ONDANSETRON 4 MG/2 ML VIAL IVP PRN (22:34)
[2020-11-22] MEDS: HYDROmorphone 1 MG/ML 1 ML SYRINGE IVP PRN ×2 (02:22→06:22)
[2020-11-22] MEDS: SODIUM CHLORIDE 0.9% 1,000 ML IV SCH ×2 (05:19→13:29)
[2020-11-22] MEDS: LEVOTHYROXINE 75 MCG TAB PO SCH (06:16)
[2020-11-22] MEDS: dexAMETHasone 4 MG TAB PO SCH (07:51)
[2020-11-22] MEDS: PANTOPRAZOLE 40 MG TABLET PO SCH (08:44)
[2020-11-22] MEDS: SENNOSIDES-DOCUSATE SODIUM 1 EACH TAB PO SCH ×2 (08:44→21:37)
[2020-11-22] MEDS: DULoxetine HCL 20 MG CAPSULE.DR PO SCH (08:50)
[2020-11-22] MEDS: LORazepam 2 MG/ML INJ IV PRN ×2 (09:11→19:46)
[2020-11-22] MEDS: HYDROmorphone 2 MG/ML 1 ML SYRINGE IVP PRN ×5 (10:42→21:37)
--- NOTE | 2020-11-22 13:15 | P.PN ---
Subjective Progress Note Date: 11/22/20 Principal diagnosis: Metastatic Cervical Cancer, Mental Status Changes, Abdominal Pain Patricia had a MRI of the Brain earlier in the week which was suspicious for metastatic disease. Discussed this with patient, mother and nursing today. 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 Radiation oncology has been asked to further evaluate and will further restage with CT scans. Objective - Vital Signs Vital signs: Vital Signs Temp 98.4 F 11/22/20 11:16 Pulse 97 11/22/20 11:16 Resp 14 11/22/20 11:16 BP 98/64 11/22/20 11:16 Pulse Ox 95 11/22/20 11:16 Intake & Output 11/21/20 11/22/20 11/22/20 18:59 06:59 18:59 Intake Total 1200 Balance 1200 Intake: Intake, IV Titration 1200 Amount Sodium Chloride 0.9% 1, 1200 000 ml @ 100 mls/hr IV . Q10H [facility] Rx#:[id number] Other: Voiding Method Bedside Commode Bedside Commode # Voids 1 - Exam - Constitutional General appearance: cooperative - EENT Eyes: PERRLA ENT: NA/AT - Neck Neck: normal ROM - Respiratory Respiratory: bilateral: diminished - Cardiovascular Rhythm: regular leg Peripheral Edema: bilateral: 1+ - Gastrointestinal General gastrointestinal: soft - Integumentary Integumentary: pale - Musculoskeletal Musculoskeletal: generalized weakness - Psychiatric Lethargic and not fully grasping conversation appropriately Psychiatric: A&O x's 3 - Labs CBC & Chem 7: 11/21/20 09:52 11/21/20 09:52 Labs: Abnormal Lab Results - Last 24 Hours (Table) 11/21/20 Range/Units 20:42 POC Glucose (mg/dL) 73 L (75-99) mg/dL Assessment and Plan (1) Antineoplastic chemotherapy induced anemia Current Visit: No Status: Acute Priority: Medium Code(s): D64.81 - ANEMIA DUE TO ANTINEOPLASTIC CHEMOTHERAPY; T45.1X5A - ADVERSE EFFECT OF ANTINEOPLASTIC AND IMMUNOSUP DRUGS, INIT SNOMED Code(s): 588408755 (2) Chronic back pain Current Visit: No Status: Acute Code(s): M54.9 - DORSALGIA, UNSPECIFIED; G89.29 - OTHER CHRONIC PAIN SNOMED Code(s): 920336972 (3) Primary cervical cancer with metastasis to other site Current Visit: No Status: Acute Code(s): C53.9 - MALIGNANT NEOPLASM OF CERVIX UTERI, UNSPECIFIED SNOMED Code(s): 980528365 Plan: Assessment and Recommendations: Pancreatitis: - Light liquid diet and conservative rest Mental Status CHanges: - MOre lethargic and not grasping as normal, Recent MRI was unclear if metastatic lesion versus other cause. Will ask Radiation oncology to assist in evaluating and place on low dose dexamethasone in the interim to assess if increases alertness Metastatic Cervical Cancer: - Status POst treatment with 6 cycles chemotherapy - Response noted although on exam increased clinical hepatomegaly and pain, confusion - there is concern of progression therefore restage with CT scans given the likelihood of new brain mets. - Long recovery post last treatment with recurrent hospitalizations. - Await radiation oncology input - Dexamethasone 4mg IV q8 and PPI Physician Attest: I have completed the full history and physical and agree with above dictation, dictated as a ascribe,
[2020-11-22] MEDS: IOPAMIDOL CONTRAST (ORAL USE) VIAL PO PRN ×2 (13:30→14:28)
--- NOTE | 2020-11-22 15:46 | CT ---
EXAMINATION TYPE: CT ChestAbdPelvis w con DATE OF EXAM: 11/22/2020 COMPARISON: 11/04/2020 HISTORY: f/u ca staging CT DLP: 1095.2 mGycm CONTRAST: CT scan of the chest, abdomen and pelvis is performed with Oral Contrast and with IV Contrast, patien t injected with 100 mL of Isovue 300. CT Chest: LUNGS: Again noted are multiple bilateral pulmonary nodules which have not changed with regards to ov erall number and size in the interval. Small right pleural effusion is a new finding. Right basilar l inear atelectasis. MEDIASTINUM: Thoracic aorta is of normal caliber. The heart is not enlarged. No evidence for media stinal mass or adenopathy. HILAR STRUCTURES: No evidence for mass. No hilar adenopathy is appreciated. OTHER: Subcutaneous nodule left upper arm persists. CONTRAST CT ABDOMEN AND PELVIS FINDINGS: LIVER/GB: No calcified gallstones. Persistent hepatomegaly with innumerable pulmonary masses too nu merous to count. The masses appear to have increased in the interval. The largest mass is noted withi n the left hepatic lobe medial segment and measures 5.7 cm versus 2.3 cm previously. The largest mass within the right hepatic lobe measures 7.1 cm versus 3.9 cm previously. Biliary tree is of normal ca liber. PANCREAS: No inflammation. No distinct mass. SPLEEN: No splenic enlargement. No lesion seen. ADRENALS: Multiple adrenal masses persist consistent with metastatic disease. KIDNEYS/BLADDER: No hydronephrosis. No nephrolithiasis. No distinct renal mass. BOWEL: Normal appendix. Normal bowel caliber. No inflammation. Stable perirectal nodularity. GENITAL ORGANS: No gross abnormality. LYMPH NODES: No greater than 1cm abdominal or pelvic lymph nodes are appreciated. AORTA: No significant abnormality. OSSEOUS STRUCTURES: No significant abnormality is seen. OTHER: No large soft tissue mass left upper thigh posteriorly measures 8.7 x 6.4 cm versus 8.4 x 6.4 cm previously. Left inguinal adenopathy persists and measures 1.4 cm. Scattered subcutaneous nodules redemonstrated. IMPRESSION: 1. Progressive metastatic disease to the liver. 2. No significant change with regards to metastatic pulmonary nodules, adrenal masses and scattered s ubcutaneous nodules.
[2020-11-22] MEDS: DEXAMETHASONE SOD PHOSPHATE 4 MG/ML 1 ML VIAL IV SCH ×2 (16:27→22:34)
--- NOTE | 2020-11-22 19:20 | PN ---
PROGRESS NOTE DATE OF SERVICE: 11/22/2020. CHIEF COMPLAINT: Intractable pain with metastatic carcinoma of the cervix. HISTORY OF PRESENT ILLNESS: This lady is doing a bit better and can probably go home today. Ultrasound suggested liver metastases and she has had a CT scan which confirms this. Hospice was discussed. I got the impression from her that she is in hospice, but I do not believe so considering that she came back to the hospital for treatment. PHYSICAL EXAMINATION: Chest is clear. Cardiac exam is normal. She still has a distended abdomen and very tender in the right upper quadrant where there is a fullness. IMPRESSION: Metastatic carcinoma of the cervix. PLAN: Discharge home today with analgesics. MMODL / IJN: [id number] /
[2020-11-22] MEDS: OLANZapine 5 MG TAB PO SCH (21:37)
[2020-11-23] MEDS: SODIUM CHLORIDE 0.9% 1,000 ML IV SCH ×3 (00:42→20:11)
[2020-11-23] MEDS: HYDROmorphone 2 MG/ML 1 ML SYRINGE IVP PRN ×7 (01:48→20:09)
[2020-11-23] MEDS: LEVOTHYROXINE 75 MCG TAB PO SCH (06:06)
[2020-11-23] MEDS: DULoxetine HCL 20 MG CAPSULE.DR PO SCH (08:45)
[2020-11-23] MEDS: PANTOPRAZOLE 40 MG TABLET PO SCH (08:45)
[2020-11-23] MEDS: DEXAMETHASONE SOD PHOSPHATE 4 MG/ML 1 ML VIAL IV SCH ×2 (08:45→15:22)
[2020-11-23] MEDS: ONDANSETRON 4 MG/2 ML VIAL IVP PRN (08:56)
--- NOTE | 2020-11-23 10:07 | CDI ---
Documentation Clarification Form Date: 11/23/2020 09:50:35 AM From: Paola Pedersen CCS, CCDS Admit Date: 11/20/2020 04:02:00 PM Patient Name: Patricia Wilson Visit Number: [id number] Discharge Date: ATTENTION: The Clinical Documentation Specialists (CDI) and [facility] Coding Staff appreciate your assistance in clarifying documentation. Please respond to the clarification below the line at the bottom and electronically sign. The CDI & [facility] Coding staff will review the response and follow-up if needed. Please note: Queries are made part of the Legal Health Record. If you have any questions, please contact the author of this message via ITS. Dr. Rogelio Charles: Mental status changes, increased confusion, lethargy and possible metastatic disease to the brain is documented in the 11/21 Oncology Consult and subsequent Progress Note on 11/22 without further specificity. Additional clarification regarding the patient's mental status changes is requested. History/Risk Factors per the 11/20 ED Note. Cervical Cancer with metastatic disease to the liver and other sites status post radiation to the uterus, Hypothyroid, Anxiety, Former smoker. Home meds: Compazine, [place], Synthroid, MsContin, Zyprexa, Senna, Cymbalta, Miralax, Xanax, Cephulac, Protonix Clinical Indicators: Presented to the ED on 11/20 with Abdominal Pain, nausea, weakness, swollen lower extremities and dehydration. ED Clinical Impression: Abdominal pain, intractable pain. 11/20 VS: T 97.9, P 79, R 17, BP 98/63, PO 97 RA, BMI: 31.3 11/20 LAB: RBC 2.56, Hgb 7.9, Hct 23.5, Pl Ct 101, Neut 9.0, Lymph 0.7, Na 136, Glucose 70, AST 50, Alk Phos 810, Total Protein 6.1, Lipase. 11/20 UA: Cloudy, Trace Protein, Trace Ketones, Small Blood, Trace Esterase, WBC 6 11/15 MRI Brain: Interval development of multiple metastatic foci. Treatment: IV Na Cl 1,000 mls @ 999 mls/hr q1H, IV dilaudid 2 mg x1, IV Dilaudid 1 mg q3Hr PRN, IV Zofran 4 mg x1, IV Zofran 4 mg q8Hr PRN, IV Na Cl 1,000 mls @ 100 mls/hr q10Hr, IV Protonix, IV Ativan 2 mg q8Hr PRN, Fentanyl Patch, po Cymbalta daily. 11/22 IV Decadron. Please clarify if the following diagnosis is present: [ ] Metabolic Encephalopathy [ ] Toxic Encephalopathy [ ] Other, please specify [ ] Unable to determine (Template Last Revised: July 2020) Query response documented in 11/23 Progress Note: Oncology: [employer] Karlee Vaca (for Dr. Charles?): Metabolic Encephalopathy secondary to progressive liver mets & new brain mets. (CDI: [place]) MTDD
[2020-11-23] MEDS: LORazepam 2 MG/ML INJ IV PRN (10:20)
--- NOTE | 2020-11-23 11:14 | P.CONS ---
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 She was subsequently lost to follow-up. In June 2020, the patient was found to have widespread metastatic disease including lung and liver metastasis with an enlarged adrenal lesion and a soft tissue mass in the left thigh. She was initiated on Carbo/Taxol and had partial treatment response at restaging. She now presents with increasing abdominal pain and was found to have brain metastasis. The patient reports she finished chemotherapy approximately 2 weeks ago. This was noted to be relatively poorly tolerated, as the patient has had multiple hospitalizations. She recently underwent an MRI of the brain as an outpatient on November 15 showing multiple small intracranial lesions up to 30 overall without significant vasogenic edema. The patient was admitted to the hospital and is currently complaining of severe abdominal pain. This seems to localize the right lower quadrant but can radiate to the back. She also has pain in the left leg above the knee. She states that the pain has typically been up to 8 out of 10. She denies difficulty with headaches, nausea or vomiting, and denies focal weakness/numbness or tingling. She states that she has been able to ambulate around her house with a walker. Just after my consultation, the patient underwent a CT scan of the chest, abdomen and pelvis on 11/22/20. This study unfortunately revealed progression of her hepatic metastatic disease. She has diffuse hepatic disease with enlargement of the liver. Review of Systems Constitutional: Denies chills, Denies fever Eyes: denies decreased vision Ears: deny: decreased hearing Cardiovascular: Denies chest pain Respiratory: Denies congestion, Denies cough Gastrointestinal: Reports abdominal pain, Reports constipation Genitourinary: Denies dysuria Musculoskeletal: Reports muscle weakness (generalized) Integumentary: Denies rash Neurological: Denies aphasia, Denies ataxia, Denies confusion, Denies convulsions, Denies headaches, Denies numbness, Denies paralysis, Denies paresthesias Psychiatric: Denies anxiety, Denies confusion Past Medical History Past Medical History: Cancer, Thyroid Disorder Additional Past Medical History / Comment(s): cervical CA, mets History of Any Multi-Drug Resistant Organisms: None Reported Past Surgical History: No Surgical Hx Reported Additional Past Surgical History / Comment(s): RADIATION TO UTERUS., port to R side Past Anesthesia/Blood Transfusion Reactions: No Reported Reaction Past Psychological History: Anxiety Smoking Status: Former smoker Past Alcohol Use History: None Reported Additional Past Alcohol Use History / Comment(s): . Past Drug Use History: None Reported - Past Family History Mother Family Medical History: Unable to Obtain Father History Unknown: Yes Family Medical History: Unable to Obtain Medications and Allergies Home Medications Medication Instructions Recorded Confirmed Type Prochlorperazine [Compazine] 10 mg PO Q6H PRN 07/09/20 11/20/20 History DULoxetine HCL [Cymbalta] 20 mg PO DAILY 30 Days #30 07/13/20 11/20/20 Rx capsule. Lidocaine-Prilocaine Cream [Emla 1 applic TOPICAL DAILY PRN 07/26/20 11/20/20 History Cream 2.5%/2.5%] ALPRAZolam [Xanax] 0.5 mg PO TID PRN #30 tab 08/09/20 11/20/20 Rx Lactulose [Cephulac] 30 gm PO BID PRN 14 Days ml 08/09/20 11/20/20 Rx HYDROcodone/APAP 10-325MG [[place] 1 tab PO Q6H PRN 08/29/20 11/20/20 History 10-325] Levothyroxine Sodium [Synthroid] 150 mcg PO DAILY 08/29/20 11/20/20 History Morphine Sulfate ER [Ms Contin] 30 mg PO Q12H 08/29/20 11/20/20 History OLANZapine [ZyPREXA] 5 mg PO HS 09/20/20 11/20/20 History Sennosides/Docusate Sodium [Senna 1 tab PO DAILY 09/20/20 11/20/20 History Plus 8.6-50 mg Tablet] Pantoprazole [Protonix] 40 mg PO AC-BRKFST #30 tablet. 09/26/20 11/20/20 Rx polyethylene glycoL 3350 [Miralax] 17 gm PO DAILY PRN 11/20/20 11/20/20 History Allergies Allergy/AdvReac Type Severity Reaction Status Date / Time No Known Allergies Allergy Verified 11/20/20 10:37 Physical Exam Vitals: Vital Signs Temp Pulse Resp BP Pulse Ox 11/23/20 04:21 97.7 F 94 18 101/66 96 11/22/20 21:45 97.9 F 97 18 102/68 97 11/22/20 20:05 97 18 11/22/20 11:16 98.4 F 97 14 98/64 95 Intake and Output 11/22/20 11/23/20 11/23/20 22:59 06:59 14:59 Intake Total 160 300 Balance 160 300 Intake: Intake, IV Titration 160 300 Amount Sodium Chloride 0.9% 1, 160 300 000 ml @ 100 mls/hr IV . Q10H [facility] Rx#:[id number] Other: Voiding Method Bedside Commode # Voids 2 2 # Bowel Movements 2 - Constitutional General appearance: no acute distress, obese - EENT Eyes: EOMI, PERRLA ENT: hearing grossly normal - Neck Neck: no lymphadenopathy - Respiratory Respiratory: bilateral: CTA - Cardiovascular Rhythm: regular - Gastrointestinal General gastrointestinal: distended, hepatomegaly, tenderness - Integumentary Integumentary: no calor - Neurologic Neurologic: CNII-XII intact - Musculoskeletal Musculoskeletal: generalized weakness - Psychiatric Psychiatric: A&O x's 3, appropriate affect Results CBC & Chem 7: 11/21/20 09:52 11/21/20 09:52 CT scan - chest: report reviewed, image reviewed CT Scan - head: report reviewed, image reviewed CT scan - pelvis: report reviewed, image reviewed MRI - head: report reviewed, image reviewed Assessment and Plan Assessment: The patient is a 49-year-old female with a history of a 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 She was subsequently lost to follow-up. In June 2020, the patient was found to have widespread metastatic disease including lung and liver metastasis with an enlarged adrenal lesion and a soft tissue mass in the left thigh. She was initiated on Carbo/Taxol and had partial treatment response at restaging. She now presents with increasing abdominal pain and was found to have brain metastasis. Plan: 1. Liver metastases: As detailed above, the patient's most recent imaging reveals significant progression of her hepatic metastatic burden. This comes approximately 2 weeks after finishing her systemic therapy. This is likely the reason for her symptomatic abdominal pain, and her abnormal abdominal exam. Considering this disease appears to be chemotherapy resistant, I discussed with medical oncology that it may be reasonable for her to consider hospice. While palliative radiotherapy to the liver could be attempted, it is often associated with significant nausea and is unlikely to prolong life. 2. Brain metastases: Although the patient has numerous brain lesions, these lesions were all quite small and unlikely to be symptomatic at this time. I discussed with the patient a course of whole brain radiotherapy, but based on her significant hepatic disease progression, I would not recommend any brain therapy at this time. Attempted treatment of the liver should be first, or as mentioned above the patient is likely appropriate for hospice care considering limited systemic options. Time: I spent 35 minutes with this patient, of which greater than 50% of that time was spent counseling, coordinating care, and reviewing the risks, benefits, and all potential complications of radiation. Time with Patient: Greater than 30
--- NOTE | 2020-11-23 13:25 | P.PN ---
Subjective Progress Note Date: 11/23/20 Principal diagnosis: Metastatic Cervical Cancer, Mental Status Changes, Abdominal Pain Review of the CT C/A?P represent progression in liver unfortunetwly. Patient is very tearful. Concern will be if treatment Objective - Vital Signs Vital signs: Vital Signs Temp 97.7 F 11/23/20 04:21 Pulse 94 11/23/20 04:21 Resp 18 11/23/20 04:21 BP 101/66 11/23/20 04:21 Pulse Ox 96 11/23/20 04:21 Intake & Output 11/22/20 11/23/20 11/23/20 18:59 06:59 18:59 Intake Total 160 300 Balance 160 300 Weight 68.039 kg Intake: Intake, IV Titration 160 300 Amount Sodium Chloride 0.9% 1, 160 300 000 ml @ 100 mls/hr IV . Q10H [facility] Rx#:[id number] Other: Voiding Method Bedside Commode Bedside Commode # Voids 2 2 1 # Bowel Movements 2 - Exam - Constitutional General appearance: cooperative - EENT Eyes: PERRLA ENT: NA/AT - Neck Neck: normal ROM - Respiratory Respiratory: bilateral: diminished - Cardiovascular Rhythm: regular leg Peripheral Edema: bilateral: 1+ - Gastrointestinal General gastrointestinal: soft gepatolmegaly worse tender - Integumentary Integumentary: pale - Musculoskeletal Musculoskeletal: generalized weakness - Psychiatric Lethargic and not fully grasping conversation appropriately Psychiatric: A&O x's 3 - Labs CBC & Chem 7: 11/21/20 09:52 11/21/20 09:52 Assessment and Plan (1) Antineoplastic chemotherapy induced anemia Current Visit: No Status: Acute Priority: Medium Code(s): D64.81 - ANEMIA DUE TO ANTINEOPLASTIC CHEMOTHERAPY; T45.1X5A - ADVERSE EFFECT OF ANTINEOPLASTIC AND IMMUNOSUP DRUGS, INIT SNOMED Code(s): 111024663 (2) Chronic back pain Current Visit: No Status: Acute Code(s): M54.9 - DORSALGIA, UNSPECIFIED; G89.29 - OTHER CHRONIC PAIN SNOMED Code(s): 258225062 (3) Primary cervical cancer with metastasis to other site Current Visit: No Status: Acute Code(s): C53.9 - MALIGNANT NEOPLASM OF CERVIX UTERI, UNSPECIFIED SNOMED Code(s): 179105074 Plan: Assessment and Recommendations: Pancreatitis: - Light liquid diet and conservative rest Mental Status CHanges: - MOre lethargic and not grasping as normal, Recent MRI was unclear if metastatic lesion versus other cause. Will ask Radiation oncology to assist in evaluating and place on low dose dexamethasone in the interim to assess if increases alertness Metastatic Cervical Cancer: - Status POst treatment with 6 cycles chemotherapy - Response noted although on exam increased clinical hepatomegaly and pain, confusion - there is concern of progression therefore restage with CT scans given the likelihood of new brain mets. - Long recovery post last treatment with recurrent hospitalizations. - Await radiation oncology input - Dexamethasone 4mg IV q8 and PPI Metabolic Encephalopathy: - Secondary to progressive liver mets and new brain mets Unfortunetly their is rapid progression of disease through liver and new brain mets. At this time treatment may not benefit quantity or quality of life. The options of hospice are resonable and have been discussed with the patient and mother. Hospice has been consulted. Physician Attest: I have completed the full history and physical and agree with above dictation, dictated as a ascribe,
[2020-11-23] MEDS: SENNOSIDES-DOCUSATE SODIUM 1 EACH TAB PO SCH (20:09)
[2020-11-23] MEDS: OLANZapine 5 MG TAB PO SCH (20:09)
[2020-11-24] MEDS: DEXAMETHASONE SOD PHOSPHATE 4 MG/ML 1 ML VIAL IV SCH ×2 (01:57→08:25)
[2020-11-24] MEDS: HYDROmorphone 2 MG/ML 1 ML SYRINGE IVP PRN ×4 (03:46→10:49)
[2020-11-24] MEDS: LEVOTHYROXINE 75 MCG TAB PO SCH (05:50)
--- NOTE | 2020-11-24 06:16 | PN ---
PROGRESS NOTE DATE OF SERVICE: 11/23/2020 CHIEF COMPLAINT: Metastatic carcinoma cervix with intractable abdominal pain. HISTORY OF PRESENT ILLNESS: This lady is still having difficulty. She is quite uncomfortable now. She is nauseated. PHYSICAL EXAMINATION: She remains pale and chronically ill in appearance. Cardiac exam is normal. Chest is clear. IMPRESSION: Metastatic carcinoma of the cervix with right upper quadrant pain due to metastatic implants. PLAN: 1. Continue to try to control her pain as well as nausea. 2. Discussed with Oncology and there is going to be a meeting tomorrow with the patient, family and hospice. MMODL / IJN: [id number] /
[2020-11-24] MEDS: PANTOPRAZOLE 40 MG TABLET PO SCH (08:22)
[2020-11-24] MEDS: DULoxetine HCL 20 MG CAPSULE.DR PO SCH (08:22)
[2020-11-24] MEDS: SODIUM CHLORIDE 0.9% 1,000 ML IV SCH (08:23)
[2020-11-24] MEDS ORDERED: ALPRAZolam 1 MG TAB PO PRN (09:49)
[2020-11-24 11:49] VITALS: BP 96/62; PULSE 62; RESP 16; TEMP 97.7
[2020-11-24 12:47] LABS: Anisocytosis Moderate; Basophils % (A) 0 %; Eosinophils # (A) 0.1 k/uL (0-0.7); Eosinophils % (A) 1 %; HCT 21.1 % (34.0-46.0); HGB 7.2 gm/dL (11.4-16.0); Hypochromasia Slight; Lymphocytes # (A) 0.6 k/uL (1.0-4.8); Lymphocytes % (A) 4 %; MCH 32.1 pg (25.0-35.0); MCV 94.3 fL (80.0-100.0); Macrocytosis Slight; Mean Platelet Volume 7.7; Monocytes # (A) 0.8 k/uL (0-1.0); Monocytes % (A) 5 %; Neutrophils # (A) 16.1 k/uL (1.3-7.7); Neutrophils % (A) 91 %; Platelet Count 139 k/uL (150-450); Poikilocytosis Slight; RBC 2.24 m/uL (3.80-5.40); RDW 22.7 % (11.5-15.5); WBC 17.8 k/uL (3.8-10.6)
--- NOTE | 2020-11-24 13:57 | DS ---
DISCHARGE SUMMARY CHIEF COMPLAINT: Intractable abdominal pain with nausea and vomiting and a history of metastatic carcinoma of the endocervix. HISTORY OF PRESENT ILLNESS AND PHYSICAL EXAMINATION: Details of this lady's history and physical can be found in the initial workup. LABORATORY STUDIES: While she was in the hospital, she had laboratory studies, details of which can be found in the laboratory section of her chart. COURSE IN THE HOSPITAL: After admission she was placed on bedrest on IV fluids and her analgesic program stepped up. She was started on Duragesic patches. She was seen by Oncology. She continued to complain of more pain in the right upper quadrant and ultrasound CT demonstrated progressingly enlarged masses in the liver consistent with an exacerbation of her metastatic disease. Case was discussed with the patient's family and decision was made that she would go into hospice. [facility] . FINAL DIAGNOSIS: 1. Intractable abdominal pain. 2. Metastatic carcinoma of the cervix. 3. Intractable nausea. OPERATIONS: None. CONSULTATION: Oncology and hospice. She is improved. MMODL / IJN: [id number] /
--- NOTE | 2020-11-24 19:54 | P.PN ---
Subjective Progress Note Date: 11/24/20 Principal diagnosis: Metastatic Cervical Cancer, Mental Status Changes, Abdominal Pain Patient seen earlier this am prior to discharge home with hospice to hospice house Objective - Vital Signs Vital signs: Vital Signs Temp 97.7 F 11/24/20 11:48 Pulse 62 11/24/20 11:48 Resp 16 11/24/20 11:48 BP 96/62 11/24/20 11:48 Pulse Ox 96 11/24/20 11:48 Intake & Output 11/24/20 11/24/20 11/25/20 06:59 18:59 06:59 Intake Total 1000 Balance 1000 Intake: Oral 1000 Other: Voiding Method Bedside Commode Bedside Commode # Voids 3 # Bowel Movements 1 - Exam - Constitutional General appearance: cooperative - EENT Eyes: PERRLA ENT: NA/AT - Neck Neck: normal ROM - Respiratory Respiratory: bilateral: diminished - Cardiovascular Rhythm: regular leg Peripheral Edema: bilateral: 1+ - Gastrointestinal General gastrointestinal: soft gepatolmegaly worse tender - Integumentary Integumentary: pale - Musculoskeletal Musculoskeletal: generalized weakness - Psychiatric Lethargic and not fully grasping conversation appropriately Psychiatric: A&O x's 3 - Labs CBC & Chem 7: 11/24/20 12:08 11/21/20 09:52 Labs: Abnormal Lab Results - Last 24 Hours (Table) 11/24/20 Range/Units 12:08 WBC 17.8 H (3.8-10.6) k/uL RBC 2.24 L (3.80-5.40) m/uL Hgb 7.2 L (11.4-16.0) gm/dL Hct 21.1 L (34.0-46.0) % RDW 22.7 H (11.5-15.5) % Plt Count 139 L (150-450) k/uL Neutrophils # 16.1 H (1.3-7.7) k/uL Lymphocytes # 0.6 L (1.0-4.8) k/uL Assessment and Plan (1) Antineoplastic chemotherapy induced anemia Status: Acute Priority: Medium Code(s): D64.81 - ANEMIA DUE TO ANTINEOPLASTIC CHEMOTHERAPY; T45.1X5A - ADVERSE EFFECT OF ANTINEOPLASTIC AND IMMUNOSUP DRUGS, INIT SNOMED Code(s): 642710284 (2) Chronic back pain Status: Acute Code(s): M54.9 - DORSALGIA, UNSPECIFIED; G89.29 - OTHER CHRONIC PAIN SNOMED Code(s): 915498917 (3) Primary cervical cancer with metastasis to other site Status: Acute Code(s): C53.9 - MALIGNANT NEOPLASM OF CERVIX UTERI, UNSPECIFIED SNOMED Code(s): 495825650 Plan: Assessment and Recommendations: Pancreatitis: - Light liquid diet and conservative rest Mental Status CHanges: - MOre lethargic and not grasping as normal, Recent MRI was unclear if metastatic lesion versus other cause. Will ask Radiation oncology to assist in evaluating and place on low dose dexamethasone in the interim to assess if increases alertness Metastatic Cervical Cancer: - Status POst treatment with 6 cycles chemotherapy - Response noted although on exam increased clinical hepatomegaly and pain, confusion - there is concern of progression therefore restage with CT scans given the likelihood of new brain mets. - Long recovery post last treatment with recurrent hospitalizations. - Await radiation oncology input - Dexamethasone 4mg IV q8 and PPI Metabolic Encephalopathy: - Secondary to progressive liver mets and new brain mets Emotional support given, plan is discharge to hospice house. Tearful. Questions answered for patient and mother
== END 2020-11-24 13:34 | disposition hospice, inpatient (51) | DRG 947 ==
LOC: EC 00:17 → 6NMEDSUR 03:06 → OBSVTOIN 16:02 → 5NMEDONC 20:33
PROVIDERS: ADMIT Family Medicine; ATTEND Family Medicine
DX: G89.3 Neoplasm related pain (acute) (chronic) (principal); G93.41 Metabolic encephalopathy; K85.90 Acute pancreatitis without necrosis or infection, unspecified; C79.71 Secondary malignant neoplasm of right adrenal gland; C79.31 Secondary malignant neoplasm of brain; C78.00 Secondary malignant neoplasm of unspecified lung; C78.7 Secondary malignant neoplasm of liver and intrahepatic bile duct; C53.9 Malignant neoplasm of cervix uteri, unspecified; R39.15 Urgency of urination; D64.81 Anemia due to antineoplastic chemotherapy; T45.1X5A Adverse effect of antineoplastic and immunosuppressive drugs, initial encounter; E27.9 Disorder of adrenal gland, unspecified; F41.9 Anxiety disorder, unspecified; E86.0 Dehydration; K59.00 Constipation, unspecified; Z51.5 Encounter for palliative care; Z79.899 Other long term (current) drug therapy; Z79.890 Hormone replacement therapy; Z87.891 Personal history of nicotine dependence; Z86.008 Personal history of in-situ neoplasm of other site; E03.9 Hypothyroidism, unspecified; Z92.3 Personal history of irradiation; Z92.21 Personal history of antineoplastic chemotherapy; Z79.891 Long term (current) use of opiate analgesic
CPT/HCPCS: 36415; 71260; 74018; 74177; 76700; 80053; 81001; 82150; 82550; 83690; 83735; 85025; 93970; 96361; 96374; 96375; 99285